=== PATIENT | female | born 1970 | race Caucasian/White ===

== ENCOUNTER → 2017-01-02 | Outpatient (CLI) | payer OTHER ==
[~2017-01-02] MED LIST: ADVIN10050 INH; ALBUAER19 INH; AMPH10TA2 PO; CLR10 PO; EPIPEN0.3 M1 IM; EPP3 IM; HALO0.5T9 PO; KETO10TA IM; LEVO200T32 PO; PROM25TA IM; SUMA6KIT; TOPI100T34 PO; TOPI50TA16 PO; ZNTT/150 PO
[2017-01-02 13:36] LABS: BASO % 0.4 %; BASO ABS # 0.04 K/uL (0-0.2); COMPLETE YES; EOS % 1.1 %; HEMATOCRIT 43.9 % (37-47); IG% 0.3 %; LYMPH % 22.7 %; LYMPH ABS # 2.11 K/uL (1.2-3.4); MEAN CELL VOLUME 88.5 fL (80-100); MEAN CORPUSCULAR HEMOGLOBIN 29.6 pg (25-34); MEAN CORPUSCULAR HGB CONC 33.5 g/dl (32-36); MEAN PLATELET VOLUME 9.8 fL (7.4-10.4); MONO % 10.2 %; NEUT % 65.3 %; PLATELET COUNT 319 K/uL (130-400); RED BLOOD COUNT 4.96 M/uL (4.2-5.4); WHITE BLOOD COUNT 9.28 K/uL (4.8-10.8)
[2017-01-02 14:12] LABS: ALT/SGPT 26 U/L (12-78); AST/SGOT 16 U/L (15-37); BLOOD UREA NITROGEN 12 mg/dl (7-18); BUN/CREATININE RATIO 16.3 (10-20); CALCIUM 8.8 mg/dl (8.5-10.1); CARBON DIOXIDE 25 mmol/L (21-32); CHLORIDE 105 mmol/L (98-107); CREATININE 0.72 mg/dl (0.60-1.20); GLUCOSE 88 mg/dl (70-99); POTASSIUM 4.1 mmol/L (3.5-5.1); SODIUM 140 mmol/L (136-145)
[2017-01-02 14:20] LABS: ALB/GLOB RATIO 1.2 (0.9-2); ALKALINE PHOSPHATASE 83 U/L (45-117); FERRITIN 178.1 ng/ml (8.0-388.0); RHEUMATOID FACTOR < 10.0 U/mL (0-15); THYROID STIMULATING HORMONE < 0.005 uIu/ml (0.300-4.500)
== END | disposition home or self-care (01) ==
LOC: C.LABBC 10:37
DX: R53.83 Other fatigue (principal); M19.90 Unspecified osteoarthritis, unspecified site; E61.1 Iron deficiency

== ENCOUNTER → 2017-03-30 | Outpatient (CLI) | payer OTHER ==
[~2017-03-30] MED LIST changes: -ADVIN10050 INH; -TOPI100T34 PO; -TOPI50TA16 PO
== END | disposition home or self-care (01) ==
LOC: C.LABBC 13:33
DX: E55.9 Vitamin D deficiency, unspecified (principal); E61.1 Iron deficiency

== ENCOUNTER → 2018-03-03 | Outpatient (CLI) | payer OTHER ==
[~2018-03-03] MED LIST changes: +HYDR200T5 PO; +RANI150T85 PO; -ZNTT/150 PO
[2018-03-03 13:12] LABS: BASO % 0.7 %; BASO ABS # 0.04 K/uL (0-0.2); EOS % 2.3 %; EOS ABS # 0.13 K/uL (0-0.5); HEMATOCRIT 47.9 % (37-47); HEMOGLOBIN 16.1 g/dL (12.0-16.0); IG# 0.01 K/uL (0.00-0.02); LYMPH % 37.9 %; LYMPH ABS # 2.12 K/uL (1.2-3.4); MEAN CELL VOLUME 89.9 fL (80-100); MEAN CORPUSCULAR HEMOGLOBIN 30.2 pg (25-34); MEAN CORPUSCULAR HGB CONC 33.6 g/dl (32-36); MEAN PLATELET VOLUME 9.7 fL (7.4-10.4); MONO % 12.5 %; NEUT % 46.4 %; NEUT ABS # 2.59 K/uL (1.4-6.5); PLATELET COUNT 283 K/uL (130-400); WHITE BLOOD COUNT 5.59 K/uL (4.8-10.8)
[2018-03-03 15:24] LABS: ALT/SGPT 34 U/L (12-78); AST/SGOT 28 U/L (15-37); BLOOD UREA NITROGEN 10 mg/dl (7-18); CALCIUM 9.3 mg/dl (8.5-10.1); CARBON DIOXIDE 24 mmol/L (21-32); CREATININE 0.69 mg/dl (0.60-1.20); GLUCOSE 104 mg/dl (70-99); POTASSIUM 3.7 mmol/L (3.5-5.1); SODIUM 139 mmol/L (136-145)
[2018-03-03 15:41] LABS: CHOLESTEROL 159 mg/dl (0-200); LDL CHOLESTEROL CALCULATED 73 mg/dl; TRANSFERRIN 270 mg/dl (200-360)
== END | disposition home or self-care (01) ==
LOC: C.LABBC 10:17
DX: E61.1 Iron deficiency (principal); M19.90 Unspecified osteoarthritis, unspecified site; E03.9 Hypothyroidism, unspecified; E78.5 Hyperlipidemia, unspecified

== ENCOUNTER → 2018-03-10 | Outpatient (CLI) | payer OTHER ==
[2018-03-10 16:51] LABS: BASO % 1.4 %; BASO ABS # 0.09 K/uL (0-0.2); EOS % 3.3 %; EOS ABS # 0.22 K/uL (0-0.5); HEMOGLOBIN 15.7 g/dL (12.0-16.0); IG# 0.01 K/uL (0.00-0.02); LYMPH % 37.8 %; LYMPH ABS # 2.52 K/uL (1.2-3.4); MEAN CORPUSCULAR HEMOGLOBIN 30.4 pg (25-34); MEAN CORPUSCULAR HGB CONC 34.1 g/dl (32-36); MEAN PLATELET VOLUME 9.8 fL (7.4-10.4); MONO % 8.9 %; MONO ABS # 0.59 K/uL (0.11-0.59); NEUT % 48.4 %; NEUT ABS # 3.23 K/uL (1.4-6.5); PLATELET COUNT 304 K/uL (130-400); RED CELL DISTRIBUTION WIDTH CV 12.8 % (11.5-14.5); WHITE BLOOD COUNT 6.66 K/uL (4.8-10.8)
[2018-03-10 17:01] LABS: BLOOD UREA NITROGEN 8 mg/dl (7-18); CALCIUM 9.2 mg/dl (8.5-10.1); CARBON DIOXIDE 27 mmol/L (21-32); CREATININE 0.72 mg/dl (0.60-1.20); GLUCOSE 109 mg/dl (70-99); POTASSIUM 3.9 mmol/L (3.5-5.1); SODIUM 138 mmol/L (136-145)
[2018-03-12 14:26] LABS: ANA SCREEN TC 249X NEGATIVE (NEGATIVE)
== END | disposition home or self-care (01) ==
LOC: C.LABBC 15:24
DX: M19.90 Unspecified osteoarthritis, unspecified site (principal)

== ENCOUNTER 2025-07-07 12:28 | Inpatient (IN) ==
[2025-07-07 14:10] LABS: Hematocrit (blood only) 45.2 % (37.0-47.0); Hemoglobin 14.3 g/dl (12.0-16.0); Immature Granulocytes # (auto) 0.06 K/uL (0.01-0.20); Immature Granulocytes % (auto) 0.5 %; Mean Corpuscular Hemoglobin 28.5 pg (25.0-34.0); Mean Corpuscular Volume 90.0 fL (80.0-100.0); Platelet Count 333 K/uL (130-400); RDW Standard Deviation 44.5 fL (36.4-46.3); Red Blood Count 5.02 M/uL (4.20-5.40); White Blood Count 12.72 K/ul (4.8-10.8)
[2025-07-07 14:28] LABS: Alanine Aminotransferase 22.0 U/L (7-52); Albumin Globulin Ratio 1.1 (0.9-2); Alkaline Phosphatase 136.0 U/L (34-104); Anion Gap 10.0 (3-11); Bilirubin,Total 0.6 mg/dl (0.2-1.0); Blood Urea Nitrogen 16.0 mg/dl (6-23); Calcium 9.9 mg/dl (8.6-10.3); Carbon Dioxide 28.0 mmol/L (21-32); Chloride 102.0 mmol/L (98-107); Creatinine Clr Calc Pharmacy 148.6 ml/min; Globulin 3.7 gm/dl (2.5-4.0); Glucose 94.0 mg/dl (70-99(Fasting)); Potassium 4.1 mmol/L (3.5-5.1); Sodium 140.0 mmol/L (136-145); Total Protein 7.6 gm/dl (6.0-8.3)
--- NOTE | 2025-07-07 16:06 | XRay Report ---
XR hip RT 2V w pelvis CLINICAL HISTORY: Fall. Right hip pain. COMPARISON: Pelvis and right hip radiographs March 06, 2025. MRI of the right hip June 02, 2025. FINDINGS: Sacroiliac joints and symphysis pubis are intact. There are no pelvic or left hip fracture s. There is no proximal right femoral fracture. Severe axial joint space narrowing of the right hip i s noted with associated osteophytosis. A lucency within the superior lateral right acetabulum is new since radiographs of March 06, 2025. IMPRESSION: 1. Lucency within the superolateral right acetabulum which is new since radiographs of March 06, 2025 . This could be degenerative and related to an osteophyte however an acute nondisplaced fracture ken ot be excluded. No proximal right femoral fracture. 2. Severe right hip osteoarthritis. ACT 112: Negative or not required by law. Electronically signed by: Tommy Cancino M.D. 07/07/2025 4:05 PM
--- NOTE | 2025-07-07 16:29 | Emergency Department Note ---
Impression & Plan Cellulitis of left leg, Hip osteoarthritis, Ambulatory dysfunction, Accident due to mechanical fall without injury ED Provider Note NAME: MARSHAL CORDERO AGE: 55 SEX: F : 1970 ARRIVES VIA: Ambulance INFORMANT: Patient, EMS, family ED PROVIDER(S): Bc Matos DO CHIEF COMPLAINT: ambulatory dysfunction HPI: This is a 55-year-old female with the PMHx of RA, GISELA, obesity, asthma, migraines, HTN and osteoarthritis presenting to [facility] for further evaluation of right hip pain. Patient is accompanied by EMS and family who provide additional history. EMS was called today for ambulatory dysfunction after falls and worsening hip pain. Patient remained hemodynamically stable for EMS. Family and the patient provide further history. She has been dealing with worsening right hip pain. She has known osteoarthritis. She states that she follows with orthopedic surgery and is supposed to have a hip replacement but this is not scheduled yet. Patient states that she fell due to pain and ambulatory dysfunction. She notes weakness in her lower extremities. Patient states that this was a low risk mechanical fall. She states she landed on her butt. Patient denies striking her head or loss of consciousness. She denies any prodromal symptoms and states this was purely mechanical. Patient reports ongoing hip pain and now swelling in her lower extremities. She does report redness and warmth to the left lower extremity. She states that she normally has some swelling but this is relatively atypical for her. They deny fever or chills. No cough or congestion. Denies chest pain or palpitations. No shortness of breath. They deny abdominal pain, nausea and vomiting. No urinary complaints. No recent changes in bowel movements. Patient denies recent changes in medications or OTC supplements. Patient offers no other complaints, today. ADDITIONAL HISTORY OBTAINED: Per HPI Chronic Medical/Social Conditions Affecting Care: Per HPI PAST MEDICAL HISTORY: See Below PAST SURGICAL HISTORY: See Below FAMILY HISTORY: See Below SOCIAL HISTORY: See Below HOME MEDICATIONS: See Below ALLERGIES: See Below VITALS: See Below PHYSICAL EXAMINATION: GENERAL: Sitting up in bed, alert, well appearing, well nourished, no distress, non-toxic, obese EYE EXAM: normal conjunctiva. PERRL and EOM's grossly intact. OROPHARYNX: no exudate, no erythema, lips, buccal mucosa, and tongue normal and mucous membranes are moist NECK: supple, no nuchal rigidity, no adenopathy, non-tender LUNGS: Clear to auscultation. Normal chest wall mechanics HEART: no murmurs, regular rate, regular rhythm ABDOMEN: abdomen soft, non-tender, no masses, no rebound or guarding. BACK: Back is symmetrical on inspection and there is no deformity, no midline tenderness, no CVA tenderness. SKIN: no rashes and no bruising UPPER EXTREMITIES: upper extremities are grossly normal. LOWER EXTREMITIES: there is edema present in the bilateral lower extremities. Tenderness over the right hip. Neurovascularly intact lower extremities. Please note erythema and warmth of the left lower extremity. Range of motion of the lower extremities is poor secondary to pain and weakness. Strength is 4 out of 5 globally. NEURO EXAM: Normal sensorium, GCS 15, normal speech, no gross weakness of arms, no gross weakness of legs. MEDICAL DECISION MAKING: Differential diagnoses includes but not limited to pelvic fracture, hip fracture, hip osteoarthritis, septic arthritis, necrotizing fasciitis, cellulitis, ambulatory dysfunction, lower extremity weakness, mechanical falls In summary, this is a 55 year old female who presented with hip pain after fall. Differential as above. Nursing notes and pertinent past medical records reviewed. Vital signs reviewed and the patient is afebrile and HDS. History and presentation revealed patient has had ongoing issues with right hip pain with diagnosis of likely rheumatoid arthritis as well as osteoarthritis. Patient recently had a hip MRI which I have reviewed. This shows significant osteoarthritis of the right hip and acetabulum. Patient does have edema here as well as a small joint effusion. Given her pain she has now had lower extremity weakness and ambulatory dysfunction. The patient does not have findings of acute spinal cord compression. Do feel this is more likely related to her osteoarthritis and pain leading to weakness and a fall at home today. Physical examination revealed extremities are neurovascularly intact but findings of the left lower extremity are consistent with cellulitis. As a result of my initial evaluation, the patient symptoms are likely related to severe hip osteoarthritis leading to a fall today. I see no significant evidence of traumatic injuries. The extremity on the left does appear to be cellulitic. There are no findings to suggest systemic infection and feel this is more likely related to a simple soft tissue infection. Doubt necrotizing fasciitis. Patient does have normal range of motion that is only slightly limited. No severe pain. Doubt septic arthritis. Plan for inflammatory markers, basic labs and plain films. Patient will be given IV fentanyl for pain control. Diagnostics interpreted by me include EKG and cardiac monitoring as listed below: -Cardiac Monitoring: An order was placed for continuous cardiac monitoring. The monitor shows a rate of 70-90s with regular rhythm. -ECG: EKG independently interpreted by me reveals normal sinus rhythm at a ventricular rate of [address] segment changes to suggest STEMI. There is poor R wave progression leading to machine calling possible anterior infarct. Patient has no symptoms of angina at this time Patient completed laboratory studies and imaging. Results independently interpreted by me are minimal leukocytosis. There are elevation of CRP and ESR. Procalcitonin is normal. No significant kidney dysfunction or electrolyte derangements. Plain films of the pelvis and right hip independently interpreted by me reveal likely osteophyte instead of acetabular fracture. This does appear to be present on prior MRI as reviewed by me. I did discuss with orthopedic surgery and we agreed that we could obtain CT imaging to ensure there is no acetabular involvement. Briefly, this was not found on CT scan as independently interpreted by me. Do feel patient will benefit from admission given significant ambulatory dysfunction complicated by left lower extremity cellulitis. The patient was managed with IV Fentanyl for pain control. IV Cefazolin provided for cellulitis coverage. The patient verbalized understanding of the treatment plan and they are comfortable with discharge home. Ultimately, the decision was made to admit the patient for left lower extremity cellulitis now with extremity weakness and ambulatory dysfunction leading to a mechanical fall as well as severe right hip osteoarthritis. I discussed the case with the hospitalist service via telephone/TigerText and they are agreeable to admit the patient to their services. Based on the above, including the patient's age, coexisting illnesses, labs, imaging, and exam findings the decision to treat as an inpatient. I discussed the patient with the hospitalist team who recommended admission to their services. They received the medications, treatments, interventions indicated above and their condition remained stable. I discussed my findings with the patient and their family and they understand and agree with the treatment plan. All patient / family questions were answered to their satisfaction. Consults/Care Managements Discussions: Per [facility] ER treatment provided: See above Procedures:none Critical Care: None The chart was completed utilizing [employer] voice recognition software. Grammatical errors, random word insertions, pronoun errors, and incomplete sentences are an occasional consequence of this system due to software limitations, ambient noise, and hardware issues. Any formal questions or concerns about the content, text, or information contained within the body of this dictation should be directly addressed to the physician for clarification. Past Med/Surg History Problem List (Updated 07/09/25 @ 10:30 by Bc Matos DO) Accident due to mechanical fall without injury (Acute) Ambulatory dysfunction (Acute) Hip osteoarthritis (Acute) Cellulitis of left leg (Acute) Osteoarthritis of right hip Cellulitis Atypical ductal hyperplasia of left breast Rheumatoid arthritis Inflammatory arthritis Migraine with aura Hypertension Obesity due to excess calories Vitamin D deficiency B12 deficiency Chronic idiopathic urticaria Attention deficit disorder Myalgia Arthralgia Hypothyroidism GISELA (obstructive sleep apnea) Chronic migraine Chronic cough Allergic rhinitis Hypersomnia Asthma Pulmonary nodule Medical History Migraines Surgical History History of appendectomy Family History Mother Multiple sclerosis Father Bladder cancer Muscle wasting and atrophy, not elsewhere classified, back, lumbosacral Brother Hypertension Denies family history of Ovarian cancer Prostate cancer Diabetes Myocardial infarction Breast cancer Colorectal cancer Social History Smoking Status: Never smoker Second Hand Exposure: No; Hx Alcohol Use: No Hx Substance Use: No Preferred Language: Namibian Communication Ability: Effective Visual Impairment: Limited Hearing Ability: Normal Cable Installer Repairer Required: No Beliefs That Will Affect Care: None marital status: Single Current Living Situation: Parent current occupational status: employed current occupation: self employed How many Children do You have: 0 Other Information That Helps Us Care for You: No Feels Safe at Home: Yes Safety Concerns: Feels Safe At This Time Childhood Exposure to Second-Hand Smoke: No Diet: regular Diet Comment: cannot have corn caffeine: Yes during the past year weight has: increased > 10 lbs Dental Care, Regularly: Yes Physical Activity Frequency: Does not Exercise Seatbelt Use: always Sunscreen Use: Yes Assistive Devices: Glasses and Other Assistive Devices Comment: rolator Allergies Allergies Allergy/AdvReac Type Severity Reaction Status Date / Time corn Allergy Severe ANAPHYLAXIS Unverified 07/07/25 23:43 -- all corn related products adhesive tape Allergy Mild Itching Verified 07/07/25 23:43 isopropyl alcohol Allergy Mild "alcohol Verified 07/07/25 23:43 prep pads" -- Itching grass pollen Allergy Unknown seasonal Verified 07/07/25 23:44 allergies house dust mite Allergy Unknown seasonal Verified 07/07/25 23:45 allergies Iodinated Contrast Media Allergy Unknown Hives Verified 07/07/25 23:43 pollen extracts Allergy Unknown seasonal Verified 07/07/25 23:44 allergies Sulfa (Sulfonamide AdvReac Intermediate Hives, Verified 07/07/25 23:41 Antibiotics) Joint Pain Home Meds Home Medications Medication Instructions Recorded Confirmed levocetirizine 5 mg tablet (Xyzal) 5 mg PO DAILY PRN allergies 08/04/23 07/07/25 prednisone 10 mg tablet 5 mg .Route .COMPLEX 06/27/25 07/07/25 celecoxib 200 mg capsule 200 mg PO BID 07/07/25 07/07/25 cyanocobalamin (vitamin B-12) 0 mcg IM MONTHLY 07/07/25 07/07/25 1,000 mcg/mL injection solution ergocalciferol (vitamin D2) 1,250 50,000 unit PO .3X WK 07/07/25 07/07/25 mcg (50,000 unit) capsule (Vitamin D2) gabapentin 300 mg capsule 300 mg PO TID 07/07/25 07/07/25 levothyroxine 25 mcg capsule 25 mcg PO UD 07/07/25 07/07/25 prednisone 5 mg tablet 0 mg PO DAILY 07/07/25 07/07/25 rizatriptan 10 mg tablet 0 mg PO UD PRN Headache 07/07/25 07/07/25 tirzepatide (weight loss) 10 0 mg subcut Q7D 07/07/25 07/07/25 mg/0.5 mL subcutaneous solution Previous Rx's Medication Instructions Recorded Auto Titrating CPAP #1 ea 07/10/21 CPAP Supplies #1 ea 07/10/21 azelastine 137 mcg (0.1 %) nasal 2 spray intranasal BID PRN allergy 09/03/22 spray symptoms #30 mL acetaminophen 500 mg capsule 500 mg PO Q4H PRN fever #1 cap 09/11/22 diphenhydramine HCl 25 mg capsule 25 mg PO Q6H PRN allergy symptoms 09/11/22 (Allergy (diphenhydramine)) #1 cap digital therapeutic,CHARLIE device #1 ea 10/15/23 magnesium glycinate 400 mg (4 x 100 mg magnesium) PO 10/15/23 DAILY #30 caps riboflavin (vitamin B2) 400 mg 400 mg PO DAILY #30 tabs 10/15/23 tablet CPAP Supplies #1 ea 11/23/23 insulin syringe-needle U-100 1 mL #100 ea 05/04/24 27 gauge x 1/2" (BD Insulin Syringe) albuterol sulfate 2.5 mg/0.5 mL 2.5 mg (0.5 mL) inhalation Q4H PRN 10/21/24 solution for nebulization shortness of breath or wheezing #30 ea Breo Ellipta 100 mcg-25 mcg/dose 1 inh inhalation DAILY #3 Inhalers 01/16/25 powder for inhalation (fluticasone furoate-vilanterol) albuterol sulfate 90 mcg/actuation 2 inh inhalation QID PRN shortness 01/16/25 breath activated powder inhaler of breath or wheezing #3 ea (ProAir RespiClick) epinephrine 0.3 mg/0.3 mL 0.3 mg (0.3 mL) IM Q10M PRN 03/08/25 injection, auto-injector (EpiPen) anaphylaxis #2 ea Orencia ClickJect 125 mg/mL 125 mg subcut Q7D #4 mL 03/09/25 subcutaneous auto-injector (abatacept) omalizumab 300 mg/2 mL 300 mg (2 mL) subcut .COMPLEX #4 mL 03/14/25 subcutaneous syringe rimegepant 75 mg disintegrating 75 mg PO DAILY PRN migraine 03/27/25 tablet (Nurtec ODT) headache 90 days #27 tabs fremanezumab-vfrm 225 mg/1.5 mL 225 mg (1.5 mL) subcut ONCE 30 03/30/25 subcutaneous auto-injector (Ajovy) days #45 mL duloxetine 60 mg capsule,delayed 120 mg (2 x 60 mg) PO DAILY 90 05/11/25 release (Cymbalta) days #180 caps losartan 25 mg tablet 25 mg PO BID 90 days #180 tabs 05/11/25 3mL Syringe 1.5in 25g needle #10 ea 06/02/25 dextroamphetamine-amphetamine 15 15 mg PO TID PRN add #60 tabs 06/26/25 mg tablet suzetrigine 50 mg tablet (Journavx) 50 mg PO BID #61 tabs 06/26/25 tramadol 5 mg/mL oral solution 100 mg (20 mL) PO TID PRN pain 06/26/25 #473 mL Results & Data (ED) Vital Signs Vital Signs - 24 hr 07/07/25 12:39 07/07/25 12:40 07/07/25 12:51 Temperature 37.5 C Temperature Source Oral Pulse Rate 91 H 94 H Pulse Rate [Apical] Pulse Rate from SpO2 Sensor 89 Pulse Rhythm [Apical] Pulse Strength [Apical] Respiratory Rate 25 H 15 Respiratory Effort / Characteristics Non-Labored Spontaneous Respiratory Depth Normal Respiratory Pattern Regular Blood Pressure 134/77 134/77 Blood Pressure [Left Arm] Blood Pressure Mean 116 96 Blood Pressure Mean [Left Arm] Blood Pressure Position Lying Blood Pressure Position [Left Arm] Pulse Oximetry 94 92 Oxygen Delivery Method Room Air Sepsis Recent Fever Within 48 Hours No Sepsis New/Unexplained Change in Mental Status N/A Sepsis Action Taken by Nursing No Action Required 07/07/25 13:06 07/07/25 13:24 07/07/25 13:36 Temperature Temperature Source Pulse Rate 94 H 90 87 Pulse Rate [Apical] Pulse Rate from SpO2 Sensor 81 Pulse Rhythm [Apical] Pulse Strength [Apical] Respiratory Rate 24 24 Respiratory Effort / Characteristics Respiratory Depth Respiratory Pattern Blood Pressure Blood Pressure [Left Arm] Blood Pressure Mean Blood Pressure Mean [Left Arm] Blood Pressure Position Blood Pressure Position [Left Arm] Pulse Oximetry 96 Oxygen Delivery Method Sepsis Recent Fever Within 48 Hours Sepsis New/Unexplained Change in Mental Status Sepsis Action Taken by Nursing 07/07/25 13:41 07/07/25 14:00 07/07/25 14:00 Temperature Temperature Source Pulse Rate 79 Pulse Rate [Apical] Pulse Rate from SpO2 Sensor 78 Pulse Rhythm [Apical] Pulse Strength [Apical] Respiratory Rate 20 Respiratory Effort / Characteristics Respiratory Depth Respiratory Pattern Blood Pressure 181/103 H 172/97 H Blood Pressure [Left Arm] Blood Pressure Mean 125 126 Blood Pressure Mean [Left Arm] Blood Pressure Position Blood Pressure Position [Left Arm] Pulse Oximetry 95 Oxygen Delivery Method Sepsis Recent Fever Within 48 Hours Sepsis New/Unexplained Change in Mental Status Sepsis Action Taken by Nursing 07/07/25 14:24 07/07/25 14:30 07/07/25 14:33 Temperature Temperature Source Pulse Rate 87 87 Pulse Rate [Apical] Pulse Rate from SpO2 Sensor 84 88 Pulse Rhythm [Apical] Pulse Strength [Apical] Respiratory Rate 22 19 Respiratory Effort / Characteristics Respiratory Depth Respiratory Pattern Blood Pressure 176/102 H Blood Pressure [Left Arm] Blood Pressure Mean 118 Blood Pressure Mean [Left Arm] Blood Pressure Position Blood Pressure Position [Left Arm] Pulse Oximetry 95 96 Oxygen Delivery Method Sepsis Recent Fever Within 48 Hours Sepsis New/Unexplained Change in Mental Status Sepsis Action Taken by Nursing 07/07/25 17:03 Temperature Temperature Source Pulse Rate Pulse Rate [Apical] 99 H Pulse Rate from SpO2 Sensor Pulse Rhythm [Apical] Regular Pulse Strength [Apical] Normal Respiratory Rate 28 H Respiratory Effort / Characteristics Non-Labored Spontaneous Respiratory Depth Normal Respiratory Pattern Regular Blood Pressure Blood Pressure [Left Arm] 136/76 Blood Pressure Mean Blood Pressure Mean [Left Arm] 96 Blood Pressure Position Blood Pressure Position [Left Arm] Lying Pulse Oximetry 93 Oxygen Delivery Method Room Air Sepsis Recent Fever Within 48 Hours Sepsis New/Unexplained Change in Mental Status Sepsis Action Taken by Nursing Laboratory Data 07/08/25 07:19 07/08/25 07:19 Lab Results 07/07/25 Range/Units 12:47 WBC 12.72 H (4.8-10.8) K/ul RBC 5.02 (4.20-5.40) M/uL Hgb 14.3 (12.0-16.0) g/dl Hct 45.2 (37.0-47.0) % MCV 90.0 (80.0-100.0) fL MCH 28.5 (25.0-34.0) pg MCHC 31.6 L (32.0-36.0) g/dL RDW Std Deviation 44.5 (36.4-46.3) fL RDW Coeff of [place] 13.7 (11.5-14.5) % Plt Count 333 (130-400) K/uL MPV 9.8 (9.4-12.4) fL Immature Gran % (Auto) 0.5 % Neut % (Auto) 79.1 % Lymph % (Auto) 12.2 % [place] % (Auto) 6.6 % Eos % (Auto) 1.0 % Baso % (Auto) 0.6 % Neut # (Auto) 10.06 H (1.40-6.50) K/uL Lymph # (Auto) 1.55 (1.20-3.40) K/uL [place] # (Auto) 0.84 H (0.11-0.59) K/uL Eos # (Auto) 0.13 (0.00-0.50) K/uL Baso # (Auto) 0.08 (0.00-0.20) K/uL Immature Gran # (Auto) 0.06 (0.01-0.20) K/uL ESR 73 H (0-30) mm/hr Sodium 140 (136-145) mmol/L Potassium 4.1 (3.5-5.1) mmol/L Chloride 102 (98-107) mmol/L Carbon Dioxide 28 (21-32) mmol/L Anion Gap 10 (3-11) BUN 16 (6-23) mg/dl Creatinine 0.65 (0.6-1.2) mg/dl Est Cr Clr Drug Dosing 148.6 ml/min eGFR 102.63 BUN/Creatinine Ratio 24.6 H (10-20) Glucose 94 (70-99(Fasting)) mg/dl Calcium 9.9 (8.6-10.3) mg/dl Total Bilirubin 0.6 (0.2-1.0) mg/dl AST 24 (13-39) U/L ALT 22 (7-52) U/L Alkaline Phosphatase 136 H (34-104) U/L C-Reactive Protein 7.97 H (0-0.5) mg/dl B-Natriuretic Peptide 21 (0-100) pg/ml Total Protein 7.6 (6.0-8.3) gm/dl Albumin 3.9 (3.4-5.0) gm/dl Globulin 3.7 (2.5-4.0) gm/dl Albumin/Globulin Ratio 1.1 (0.9-2) Procalcitonin 0.05 (0-0.5) ng/ml Administered Medications Celecoxib (Celebrex 200 Mg Cap) 200 mg PO BID SOL Stop: 08/06/25 22:16 Last Admin: 07/09/25 08:07 Dose: 200 mg Documented By: Admin: 07/08/25 19:48 Dose: 200 mg Documented By: Admin: 07/08/25 09:29 Dose: 200 mg Documented By: Admin: 07/08/25 01:18 Dose: 200 mg Documented By: ROSS Duloxetine HCl (Duloxetine Hcl 60 Mg Cap) 120 mg PO DAILY SOL Stop: 08/07/25 08:59 Last Admin: 07/09/25 08:07 Dose: 120 mg Documented By: Admin: 07/08/25 09:28 Dose: 120 mg Documented By: ARTUR Fluticasone/Vilanterol (Fluticasone/Vilanterol 100/25mcg 14 Puffs/Inhaler) 1 puffs INH DAILY SOL Stop: 08/07/25 08:59 Last Admin: 07/09/25 08:08 Dose: 1 puffs Documented By: Admin: 07/08/25 09:28 Dose: 1 puffs Documented By: ARTUR Gabapentin (Gabapentin 300 Mg Cap) 300 mg PO TID SOL Stop: 08/06/25 22:16 Last Admin: 07/09/25 08:07 Dose: 300 mg Documented By: Admin: 07/08/25 19:48 Dose: 300 mg Documented By: Admin: 07/08/25 13:26 Dose: 300 mg Documented By: Admin: 07/08/25 09:28 Dose: 300 mg Documented By: Admin: 07/08/25 01:17 Dose: 300 mg Documented By: ROSS Heparin Sodium (Porcine) (Heparin Sod 5,000 Unit/0.5 Ml Vial) 5,000 units SQ Q12 SOL Stop: 08/06/25 22:16 Last Admin: 07/09/25 08:07 Dose: 5,000 units Documented By: Admin: 07/08/25 19:49 Dose: 5,000 units Documented By: Admin: 07/08/25 09:29 Dose: 5,000 units Documented By: Admin: 07/08/25 00:20 Dose: 5,000 units Documented By: MARY ELLEN Cefazolin Sodium (Ancef 2000mg) 2,000 mg in 15 mls @ 2.5 mls/min IV Q8H SOL Stop: 07/15/25 00:00 Last Admin: 07/09/25 08:07 Dose: 2.5 mls/min Documented By: Admin: 07/08/25 19:49 Dose: 2.5 mls/min Documented By: Admin: 07/08/25 16:44 Dose: 2.5 mls/min Documented By: Admin: 07/08/25 09:28 Dose: 2.5 mls/min Documented By: Admin: 07/08/25 00:28 Dose: 2.5 mls/min Documented By: MARY ELLEN Losartan Potassium (Losartan Potassium 25 Mg Tab) 25 mg PO BID [facility] Stop: 08/06/25 22:16 Last Admin: 07/09/25 08:07 Dose: 25 mg Documented By: Admin: 07/08/25 19:48 Dose: 25 mg Documented By: Admin: 07/08/25 11:42 Dose: 25 mg Documented By: Admin: 07/08/25 01:18 Dose: 25 mg Documented By: ROSS Miscellaneous (Levothyroxine (Compounded Formulation): Order Awaiting Action) 1 each N/A QS [facility] Stop: 08/07/25 07:59 Last Admin: 07/09/25 07:11 Dose: Not Given Documented By: Admin: 07/08/25 22:18 Dose: Not Given Documented By: Admin: 07/08/25 15:21 Dose: Not Given Documented By: Admin: 07/08/25 07:56 Dose: Not Given Documented By: ARTUR Morphine Sulfate (Morphine Sulfate 2 Mg/Ml Carp) 2 mg IV Q4H PRN PRN Reason: Moderate Pain (Scale 4, 5, 6) Stop: 07/21/25 18:25 Last Admin: 07/09/25 04:05 Dose: 2 mg Documented By: Admin: 07/08/25 22:20 Dose: 2 mg Documented By: Admin: 07/08/25 17:56 Dose: 2 mg Documented By: Admin: 07/08/25 09:28 Dose: 2 mg Documented By: Admin: 07/08/25 00:44 Dose: 2 mg Documented By: MARY ELLEN Admin: 07/07/25 20:46 Dose: 2 mg Documented By: DONNA Morphine Sulfate (Morphine Sulfate 4 Mg/Ml 1 Ml Carp\\Vial) 4 mg IV Q6H PRN PRN Reason: Severe Pain (Scale 7, 8, 9,10) Stop: 07/21/25 18:25 Last Admin: 07/08/25 13:26 Dose: 4 mg Documented By: ARTUR Journavyx: Non- Formulary Patient's Own Med 1 each PO Q12H PRN PRN Reason: Moderate-Severe Pain Stop: 08/07/25 18:44 Last Admin: 07/09/25 08:18 Dose: 1 ea Documented By: ARTUR Patient's Own Med: (Acetaminophen 500mg) 1 each PO Q4H PRN PRN Reason: Mild Pain/Fever Stop: 08/07/25 19:29 Last Admin: 07/09/25 07:55 Dose: 1 ea Documented By: ARTUR Patient's Own Med: Prednisolone 2.5mg Capsules 2 each PO DAILY SOL Stop: 08/08/25 08:59 Last Admin: 07/09/25 08:07 Dose: 2 each Documented By: ARTUR Discontinued Medications Fentanyl Citrate (Fentanyl Citrate Pf 100 Mcg/2 Ml Vial) 50 mcg IV NOW ONE Stop: 07/07/25 14:55 Last Admin: 07/07/25 15:01 Dose: 50 mcg Documented By: JAY Cefazolin Sodium (Ancef 2000mg) 2,000 mg in 15 mls @ 3.75 mls/min IV NOW STA Stop: 07/07/25 15:37 Last Admin: 07/07/25 15:55 Dose: 3.75 mls/min Documented By: JAY Miscellaneous (Tramadol 5 Mg/Ml Soln: Order Awaiting Action) 1 each N/A QS SOL Stop: 08/07/25 07:59 Last Admin: 07/08/25 15:21 Dose: Not Given Documented By: Admin: 07/08/25 07:56 Dose: Not Given Documented By: ARTUR Prednisone (Prednisone 5 Mg Tab) 5 mg PO DAILY SOL Stop: 08/07/25 08:59 Last Admin: 07/08/25 09:36 Dose: Not Given Documented By: ARTUR Imaging Data Radiologist's Impression: Hip/Pelvis X-Ray 07/07/25 14:54 XR hip RT 2V w pelvis CLINICAL HISTORY: Fall. Right hip pain. COMPARISON: Pelvis and right hip radiographs March 06, 2025. MRI of the right hip June 02, 2025. FINDINGS: Sacroiliac joints and symphysis pubis are intact. There are no pelvic or left hip fractures. There is no proximal right femoral fracture. Severe axial joint space narrowing of the right hip is noted with associated osteophytosis. A lucency within the superior lateral right acetabulum is new since radiographs of March 06, 2025. IMPRESSION: 1. Lucency within the superolateral right acetabulum which is new since radiographs of March 06, 2025. This could be degenerative and related to an osteophyte however an acute nondisplaced fracture cannot be excluded. No proximal right femoral fracture. 2. Severe right hip osteoarthritis. ACT 112: Negative or not required by law. Electronically signed by: Tommy Cancino M.D. 07/07/2025 4:[address] 07/07/25 16:25 Clinical history: Possible fracture Technique: Axial computed tomography images were obtained of the pelvis without intravenous contrast Findings: No definite fracture is identified. There is a small well corticated bone fragment lateral to the superior right acetabulum that may represent a osteophyte or chronic heterotopic ossification. There is a small sclerotic focus in the superior right acetabulum, likely a benign bone island. There is severe right hip osteoarthritis and there is moderate severity left hip osteoarthritis. The sacroiliac joints appear unremarkable. There is no sign of osteomyelitis. There is scoliosis and degenerative disc disease of the visualized lumbar spine. The visualized musculature appears unremarkable. No soft tissue mass or fluid collection is seen The iliac arteries are of normal caliber. No adenopathy is noted. The appendix appears to have been removed. There is mild sigmoid diverticulosis without evidence of diverticulitis. There is constipation. No free intraperitoneal fluid or air is seen. No definite pathology of the urinary bladder is noted Impression: 1. No definite acute fracture 2. Right worse than left hip osteoarthritis Electronically signed by Steve Painter 07-07-2025 5:12 PM Discharge Plan Visit Data Chief Complaint: Leg Weakness, Bilateral ED Provider: Bc Matos Discharge Problem: Cellulitis of left leg, Hip osteoarthritis, Ambulatory dysfunction, Accident due to mechanical fall without injury Patient Disposition: Admitted As Inpatient Condition: Fair Discharge Instructions Interventions: ED Discharge Assessment Last Done: 07/07/25 22:17
--- NOTE | 2025-07-07 17:13 | CT Scan Report ---
Clinical history: Possible fracture Technique: Axial computed tomography images were obtained of the pelvis without intravenous contrast Findings: No definite fracture is identified. There is a small well corticated bone fragment lateral to the superior right acetabulum that may represent a osteophyte or chronic heterotopic ossification. There is a small sclerotic focus in the superior right acetabulum, likely a benign bone island. There is severe right hip osteoarthritis and there is moderate severity left hip osteoarthritis. The sacroiliac joints appear unremarkable. There is no sign of osteomyelitis. There is scoliosis and degenerative disc disease of the visualized lumbar spine. The visualized musculature appears unremarkable. No soft tissue mass or fluid collection is seen The iliac arteries are of normal caliber. No adenopathy is noted. The appendix appears to have been removed. There is mild sigmoid diverticulosis without evidence of diverticulitis. There is constipation. No free intraperitoneal fluid or air is seen. No definite pathology of the urinary bladder is noted Impression: 1. No definite acute fracture 2. Right worse than left hip osteoarthritis Electronically signed by Steve Painter 07-07-2025 5:12 PM
--- NOTE | 2025-07-07 18:47 | Hospitalist Progress Note ---
Date of Service July 07, 2025 Assessment & Plan (1) Cellulitis: Plan #b/l LE cellulitis - admit to [facility] - increased WBC, elevated inflammatory markers - cefazolin IV - mild b/l edema, r/o DVT #Right hip pain - severe OA - reviewed pelvis CT and hip XR - pt has ortho appointment on 07/21, but pt has been having significant ambulatory decline and severe pain - will request ortho eval inpatient (pt would really like to have ortho evaluation as pt is becoming non ambulatory) - PT / OT eval - pain control with IV morphine (pt will bring in tylenol and tramadol from home- severe corn allergy) - cont gabapentin #Asthma - cont breo, prn albuterol - chronic prednisone, cont #Hypothyroidism - cont levothyroxine #HTN - cont losartan #Allergies - pt has severe allergy to corn, which pt reports can be in medications - pharmacist made aware #DVT ppx: hep subq Subjective 55 yo F with PMHx of asthma, corn allergy, obesity, severe osteoarthritis presents with worsening ambulatory dysfunction, multiple falls, and lower extremity redness. Pt states that she has been progressively worsening in her ambulatory status due to severe osteoarthritis. She used to walk with cane, but now is using a rollator. She has a follow up with Dr. Carmen on 07/21 but she is concerned about ongoing worsening of her legs. In the ED, she was found to have LE cellulitis, elevated WBC. Hospitalist consulted for admission. Review of Systems Review of Systems: Comprehensive ROS completed and is otherwise negative. Physical Exam Physical Exam: Gen: no acute distress, lying in bed comfortable HEENT: NC/AT, MMM Lungs: nonlabored breathing, CTAB CVS: s1s2nl, RRR Abd: nl bowel sounds, soft, NT / ND : no [place] Ext: erythema b/l Neuro: AAOx3 Psych: calm cooperative Results & Data Results & Data Vital Signs (Past 12 Hours) Vital Signs Temp Pulse Pulse Resp BP BP Pulse Ox 07/07/25 17:47 93 H 07/07/25 17:03 99 H 28 H 136/76 93 07/07/25 14:33 87 19 96 07/07/25 14:30 176/102 H 07/07/25 14:24 87 22 95 07/07/25 14:00 79 20 95 07/07/25 14:00 172/97 H 07/07/25 13:41 181/103 H 07/07/25 13:36 87 24 07/07/25 13:24 90 24 96 07/07/25 13:06 94 H 07/07/25 12:51 94 H 15 92 07/07/25 12:40 37.5 C 91 H 25 H 134/77 94 07/07/25 12:39 134/77 O2 Del Method 07/07/25 17:47 07/07/25 17:03 Room Air 07/07/25 14:33 07/07/25 14:30 07/07/25 14:24 07/07/25 14:00 07/07/25 14:00 07/07/25 13:41 07/07/25 13:36 07/07/25 13:24 07/07/25 13:06 07/07/25 12:51 07/07/25 12:40 Room Air 07/07/25 12:39 PG Care Time/CCT Total # of Minutes Spent Total Time Spent with Patient: Total time spent is greater than 50% in coordination of care (as documented) at patient's floor/unit and/or counseling patient: Coding Level of Care Code 58431 SUB INP/OBS CARE 3/50MIN Diagnoses Cellulitis L03.90
[2025-07-07] MEDS: MoRPHine SULFATE 2 MG/ML CARP IV PRN (20:46)
[2025-07-07] MEDS ORDERED: diphenhydrAMINE Capsule 25 MG CAP PO PRN (22:17)
--- NOTE | 2025-07-07 22:35 | Ultrasound Report ---
Exam(s): US VENOUS BILATERAL LOWER EXTREMITIES EXAM: US Duplex Bilateral Lower Extremities Veins CLINICAL HISTORY: Reason for exam: edema, r/o dvt. TECHNIQUE: Real-time duplex ultrasound scan of the bilateral lower extremity veins integrating B-mode two-dimensional vascular structure, Doppler spectral analysis, color flow Doppler imaging and compression. COMPARISON: No relevant prior studies available. FINDINGS: Right deep veins: Unremarkable. No DVT in the right common femoral, femoral, proximal deep femoral or popliteal veins. The veins demonstrate normal color flow, are normally compressible, with normal phasic flow and/or augmentation response. Right superficial veins: Unremarkable. No thrombus in the visualized right great saphenous vein. Left deep veins: Unremarkable. No DVT in the left common femoral, femoral, proximal deep femoral or popliteal veins. The veins demonstrate normal color flow, are normally compressible, with normal phasic flow and/or augmentation response. Left superficial veins: Unremarkable. No thrombus in the visualized left great saphenous vein. Soft tissues: No acute findings. No popliteal cyst. IMPRESSION: No evidence of DVT in the lower extremities. Electronically signed by: Van Rios MD 07/07/25 22:34 PM
[2025-07-07] MEDS ORDERED: EPINEPHrine INJ 1 MG/ML AMP IM PRN (23:40)
[2025-07-08] MEDS: HEPARIN SOD 5,000 UNIT/0.5 ML VIAL SQ SCH (00:20)
[2025-07-08] MEDS: GABAPENTIN 300 MG CAP PO SCH (01:17)
[2025-07-08] MEDS: CeleBREX 200 MG CAP PO SCH (01:18)
[2025-07-08] MEDS: LOSARTAN POTASSIUM 25 MG TAB PO SCH (01:18)
--- NOTE | 2025-07-08 06:02 | Electrocardiogram Report ---
Test Reason : Blood Pressure : */* mmHG Vent. Rate : 93 BPM Atrial Rate : 93 BPM P-R Int : 178 ms QRS Dur : 86 ms QT Int : 362 ms P-R-T Axes : -18 -11 -13 degrees QTcB Int : 450 ms Normal sinus rhythm Possible Anterior infarct Inferior infarct Abnormal ECG When compared with ECG of 14-May-2011 16:28, Premature atrial complexes are no longer Present Possible Anterior infarct is now Present Inferior infarct is now Present Confirmed by Barak Boyce ([id number]) on 07/08/2025 6:02:47 AM Referred By: REFERRED SELF Confirmed By: Barak Boyce
[2025-07-08 07:35] LABS: Hematocrit (blood only) 39.2 % (37.0-47.0); Hemoglobin 12.5 g/dl (12.0-16.0); Mean Corpuscular Hemoglobin 28.7 pg (25.0-34.0); Mean Corpuscular Volume 89.9 fL (80.0-100.0); Platelet Count 305 K/uL (130-400); RDW Standard Deviation 45.6 fL (36.4-46.3); Red Blood Count 4.36 M/uL (4.20-5.40); White Blood Count 8.51 K/ul (4.8-10.8)
[2025-07-08 08:03] LABS: Anion Gap 7.0 (3-11); Blood Urea Nitrogen 12.0 mg/dl (6-23); Calcium 9.0 mg/dl (8.6-10.3); Carbon Dioxide 28.0 mmol/L (21-32); Chloride 105.0 mmol/L (98-107); Creatinine Clr Calc Pharmacy 167.6 ml/min; Glucose 104.0 mg/dl (70-99(Fasting)); Magnesium 2.0 mg/dl (1.7-2.4); Potassium 3.7 mmol/L (3.5-5.1); Sodium 140.0 mmol/L (136-145)
--- NOTE | 2025-07-08 08:07 | Orthopedic Consultation ---
Date of Consultation July 08, 2025 Assessment & Plan (1) Osteoarthritis of right hip: (2) Rheumatoid arthritis: (3) Cellulitis: (4) Hypertension: (5) Obesity due to excess calories: (6) Myalgia: (7) GISELA (obstructive sleep apnea): (8) Allergic rhinitis: (9) Asthma: (10) Pulmonary nodule: Plan This is a 55-year-old female who appears older than stated age who presents for evaluation of her right hip. The patient has been dealing with ongoing right hip pain for the past 6 or so months and recently has gotten worse. This has taken place over the course of the last few weeks. Evaluation this morning, my primary working diagnosis is a exacerbation of her chronic underlying right hip osteoarthritis and rheumatoid arthritis. I did explain to the patient that the other consideration would be for septic hip given her elevated inflammatory markers upon presentation. Considering on physical exam today, micromotion of the hip did not cause her significant pain and logroll and heel strike did not cause her significant pain in the hip and she was able to flex and extend her knee thereby moving her hip, my suspicion of septic arthritis of the right hip is quite low.Additionally, the patient's lower extremity cellulitis may have caused her elevated inflammatory markers and the patient lives with baseline elevated inflammatory markers due to her rheumatoid arthritis. With regard to the patient's right hip osteoarthritis. She does have an appointment scheduled with Dr. Carmen. The patient notes today that her goal from admission was to have a total hip replacement done while she is in the hospital. I explained to her that that is not appropriate as patients require medical optimization prior to surgical management. Additionally, I did explain to the patient that her severe obesity puts her at a very high risk of perioperative complications and at this point, I am not certain that she is actually indicated for a total hip replacement. I would leave this up to her operative surgeon, however. I would recommend the patient work aggressively with physical therapy and Occupational Therapy in order to help her become more mobile. No acute orthopedic surgical intervention planned at this time. We will continue to monitor the patient's clinical course. History of Present Illness Reason for Consultation: right hip pain Attending Physician: Halley Shukla MD History of Present Illness 55 yo F with PMHx of asthma, morbid obesity, osteoarthritis presents with wo rsening ambulatory dysfunction, multiple falls, and lower extremity redness. Pt states that she has been progressively worsening in her ambulatory status due to her hip osteoarthritis. She notes that the pain has been present for a few months but has been worsening over the last couple of weeks.She used to walk with cane, but now is using a rollator at home. She has an appointment with Dr. Carmen on 07/21 but she is concerned about ongoing worsening of her legs. She is essentially been admitted for ambulatory dysfunction secondary to her right hip. In the emergency department she was found to have lower extremity cellulitis and elevated inflammatory markers. She was started on cefazolin. Allergies Allergy/AdvReac Type Severity Reaction Status Date / Time corn Allergy Severe ANAPHYLAXIS Unverified 07/07/25 23:43 -- all corn related products adhesive tape Allergy Mild Itching Verified 07/07/25 23:43 isopropyl alcohol Allergy Mild "alcohol Verified 07/07/25 23:43 prep pads" -- Itching grass pollen Allergy Unknown seasonal Verified 07/07/25 23:44 allergies house dust mite Allergy Unknown seasonal Verified 07/07/25 23:45 allergies Iodinated Contrast Media Allergy Unknown Hives Verified 07/07/25 23:43 pollen extracts Allergy Unknown seasonal Verified 07/07/25 23:44 allergies Sulfa (Sulfonamide AdvReac Intermediate Hives, Verified 07/07/25 23:41 Antibiotics) Joint Pain Home Medications Medication Instructions Recorded Confirmed Type Auto Titrating CPAP #1 ea 07/10/21 06/27/25 Rx CPAP Supplies #1 ea 07/10/21 06/27/25 Rx azelastine 137 mcg (0.1 %) nasal 2 spray intranasal BID PRN allergy 09/03/22 07/07/25 Rx spray symptoms #30 mL acetaminophen 500 mg capsule 500 mg PO Q4H PRN fever #1 cap 09/11/22 07/07/25 Rx diphenhydramine HCl 25 mg capsule 25 mg PO Q6H PRN allergy symptoms 09/11/22 07/07/25 Rx (Allergy (diphenhydramine)) #1 cap levocetirizine 5 mg tablet (Xyzal) 5 mg PO DAILY PRN allergies 08/04/23 07/07/25 History digital therapeutic,CHARLIE device #1 ea 10/15/23 06/27/25 Rx magnesium glycinate 400 mg (4 x 100 mg magnesium) PO 10/15/23 07/07/25 Rx DAILY #30 caps riboflavin (vitamin B2) 400 mg 400 mg PO DAILY #30 tabs 10/15/23 07/07/25 Rx tablet CPAP Supplies #1 ea 11/23/23 06/27/25 Rx insulin syringe-needle U-100 1 mL #100 ea 05/04/24 06/27/25 Rx 27 gauge x 1/2" (BD Insulin Syringe) albuterol sulfate 2.5 mg/0.5 mL 2.5 mg (0.5 mL) inhalation Q4H PRN 10/21/24 07/07/25 Rx solution for nebulization shortness of breath or wheezing #30 ea Breo Ellipta 100 mcg-25 mcg/dose 1 inh inhalation DAILY #3 Inhalers 01/16/25 07/07/25 Rx powder for inhalation (fluticasone furoate-vilanterol) albuterol sulfate 90 mcg/actuation 2 inh inhalation QID PRN shortness 01/16/25 07/07/25 Rx breath activated powder inhaler of breath or wheezing #3 ea (ProAir RespiClick) epinephrine 0.3 mg/0.3 mL 0.3 mg (0.3 mL) IM Q10M PRN 03/08/25 07/07/25 Rx injection, auto-injector (EpiPen) anaphylaxis #2 ea Orencia ClickJect 125 mg/mL 125 mg subcut Q7D #4 mL 03/09/25 07/07/25 Rx subcutaneous auto-injector (abatacept) omalizumab 300 mg/2 mL 300 mg (2 mL) subcut .COMPLEX #4 mL 03/14/25 07/07/25 Rx subcutaneous syringe rimegepant 75 mg disintegrating 75 mg PO DAILY PRN migraine 03/27/25 07/07/25 Rx tablet (Nurtec ODT) headache 90 days #27 tabs fremanezumab-vfrm 225 mg/1.5 mL 225 mg (1.5 mL) subcut ONCE 30 03/30/25 07/07/25 Rx subcutaneous auto-injector (Ajovy) days #45 mL duloxetine 60 mg capsule,delayed 120 mg (2 x 60 mg) PO DAILY 90 05/11/25 07/07/25 Rx release (Cymbalta) days #180 caps losartan 25 mg tablet 25 mg PO BID 90 days #180 tabs 05/11/25 07/07/25 Rx 3mL Syringe 1.5in 25g needle #10 ea 06/02/25 06/27/25 Rx dextroamphetamine-amphetamine 15 15 mg PO TID PRN add #60 tabs 06/26/25 07/07/25 Rx mg tablet suzetrigine 50 mg tablet (Journavx) 50 mg PO BID #61 tabs 06/26/25 07/07/25 Rx tramadol 5 mg/mL oral solution 100 mg (20 mL) PO TID PRN pain 06/26/25 07/07/25 Rx #473 mL prednisone 10 mg tablet 5 mg .Route .COMPLEX 06/27/25 07/07/25 History celecoxib 200 mg capsule 200 mg PO BID 07/07/25 07/07/25 History cyanocobalamin (vitamin B-12) 0 mcg IM MONTHLY 07/07/25 07/07/25 History 1,000 mcg/mL injection solution ergocalciferol (vitamin D2) 1,250 50,000 unit PO .3X WK 07/07/25 07/07/25 History mcg (50,000 unit) capsule (Vitamin D2) gabapentin 300 mg capsule 300 mg PO TID 07/07/25 07/07/25 History levothyroxine 25 mcg capsule 25 mcg PO UD 07/07/25 07/07/25 History prednisone 5 mg tablet 0 mg PO DAILY 07/07/25 07/07/25 History rizatriptan 10 mg tablet 0 mg PO UD PRN Headache 07/07/25 07/07/25 History tirzepatide (weight loss) 10 0 mg subcut Q7D 07/07/25 07/07/25 History mg/0.5 mL subcutaneous solution Patient History Medical History Migraines Surgical History History of appendectomy Family History Mother Multiple sclerosis Father Bladder cancer Muscle wasting and atrophy, not elsewhere classified, back, lumbosacral Brother Hypertension Denies family history of Ovarian cancer Prostate cancer Diabetes Myocardial infarction Breast cancer Colorectal cancer Social History Smoking Status: Never smoker Second Hand Exposure: No; Hx Alcohol Use: No Hx Substance Use: No Preferred Language: Mexican Communication Ability: Effective Visual Impairment: Limited Hearing Ability: Normal Resident Service Coordinator Required: No Beliefs That Will Affect Care: None marital status: Single Current Living Situation: Parent current occupational status: employed current occupation: self employed How many Children do You have: 0 Other Information That Helps Us Care for You: No Feels Safe at Home: Yes Safety Concerns: Feels Safe At This Time Childhood Exposure to Second-Hand Smoke: No Diet: regular Diet Comment: cannot have corn caffeine: Yes during the past year weight has: increased > 10 lbs Dental Care, Regularly: Yes Physical Activity Frequency: Does not Exercise Seatbelt Use: always Sunscreen Use: Yes Assistive Devices: Glasses and Other Assistive Devices Comment: rolator Review of Systems Review of Systems: All systems reviewed & are unremarkable except as noted in HPI & below Physical Exam Physical Exam: On physical examination the patient's right lower extremity, she has no pain with heel strike or logroll in the hip. She does have a mild cellulitis noted of her right foot and ankle. When asked to bend her knee, the patient does not have any pain in her hips. She does have pain with hyper hip flexion. She has intact sensation throughout the lower extremity. Results & Data Vital Signs (Past 12 Hours) Vital Signs Temp Pulse Pulse Pulse Resp BP BP 07/08/25 07:22 36.6 C 66 20 120/73 07/08/25 03:24 86 15 07/08/25 01:06 36.9 C 87 20 113/73 07/07/25 21:46 75 07/07/25 21:37 77 27 H 150/84 H 07/07/25 20:35 91 H 22 125/73 Pulse Ox O2 Del Method FiO2 07/08/25 07:22 94 BiPAP 07/08/25 03:24 92 21 07/08/25 01:06 90 Room Air 07/07/25 21:46 07/07/25 21:37 93 Room Air 07/07/25 20:35 92 Laboratory Results Upon presentation, the patient was noted to have an elevated white blood cell count of greater than 12. Her CRP was elevated as well at greater than 7 mg/dL. Diagnostic Findings X-rays of the right hip and CT scan of the pelvis were personally interpreted and reviewed. These demonstrate no acute osseous abnormalities. The patient has severe osteoarthritic change in the right hip with joint space narrowing, so-called sclerosis and cyst, osteophytes. The patient may have a fractured osteophyte superolaterally. (2) Rheumatoid arthritis Rheumatoid arthritis location: unspecified site Rheumatoid factor presence: without rheumatoid factor Qualified Code(s): M06.00 - Rheumatoid arthritis without rheumatoid factor, unspecified site
[2025-07-08] MEDS: FLUTICASONE/VILANTEROL 100/25MCG 14 PUFFS/INHALER INH SCH (09:28)
[2025-07-08] MEDS: MoRPHine SULFATE 4 MG/ML 1 ML CARP\\VIAL IV PRN (13:26)
--- NOTE | 2025-07-08 19:08 | Hospitalist Progress Note ---
Date of Service July 08, 2025 Assessment & Plan (1) Cellulitis: Plan #b/l LE cellulitis - significantly improved - admit to [facility] - increased WBC, elevated inflammatory markers - cont cefazolin IV - mild b/l edema, b/l LE duplex neg #Right hip pain - severe OA - reviewed pelvis CT and hip XR - pt has ortho appointment on 07/21, but pt has been having significant ambulatory decline and severe pain - ortho recs appreciated - PT / OT eval - pain control with IV morphine (pt will bring in tylenol and tramadol from home- severe corn allergy) - cont gabapentin #Asthma - cont breo, prn albuterol - chronic prednisone, cont #Hypothyroidism - cont levothyroxine #HTN - cont losartan #RA - cont home meds #Allergies - pt has severe allergy to corn, which pt reports can be in medications - pharmacist made aware #DVT ppx: hep subq #Dispo- pending PT / OT eval Admission and Anticipated Discharge Date Admission Date: July 07, 2025 Subjective No acute events overnight Currently no new symptoms Review of Systems Review of Systems: Comprehensive ROS completed and is otherwise negative. Physical Exam Physical Exam: Gen: no acute distress, lying in bed comfortable HEENT: NC/AT, MMM Lungs: nonlabored breathing, CTAB CVS: s1s2nl, RRR Abd: nl bowel sounds, soft, NT / ND : no [place] Ext: erythema b/l Neuro: AAOx3 Psych: calm cooperative Results & Data Results & Data Vital Signs (Past 12 Hours) Vital Signs Temp Pulse Resp BP Pulse Ox O2 Del Method 07/08/25 15:39 36.6 C 85 16 111/73 95 Room Air 07/08/25 07:22 36.6 C 66 20 120/73 94 BiPAP PG Care Time/CCT Total # of Minutes Spent Total Time Spent with Patient: Total time spent is greater than 50% in coordination of care (as documented) at patient's floor/unit and/or counseling patient: Coding Level of Care Code 83028 SUB INP/OBS CARE 2/35MIN Diagnoses Cellulitis L03.90
[2025-07-09] MEDS: ACETAMINOPHEN 500 MG PO PRN (07:55)
[2025-07-09] MEDS: PREDNISOLONE PO SCH (08:07)
[2025-07-09] MEDS: [UNRECOGNIZED DRUG - OTHER] PO PRN (08:18)
--- NOTE | 2025-07-09 08:34 | Orthopedic Progress Note ---
Date of Service July 09, 2025 Assessment & Plan (1) Osteoarthritis of right hip: (2) Rheumatoid arthritis: (3) Cellulitis: (4) Hypertension: (5) Obesity due to excess calories: (6) Myalgia: (7) GISELA (obstructive sleep apnea): (8) Allergic rhinitis: (9) Asthma: (10) Pulmonary nodule: Plan This is a 55-year-old female who appears older than stated age who presents for evaluation of her right hip. The patient has been dealing with ongoing right hip pain for the past 6 or so months and recently has gotten worse. This has taken place over the course of the last few weeks. Evaluation this morning, my primary working diagnosis is a exacerbation of her chronic underlying right hip osteoarthritis and rheumatoid arthritis. I did explain to the patient that the other consideration would be for septic hip given her elevated inflammatory markers upon presentation. Considering on physical exam today, micromotion of the hip did not cause her significant pain and logroll and heel strike did not cause her significant pain in the hip and she was able to flex and extend her knee thereby moving her hip, my suspicion of septic arthritis of the right hip is quite low.Additionally, the patient's lower extremity cellulitis may have caused her elevated inflammatory markers and the patient lives with baseline elevated inflammatory markers due to her rheumatoid arthritis. Additionally, the patient has been afebrile and her pulse and respirations have been under control, so I believe the chances of a septic hip are quite low at this time. With regard to the patient's right hip osteoarthritis, I would recommend the patient work aggressively with physical therapy and Occupational Therapy in order to help her become more mobile. No acute orthopedic surgical intervention planned at this time. Admission and Anticipated Discharge Date Admission Date: July 07, 2025 Subjective No acute events overnight Currently no new symptoms Did not work with physical therapy yesterday. Review of Systems Review of Systems: Negative most otherwise stated in HPI Physical Exam Physical Exam: On physical examination the patient's right lower extremity, she has no pain with heel strike or logroll in the hip. She does have a mild cellulitis noted of her right foot and ankle. When asked to bend her knee, the patient does not have any pain in her hips. She does have pain with hyper hip flexion. She has intact sensation throughout the lower extremity. Results & Data Vital Signs (Past 12 Hours) Vital Signs Temp Pulse Pulse Pulse Resp BP Pulse Ox 08/31/25 08:07 36.7 C 72 18 143/84 H 95 07/09/25 02:09 68 14 90 07/08/25 22:17 36.7 C 66 20 118/76 90 07/08/25 21:00 66 11 L 91 O2 Del Method FiO2 07/09/25 08:07 Room Air 07/09/25 02:09 21 07/08/25 22:17 Room Air 07/08/25 21:00 21 (2) Rheumatoid arthritis Rheumatoid arthritis location: unspecified site Rheumatoid factor presence: without rheumatoid factor Qualified Code(s): M06.00 - Rheumatoid arthritis without rheumatoid factor, unspecified site
[2025-07-09] MEDS: ALBUTEROL 0.083% NEBU SOLN 3 ML VIAL INH PRN (12:57)
--- NOTE | 2025-07-09 16:06 | XRay Report ---
EXAM: 2 views of the left calcaneus EXAM REASON: Pain COMPARISON: No prior examinations available for comparison. TECHNIQUE: AP and lateral views of the left calcaneus were obtained FINDINGS: There is no evidence of acute fracture or dislocation. No unusual soft tissue calcifications are identified and no radiopaque foreign bodies are seen. There is a moderate-sized plantar calcaneal spur. IMPRESSION: 1. Moderate sized plantar calcaneal spur otherwise unremarkable exam. Electronically signed by Sami Velazquez 07-09-2025 4:05 PM
--- NOTE | 2025-07-09 16:07 | XRay Report ---
EXAM: 2 views of the right calcaneus EXAM REASON: Pain COMPARISON: No prior examinations available for comparison. TECHNIQUE: AP and lateral views of the calcaneus were obtained FINDINGS: There is no evidence of acute fracture or dislocation. No unusual soft tissue calcifications are identifiedand no radiopaque foreign bodies are seen. There is a moderate-sized plantar calcaneal spur. IMPRESSION: 1. Moderate sized plantar calcaneal spur otherwise unremarkable calcaneus. Electronically signed by Sami Velazquez 07-09-2025 4:06 PM
[2025-07-09] MEDS: TRAMADOL PO PRN (17:51)
--- NOTE | 2025-07-09 18:38 | Hospitalist Progress Note ---
Date of Service July 09, 2025 Assessment & Plan (1) Cellulitis: Plan #b/l LE cellulitis - resolved - admit to [facility] - increased WBC, elevated inflammatory markers - cont cefazolin IV - mild b/l edema, b/l LE duplex neg #Right hip pain - severe OA - reviewed pelvis CT and hip XR - pt has ortho appointment on 07/21, but pt has been having significant ambulatory decline and severe pain - ortho recs appreciated - PT / OT recs rehab - pain control with IV morphine (pt will bring in tylenol and tramadol from home- severe corn allergy) - cont gabapentin #LLE weakness - check EMG #b/l heel pain - b/l calcaneal xray shows moderate size spurs - likely cause of pain #Asthma - cont breo, prn albuterol - chronic prednisone, cont #Hypothyroidism - cont levothyroxine #HTN - cont losartan #RA - cont home meds #Allergies - pt has severe allergy to corn, which pt reports can be in medications - pharmacist made aware #DVT ppx: hep subq #Dispo- PT / OT recs rehab, CM consulted Admission and Anticipated Discharge Date Admission Date: July 07, 2025 Subjective No acute events overnight Worked with PT / OT. noted increased weakness of the left lower extremity C/o b/l heel pain Review of Systems Review of Systems: Comprehensive ROS completed and is otherwise negative. Physical Exam Physical Exam: Gen: no acute distress, lying in bed comfortable HEENT: NC/AT, MMM Lungs: nonlabored breathing, CTAB CVS: s1s2nl, RRR Abd: nl bowel sounds, soft, NT / ND : no [place] Ext: b/l LE erythema resolved, b/l heel TTP w/ left heel with hard blister Neuro: AAOx3 Psych: calm cooperative Results & Data Results & Data Vital Signs (Past 12 Hours) Vital Signs Temp Pulse Resp BP Pulse Ox O2 Del Method 07/09/25 14:45 36.7 C 78 20 147/94 H 97 Room Air 07/09/25 12:57 70 16 93 Room Air 07/09/25 08:07 36.7 C 72 18 143/84 H 95 Room Air PG Care Time/CCT Total # of Minutes Spent Total Time Spent with Patient: Total time spent is greater than 50% in coordination of care (as documented) at patient's floor/unit and/or counseling patient: Coding Level of Care Code 72414 SUB INP/OBS CARE MIN Diagnoses Cellulitis L03.90
--- NOTE | 2025-07-10 17:11 | Hospitalist Progress Note ---
Date of Service July 10, 2025 Assessment & Plan (1) Cellulitis: Plan #b/l LE cellulitis - resolved - admit to [facility] - increased WBC, elevated inflammatory markers - cont cefazolin IV for a total of 5 day course (07/13/25) - mild b/l edema, b/l LE duplex neg #Right hip pain - severe OA - reviewed pelvis CT and hip XR - pt has ortho appointment on 07/21, but pt has been having significant ambulatory decline and severe pain - ortho recs appreciated - PT / OT recs rehab - pain control with IV morphine (pt will bring in tylenol and tramadol from home- severe corn allergy) - cont gabapentin #LLE weakness - check EMG #b/l heel pain - b/l calcaneal xray shows moderate size spurs - likely cause of pain #Asthma - cont breo, prn albuterol - chronic prednisone, cont #Hypothyroidism - cont levothyroxine #HTN - cont losartan #RA - cont home meds (infection resolved) #Allergies - pt has severe allergy to corn, which pt reports can be in medications - pharmacist made aware #DVT ppx: hep subq #Dispo- PT / OT recs rehab, CM consulted Admission and Anticipated Discharge Date Admission Date: July 07, 2025 Subjective No acute events overnight Currently no new complaints Review of Systems Review of Systems: Comprehensive ROS completed and is otherwise negative. Physical Exam Physical Exam: Gen: no acute distress, lying in bed comfortable HEENT: NC/AT, MMM Lungs: nonlabored breathing, CTAB CVS: s1s2nl, RRR Abd: nl bowel sounds, soft, NT / ND : no [place] Ext: b/l LE erythema resolved, b/l heel TTP w/ left heel with hard blister Neuro: AAOx3 Psych: calm cooperative Results & Data Results & Data Vital Signs (Past 12 Hours) Vital Signs Temp Pulse Pulse Resp BP Pulse Ox O2 Del Method 07/10/25 15:25 36.7 C 67 16 127/84 93 Room Air 07/10/25 08:30 Room Air 07/10/25 08:00 36.5 C 65 16 122/73 94 Room Air PG Care Time/CCT Total # of Minutes Spent Total Time Spent with Patient: Total time spent is greater than 50% in coordination of care (as documented) at patient's floor/unit and/or counseling patient: Coding Level of Care Code 41546 SUB INP/OBS CARE MIN Diagnoses Cellulitis L03.90
[2025-07-10] MEDS: ORENCIA 125 MG/ML SC SCH (17:56)
--- NOTE | 2025-07-11 07:14 | Hospitalist Progress Note ---
Date of Service July 11, 2025 Assessment & Plan Admission and Anticipated Discharge Date Admission Date: July 07, 2025 Results & Data Results & Data Vital Signs (Past 12 Hours) Vital Signs Temp Pulse Pulse Resp BP Pulse Ox O2 Del Method 07/11/25 07:09 36.3 C L 61 16 128/79 97 Room Air 07/11/25 02:46 70 23 96 07/10/25 23:38 36.6 C 68 18 121/66 94 BiPAP 07/10/25 23:15 68 20 94 07/10/25 20:56 68 122/78 07/10/25 20:45 Room Air, CPAP PG Care Time/CCT Total # of Minutes Spent Total Time Spent with Patient: Total time spent is greater than 50% in coordination of care (as documented) at patient's floor/unit and/or counseling patient: Coding
[2025-07-11 07:21] LABS: Hematocrit (blood only) 42.1 % (37.0-47.0); Hemoglobin 13.3 g/dl (12.0-16.0); Immature Granulocytes # (auto) 0.03 K/uL (0.01-0.20); Immature Granulocytes % (auto) 0.4 %; Mean Corpuscular Hemoglobin 28.6 pg (25.0-34.0); Mean Corpuscular Volume 90.5 fL (80.0-100.0); Platelet Count 317 K/uL (130-400); RDW Standard Deviation 46.5 fL (36.4-46.3); Red Blood Count 4.65 M/uL (4.20-5.40); White Blood Count 8.38 K/ul (4.8-10.8)
[2025-07-11 07:35] LABS: Anion Gap 6.0 (3-11); Blood Urea Nitrogen 10.0 mg/dl (6-23); Calcium 9.3 mg/dl (8.6-10.3); Carbon Dioxide 29.0 mmol/L (21-32); Chloride 103.0 mmol/L (98-107); Creatinine Clr Calc Pharmacy 154.0 ml/min; Glucose 101.0 mg/dl (70-99(Fasting)); Magnesium 2.0 mg/dl (1.7-2.4); Potassium 3.7 mmol/L (3.5-5.1); Sodium 138.0 mmol/L (136-145)
[2025-07-11] MEDS: [UNRECOGNIZED DRUG - REMARK] SC SCH (15:12)
--- NOTE | 2025-07-11 17:04 | Hospitalist Progress Note ---
Date of Service July 11, 2025 Assessment & Plan (1) Cellulitis: Plan #b/l LE cellulitis - resolved - increased WBC, elevated inflammatory markers - cont cefazolin IV for a total of 5 day course (07/13/25) - mild b/l edema, b/l LE duplex neg #Right hip pain - severe OA - reviewed pelvis CT and hip XR - pt has ortho appointment on 07/21, but pt has been having significant ambulatory decline and severe pain - ortho recs appreciated - PT / OT recs rehab - pain control with IV morphine (pt will bring in tylenol and tramadol from home- severe corn allergy) - cont gabapentin #LLE weakness - check EMG #b/l heel pain - b/l calcaneal xray shows moderate size spurs - likely cause of pain #Asthma - cont breo, prn albuterol - chronic prednisone, cont #Hypothyroidism - cont levothyroxine #HTN - cont losartan #RA - cont home meds (infection resolved) #Obesity - ok to continue home Tirazepetide #Allergies - pt has severe allergy to corn, which pt reports can be in medications - pharmacist made aware #DVT ppx: hep subq #Dispo- PT / OT recs rehab, CM on board Admission and Anticipated Discharge Date Admission Date: July 07, 2025 Subjective No acute events overnight Currently no new complaints Review of Systems Review of Systems: Comprehensive ROS completed and is otherwise negative. Physical Exam Physical Exam: Gen: no acute distress, lying in bed comfortable HEENT: NC/AT, MMM Lungs: nonlabored breathing, CTAB CVS: s1s2nl, RRR Abd: nl bowel sounds, soft, NT / ND : no [place] Ext: b/l LE erythema resolved, b/l heel TTP w/ left heel with hard blister Neuro: AAOx3 Psych: calm cooperative Results & Data Results & Data Vital Signs (Past 12 Hours) Vital Signs Temp Pulse Resp BP Pulse Ox O2 Del Method 07/11/25 15:01 36.7 C 72 17 138/76 94 Room Air 07/11/25 07:09 36.3 C L 61 16 128/79 97 Room Air PG Care Time/CCT Total # of Minutes Spent Total Time Spent with Patient: Total time spent is greater than 50% in coordination of care (as documented) at patient's floor/unit and/or counseling patient: Coding Level of Care Code 97753 SUB INP/OBS CARE MIN Diagnoses Cellulitis L03.90
--- NOTE | 2025-07-12 17:30 | Hospitalist Progress Note ---
Date of Service July 12, 2025 Assessment & Plan (1) Cellulitis: Plan #b/l LE cellulitis - resolved - increased WBC, elevated inflammatory markers - cont cefazolin IV for a total of 5 day course (07/13/25) - mild b/l edema, b/l LE duplex neg #Right hip pain - severe OA - reviewed pelvis CT and hip XR - pt has ortho appointment on 07/21, but pt has been having significant ambulatory decline and severe pain - ortho recs appreciated - PT / OT recs rehab - pain control with IV morphine (pt will bring in tylenol and tramadol from home- severe corn allergy) - cont gabapentin #LLE weakness - check EMG #b/l heel pain - b/l calcaneal xray shows moderate size spurs - likely cause of pain #Asthma - cont breo, prn albuterol - chronic prednisone, cont #Hypothyroidism - cont levothyroxine #HTN - cont losartan #RA - cont home meds (infection resolved) #Obesity - ok to continue home Tirazepetide #Allergies - pt has severe allergy to corn, which pt reports can be in medications - pharmacist made aware #DVT ppx: hep subq #Dispo- PT / OT recs rehab, CM on board 07/12: completed [id number], denied acute rehab due to no medical need. [facility] level care Admission and Anticipated Discharge Date Admission Date: July 07, 2025 Subjective No acute events overnight Currently no new complaints Review of Systems Review of Systems: Comprehensive ROS completed and is otherwise negative. Physical Exam Physical Exam: Gen: no acute distress, lying in bed comfortable HEENT: NC/AT, MMM Lungs: nonlabored breathing, CTAB CVS: s1s2nl, RRR Abd: nl bowel sounds, soft, NT / ND : no [place] Ext: b/l LE erythema resolved, b/l heel TTP w/ left heel with hard blister Neuro: AAOx3 Psych: calm cooperative Results & Data Results & Data Vital Signs (Past 12 Hours) Vital Signs Temp Pulse Pulse Resp BP Pulse Ox O2 Del Method 07/12/25 14:44 36.5 C 72 18 155/91 H 94 Room Air 07/12/25 11:37 36.8 C 66 18 167/79 H 96 Room Air 07/12/25 09:41 Room Air 07/12/25 07:18 36.4 C L 75 18 142/82 H 94 Room Air PG Care Time/CCT Total # of Minutes Spent Total Time Spent with Patient: Total time spent is greater than 50% in coordination of care (as documented) at patient's floor/unit and/or counseling patient: Coding Level of Care Code 20616 SUB INP/OBS CARE 2/35MIN Diagnoses Cellulitis L03.90
--- NOTE | 2025-07-13 11:39 | Hospitalist Progress Note ---
Date of Service July 13, 2025 Assessment & Plan (1) Cellulitis: Plan #b/l LE cellulitis - resolved - increased WBC, elevated inflammatory markers - cont cefazolin IV for a total of 5 day course (07/13/25) - mild b/l edema, b/l LE duplex neg , edema has resolved #Right hip pain - severe OA - reviewed pelvis CT and hip XR - pt has ortho appointment on 07/21, but pt has been having significant ambulatory decline and severe pain - ortho recs appreciated - PT / OT recs rehab - pain control with IV morphine (pt will bring in tylenol and tramadol from home- severe corn allergy) - cont gabapentin #LLE weakness - unfortunately, EMG cannot be done while inpatient. pt is aware, will follow up as outpatient #b/l heel pain - b/l calcaneal xray shows moderate size spurs - likely cause of pain #Asthma - cont breo, prn albuterol - chronic prednisone, cont #Hypothyroidism - cont levothyroxine #HTN - cont losartan #RA - cont home meds (infection resolved) #Obesity - ok to continue home Tirazepetide #Allergies - pt has severe allergy to corn, which pt reports can be in medications - pharmacist made aware #DVT ppx: hep subq #Dispo- PT / OT recs rehab, CM on board, pt is medically ready for discharge 07/12: completed [id number], denied acute rehab due to no medical need. recs SNF level care Admission and Anticipated Discharge Date Admission Date: July 07, 2025 Subjective No acute events overnight Currently no new complaints Review of Systems Review of Systems: Comprehensive ROS completed and is otherwise negative. Physical Exam Physical Exam: Gen: no acute distress, lying in bed comfortable HEENT: NC/AT, MMM Lungs: nonlabored breathing, CTAB CVS: s1s2nl, RRR Abd: nl bowel sounds, soft, NT / ND : no [place] Ext: b/l LE erythema resolved, b/l heel TTP w/ left heel with hard blister Neuro: AAOx3 Psych: calm cooperative Results & Data Results & Data Vital Signs (Past 12 Hours) Vital Signs Temp Pulse Pulse Resp BP Pulse Ox O2 Del Method 07/13/25 07:30 Room Air 07/13/25 07:16 36.8 C 68 18 139/84 93 Room Air 07/13/25 03:05 82 13 94 07/12/25 23:39 36.6 C 72 16 143/86 H 90 BiPAP FiO2 07/13/25 07:30 07/13/25 07:16 07/13/25 03:05 21 07/12/25 23:39 PG Care Time/CCT Total # of Minutes Spent Total Time Spent with Patient: Total time spent is greater than 50% in coordination of care (as documented) at patient's floor/unit and/or counseling patient: Coding Level of Care Code 90087 SUB INP/OBS CARE 2/35MIN Diagnoses Cellulitis L03.90
--- NOTE | 2025-07-14 13:24 | Hospitalist Progress Note ---
Date of Service July 14, 2025 Assessment & Plan (1) Cellulitis: Plan This is a 55 year old female with past medical history of obesity, severe OA, corn allergy, asthma who presented to the ED on 07/07/2025 for worsening ambulatory dysfunction, multiple falls, & lower extremity redness. #b/l LE cellulitis - resolved s/p 5 day course of Cefazolin, ended on 07/13. b/l LE duplex negative for DVT. #Right hip pain severe OA Imaging negative for fractures Ortho consulted --> recommend PT/OT work to become more mobile PT / OT recs rehab pain control with IV morphine (pt will bring in tylenol and tramadol from home- severe corn allergy) cont gabapentin #LLE weakness unfortunately, EMG cannot be done while inpatient. pt is aware, will follow up as outpatient #b/l heel pain b/l calcaneal xray shows moderate size spurs - likely cause of pain #Asthma cont breo, prn albuterol chronic prednisone, cont #Hypothyroidism- cont levothyroxine #HTN- cont losartan #RA- cont home meds (infection resolved) #Obesity- ok to continue home Tirazepetide #Allergies pt has severe allergy to corn, which pt reports can be in medications pharmacist made aware DVT ppx: hep subq #Dispo- PT / OT recs rehab, CM on board, pt is medically ready for discharge 07/12: completed [id number], denied acute rehab due to no medical need. recs SNF level care Discussed w/ CM 07/14 - still awaiting placement secondary to insurance issues. Admission and Anticipated Discharge Date Admission Date: July 07, 2025 Supervising Physician Co-Signing Physician Notes The patient was not seen by me. The chart was reviewed. Case discussed with RICCO Whitehead. Agree with assessment and plan Inocente Centeno was seen and examined this morning. She reports she is feeling okay today. Denies any acute complaints. Waiting placement. Physical Exam Constitutional: WD/WN, vitals as above Eyes: PERRL, conjunctivae normal, anicteric sclerae Respiratory: normal respiratory effort Skin: no rashes, warm and dry Neurologic: PERRL, EOMI, accommodation nl, no face palsy, no dysarthria Psychiatric: A+Ox3, euthymic affect Results & Data Results & Data Vital Signs (Past 12 Hours) Vital Signs Temp Pulse Pulse Pulse Resp BP BP 07/14/25 11:49 37.0 C 62 16 126/76 07/14/25 07:23 36.8 C 87 16 130/73 07/14/25 07:05 36.8 C 73 18 142/77 H 07/14/25 03:43 75 12 Pulse Ox O2 Del Method FiO2 07/14/25 11:49 96 Room Air 07/14/25 07:23 93 Room Air 07/14/25 07:05 94 Room Air 07/14/25 03:43 94 21 PG Care Time/CCT Total # of Minutes Spent Total Time Spent with Patient: Total time spent is greater than 50% in coordination of care (as documented) at patient's floor/unit and/or counseling patient: Coding Level of Care Code 26687 SUB INP/OBS CARE 2/35MIN Diagnoses Cellulitis L03.90
[2025-07-15] MEDS ORDERED: RIMEGEPANT SULFATE 75 MG OD TAB PO PRN (03:33)
[2025-07-15] MEDS: LEVOTHYROXINE SODIUM 25 MCG PO SCH (06:09)
--- NOTE | 2025-07-15 15:46 | Hospitalist Progress Note ---
Date of Service July 15, 2025 Assessment & Plan (1) Cellulitis: Plan This is a 55 year old female with past medical history of obesity, severe OA, corn allergy, asthma who presented to the ED on 07/07/2025 for worsening ambulatory dysfunction, multiple falls, & lower extremity redness. #b/l LE cellulitis - resolved s/p 5 day course of Cefazolin, ended on 07/13. b/l LE duplex negative for DVT. deposition, placement to STR. dc barrier, needing insurance authorization #Right hip pain severe OA Imaging negative for fracture Ortho consulted --> recommend PT/OT work to become more mobile PT / OT recs rehab pain control with IV morphine (pt will bring in tylenol and tramadol from home- severe corn allergy) cont gabapentin #LLE weakness unfortunately, EMG cannot be done while inpatient. f/u outpatient #b/l heel pain b/l calcaneal xray shows moderate size spurs - likely cause of pain #Asthma cont breo, prn albuterol chronic prednisone, cont stable migraine headache- has Ajovy #Hypothyroidism- cont levothyroxine #HTN- cont losartan #RA- cont home meds (infection resolved) #Obesity- ok to continue home Tirazepetide #Allergies pt has severe allergy to corn, which pt reports can be in medications pharmacist made aware DVT ppx: hep subq #Dispo- PT / OT recs rehab, CM on board, pt is medically ready for discharge 07/12: completed [id number], denied acute rehab due to no medical need. recs SNF level care Discussed w/ CM 07/14 - still awaiting placement secondary to insurance issues. Admission and Anticipated Discharge Date Admission Date: July 07, 2025 Inocente Centeno was seen and examined this morning. She reports she is feeling okay today. no worsening right hip pain her cellulitis is improving awaiting placement to [facility] she's requesting [facility] Physical Exam Physical Exam: VITALS: Reviewed. WEIGHT/BMI reviewed. GEN: Healthy appearing, well-developed, NAD. -Head: NC/AT; -MSK: right hip painful to abduction and external rotation NECK: Supple, with no masses. CV: RRR, no m/r/g. LUNGS: CTAB, no w/r/c. ABD: Soft, NT/ND, NBS, no masses or organomegaly. SKIN: trace lymphadema, no skin rash appreciated EXT: No clubbing, cyanosis, or edema. NEURO: AAox3 Results & Data Results & Data Vital Signs (Past 12 Hours) Vital Signs Temp Pulse Resp BP BP Pulse Ox O2 Del Method 07/15/25 14:57 36.9 C 70 16 144/84 H 92 Room Air 07/15/25 07:23 36.5 C 64 16 134/79 93 Room Air Medications Administered Current Inpatient Medications Albuterol (Albuterol 0.083% Nebu Soln 3 Ml Vial) 2.5 mg INH Q4H PRN; Protocol PRN Reason: shortness of breath or wheezing Stop: 08/06/25 22:16 Last Admin: 07/09/25 12:57 Dose: 2.5 mg Celecoxib (Celebrex 200 Mg Cap) 200 mg PO BID [facility] Stop: 08/06/25 22:16 Last Admin: 07/15/25 08:28 Dose: 200 mg Diphenhydramine HCl (Diphenhydramine Capsule 25 Mg Cap) 25 mg PO Q6H PRN PRN Reason: allergy symptoms Stop: 08/06/25 22:16 Duloxetine HCl (Duloxetine Hcl 60 Mg Cap) 120 mg PO DAILY SOL Stop: 08/07/25 08:59 Last Admin: 07/15/25 08:28 Dose: 120 mg Epinephrine HCl (Epinephrine Inj 1 Mg/Ml Amp) 0.3 mg IM Q10M PRN PRN Reason: anaphylaxis Stop: 08/06/25 23:39 Fluticasone/Vilanterol (Fluticasone/Vilanterol 100/25mcg 14 Puffs/Inhaler) 1 puffs INH DAILY SOL Stop: 08/07/25 08:59 Last Admin: 07/15/25 08:27 Dose: 1 puffs Gabapentin (Gabapentin 300 Mg Cap) 300 mg PO TID SOL Stop: 08/06/25 22:16 Last Admin: 07/15/25 13:38 Dose: 300 mg Heparin Sodium (Porcine) (Heparin Sod 5,000 Unit/0.5 Ml Vial) 5,000 units SQ Q12 SOL Stop: 08/06/25 22:16 Last Admin: 07/15/25 08:36 Dose: 5,000 units Levothyroxine Sodium (Levothyroxine Sodium 25 Mcg Capsule, Compounded) 25 mcg PO DAILY [facility] Stop: 08/14/25 06:29 Last Admin: 07/15/25 06:09 Dose: 25 mcg Losartan Potassium (Losartan Potassium 25 Mg Tab) 25 mg PO BID [facility] Stop: 08/06/25 22:16 Last Admin: 07/15/25 08:28 Dose: 25 mg Morphine Sulfate (Morphine Sulfate 2 Mg/Ml Carp) 2 mg IV Q4H PRN PRN Reason: Moderate Pain (Scale 4, 5, 6) Stop: 07/21/25 18:25 Last Admin: 07/09/25 13:34 Dose: 2 mg Morphine Sulfate (Morphine Sulfate 4 Mg/Ml 1 Ml Carp\Vial) 4 mg IV Q6H PRN PRN Reason: Severe Pain (Scale 7, 8, 9,10) Stop: 07/21/25 18:25 Last Admin: 07/08/25 13:26 Dose: 4 mg Journavyx: Non- Formulary Patient's Own Med 1 each PO Q12H PRN PRN Reason: Moderate-Severe Pain Stop: 08/07/25 18:44 Last Admin: 07/15/25 08:31 Dose: 1 ea Patient's Own Med: (Acetaminophen 500mg) 1 each PO Q4H PRN PRN Reason: Mild Pain/Fever Stop: 08/07/25 19:29 Last Admin: 07/15/25 12:07 Dose: 1 ea Patient's Own Med: Prednisolone 2.5mg Capsules 2 each PO DAILY [facility] Stop: 08/08/25 08:59 Last Admin: 07/15/25 08:29 Dose: 2 each Patient's Own Med: Tramadol 5mg/Ml Oral Solution 20 each PO TID PRN PRN Reason: Moderate-Severe Pain Stop: 08/07/25 20:59 Last Admin: 07/15/25 12:14 Dose: 20 ml Orencia 125 Mg/Ml Non-Formulary Patient's Own Med 1 each SC Mo@0900 [facility] Stop: 08/09/25 15:59 Last Admin: 07/10/25 17:56 Dose: 1 units PG Care Time/CCT Total # of Minutes Spent Total Time Spent with Patient: Total time spent is greater than 50% in coordination of care (as documented) at patient's floor/unit and/or counseling patient: Coding Level of Care Code 45415 SUB INP/OBS CARE 1/25MIN Diagnoses Cellulitis L03.90 Time Spent (min) 25
[2025-07-15] MEDS: FREMANEZUMAB SQ ONE (15:47)
--- NOTE | 2025-07-16 14:17 | Hospitalist Progress Note ---
Date of Service July 16, 2025 Assessment & Plan (1) Cellulitis: Plan This is a 55 year old female with past medical history of obesity, severe OA, corn allergy, asthma who presented to the ED on 07/07/2025 for worsening ambulatory dysfunction, multiple falls, & lower extremity redness. #b/l LE cellulitis - resolved s/p 5 day course of Cefazolin, ended on 07/13. b/l LE duplex negative for DVT. deposition, placement to STR. dc barrier, needing insurance authorization #Right hip pain severe OA Imaging negative for fracture Ortho consulted --> recommend PT/OT work to become more mobile PT / OT recs rehab pain control with IV morphine (pt will bring in tylenol and tramadol from home- severe corn allergy) cont gabapentin #LLE weakness unfortunately, EMG cannot be done while inpatient. f/u outpatient #b/l heel pain b/l calcaneal xray shows moderate size spurs - likely cause of pain #Asthma cont breo, prn albuterol chronic prednisone, cont stable migraine headache- has Ajovy #Hypothyroidism- cont levothyroxine #HTN- cont losartan #RA- cont home meds (infection resolved) #Obesity- ok to continue home Tirazepetide #Allergies pt has severe allergy to corn, which pt reports can be in medications pharmacist made aware DVT ppx: hep subq #Dispo- PT / OT recs rehab, CM on board, pt is medically ready for discharge 07/12: completed [id number], denied acute rehab due to no medical need. recs SNF level care Discussed w/ CM 07/14 - still awaiting placement secondary to insurance issues. Admission and Anticipated Discharge Date Admission Date: July 07, 2025 Subjective await insurance approval to [place] right hip pain well controlled cellulitis resolved she was able to injected herself with Ajovy yesterday migraine stable Physical Exam Physical Exam: VITALS: Reviewed. WEIGHT/BMI reviewed. GEN: Healthy appearing, well-developed, NAD. -Head: NC/AT; -Mouth and throat: MMM. Normal gums, muc ga, palate,. Good dentition. NECK: Supple, with no masses. CV: RRR, no m/r/g. LUNGS: CTAB, no w/r/c. ABD: Soft, NT/ND, NBS, no masses or organomegaly. : N/A SKIN: no skin lesion in the lower extremity MSK: right hip limited ROM; normal sensation to soft touch EXT: No clubbing, cyanosis, or edema. NEURO AAOx3 Results & Data Results & Data Vital Signs (Past 12 Hours) Vital Signs Temp Pulse Pulse Resp BP Pulse Ox O2 Del Method 07/16/25 07:18 36.5 C 63 18 132/84 95 Room Air 07/16/25 02:48 72 15 91 FiO2 07/16/25 07:18 07/16/25 02:48 21 Medications Administered Current Inpatient Medications Albuterol (Albuterol 0.083% Nebu Soln 3 Ml Vial) 2.5 mg INH Q4H PRN; Protocol PRN Reason: shortness of breath or wheezing Stop: 08/06/25 22:16 Last Admin: 07/09/25 12:57 Dose: 2.5 mg Celecoxib (Celebrex 200 Mg Cap) 200 mg PO BID SOL Stop: 08/06/25 22:16 Last Admin: 07/16/25 08:59 Dose: 200 mg Diphenhydramine HCl (Diphenhydramine Capsule 25 Mg Cap) 25 mg PO Q6H PRN PRN Reason: allergy symptoms Stop: 08/06/25 22:16 Duloxetine HCl (Duloxetine Hcl 60 Mg Cap) 120 mg PO DAILY SOL Stop: 08/07/25 08:59 Last Admin: 07/16/25 08:59 Dose: 120 mg Epinephrine HCl (Epinephrine Inj 1 Mg/Ml Amp) 0.3 mg IM Q10M PRN PRN Reason: anaphylaxis Stop: 08/06/25 23:39 Fluticasone/Vilanterol (Fluticasone/Vilanterol 100/25mcg 14 Puffs/Inhaler) 1 puffs INH DAILY SOL Stop: 08/07/25 08:59 Last Admin: 07/16/25 08:59 Dose: 1 puffs Gabapentin (Gabapentin 300 Mg Cap) 300 mg PO TID SOL Stop: 08/06/25 22:16 Last Admin: 07/16/25 08:59 Dose: 300 mg Heparin Sodium (Porcine) (Heparin Sod 5,000 Unit/0.5 Ml Vial) 5,000 units SQ Q12 SOL Stop: 08/06/25 22:16 Last Admin: 07/16/25 08:57 Dose: 5,000 units Levothyroxine Sodium (Levothyroxine Sodium 25 Mcg Capsule, Compounded) 25 mcg PO DAILYBB [facility] Stop: 08/14/25 06:29 Last Admin: 07/16/25 06:00 Dose: 25 mcg Losartan Potassium (Losartan Potassium 25 Mg Tab) 25 mg PO BID [facility] Stop: 08/06/25 22:16 Last Admin: 07/16/25 08:59 Dose: 25 mg Morphine Sulfate (Morphine Sulfate 2 Mg/Ml Carp) 2 mg IV Q4H PRN PRN Reason: Moderate Pain (Scale 4, 5, 6) Stop: 07/21/25 18:25 Last Admin: 07/09/25 13:34 Dose: 2 mg Morphine Sulfate (Morphine Sulfate 4 Mg/Ml 1 Ml Carp\Vial) 4 mg IV Q6H PRN PRN Reason: Severe Pain (Scale 7, 8, 9,10) Stop: 07/21/25 18:25 Last Admin: 07/08/25 13:26 Dose: 4 mg Journavyx: Non- Formulary Patient's Own Med 1 each PO Q12H PRN PRN Reason: Moderate-Severe Pain Stop: 08/07/25 18:44 Last Admin: 07/16/25 09:05 Dose: 1 ea Patient's Own Med: (Acetaminophen 500mg) 1 each PO Q4H PRN PRN Reason: Mild Pain/Fever Stop: 08/07/25 19:29 Last Admin: 07/15/25 20:36 Dose: 1 ea Patient's Own Med: Prednisolone 2.5mg Capsules 2 each PO DAILY [facility] Stop: 08/08/25 08:59 Last Admin: 07/16/25 09:00 Dose: 2 each Patient's Own Med: Tramadol 5mg/Ml Oral Solution 20 each PO TID PRN PRN Reason: Moderate-Severe Pain Stop: 08/07/25 20:59 Last Admin: 07/16/25 06:00 Dose: 20 ml Orencia 125 Mg/Ml Non-Formulary Patient's Own Med 1 each SC Mo@0900 [facility] Stop: 08/09/25 15:59 Last Admin: 07/10/25 17:56 Dose: 1 units PG Care Time/CCT Total # of Minutes Spent Total Time Spent with Patient: Total time spent is greater than 50% in coordination of care (as documented) at patient's floor/unit and/or counseling patient: Coding Level of Care Code 41803 SUB INP/OBS CARE 12/03MIN Diagnoses Cellulitis L03.90 Time Spent (min) 25
[2025-07-17 07:33] VITALS: PULSE 62; RESP 18; TEMP 98.2; O2SAT 93
[2025-07-17] MEDS: CYANOCOBALAMIN 1000 MCG/ML VIAL IM SCH (09:54)
--- NOTE | 2025-07-17 14:25 | Discharge Summary ---
Discharge Summary Date of Service July 17, 2025 Principal Dx & Hospital Course #1 = Principal Diagnosis (1) Ambulatory dysfunction: (2) Hip osteoarthritis: (3) Cellulitis: (4) Rheumatoid arthritis: (5) Migraine with aura: (6) Chronic idiopathic urticaria: (7) Pulmonary nodule: Plan Taryn Clay is a 55 yo male obesity, severe OA, asthma, shes presented to our hospital with RIght hip pain, b/l cellulitis, she's completed 5 days of cefazolin, ended up on 07/13/2025 she' was pain control with iV morphine. she has severe CORN allergy for her hip osteoarthritis; she was seen by Dr. Walton and noted patient has appointment with Dr. Carmen. she will need an EMG outpatient. she's supposed to has total hip replacement done inpatient. orthopedic also noted that her BMI put her at risk for surgical complicated. she's received her monthly shot for migraine while in the hospital. Notes For Next Care Provider f/u with orthopedic monitor for lower extremity for cellulitis PRN diuretics for lymphedema Discharge Exam VITALS: Reviewed. WEIGHT/BMI reviewed. GEN: Healthy appearing, well-developed, NAD. PSYCH: Good Judgment. AOx3. HEENT -Head: NC/AT; NECK: Supple, with no masses. CV: RRR, no m/r/g. LUNGS: CTAB, no w/r/c. ABD: Soft, NT/ND, NBS, no masses or organomegaly. MSK: right hip has limited ROM; normal sensation to soft touch. non-tender to palpitation EXT: No clubbing, cyanosis, or edema. NEURO: AAOx3 Discharge Plan Discharge Items Patient Disposition: Transfer [facility] Fac Reason For Visit: LEG WEAKNESS Discharge Diagnosis: b/l cellulitis severe right hip osteoarthritis Condition on Discharge: Fair Activity: Per Instructions section Non-emergency contact: Primary Care Provider Call non-emergency contact if: your symptoms worsen, your pain is worsening and your wound has increased redness Follow-up/Referrals: Sharif Olivarez DO [Primary Care Provider] - Diet: Low Sodium (2gm) Addtl Attending Provider Instructions: you will f/u with orthopedic, rheumatology you will return to hospital if you noticed worsening erythema, fever Pending Studies at Discharge: No Studies:: surveillance imaging for pulmonary nodule Stand-Alone Forms: My [facility] Skilled Items Patient informed of condition?: Yes DNR: No Discharge Level of Care: Skilled Communicable Disease: No Discharge Prognosis: Stable Lines: None Urinary Catheter: No Medications and DC Order Prescriptions: Continued (DME) Auto Titrating CPAP Misc See Rx Instructions .MEDSUPPLY Qty: 1 0RF Rx Instructions: Auto PAP with 6-20cm H20. Lifetime usage. G47.33 (DME) CPAP Supplies Misc See Rx Instructions .MEDSUPPLY Qty: 1 0RF Rx Instructions: CPAP supplies. G47.33 acetaminophen 500 mg capsule 500 mg PO Q4H PRN (Reason: fever) Qty: 1 0RF Patient Comments: 07/07- otc unable to verify diphenhydramine HCl [Allergy (diphenhydramine)] 25 mg capsule 25 mg PO Q6H PRN (Reason: allergy symptoms) Qty: 1 0RF Patient Comments: 07/07- otc unable to verify (DME) insulin syringe-needle U-100 [BD Insulin Syringe] 1 mL 27 gauge x 1/2" syringe See Rx Instructions .Route Qty: 100 0RF Rx Instructions: As directed weekly for methotrexate albuterol sulfate 2.5 mg/0.5 mL solution for nebulization 2.5 mg inhalation Q4H PRN (Reason: shortness of breath or wheezing) Qty: 30 0RF Orencia ClickJect 125 mg/mL auto-injector 125 mg subcut Q7D Qty: 4 5RF Nurtec ODT 75 mg tablet,disintegrating 75 mg PO DAILY PRN (Reason: migraine headache) 90 Days Qty: 27 3RF Ajovy Autoinjector 225 mg/1.5 mL auto-injector 225 mg subcut ONCE 30 Days Qty: 45 3RF Rx Instructions: Please inject once every 30 days duloxetine [Cymbalta] 60 mg capsule,delayed release(DR/EC) 120 mg PO DAILY 90 Days Qty: 180 3RF losartan 25 mg tablet 25 mg PO BID 90 Days Qty: 180 3RF (DME) 3mL Syringe 1.5in 25g needle See Rx Instructions .Route .MEDSUPPLY Qty: 10 1RF Rx Instructions: For use with Ketorolac injection as prescribed dextroamphetamine-amphetamine 15 mg tablet 15 mg PO TID PRN (Reason: add) Qty: 60 0RF Rx Instructions: Take 1 tablets TID PRN for ADD symptoms max 3 tablets daily Journavx 50 mg tablet 50 mg PO BID Qty: 61 0RF Rx Instructions: Take 2 tablets on day 1 on empty stomach. After 12 hours start 50mg every 12 hours. tramadol 5 mg/mL solution 100 mg PO TID PRN (Reason: pain) Qty: 473 0RF (DME) CPAP Supplies Misc See Rx Instructions .MEDSUPPLY Qty: 1 0RF Rx Instructions: Refitting of the mask. G47.33 magnesium glycinate 100 mg magnesium capsule 400 mg PO DAILY Qty: 30 0RF Patient Comments: 07/07- otc unable to verify riboflavin (vitamin B2) 400 mg tablet 400 mg PO DAILY Qty: 30 0RF Patient Comments: 07/07- otc unable to verify (DME) digital therapeutic,CHARLIE device Misc See Rx Instructions miscellaneous .MEDSUPPLY Qty: 1 0RF Rx Instructions: As directed fluticasone furoate-vilanterol [Breo Ellipta] 100-25 mcg/dose blister with device 1 inh inhalation DAILY Qty: 3 4RF Rx Instructions: Breo brand only per insurance ProAir RespiClick 90 mcg/actuation aerosol powdr breath activated 2 inh inhalation QID PRN (Reason: shortness of breath or wheezing) Qty: 3 3RF azelastine 137 mcg (0.1 %) aerosol,spray 2 spray intranasal BID PRN (Reason: allergy symptoms) Qty: 30 2RF Patient Comments: 07/07- otc/no fill history unable to verify Rx Instructions: administer into each nostril levocetirizine [Xyzal] 5 mg tablet 5 mg PO DAILY PRN (Reason: allergies) Patient Comments: 07/07- otc unable to verify prednisone 10 mg tablet 5 mg .ROUTE .COMPLEX Rx Instructions: 5 mg; epinephrine [EpiPen] 0.3 mg/0.3 mL auto-injector 0.3 mg IM Q10M PRN (Reason: anaphylaxis) Qty: 2 3RF omalizumab 300 mg/2 mL syringe 300 mg subcut .COMPLEX Qty: 4 11RF Rx Instructions: INJECT 300 mg subcutaneously EVERY 2 WEEKS APPROVED ZORA 03/14/25 - 03/14/26 Ref # [id number] celecoxib 200 mg capsule 200 mg PO BID Rx Instructions: TAKE 1 CAPSULE BY MOUTH TWICE A DAY rizatriptan 10 mg tablet 0 mg PO UD PRN (Reason: Headache) Patient Comments: 07/07- no fill history unable to verify Rx Instructions: take 1 tab at onset of headache; if no relief may repeat 1 tab after at least 2 hrs; max = 3 tabs/24 hr PO prednisone 5 mg tablet 0 mg PO DAILY Patient Comments: filled 04/14/25 60 day supply cyanocobalamin (vitamin B-12) 1,000 mcg/mL solution 0 mcg IM MONTHLY Patient Comments: Last filled 03/20 56 day supply Rx Instructions: INJECT 1000MCG INTRAMUSCULARLY MONTHLY gabapentin 300 mg capsule 300 mg PO TID Rx Instructions: TAKE 1 CAPSULE BY MOUTH THREE TIMES A DAY ergocalciferol (vitamin D2) [Vitamin D2] 1,250 mcg (50,000 unit) capsule 50,000 unit PO .3X WK Rx Instructions: TAKE 1 CAPSULE BY MOUTH 3 TIMES WEEKLY levothyroxine 25 mcg capsule 25 mcg PO UD Rx Instructions: Patient takes 25 mcg capsule daily. Compounding pharmacy for corn free formulation. tirzepatide (weight loss) 10 mg/0.5 mL solution 0 mg subcut Q7D Patient Comments: 07/07- no fill history unable to verify Rx Instructions: [phone] [email or web address] Discharge Orders: Discharge Order (Routine); Ordered 07/17/25 Ordered By: Alondra Lazaro/Tia Patient Handouts: Osteoarthritis: Common Sites, Cellulitis Dc Admission Data Admit Date/Time: 07/07/25 19:45 Attending Provider: Alondra Michaels Admit Provider: Royce Norwood Primary Care Provider: Sharif Olivarez Other Providers: Carlin Walton; Halley Shukla; [facility]; [facility] [place] [facility]; [facility]; [facility]; [facility]; [facility] Other Interventions: Discharge Summary Assessment (RN) Last Done: 07/17/25 13:49 Hospital Stay Data Consultations 07/07/25 17:27 ED Decision to Admit Stat 07/07/25 19:22 Consult Orthopedic Surgery Stat Diagnostic Imagining Performed 07/07/25 16:25 CT pelvis wo con Stat 07/07/25 19:22 US leg [US venous doppler LE BI] Stat Pending Results Patient Have Any Pending Studies at Discharge: No Discharge Instructions Given to Patient (Per Discharging Provider) you will f/u with orthopedic, rheumatology you will return to hospital if you noticed worsening erythema, fever Total Time Total Time Spent Total Time Spent (In Minutes): 25 minutes Coding Level of Care Code 60952 IN/OBS DISCH 30 MIN/LESS Diagnoses Ambulatory dysfunction R26.2 Hip osteoarthritis M16.9 Cellulitis L03.90 Rheumatoid arthritis with negative rheumatoid factor, involving unspecified site M06.00 Rheumatoid arthritis location: unspecified site Rheumatoid factor presence: without rheumatoid factor Migraine with aura G43.109 Chronic idiopathic urticaria L50.1 Pulmonary nodule R91.1 Time Spent (min) 25
[2025-07-17 14:58] VITALS: BP 117/75
== END 2025-07-17 15:00 | DRG 603 ==
LOC: SUATTDRO → ED 12:28 → EDINP 12:28 → SUATTDRO 19:45 → OBSVTOIN 19:58 → 3N 22:17

== ENCOUNTER 2025-08-14 16:35 | Inpatient (IN) ==
[2025-08-14] MEDS ORDERED: methylPREDNISolone 10 mg/mL (For Ped Dose < 7mg) IV STA (16:56)
[2025-08-14 17:31] LABS: Hematocrit (blood only) 44.6 % (37.0-47.0); Hemoglobin 14.9 g/dl (12.0-16.0); Immature Granulocytes # (auto) 0.04 K/uL (0.01-0.20); Immature Granulocytes % (auto) 0.4 %; Mean Corpuscular Hemoglobin 29.8 pg (25.0-34.0); Mean Corpuscular Volume 89.2 fL (80.0-100.0); Platelet Count 372 K/uL (130-400); RDW Standard Deviation 48.8 fL (36.4-46.3); Red Blood Count 5.00 M/uL (4.20-5.40); White Blood Count 11.23 K/ul (4.8-10.8)
[2025-08-14 17:57] LABS: Alanine Aminotransferase 28.0 U/L (7-52); Albumin Globulin Ratio 1.1 (0.9-2); Albumin Level 4.0 gm/dl (3.4-5.0); Alkaline Phosphatase 138.0 U/L (34-104); Anion Gap 9.0 (3-11); Bilirubin,Total 0.5 mg/dl (0.2-1.0); Blood Urea Nitrogen 19.0 mg/dl (6-23); Calcium 10.0 mg/dl (8.6-10.3); Carbon Dioxide 28.0 mmol/L (21-32); Chloride 103.0 mmol/L (98-107); Creatinine Clr Calc Pharmacy 150.4 ml/min; Globulin 3.8 gm/dl (2.5-4.0); Glucose 87.0 mg/dl (70-99(Fasting)); Magnesium 2.1 mg/dl (1.7-2.4); Potassium 4.0 mmol/L (3.5-5.1); Sodium 140.0 mmol/L (136-145); Total Protein 7.8 gm/dl (6.0-8.3)
[2025-08-14 18:21] LABS: INR 1.0 (0.9-1.1); Partial Thromboplastin Time 27 Seconds (21-31); Prothrombin Time 11.0 Seconds (9.0-12.0)
[2025-08-14] MEDS: diphenhydrAMINE 50 MG/ML VIAL IV STA (18:23)
[2025-08-14] MEDS: OPTIRAY 320 125ml IV ONE (18:35)
--- NOTE | 2025-08-14 19:04 | CT Scan Report ---
Technique: Axial computed tomography images were obtained of the brain from the vertex to the skull base without intravenous contrast. Findings: There is no sign of intracranial hemorrhage. There is normal reece-white matter differentiation with no sign of acute or old infarction. No midline shift or other form of herniation is identified. There is no hydrocephalus. No obvious mass lesion is seen on this noncontrast examination. The visualized portions of the orbits and paranasal sinuses appear unremarkable. The mastoid air cells appear clear Impression: Unremarkable noncontrast CT of the brain Electronically signed by Steve Painter 08-14-2025 7:03 PM
--- NOTE | 2025-08-14 19:06 | CT Scan Report ---
Technique: Axial computed tomography images were obtained of the brain after the administration of intravenous contrast according to the CT angiogram protocol Findings: No definite stenosis or aneurysm is seen of the anterior, middle, or posterior cerebral artery circulations. The visualized vertebral arteries and the basilar artery appear unremarkable Impression: No definite stenosis or aneurysm of the intracranial arteries Electronically signed by Steve Painter 08-14-2025 7:05 PM
--- NOTE | 2025-08-14 19:07 | CT Scan Report ---
CT angiogram of the neck Provided History: Trauma Comparison: None Technique: NECK CTA: During rapid bolus intravenous injection of nonionic contrast material, axial images were obtained using thin collimation multidetector helical technique from the base of the neck through the base of the skull. This CT angiogram data was reconstructed at thin intervals with mild overlap. 3D reconstructions were obtained. The axial source images, multiplanar reformations, 3D reconstructions in both maximum intensity projection display and volume rendered models were reviewed. Dose reduction techniques were achieved by using automatic exposure control and/or adjustment of mA and/or kV according to patient size and/or use of iterative reconstruction technique. Findings: Neck CTA demonstrates no stenosis of the major cervical arteries. Tortuosity of the internal carotid arteries. Portions of the calvo of the ICA have an irregular, beaded appearance. The origins of the great vessels from the aortic arch are patent. The normal distal right internal carotid artery measures 5 mm. The normal distal left internal carotid artery measures 5 mm. No mass is noted within the visualized portions of the cervical soft tissues or lung apices. Impression: Neck CTA demonstrates no stenosis of the major cervical arteries. Tortuous bilateral ICA, with portions having an irregular beaded appearance of the wall, possibly related to connective tissue disease such as fibromuscular dysplasia. Electronically signed by Terrance Mendez 08-14-2025 7:07 PM
[2025-08-14 19:45] LABS: Appearance Urine Clear (Clear); Glucose Urine UA Negative (Negative)
--- NOTE | 2025-08-14 20:59 | History & Physical Report ---
Date of Service August 14, 2025 Assessment & Plan (1) Left arm weakness: (2) Ambulatory dysfunction: (3) Rheumatoid arthritis: (4) Hip osteoarthritis: Plan Patient is a 55-year-old female with past medical history of obesity, RA, corn allergy, asthma, hypertension, chronic left lower extremity weakness who presented via EMS due to left upper extremity weakness that has progressed over the past week. Head CT and CTAs negative for acute changes and patient is being admitted for stroke workup and possible placement. #left-sided weaknessnew onset left UE weakness with chronic left LE weakness. Head CT and head CTA negative for acute changes. Neck CTA showed bilateral ICA beading concerning for connective tissue disease. Patient has previously had elevated ESR and CRP over the past few years. Concern for infectious versus inflammatory origin with possible vasculitis Will give stress dose of IV Solu-Medrol 125 mg IV on admission followed by 40 mg IV daily Neurology consulted Sed rate and CRP ordered Fall precautions Stroke without TNK order setbrain MRI ordered, echocardiogram with bubble study ordered, neurochecks every 4 hours, lipid panel and A1c PT/OT consulted LLE weakness being evaluated with BL EMG on 08/23 in outpatient setting #rheumatoid arthritisfollows with rheumatology, Dr. Garcia. On prednisone 5 mg daily at home, stress dosing as above #right hip osteoarthritisfollows with orthopedics Dr. Carmen and is to have total hip replacement done if BMI can improved under 50 Has made patient wheelchair-bound at baseline - continue home Journvx #OSACPAP at bedtime #HTNcontinue losartan #Hypothyroidismcontinue levothyroxine #Mental healthcontinue duloxetine #Severe corn allergypatient brought home medications without corn VTE ppx: SCDs, low risk Dispo: med/tele Admission and Anticipated Discharge Date Admission Date: 08/14/25 History of Present Illness Chief Complaint: weakness Primary Care Provider: Sharif Olivarez DO Patient is a 55-year-old female with past medical history of obesity, RA, corn allergy, asthma, hypertension, chronic left lower extremity weakness who presented via EMS due to left upper extremity weakness that has progressed over the past week. Head CT and CTAs negative for acute changes and patient is being admitted for stroke workup and possible placement. Patient seen at bedside. She was admitted from 07/07 to 07/17 for lower extremity cellulitis and right hip pain that required placement to staff at [facility] for rehab. Patient has also developed progressive left leg weakness over the past few years resulting in her being now wheelchair-bound over the past month and using a lift chair at home. She has home health PT and OT twice a week. She does not yet follow with neurology however does have an EMG set up for 08/23 for both right and left lower extremities to further work this up. Over the past week patient noticed with her physical therapist that she had progressive left upper extremity weakness. She denies any other strokelike symptoms as in dizziness, lightheadedness, blurred vision, facial droop, slurred speech, difficulty finding words, sensory deficits. She denies any personal or first-degree relative family history of CVAs. Her mother is diagnosed with MS. Patient had difficulty getting into her lift chair and was concerned about safety at home with this weakness. She is due for her evening medications, will order however patient brought many of her own home medications due to her severe corn allergy. She does take prednisone 5 mg daily for rheumatoid arthritis which she has been taking off and on for 1-1/2 years at different doses. She denies nicotine or alcohol use. She wishes to be full code however would not want long-term ventilatory support. Discussed need for brain MRI for stroke workup, she has had several MRIs of her head before and tolerated this without difficulty. Allergies Allergy/AdvReac Type Severity Reaction Status Date / Time corn Allergy Severe ANAPHYLAXIS Unverified 07/07/25 23:43 -- all corn related products grass pollen Allergy Unknown seasonal Verified 07/07/25 23:44 allergies house dust mite Allergy Unknown seasonal Verified 07/07/25 23:45 allergies Iodinated Contrast Media Allergy Unknown Hives Verified 07/07/25 23:43 pollen extracts Allergy Unknown seasonal Verified 07/07/25 23:44 allergies Sulfa (Sulfonamide AdvReac Intermediate Hives, Verified 07/07/25 23:41 Antibiotics) Joint Pain Home Medications Medication Instructions Recorded Confirmed Type Auto Titrating CPAP #1 ea 07/10/21 08/14/25 Rx CPAP Supplies #1 ea 07/10/21 08/14/25 Rx acetaminophen 500 mg capsule 500 mg PO Q4H PRN fever #1 cap 09/11/22 08/14/25 Rx diphenhydramine HCl 25 mg capsule 25 mg PO Q6H PRN allergy symptoms 09/11/22 08/14/25 Rx (Allergy (diphenhydramine)) #1 cap levocetirizine 5 mg tablet (Xyzal) 5 mg PO DAILY PRN allergies 08/04/23 08/14/25 History digital therapeutic,CHARLIE device #1 ea 10/15/23 08/08/25 Rx magnesium glycinate 400 mg (4 x 100 mg magnesium) PO 10/15/23 08/14/25 Rx DAILY #30 caps CPAP Supplies #1 ea 11/23/23 08/08/25 Rx insulin syringe-needle U-100 1 mL #100 ea 05/04/24 08/08/25 Rx 27 gauge x 1/2" (BD Insulin Syringe) albuterol sulfate 2.5 mg/0.5 mL 2.5 mg (0.5 mL) inhalation Q4H PRN 10/21/24 08/14/25 Rx solution for nebulization shortness of breath or wheezing #30 ea Breo Ellipta 100 mcg-25 mcg/dose 1 inh inhalation DAILY #3 Inhalers 01/16/25 08/14/25 Rx powder for inhalation (fluticasone furoate-vilanterol) albuterol sulfate 90 mcg/actuation 2 inh inhalation QID PRN shortness 01/16/25 08/14/25 Rx breath activated powder inhaler of breath or wheezing #3 ea (ProAir RespiClick) epinephrine 0.3 mg/0.3 mL 0.3 mg (0.3 mL) IM Q10M PRN 03/08/25 08/14/25 Rx injection, auto-injector (EpiPen) anaphylaxis #2 ea omalizumab 300 mg/2 mL 300 mg (2 mL) subcut .COMPLEX #4 mL 03/14/25 08/14/25 Rx subcutaneous syringe rimegepant 75 mg disintegrating 75 mg PO DAILY PRN migraine 03/27/25 08/14/25 Rx tablet (Nurtec ODT) headache 90 days #27 tabs fremanezumab-vfrm 225 mg/1.5 mL 225 mg (1.5 mL) subcut ONCE 30 03/30/25 08/14/25 Rx subcutaneous auto-injector (Ajovy) days #45 mL losartan 25 mg tablet 25 mg PO BID 90 days #180 tabs 05/11/25 08/14/25 Rx 3mL Syringe 1.5in 25g needle #10 ea 06/02/25 08/14/25 Rx celecoxib 200 mg capsule 200 mg PO BID 07/07/25 08/14/25 History cyanocobalamin (vitamin B-12) 0 mcg IM MONTHLY 07/07/25 08/14/25 History 1,000 mcg/mL injection solution ergocalciferol (vitamin D2) 1,250 50,000 unit PO .3X WK 07/07/25 08/14/25 History mcg (50,000 unit) capsule (Vitamin D2) gabapentin 300 mg capsule 300 mg PO TID 07/07/25 08/14/25 History levothyroxine 25 mcg capsule 25 mcg PO UD 07/07/25 08/14/25 History rizatriptan 10 mg tablet 0 mg PO UD PRN Headache 07/07/25 08/14/25 History tirzepatide (weight loss) 10 10 mg subcut Q7D 07/07/25 08/14/25 History mg/0.5 mL subcutaneous solution tramadol 5 mg/mL oral solution 100 mg (20 mL) PO TID PRN pain 07/20/25 08/14/25 Rx #473 mL Orencia ClickJect 125 mg/mL 125 mg subcut Q7D #4 mL 07/25/25 08/14/25 Rx subcutaneous auto-injector (abatacept) Manual Wheelchair #1 ea 08/08/25 08/08/25 Rx RSVPreF3 antigen-AS01E 120 mcg IM ONCE #1 ea 08/08/25 08/14/25 Rx adjuvant(PF) 120 mcg/0.5 mL IM suspension, kit Wheelchair (Manual) (Manual #1 ea 08/08/25 08/08/25 Rx Wheelchair) prednisone 10 mg tablet 5 mg PO DAILY PRN as directed 08/08/25 08/14/25 History azelastine 137 mcg (0.1 %) nasal 2 spray intranasal BID PRN allergy 08/11/25 08/14/25 Rx spray symptoms #30 mL dextroamphetamine-amphetamine 15 15 mg PO TID PRN add #60 tabs 08/11/25 08/14/25 Rx mg tablet duloxetine 60 mg capsule,delayed 120 mg PO DAILY 08/14/25 08/14/25 History release riboflavin (vitamin B2) 400 mg 400 mg PO QAM 08/14/25 08/14/25 History tablet suzetrigine 50 mg tablet (Journavx) 50 mg PO BID 08/14/25 08/14/25 History Past Med/Surg History Problem List (Updated 08/15/25 @ 17:01 by Blue Khan MD) Left leg weakness Fibromuscular dysplasia of both carotid arteries Physical deconditioning (Acute) Morbid obesity with BMI of 60.0-69.9, adult (Acute) Weakness of left side of body (Acute) Left arm weakness Ambulatory dysfunction (Acute) Hip osteoarthritis (Acute) Osteoarthritis of right hip Atypical ductal hyperplasia of left breast Rheumatoid arthritis Inflammatory arthritis Migraine with aura Vitamin D deficiency B12 deficiency Chronic idiopathic urticaria Attention deficit disorder Arthralgia Hypothyroidism Chronic migraine Chronic cough Hypersomnia Medical History Accident due to mechanical fall without injury Cellulitis of left leg Cellulitis Obesity due to excess calories Myalgia Hypertension GISELA (obstructive sleep apnea) Allergic rhinitis Asthma Pulmonary nodule Migraines Surgical History History of appendectomy Family History Mother Multiple sclerosis Father Bladder cancer Muscle wasting and atrophy, not elsewhere classified, back, lumbosacral Brother Hypertension Denies family history of Ovarian cancer Prostate cancer Diabetes Myocardial infarction Breast cancer Colorectal cancer Social History Smoking Status: Never smoker Second Hand Exposure: No; Hx Alcohol Use: No Hx Substance Use: No Preferred Language: Estonian Communication Ability: Effective Visual Impairment: Limited Hearing Ability: Normal Content Specialist Required: No Beliefs That Will Affect Care: None marital status: Single Current Living Situation: Parent current occupational status: employed current occupation: self employed How many Children do You have: 0 Feels Safe at Home: Yes Childhood Exposure to Second-Hand Smoke: No Diet: regular Diet Comment: cannot have corn caffeine: Yes during the past year weight has: increased > 10 lbs Dental Care, Regularly: Yes Physical Activity Frequency: Does not Exercise Seatbelt Use: always Sunscreen Use: Yes Assistive Devices: Bedside Commode, Cane, Walker, Wheelchair and Other Review of Systems Review of Systems: see HPI Physical Exam Physical Exam: The patient is awake, alert and oriented 3, normocephalic and atraumatic, in no acute distress. Non-toxic appearing. HEENT- EOMI, mucous membranes moist. Hearing grossly intact. Heart-normal S1 and S2. No murmurs, rubs or gallops. Lungs-clear bilaterally, no respiratory distress, no accessory muscle use. Abdomen-normal bowel sounds and soft. No ascites noted. Non-tender. Extremities- no clubbing, cyanosis. +1 pitting edema to BL LE. Psychiatric-normal affect. Musculoskeletal: 4/5 strength LUE, 5/5 RUE 3/5 strength LLE, 5/5 RLE Results & Data Results & Data Vital Signs (Past 12 Hours) Vital Signs Temp Pulse Resp BP BP Pulse Ox O2 Del Method 08/14/25 20:48 86 08/14/25 20:30 30 H Room Air 08/14/25 20:12 86 17 92 Room Air 08/14/25 20:00 158/100 H 08/14/25 19:30 99 H 24 156/104 H 92 Room Air 08/14/25 19:21 91 H 22 98 08/14/25 19:17 156/98 H 08/14/25 19:16 156/98 H 08/14/25 19:12 88 24 96 Room Air 08/14/25 16:42 94 Room Air 08/14/25 16:25 36.9 C 97 H 16 177/105 H 94 Room Air Laboratory Results reviewed CBC, CMP, PT/INR, troponin, UA, magnesium Ordered CRP and sed rate Diagnostic Findings reviewed head CT, head CTA, neck CTA Medications Administered EDSolu-Medrol 60 Mg IV, Benadryl 25 mg IV [id number] mg IV Solu-Medrol ECG Additional Comments: sinus rhythm with occasional PVC Rate 76 QTc 416 Code Status & VTE Plan Code Status full code VTE Prophylaxis Plan VTE Prophylaxis will be ordered: Yes Supervising Physician Co-Signing Physician Notes Attending addendum: I have physically seen this patient, have supervised the NIR's activities, and agree with the H&P unless as otherwise noted. Assessment and Plan: The patient is a 55-year-old female with past medical history including obesity, rheumatoid arthritis, coronary allergy, asthma, hypertension, and chronic left lower extremity weakness. She presented to the emergency department via EMS due to new left upper extremity weakness that has progressed over the past week. CT scan of head and CTA head were negative for acute changes. CTA neck showed beading bilaterally of the internal carotid arteries concerning for connective tissue disease. [facility] and treatment. New left upper extremity weakness/chronic left lower extremity weakness CT scan head and CTA head negative. CTA neck showed bilateral internal carotid artery beading concerning for connective tissue disease Patient with chronically elevated ESR and CRP for the past few years Differential including but not limited to vasculitis, infection, other inflammatory process. Solu-Medrol 95 mg IV now, then 40 mg IV daily Order sed rate and CRP Patient may need lumbar puncture, will get opinion from neurology Fall precautions Stroke thrombolytic order set Order MRI brain without contrast Consult neurology Consult PT/OT Patient has a bilateral lower extremity EMG scheduled on 08/23 in the outpatient setting Rheumatoid arthritis- Following with rheumatology Dr. Garcia Her usual dosing of present 5 mg daily will be held while on Solu-Medrol GISELA- Continue CPAP at bedtime Hypertension- Continue losartan Hypothyroidism- Continue levothyroxine Mental health Continue duloxetine Remaining orders and notations as noted PG Care Time/CCT Total # of Minutes Spent Total Time Spent with Patient: Total time spent is greater than 50% in coordination of care (as documented) at patient's floor/unit and/or counseling patient: Coding Level of Care Code 44214 INT INP/OBS CARE 3/75MIN Diagnoses Left arm weakness R29.898 Ambulatory dysfunction R26.2 Rheumatoid arthritis with negative rheumatoid factor, involving unspecified site M06.00 Rheumatoid arthritis location: unspecified site Rheumatoid factor presence: without rheumatoid factor Hip osteoarthritis M16.9 (3) Rheumatoid arthritis Rheumatoid arthritis location: unspecified site Rheumatoid factor presence: without rheumatoid factor Qualified Code(s): M06.00 - Rheumatoid arthritis without rheumatoid factor, unspecified site
[2025-08-14] MEDS: METHYLPREDNISOLONE IV ONE (21:32)
[2025-08-14] MEDS ORDERED: AZELASTINE HCL 0.1% NASAL 200 SPRAYS/27,400 MCG BTL PRN (23:04)
[2025-08-14] MEDS ORDERED: DOCUSATE SODIUM 100 MG CAP PO PRN (23:04)
[2025-08-14] MEDS ORDERED: PHARMACIST DISCHARGE MED REC CONSULT PRN (23:04)
[2025-08-14] MEDS ORDERED: ACETAMINOPHEN 325 MG TAB PO PRN (23:04)
[2025-08-14] MEDS ORDERED: MELATONIN 3 MG TAB PO PRN (23:04)
[2025-08-14] MEDS ORDERED: ONDANSETRON INJ 2 MG/ML 2 ML VIAL IV PRN (23:04)
[2025-08-14] MEDS ORDERED: ALBUTEROL 0.5% NEB SOLN 2.5 MG/0.5 ML VIAL INH PRN (23:04)
[2025-08-14] MEDS ORDERED: POLYETHYLENE (MIRALAX) 17 GM PACK PO PRN (23:04)
--- NOTE | 2025-08-14 23:06 | Magnetic Resonance Report ---
Exam(s): MRI HEAD Without Contrast EXAM: MR Head Without Intravenous Contrast CLINICAL HISTORY: Reason for exam: LUE weakness, stroke workup. TECHNIQUE: Magnetic resonance images of the head/brain without intravenous contrast in multiple planes. COMPARISON: None FINDINGS: Brain: No hemorrhage. No restricted diffusion to suggest acute infarct. Ventricles: Unremarkable. No ventriculomegaly. Bones/joints: Unremarkable. No acute fracture. Sinuses: Unremarkable as visualized. No acute sinusitis. Mastoid air cells: Unremarkable as visualized. No mastoid effusion. Orbits: Unremarkable as visualized. Other vasculature: Mild chronic small-vessel ischemic disease. IMPRESSION: No acute findings in the head/brain. Electronically signed by: Radha Brooks M.D. 08/14/25 23:05 PM
[2025-08-14] MEDS ORDERED: ALBUTEROL HFA 8 GM INHALER INH PRN (23:17)
--- NOTE | 2025-08-15 00:47 | Emergency Department Note ---
Impression & Plan Weakness of left side of body, Morbid obesity with BMI of 60.0-69.9, adult, Physical deconditioning ED Provider Note CHIEF COMPLAINT: Left-sided weakness, unable to transfer. HISTORY OF PRESENT ILLNESS: This 55-year-old female with past medical history of morbid obesity, chronic urticaria, ADD, osteoarthritis of the right hip, rheumatoid arthritis states she has had increasing weakness of the left upper and lower extremity over the last week. She was having difficulty transferring from her chair to her wheelchair. She states she is in a wheelchair because of the hip pain. She has been referred to a second orthopedist recently. She also mentions that she was at [facility] for 9 days last month. She states it was for physical rehabilitation. She was at her outpatient PT appointment today and they sent her into the emergency department because they did not feel that she could care for herself at home. REVIEW OF SYSTEMS: A review of systems was performed with positives and pertinent negatives listed in the history of present illness. 10 systems were reviewed and are otherwise negative. ALLERGIES: see below MEDICATIONS: see below PMH: see below SOCIAL HISTORY: see below DDx: Stroke, infectious etiology, deconditioning, atypical migraine headache, metabolic derangement among others. PHYSICAL EXAM: Vital signs reviewed. General: Generally well-appearing 55-year-old female, obese. No distress. HEENT: No scleral icterus, PERRLA, neck supple. Atraumatic. Cardiovascular: Regular rate and rhythm, no extra sounds. Pulmonary: Clear to auscultation bilaterally, normal work of breathing. Abdomen: Soft, body habitus limits exam. Nontender, nondistended, positive bowel sounds. Musculoskeletal: Atraumatic, no peripheral edema. 2/5 strength of the left lower extremity, 3/5 strength of the right lower extremity. Range of motion is limited by body habitus. Neurologic: Patient awake alert and oriented x 3, speech is clear. Minimal decreased strength appreciable to the left greater than right side. No facial droop appreciated. Cranial nerves II through XII are grossly intact. Speech is clear. Skin: Warm, dry, no rash EMERGENCY DEPARTMENT COURSE/MDM: Patient was evaluated and appeared to be in no significant distress. IV access was obtained and laboratory work was drawn. Patient was placed on the environmental monitoring technician and noted to be in a normal sinus rhythm. Physical examination is fairly reassuring. Given patient's complaints of progressive left-sided weakness, CT of the head and neck with angiograms was performed. These studies are as below but negative for large vessel occlusion or signs of acute CVA. Laboratory work is reassuring. Case was discussed with the hospitalist service as the patient did not feel that she could go home and care for herself. She will need further evaluation of her left upper and lower extremity weakness. MONITORING: An order for cardiac monitoring was placed and the patient is noted to be in a sinus rhythm at 93 bpm. RADIOLOGY: CTA of the head: Unremarkable noncontrast CT of the brain this patient was evaluated and appeared to be in no significant distress. CTA of the head: No definite stenosis or aneurysm of the intracranial arteries CTA neck Impression: Neck CTA demonstrates no stenosis of the major cervical arteries. EKG: My interpretation reveals a sinus rhythm with occasional premature ventricular complexes at 76 bpm. Possible LVH. QTc of 416. DISPOSITION: Admission Past Med/Surg History Problem List (Updated 08/15/25 @ 00:55 by Estephanie Diego MD) Physical deconditioning (Acute) Morbid obesity with BMI of 60.0-69.9, adult (Acute) Weakness of left side of body (Acute) Left arm weakness Ambulatory dysfunction (Acute) Hip osteoarthritis (Acute) Osteoarthritis of right hip Atypical ductal hyperplasia of left breast Rheumatoid arthritis Inflammatory arthritis Migraine with aura Vitamin D deficiency B12 deficiency Chronic idiopathic urticaria Attention deficit disorder Arthralgia Hypothyroidism Chronic migraine Chronic cough Hypersomnia Medical History Accident due to mechanical fall without injury Cellulitis of left leg Cellulitis Obesity due to excess calories Myalgia Hypertension GISELA (obstructive sleep apnea) Allergic rhinitis Asthma Pulmonary nodule Migraines Surgical History History of appendectomy Family History Mother Multiple sclerosis Father Bladder cancer Muscle wasting and atrophy, not elsewhere classified, back, lumbosacral Brother Hypertension Denies family history of Ovarian cancer Prostate cancer Diabetes Myocardial infarction Breast cancer Colorectal cancer Social History Smoking Status: Never smoker Second Hand Exposure: No; Hx Alcohol Use: No Hx Substance Use: No Preferred Language: Tanzanian Communication Ability: Effective Visual Impairment: Limited Hearing Ability: Normal Sports Recruiter Required: No Beliefs That Will Affect Care: None marital status: Single Current Living Situation: Parent current occupational status: employed current occupation: self employed How many Children do You have: 0 Feels Safe at Home: Yes Childhood Exposure to Second-Hand Smoke: No Diet: regular Diet Comment: cannot have corn caffeine: Yes during the past year weight has: increased > 10 lbs Dental Care, Regularly: Yes Physical Activity Frequency: Does not Exercise Seatbelt Use: always Sunscreen Use: Yes Assistive Devices: CPAP, Glasses and Wheelchair Allergies Allergies Allergy/AdvReac Type Severity Reaction Status Date / Time corn Allergy Severe ANAPHYLAXIS Unverified 07/07/25 23:43 -- all corn related products grass pollen Allergy Unknown seasonal Verified 07/07/25 23:44 allergies house dust mite Allergy Unknown seasonal Verified 07/07/25 23:45 allergies Iodinated Contrast Media Allergy Unknown Hives Verified 07/07/25 23:43 pollen extracts Allergy Unknown seasonal Verified 07/07/25 23:44 allergies Sulfa (Sulfonamide AdvReac Intermediate Hives, Verified 07/07/25 23:41 Antibiotics) Joint Pain Home Meds Home Medications Medication Instructions Recorded Confirmed levocetirizine 5 mg tablet (Xyzal) 5 mg PO DAILY PRN allergies 08/04/23 08/14/25 celecoxib 200 mg capsule 200 mg PO BID 07/07/25 08/14/25 cyanocobalamin (vitamin B-12) 0 mcg IM MONTHLY 07/07/25 08/14/25 1,000 mcg/mL injection solution ergocalciferol (vitamin D2) 1,250 50,000 unit PO .3X WK 07/07/25 08/14/25 mcg (50,000 unit) capsule (Vitamin D2) gabapentin 300 mg capsule 300 mg PO TID 07/07/25 08/14/25 levothyroxine 25 mcg capsule 25 mcg PO UD 07/07/25 08/14/25 rizatriptan 10 mg tablet 0 mg PO UD PRN Headache 07/07/25 08/14/25 tirzepatide (weight loss) 10 10 mg subcut Q7D 07/07/25 08/14/25 mg/0.5 mL subcutaneous solution prednisone 10 mg tablet 5 mg PO DAILY PRN as directed 08/08/25 08/14/25 duloxetine 60 mg capsule,delayed 120 mg PO DAILY 08/14/25 08/14/25 release riboflavin (vitamin B2) 400 mg 400 mg PO QAM 08/14/25 08/14/25 tablet suzetrigine 50 mg tablet (Journavx) 50 mg PO BID 08/14/25 08/14/25 Previous Rx's Medication Instructions Recorded Auto Titrating CPAP #1 ea 07/10/21 CPAP Supplies #1 ea 07/10/21 acetaminophen 500 mg capsule 500 mg PO Q4H PRN fever #1 cap 09/11/22 diphenhydramine HCl 25 mg capsule 25 mg PO Q6H PRN allergy symptoms 09/11/22 (Allergy (diphenhydramine)) #1 cap digital therapeutic,CHARLIE device #1 ea 10/15/23 magnesium glycinate 400 mg (4 x 100 mg magnesium) PO 10/15/23 DAILY #30 caps CPAP Supplies #1 ea 11/23/23 insulin syringe-needle U-100 1 mL #100 ea 05/04/24 27 gauge x 1/2" (BD Insulin Syringe) albuterol sulfate 2.5 mg/0.5 mL 2.5 mg (0.5 mL) inhalation Q4H PRN 10/21/24 solution for nebulization shortness of breath or wheezing #30 ea Breo Ellipta 100 mcg-25 mcg/dose 1 inh inhalation DAILY #3 Inhalers 01/16/25 powder for inhalation (fluticasone furoate-vilanterol) albuterol sulfate 90 mcg/actuation 2 inh inhalation QID PRN shortness 01/16/25 breath activated powder inhaler of breath or wheezing #3 ea (ProAir RespiClick) epinephrine 0.3 mg/0.3 mL 0.3 mg (0.3 mL) IM Q10M PRN 03/08/25 injection, auto-injector (EpiPen) anaphylaxis #2 ea omalizumab 300 mg/2 mL 300 mg (2 mL) subcut .COMPLEX #4 mL 03/14/25 subcutaneous syringe rimegepant 75 mg disintegrating 75 mg PO DAILY PRN migraine 03/27/25 tablet (Nurtec ODT) headache 90 days #27 tabs fremanezumab-vfrm 225 mg/1.5 mL 225 mg (1.5 mL) subcut ONCE 30 03/30/25 subcutaneous auto-injector (Ajovy) days #45 mL losartan 25 mg tablet 25 mg PO BID 90 days #180 tabs 05/11/25 3mL Syringe 1.5in 25g needle #10 ea 06/02/25 tramadol 5 mg/mL oral solution 100 mg (20 mL) PO TID PRN pain 07/20/25 #473 mL Orencia ClickJect 125 mg/mL 125 mg subcut Q7D #4 mL 07/25/25 subcutaneous auto-injector (abatacept) Manual Wheelchair #1 ea 08/08/25 RSVPreF3 antigen-AS01E 120 mcg IM ONCE #1 ea 08/08/25 adjuvant(PF) 120 mcg/0.5 mL IM suspension, kit Wheelchair (Manual) (Manual #1 ea 08/08/25 Wheelchair) azelastine 137 mcg (0.1 %) nasal 2 spray intranasal BID PRN allergy 08/11/25 spray symptoms #30 mL dextroamphetamine-amphetamine 15 15 mg PO TID PRN add #60 tabs 08/11/25 mg tablet Results & Data (ED) Vital Signs Vital Signs - 24 hr 08/14/25 16:25 08/14/25 16:42 08/14/25 19:12 Temperature 36.9 C Temperature Source Oral Pulse Rate 97 H 88 Pulse Rate from SpO2 Sensor 85 Respiratory Rate 16 24 Blood Pressure 177/105 H Blood Pressure [Left Arm] Blood Pressure Mean 129 Blood Pressure Mean [Left Arm] Pulse Oximetry 94 94 96 Oxygen Delivery Method Room Air Room Air Room Air Sepsis Recent Fever Within 48 Hours No Sepsis New/Unexplained Change in Mental Status N/A Sepsis Action Taken by Nursing No Action Required 08/14/25 19:16 08/14/25 19:17 08/14/25 19:21 Temperature Temperature Source Pulse Rate 91 H Pulse Rate from SpO2 Sensor 90 Respiratory Rate 22 Blood Pressure 156/98 H Blood Pressure [Left Arm] 156/98 H Blood Pressure Mean 111 Blood Pressure Mean [Left Arm] 117 Pulse Oximetry 98 Oxygen Delivery Method Sepsis Recent Fever Within 48 Hours Sepsis New/Unexplained Change in Mental Status Sepsis Action Taken by Nursing 08/14/25 19:30 08/14/25 20:00 08/14/25 20:12 Temperature Temperature Source Pulse Rate 99 H 86 Pulse Rate from SpO2 Sensor 85 84 Respiratory Rate 24 17 Blood Pressure 156/104 H 158/100 H Blood Pressure [Left Arm] Blood Pressure Mean 121 123 Blood Pressure Mean [Left Arm] Pulse Oximetry 92 92 Oxygen Delivery Method Room Air Room Air Sepsis Recent Fever Within 48 Hours Sepsis New/Unexplained Change in Mental Status Sepsis Action Taken by Nursing 08/14/25 20:30 08/14/25 20:42 08/14/25 20:48 Temperature Temperature Source Pulse Rate 85 86 Pulse Rate from SpO2 Sensor 88 96 H Respiratory Rate 30 H 17 Blood Pressure Blood Pressure [Left Arm] Blood Pressure Mean Blood Pressure Mean [Left Arm] Pulse Oximetry 94 Oxygen Delivery Method Room Air Sepsis Recent Fever Within 48 Hours Sepsis New/Unexplained Change in Mental Status Sepsis Action Taken by Nursing 08/14/25 20:51 08/14/25 21:00 08/14/25 21:12 Temperature Temperature Source Pulse Rate 95 H 93 H Pulse Rate from SpO2 Sensor 91 H 85 Respiratory Rate 23 25 H Blood Pressure 174/94 H Blood Pressure [Left Arm] Blood Pressure Mean 103 Blood Pressure Mean [Left Arm] Pulse Oximetry 94 91 Oxygen Delivery Method Sepsis Recent Fever Within 48 Hours Sepsis New/Unexplained Change in Mental Status Sepsis Action Taken by Nursing 08/14/25 21:15 Temperature Temperature Source Pulse Rate 88 Pulse Rate from SpO2 Sensor 90 Respiratory Rate 24 Blood Pressure Blood Pressure [Left Arm] Blood Pressure Mean Blood Pressure Mean [Left Arm] Pulse Oximetry 92 Oxygen Delivery Method Sepsis Recent Fever Within 48 Hours Sepsis New/Unexplained Change in Mental Status Sepsis Action Taken by [facility] Medications Current Medication List: was personally reviewed by me Laboratory Data Attestation: I reviewed the patient's lab results. 08/14/25 17:14 08/14/25 17:14 Lab Results 08/14/25 08/14/25 Range/Units 17:14 19:30 WBC 11.23 H (4.8-10.8) K/ul RBC 5.00 (4.20-5.40) M/uL Hgb 14.9 (12.0-16.0) g/dl Hct 44.6 (37.0-47.0) % MCV 89.2 (80.0-100.0) fL MCH 29.8 (25.0-34.0) pg MCHC 33.4 (32.0-36.0) g/dL RDW Std Deviation 48.8 H (36.4-46.3) fL RDW Coeff of [place] 15.0 H (11.5-14.5) % Plt Count 372 (130-400) K/uL MPV 9.8 (9.4-12.4) fL Immature Gran % (Auto) 0.4 % Neut % (Auto) 62.8 % Lymph % (Auto) 25.1 % Fountain % (Auto) 9.3 % Eos % (Auto) 1.4 % Baso % (Auto) 1.0 % Neut # (Auto) 7.06 H (1.40-6.50) K/uL Lymph # (Auto) 2.82 (1.20-3.40) K/uL Fountain # (Auto) 1.04 H (0.11-0.59) K/uL Eos # (Auto) 0.16 (0.00-0.50) K/uL Baso # (Auto) 0.11 (0.00-0.20) K/uL Immature Gran # (Auto) 0.04 (0.01-0.20) K/uL ESR 65 H (0-30) mm/hr PT 11.0 (9.0-12.0) Seconds INR 1.0 (0.9-1.1) APTT 27 (21-31) Seconds PTT Ratio 1.0 Sodium 140 (136-145) mmol/L Potassium 4.0 (3.5-5.1) mmol/L Chloride 103 (98-107) mmol/L Carbon Dioxide 28 (21-32) mmol/L Anion Gap 9 (3-11) BUN 19 (6-23) mg/dl Creatinine 0.62 (0.6-1.2) mg/dl Est Cr Clr Drug Dosing 150.4 ml/min eGFR 103.80 BUN/Creatinine Ratio 30.6 H (10-20) Glucose 87 (70-99(Fasting)) mg/dl Calcium 10.0 (8.6-10.3) mg/dl Magnesium 2.1 (1.7-2.4) mg/dl Total Bilirubin 0.5 (0.2-1.0) mg/dl AST 25 (13-39) U/L ALT 28 (7-52) U/L Alkaline Phosphatase 138 H (34-104) U/L Troponin I High Sens 6.3 (0-14) pg/ml C-Reactive Protein 4.37 H (0-0.5) mg/dl Total Protein 7.8 (6.0-8.3) gm/dl Albumin 4.0 (3.4-5.0) gm/dl Globulin 3.8 (2.5-4.0) gm/dl Albumin/Globulin Ratio 1.1 (0.9-2) Urine Color Yellow Urine Appearance Clear (Clear) Urine pH 5.5 (4.5-7.5) Ur Specific Melvin 1.027 (1.000-1.030) Urine Protein Negative (Negative) Urine Glucose (UA) Negative (Negative) Urine Ketones Negative (Negative) Urine Blood Negative (Negative) Urine Nitrite Negative (Negative) Urine Bilirubin Negative (Negative) Urine Urobilinogen Negative (Negative) Ur Leukocyte Esterase Negative (Negative) Urine Comment Administered Medications Discontinued Medications Diphenhydramine HCl (Diphenhydramine 50 Mg/Ml Vial) 25 mg IV NOW STA Stop: 08/14/25 16:57 Last Admin: 08/14/25 18:23 Dose: 25 mg Documented By: VIRIDIANA Methylprednisolone 65 mg/ (Syringe) 1.04 mls @ 1.5 mls/min IV NOW ONE Stop: 08/14/25 21:13 Last Admin: 08/14/25 21:32 Dose: 1.5 mls/min Documented By: ANAND Ioversol (Optiray 320 125ml) 115 ml IV ONCE ONE Stop: 08/14/25 18:35 Last Admin: 08/14/25 18:35 Dose: 115 ml Documented By: BAILEY Methylprednisolone (Methylprednisolone 125 Mg/2 Ml Vial) 60 mg IV NOW STA Stop: 08/14/25 18:21 Last Admin: 08/14/25 18:23 Dose: 60 mg Documented By: VIRIDIANA Imaging Data Radiologist's Impression: Head CT 08/14/25 16:56 Technique: Axial computed tomography images were obtained of the brain from the vertex to the skull base without intravenous contrast. Findings: There is no sign of intracranial hemorrhage. There is normal reece-white matter differentiation with no sign of acute or old infarction. No midline shift or other form of herniation is identified. There is no hydrocephalus. No obvious mass lesion is seen on this noncontrast examination. The visualized portions of the orbits and paranasal sinuses appear unremarkable. The mastoid air cells appear clear Impression: Unremarkable noncontrast CT of the brain Electronically signed by Steve Painter 08-14-2025 7:03 PM Head CTA 08/14/25 16:56 Technique: Axial computed tomography images were obtained of the brain after the administration of intravenous contrast according to the CT angiogram protocol Findings: No definite stenosis or aneurysm is seen of the anterior, middle, or posterior cerebral artery circulations. The visualized vertebral arteries and the basilar artery appear unremarkable Impression: No definite stenosis or aneurysm of the intracranial arteries Electronically signed by Steve Painter 08-14-2025 7:05 PM Neck CTA 08/14/25 16:56 CT angiogram of the neck Provided History: Trauma Comparison: None Technique: NECK CTA: During rapid bolus intravenous injection of nonionic contrast material, axial images were obtained using thin collimation multidetector helical technique from the base of the neck through the base of the skull. This CT angiogram data was reconstructed at thin intervals with mild overlap. 3D reconstructions were obtained. The axial source images, multiplanar reformations, 3D reconstructions in both maximum intensity projection display and volume rendered models were reviewed. Dose reduction techniques were achieved by using automatic exposure control and/or adjustment of mA and/or kV according to patient size and/or use of iterative reconstruction technique. Findings: Neck CTA demonstrates no stenosis of the major cervical arteries. Tortuosity of the internal carotid arteries. Portions of the calvo of the ICA have an irregular, beaded appearance. The origins of the great vessels from the aortic arch are patent. The normal distal right internal carotid artery measures 5 mm. The normal distal left internal carotid artery measures 5 mm. No mass is noted within the visualized portions of the cervical soft tissues or lung apices. Impression: Neck CTA demonstrates no stenosis of the major cervical arteries. Tortuous bilateral ICA, with portions having an irregular beaded appearance of the wall, possibly related to connective tissue disease such as fibromuscular dysplasia. Electronically signed by Terrance Mendez 08-14-2025 7:07 PM Brain MRI 08/14/25 21:12 Exam(s): MRI HEAD Without Contrast EXAM: MR Head Without Intravenous Contrast CLINICAL HISTORY: Reason for exam: LUE weakness, stroke workup. TECHNIQUE: Magnetic resonance images of the head/brain without intravenous contrast in multiple planes. COMPARISON: None FINDINGS: Brain: No hemorrhage. No restricted diffusion to suggest acute infarct. Ventricles: Unremarkable. No ventriculomegaly. Bones/joints: Unremarkable. No acute fracture. Sinuses: Unremarkable as visualized. No acute sinusitis. Mastoid air cells: Unremarkable as visualized. No mastoid effusion. Orbits: Unremarkable as visualized. Other vasculature: Mild chronic small-vessel ischemic disease. IMPRESSION: No acute findings in the head/brain. Electronically signed by: Radha Brooks M.D. 08/14/25 23:05 PM Discharge Plan Visit Data Chief Complaint: Weakness Stated Complaint: L ARM AND LEG WEAKNESS ED Provider: Estephanie Diego Discharge Problem: Weakness of left side of body, Morbid obesity with BMI of 60.0-69.9, adult, Physical deconditioning Patient Disposition: Admitted As Inpatient Condition: Fair Discharge Instructions Interventions: ED Discharge Assessment Last Done: 08/14/25 22:14
[2025-08-15] MEDS: LOSARTAN POTASSIUM 25 MG TAB PO SCH (01:00)
[2025-08-15] MEDS: SUZETRIGINE 50 MG PO SCH (01:01)
[2025-08-15] MEDS: CeleBREX 200 MG CAP PO SCH (01:01)
[2025-08-15] MEDS: TRAMADOL PO PRN (02:14)
--- NOTE | 2025-08-15 03:02 | Ultrasound Report ---
EXAM: US venous doppler LE LT CLINICAL HISTORY: LE edema TECHNIQUE: Ultrasound examination of the left lower extremity veins was performed in real time and with duplex imaging. One or more of the following were performed: spectral analysis, resistive index, waveform analysis, and pulsed Doppler. COMPARISON: 07/07/2025 FINDINGS: The exam is limited by increased body habitus. Normal phasic, non-pulsatile, and spontaneous flow is noted in the left common femoral, superficial femoral, popliteal, posterior tibial, anterior tibial, and peroneal veins. The visualized veins of the left lower extremity demonstrate normal compressibility. No sonographic evidence of acute deep vein thrombosis (DVT) is detected in the visualized veins of the lower extremity. Compression and Augmentation: All evaluated veins compress fully with applied transducer pressure. Augmentation of venous flow is noted with distal compression. Additional Findings: No evidence of intraluminal thrombus. IMPRESSION: No sonographic evidence of acute DVT detected at the time of examination. No interval changes. Disclaimer: DVT could be missed early in the disease when clot burden is minimal. For patients with moderate and high pretest probability of DVT and negative ultrasound, the [employer] clinical guidelines recommend testing with a D-dimer assay or repeat ultrasound in 5-7 days. If symptoms worsen, the Society of Radiologists in Ultrasound recommends repeating ultrasound even earlier. Electronically signed by Emmanuel Sutherland 08-15-2025 03:02 AM
[2025-08-15] MEDS: LEVOTHYROXINE SODIUM 25 MCG PO SCH (05:38)
[2025-08-15 07:08] LABS: Hematocrit (blood only) 42.4 % (37.0-47.0); Hemoglobin 14.2 g/dl (12.0-16.0); Immature Granulocytes # (auto) 0.04 K/uL (0.01-0.20); Immature Granulocytes % (auto) 0.5 %; Mean Corpuscular Hemoglobin 29.3 pg (25.0-34.0); Mean Corpuscular Volume 87.4 fL (80.0-100.0); Platelet Count 365 K/uL (130-400); RDW Standard Deviation 47.8 fL (36.4-46.3); Red Blood Count 4.85 M/uL (4.20-5.40); White Blood Count 8.83 K/ul (4.8-10.8)
[2025-08-15 07:33] LABS: Alanine Aminotransferase 22.0 U/L (7-52); Albumin Globulin Ratio 1.3 (0.9-2); Albumin Level 3.8 gm/dl (3.4-5.0); Alkaline Phosphatase 122.0 U/L (34-104); Anion Gap 9.0 (3-11); Bilirubin,Total 0.4 mg/dl (0.2-1.0); Blood Urea Nitrogen 14.0 mg/dl (6-23); Calcium 9.5 mg/dl (8.6-10.3); Carbon Dioxide 25.0 mmol/L (21-32); Chloride 105.0 mmol/L (98-107); Cholesterol 162.0 mg/dl (0-200); Creatinine Clr Calc Pharmacy 191.9 ml/min; Globulin 3.0 gm/dl (2.5-4.0); Glucose 149.0 mg/dl (70-99(Fasting)); HDL Cholesterol 63.0 mg/dl; Magnesium 2.1 mg/dl (1.7-2.4); Potassium 4.1 mmol/L (3.5-5.1); Sodium 139.0 mmol/L (136-145); Total Protein 6.8 gm/dl (6.0-8.3); Triglycerides 63.0 mg/dl (0-150)
[2025-08-15] MEDS: ACETAMINOPHEN 500 MG PO PRN (07:36)
[2025-08-15 08:44] LABS: Hemoglobin A1C 5.9 % (4.5-5.6)
[2025-08-15] MEDS ORDERED: TRAMADOL PO PRN (09:00)
[2025-08-15] MEDS: GABAPENTIN 300 MG CAP PO SCH (09:10)
--- NOTE | 2025-08-15 09:18 | XCELERA ---
[id number]
--- NOTE | 2025-08-15 09:54 | Electrocardiogram Report ---
Test Reason : Blood Pressure : */* mmHG Vent. Rate : 76 BPM Atrial Rate : 76 BPM P-R Int : 160 ms QRS Dur : 92 ms QT Int : 370 ms P-R-T Axes : 27 -19 39 degrees QTcB Int : 416 ms Sinus rhythm with occasional Premature ventricular complexes Minimal voltage criteria for LVH, may be normal variant ( R in aVL ) Anterolateral infarct (cited on or before 07-Jul-2025) Abnormal ECG When compared with ECG of 07-Jul-2025 12:39, Premature ventricular complexes are now Present Nonspecific T wave abnormality, improved in Inferior leads Confirmed by Oscar Walton ([id number]) on 08/15/2025 9:54:29 AM Referred By: Confirmed By: Oscar Walton
[2025-08-15] MEDS: FLUTICASONE/VILANTEROL 100/25MCG 14 PUFFS/INHALER INH SCH (10:36)
--- NOTE | 2025-08-15 12:25 | Hospitalist Progress Note ---
Date of Service August 15, 2025 Assessment & Plan (1) Left arm weakness: (2) Ambulatory dysfunction: (3) Rheumatoid arthritis: (4) Hip osteoarthritis: Plan Patient is a 55-year-old female with PMH of obesity, RA, corn allergy, asthma, hypertension, severe hip arthritis chronic left lower extremity weakness who presented via EMS due to left upper extremity weakness that has progressed over the past week. Head CT and CTAs negative for acute changes and patient is being admitted for stroke workup and possible placement. she was having left side weakness. plan for MRI brain #left-sided weaknessnew onset left UE weakness with chronic left LE weakness. Head CT and head CTA negative for acute changes. Neck CTA showed bilateral ICA beading concerning for connective tissue disease. Patient has previously had elevated ESR and CRP over the past few years. Concern for infectious versus inflammatory origin with possible vasculitis Will give stress dose of IV Solu-Medrol 125 mg IV on admission followed by 40 mg IV daily Neurology consulted Sed rate and CRP ordered Fall precautions Stroke without TNK order setbrain MRI ordered, echocardiogram with bubble study ordered, neurochecks every 4 hours, lipid panel and A1c PT/OT consulted LLE weakness being evaluated with BL EMG on 08/23 in outpatient setting left leg cellulitis begin IV antibiotics today deposition-she is requesting for [facility] #rheumatoid arthritisfollows with rheumatology, Dr. Garcia. On prednisone 5 mg daily at home, stress dosing as above #right hip osteoarthritisfollows with orthopedics Dr. Carmen and is to have total hip replacement done if BMI can improved under 50 Has made patient wheelchair-bound at baseline - continue home Journvx #OSACPAP at bedtime #HTNcontinue losartan #Hypothyroidismcontinue levothyroxine #Mental healthcontinue duloxetine #Severe corn allergypatient brought home medications without corn VTE ppx: SCDs, low risk Dispo: med/tele Admission and Anticipated Discharge Date Admission Date: August 14, 2025 Subjective she continue to has intractable RIGHT hip pain from severe osteoarthritis in addition, she is not having left leg cellulitis needing IV antibiotics she is unable to bear weight on her LEFT hip she is requesting placement to encompass she's stated she's was at [facility] and only received one hour of PT per day Physical Exam Physical Exam: VITALS: Reviewed. WEIGHT/BMI reviewed. GEN: Healthy appearing, well-developed, NAD. -Head: NC/AT; -Eyes: PERRL, EOMI. No discharge or redn ess; NECK: Supple, with no masses. CV: RRR, no m/r/g. LUNGS: CTAB, no w/r/c. ABD: Soft, NT/ND, NBS, no masses or organomegaly. : N/A SKIN: + for left leg erythema EXT: No clubbing, cyanosis, or edema. NEURO: AAOx3 Results & Data Results & Data Vital Signs (Past 12 Hours) Vital Signs Temp Pulse Pulse Resp BP Pulse Ox O2 Del Method 08/15/25 10:42 36.6 C 85 20 117/76 90 Room Air 08/15/25 09:50 Room Air 08/15/25 07:47 91 H 08/15/25 07:15 36.8 C 89 16 141/75 H 92 Room Air 08/15/25 03:02 87 20 90 08/15/25 02:43 36.4 C L 16 142/83 H 91 Room Air FiO2 08/15/25 10:42 08/15/25 09:50 08/15/25 07:47 08/15/25 07:15 08/15/25 03:02 21 08/15/25 02:43 Laboratory Results Laboratory Results - last 72 hr 08/14/25 08/14/25 08/15/25 17:14 19:30 05:59 WBC 11.23 H 8.83 RBC 5.00 4.85 Hgb 14.9 14.2 Hct 44.6 42.4 MCV 89.2 87.4 MCH 29.8 29.3 MCHC 33.4 33.5 RDW Std Deviation 48.8 H 47.8 H RDW Coeff of [place] 15.0 H 14.8 H Plt Count 372 365 MPV 9.8 10.3 Immature Gran % (Auto) 0.4 0.5 Neut % (Auto) 62.8 82.9 Lymph % (Auto) 25.[address] % (Auto) 9.3 1.2 Eos % (Auto) 1.4 0.0 Baso % (Auto) 1.0 0.2 Neut # (Auto) 7.06 H 7.32 H Lymph # (Auto) 2.[address] # (Auto) 1.04 H 0.11 Eos # (Auto) 0.16 0.00 Baso # (Auto) 0.11 0.02 Immature Gran # (Auto) 0.04 0.04 ESR 65 H PT 11.0 INR 1.0 APTT 27 PTT Ratio 1.0 Sodium 140 139 Potassium 4.0 4.1 Chloride 103 105 Carbon Dioxide 28 25 Anion Gap 9 9 BUN 19 14 Creatinine 0.62 0.48 L Est Cr Clr Drug Dosing 150.4 191.9 eGFR 103.80 110.41 BUN/Creatinine Ratio 30.6 H 29.2 H Glucose 87 149 H Estimat Average Glucose 123 Hemoglobin A1c 5.9 H Calcium 10.0 9.5 Magnesium 2.1 2.1 Total Bilirubin 0.5 0.4 AST 25 19 ALT 28 22 Alkaline Phosphatase 138 H 122 H Troponin I High Sens 6.3 C-Reactive Protein 4.37 H Total Protein 7.8 6.8 Albumin 4.0 3.8 Globulin 3.8 3.0 Albumin/Globulin Ratio 1.1 1.3 Triglycerides 63 Cholesterol 162 LDL Cholesterol, Calc 86 VLDL Cholesterol, Calc 13 HDL Cholesterol 63 Cholesterol/HDL Ratio 2.6 Urine Color Yellow Urine Appearance Clear Urine pH 5.5 Ur Specific [place] 1.027 Urine Protein Negative Urine Glucose (UA) Negative Urine Ketones Negative Urine Blood Negative Urine Nitrite Negative Urine Bilirubin Negative Urine Urobilinogen Negative Ur Leukocyte Esterase Negative Urine Comment Diagnostic Findings Head CT 08/14/25 16:56 Technique: Axial computed tomography images were obtained of the brain from the vertex to the skull base without intravenous contrast. Findings: There is no sign of intracranial hemorrhage. There is normal reece-white matter differentiation with no sign of acute or old infarction. No midline shift or other form of herniation is identified. There is no hydrocephalus. No obvious mass lesion is seen on this noncontrast examination. The visualized portions of the orbits and paranasal sinuses appear unremarkable. The mastoid air cells appear clear Impression: Unremarkable noncontrast CT of the brain Electronically signed by Steve Painter 08-14-2025 7:03 PM Head CTA 08/14/25 16:56 Technique: Axial computed tomography images were obtained of the brain after the administration of intravenous contrast according to the CT angiogram protocol Findings: No definite stenosis or aneurysm is seen of the anterior, middle, or posterior cerebral artery circulations. The visualized vertebral arteries and the basilar artery appear unremarkable Impression: No definite stenosis or aneurysm of the intracranial arteries Electronically signed by Steve Painter 08-14-2025 7:05 PM Neck CTA 08/14/25 16:56 CT angiogram of the neck Provided History: Trauma Comparison: None Technique: NECK CTA: During rapid bolus intravenous injection of nonionic contrast material, axial images were obtained using thin collimation multidetector helical technique from the base of the neck through the base of the skull. This CT angiogram data was reconstructed at thin intervals with mild overlap. 3D reconstructions were obtained. The axial source images, multiplanar reformations, 3D reconstructions in both maximum intensity projection display and volume rendered models were reviewed. Dose reduction techniques were achieved by using automatic exposure control and/or adjustment of mA and/or kV according to patient size and/or use of iterative reconstruction technique. Findings: Neck CTA demonstrates no stenosis of the major cervical arteries. Tortuosity of the internal carotid arteries. Portions of the calvo of the ICA have an irregular, beaded appearance. The origins of the great vessels from the aortic arch are patent. The normal distal right internal carotid artery measures 5 mm. The normal distal left internal carotid artery measures 5 mm. No mass is noted within the visualized portions of the cervical soft tissues or lung apices. Impression: Neck CTA demonstrates no stenosis of the major cervical arteries. Tortuous bilateral ICA, with portions having an irregular beaded appearance of the wall, possibly related to connective tissue disease such as fibromuscular dysplasia. Electronically signed by Terrance Mendez 08-14-2025 7:07 PM Brain MRI 08/14/25 21:12 Exam(s): MRI HEAD Without Contrast EXAM: MR Head Without Intravenous Contrast CLINICAL HISTORY: Reason for exam: LUE weakness, stroke workup. TECHNIQUE: Magnetic resonance images of the head/brain without intravenous contrast in multiple planes. COMPARISON: None FINDINGS: Brain: No hemorrhage. No restricted diffusion to suggest acute infarct. Ventricles: Unremarkable. No ventriculomegaly. Bones/joints: Unremarkable. No acute fracture. Sinuses: Unremarkable as visualized. No acute sinusitis. Mastoid air cells: Unremarkable as visualized. No mastoid effusion. Orbits: Unremarkable as visualized. Other vasculature: Mild chronic small-vessel ischemic disease. IMPRESSION: No acute findings in the head/brain. Electronically signed by: Radha Brooks M.D. 08/14/25 23:05 PM Venous Doppler Study 10/07/25 00:00 EXAM: US venous doppler LE LT CLINICAL HISTORY: LE edema TECHNIQUE: Ultrasound examination of the left lower extremity veins was performed in real time and with duplex imaging. One or more of the following were performed: spectral analysis, resistive index, waveform analysis, and pulsed Doppler. COMPARISON: 07/07/2025 FINDINGS: The exam is limited by increased body habitus. Normal phasic, non-pulsatile, and spontaneous flow is noted in the left common femoral, superficial femoral, popliteal, posterior tibial, anterior tibial, and peroneal veins. The visualized veins of the left lower extremity demonstrate normal compressibility. No sonographic evidence of acute deep vein thrombosis (DVT) is detected in the visualized veins of the lower extremity. Compression and Augmentation: All evaluated veins compress fully with applied transducer pressure. Augmentation of venous flow is noted with distal compression. Additional Findings: No evidence of intraluminal thrombus. IMPRESSION: No sonographic evidence of acute DVT detected at the time of examination. No interval changes. Disclaimer: DVT could be missed early in the disease when clot burden is minimal. For patients with moderate and high pretest probability of DVT and negative ultrasound, the [employer] clinical guidelines recommend testing with a D-dimer assay or repeat ultrasound in 5-7 days. If symptoms worsen, the Society of Radiologists in Ultrasound recommends repeating ultrasound even earlier. Electronically signed by Emmanuel Sutherland 08-15-2025 03:02 AM PG Care Time/CCT Total # of Minutes Spent Total Time Spent with Patient: Total time spent is greater than 50% in coordination of care (as documented) at patient's floor/unit and/or counseling patient: Coding Level of Care Code 99373 SUB INP/OBS CARE 1/25MIN Diagnoses Left arm weakness R29.898 Ambulatory dysfunction R26.2 Rheumatoid arthritis with negative rheumatoid factor, involving unspecified site M06.00 Rheumatoid arthritis location: unspecified site Rheumatoid factor presence: without rheumatoid factor Hip osteoarthritis M16.9 Time Spent (min) 25 (3) Rheumatoid arthritis Rheumatoid arthritis location: unspecified site Rheumatoid factor presence: without rheumatoid factor Qualified Code(s): M06.00 - Rheumatoid arthritis without rheumatoid factor, unspecified site
[2025-08-15] MEDS: PNEUMOCOCCAL VACCINE (PCV20) 20-VAL CONJ-DIP CRM/PF 0.5 ML SYR IM ONE (15:55)
--- NOTE | 2025-08-15 17:13 | Neurology Consultation ---
Date of Consultation August 15, 2025 Assessment & Plan (1) Fibromuscular dysplasia of both carotid arteries: (2) Left arm weakness: (3) Left leg weakness: (4) Rheumatoid arthritis: Plan 55-year-old female with subacute, persistent, progressive, weakness of the left leg beginning a few weeks ago, followed by the left arm. No associated facial droop, dysarthria, or significant headache. She does have fibromuscular dysplasia of both internal carotid arteries. I do not think this finding is clinically significant. Her brain MRI is negative for acute stroke or other acute process. No findings that would explain her symptoms. She has a chronically elevated ESR and CRP in the context of rheumatoid arthritis. I doubt she has EMS EDUCATOR vasculitis. She has chronic severe osteoarthritis of the right hip, but has moderately severe arthritis of the left hip as well as identi fied on a previous pelvis CT. She follows with orthopedics. Her examination does not seem consistent with stroke. There are some inconsistencies in her examination, apart from lack of a facial droop, including lack of upper motor neuron findings, no Babinski response, no fix with arm roll, downward drift of the left upper extremity rather than a pronator drift. Her examination findings could be peripheral, musculoskeletal, or possibly functional. Myositis or myopathy seem unlikely given that her weakness only affects the left leg and arm. I would recommend an MRI of the cervical and lumbar spine. Consultations with PT/OT. She does have an EMG of the lower limbs scheduled in our office for August 23, 2025. A left upper extremity EMG should also be obtained. Given that she does have fibromuscular dysplasia of both internal carotid arteries, I would recommend starting aspirin 81 mg/day. Again, there is no evidence of acute or subacute stroke on her MRI and the finding of FMD is of unlikely clinical significance in the context of her current presentation. Could consider obtaining a renal artery ultrasound as well to assess for FMD elsewhere. If the above spinal MRIs are negative for significant or explanatory pathology, and if her weakness progresses or does not improve, could consider obtaining a repeat brain MRI with and without contrast. Please call with any questions. History of Present Illness Reason for Consultation: Left-sided weakness, vasculitis? Requesting Physician: Enedina Attending Physician: Alondra Michaels, DO History of Present Illness The patient is a 55-year-old female with a history of fairly recent diagnosis of rheumatoid arthritis, severe osteoarthritis of the right hip, follows with orthopedics, planning on EMG in our office in a few weeks. She presented to the emergency department overnight for further assessment of persistent progressive left-sided weakness, beginning with the left lower extremity several weeks ago, over the past week, she developed left upper extremity weakness. She denies any associated numbness, no associated facial droop or change in speech. She follows with [facility], Dr. Garcia, for her rheumatoid arthritis. She is prescribed prednisone, and was most recently started on Orencia. Her history is also notable for obstructive sleep apnea, morbid obesity, and migraine. I note she has a chronically elevated sedimentation rate. A CTA of the head and neck indicated probable fibromuscular dysplasia involving the internal carotid arteries, no hemodynamically significant stenosis, dissection, or aneurysm. A brain MRI is negative for acute process. I independently reviewed these images and agree. A transthoracic echocardiogram was limited, although no significant change compared with the previous study done in November 2022, normal ejection fraction, no regional wall motion abnormalities. An electrocardiogram revealed a sinus rhythm with occasional PVCs. Recent ESR 65, although chronically elevated, recent LDL 96. She denies significant headache recently, no myalgia. She is currently receiving antibiotics for possible left leg cellulitis. Allergies Allergy/AdvReac Type Severity Reaction Status Date / Time corn Allergy Severe ANAPHYLAXIS Unverified 07/07/25 23:43 -- all corn related products grass pollen Allergy Unknown seasonal Verified 07/07/25 23:44 allergies house dust mite Allergy Unknown seasonal Verified 07/07/25 23:45 allergies Iodinated Contrast Media Allergy Unknown Hives Verified 07/07/25 23:43 pollen extracts Allergy Unknown seasonal Verified 07/07/25 23:44 allergies Sulfa (Sulfonamide AdvReac Intermediate Hives, Verified 07/07/25 23:41 Antibiotics) Joint Pain Home Medications Medication Instructions Recorded Confirmed Type Auto Titrating CPAP #1 ea 07/10/21 08/14/25 Rx CPAP Supplies #1 ea 07/10/21 08/14/25 Rx acetaminophen 500 mg capsule 500 mg PO Q4H PRN fever #1 cap 09/11/22 08/14/25 Rx diphenhydramine HCl 25 mg capsule 25 mg PO Q6H PRN allergy symptoms 09/11/22 08/14/25 Rx (Allergy (diphenhydramine)) #1 cap levocetirizine 5 mg tablet (Xyzal) 5 mg PO DAILY PRN allergies 08/04/23 08/14/25 History digital therapeutic,CHARLIE device #1 ea 10/15/23 08/08/25 Rx magnesium glycinate 400 mg (4 x 100 mg magnesium) PO 10/15/23 08/14/25 Rx DAILY #30 caps CPAP Supplies #1 ea 11/23/23 08/08/25 Rx insulin syringe-needle U-100 1 mL #100 ea 05/04/24 08/08/25 Rx 27 gauge x 1/2" (BD Insulin Syringe) albuterol sulfate 2.5 mg/0.5 mL 2.5 mg (0.5 mL) inhalation Q4H PRN 10/21/24 08/14/25 Rx solution for nebulization shortness of breath or wheezing #30 ea Breo Ellipta 100 mcg-25 mcg/dose 1 inh inhalation DAILY #3 Inhalers 01/16/25 08/14/25 Rx powder for inhalation (fluticasone furoate-vilanterol) albuterol sulfate 90 mcg/actuation 2 inh inhalation QID PRN shortness 01/16/25 08/14/25 Rx breath activated powder inhaler of breath or wheezing #3 ea (ProAir RespiClick) epinephrine 0.3 mg/0.3 mL 0.3 mg (0.3 mL) IM Q10M PRN 03/08/25 08/14/25 Rx injection, auto-injector (EpiPen) anaphylaxis #2 ea omalizumab 300 mg/2 mL 300 mg (2 mL) subcut .COMPLEX #4 mL 03/14/25 08/14/25 Rx subcutaneous syringe rimegepant 75 mg disintegrating 75 mg PO DAILY PRN migraine 03/27/25 08/14/25 Rx tablet (Nurtec ODT) headache 90 days #27 tabs fremanezumab-vfrm 225 mg/1.5 mL 225 mg (1.5 mL) subcut ONCE 30 03/30/25 08/14/25 Rx subcutaneous auto-injector (Ajovy) days #45 mL losartan 25 mg tablet 25 mg PO BID 90 days #180 tabs 05/11/25 08/14/25 Rx 3mL Syringe 1.5in 25g needle #10 ea 06/02/25 08/14/25 Rx celecoxib 200 mg capsule 200 mg PO BID 07/07/25 08/14/25 History cyanocobalamin (vitamin B-12) 0 mcg IM MONTHLY 07/07/25 08/14/25 History 1,000 mcg/mL injection solution ergocalciferol (vitamin D2) 1,250 50,000 unit PO .3X WK 07/07/25 08/14/25 History mcg (50,000 unit) capsule (Vitamin D2) gabapentin 300 mg capsule 300 mg PO TID 07/07/25 08/14/25 History levothyroxine 25 mcg capsule 25 mcg PO UD 07/07/25 08/14/25 History rizatriptan 10 mg tablet 0 mg PO UD PRN Headache 07/07/25 08/14/25 History tirzepatide (weight loss) 10 10 mg subcut Q7D 07/07/25 08/14/25 History mg/0.5 mL subcutaneous solution tramadol 5 mg/mL oral solution 100 mg (20 mL) PO TID PRN pain 07/20/25 08/14/25 Rx #473 mL Orencia ClickJect 125 mg/mL 125 mg subcut Q7D #4 mL 07/25/25 08/14/25 Rx subcutaneous auto-injector (abatacept) Manual Wheelchair #1 ea 08/08/25 08/08/25 Rx RSVPreF3 antigen-AS01E 120 mcg IM ONCE #1 ea 08/08/25 08/14/25 Rx adjuvant(PF) 120 mcg/0.5 mL IM suspension, kit Wheelchair (Manual) (Manual #1 ea 08/08/25 08/08/25 Rx Wheelchair) prednisone 10 mg tablet 5 mg PO DAILY PRN as directed 08/08/25 08/14/25 History azelastine 137 mcg (0.1 %) nasal 2 spray intranasal BID PRN allergy 08/11/25 08/14/25 Rx spray symptoms #30 mL dextroamphetamine-amphetamine 15 15 mg PO TID PRN add #60 tabs 08/11/25 08/14/25 Rx mg tablet duloxetine 60 mg capsule,delayed 120 mg PO DAILY 08/14/25 08/14/25 History release riboflavin (vitamin B2) 400 mg 400 mg PO QAM 08/14/25 08/14/25 History tablet suzetrigine 50 mg tablet (Journavx) 50 mg PO BID 08/14/25 08/14/25 History Patient History Medical History Accident due to mechanical fall without injury Cellulitis of left leg Cellulitis Obesity due to excess calories Myalgia Hypertension GISELA (obstructive sleep apnea) Allergic rhinitis Asthma Pulmonary nodule Migraines Surgical History History of appendectomy Family History Mother Multiple sclerosis Father Bladder cancer Muscle wasting and atrophy, not elsewhere classified, back, lumbosacral Brother Hypertension Denies family history of Ovarian cancer Prostate cancer Diabetes Myocardial infarction Breast cancer Colorectal cancer Social History Smoking Status: Never smoker Second Hand Exposure: No; Hx Alcohol Use: No Hx Substance Use: No Preferred Language: Yi Communication Ability: Effective Visual Impairment: Limited Hearing Ability: Normal Respiratory Care Faculty Required: No Beliefs That Will Affect Care: None marital status: Single Current Living Situation: Parent current occupational status: employed current occupation: self employed How many Children do You have: 0 Feels Safe at Home: Yes Childhood Exposure to Second-Hand Smoke: No Diet: regular Diet Comment: cannot have corn caffeine: Yes during the past year weight has: increased > 10 lbs Dental Care, Regularly: Yes Physical Activity Frequency: Does not Exercise Seatbelt Use: always Sunscreen Use: Yes Assistive Devices: Bedside Commode, Cane, Walker, Wheelchair and Other Review of Systems Constitutional: no fever and no chills Eyes: no blind spots and no diplopia Ear, Nose, Mouth, Throat: no hearing loss Respiratory: no dyspnea Cardiovascular: no palpitations Gastrointestinal: no nausea and no vomiting Genitourinary: no dysuria Musculoskeletal: + neck pain, + joint pain and + stiffnes s; no myalgia Integumentary: as per Subjective / HPI and + rash Neurologic: as per Subjective / HPI Psychiatric: no depression and no anxiety Hematologic / Lymphatic: no easy bleeding and no easy bruising Exam (Neuro) Constitutional: well developed and well nourished; no acute distress Eyes: normal visual mcghee by confrontation, PERRL and EOM intact bilaterally; no nystagmus Neurologic: Oriented to:: Person, Place and Time Memory: Short Term Intact and Remote Intact Attention: Span Intact and Concentration Intact Speech Fluency: negative Dysarthria or Dysfluency Speech Aphasia: negative Aphasia Fund of Knowledge: Current Events, Past History and Vocabulary Cranial Nerves: Normal II, III, IV, , V, VII, VIII, IX, X, XI and XII Motor Strength: negative Normal Lower Extremities or Normal Upper Extremities Motor Tone: Normal Lower Extremities and Normal Upper Extremities Muscle Bulk/Involuntary Movements: No Involuntary Movements; negative Muscle Atrophy Sensation: Light Touch Intact, Pain/Temperature Intact and Proprioception Intact Coordination: negative Dysdiadochokinesia, Finger-Nose Abnormal or Heel-Benoit Abnormal Deep Tendon Reflexes: Rt Triceps: 1+, Lt Triceps: 1+, Rt Biceps: 1+, Lt Biceps: 1+, Rt Brachioradialis: 1+, Lt Brachioradialis: 1+, Rt Patellar: 1+, Lt Patellar: 1+, Rt Ankle: 0 and Lt Ankle: 0 Special Tests: negative Babinski Present Details: There is no facial droop. No cranial neuropathy. There is slightly reduced facility for fine finger movements of the left hand. There is a downward left upper extremity drift, no pronator drift, no fix with arm roll. There are no definitive upper motor neuron findings on examination, there is no Babinski. Results & Data Vital Signs (Past 12 Hours) Vital Signs Temp Pulse Pulse Resp BP Pulse Ox O2 Del Method 08/15/25 15:57 36.9 C 89 18 187/98 H 91 Room Air 08/15/25 15:03 87 08/15/25 10:42 36.6 C 85 20 117/76 90 Room Air 08/15/25 09:50 Room Air 08/15/25 07:47 91 H 08/15/25 07:15 36.8 C 89 16 141/75 H 92 Room Air Laboratory Results WBC 8.83, hemoglobin 14.2, platelet count 365, ESR 65, sodium 139, potassium 4.1, creatinine 0.48, glucose 149, hemoglobin A1c 5.9, calcium 9.5, magnesium 2.1, CRP 4.37, triglycerides 63, cholesterol 162, LDL 86, HDL 63, vitamin B12 greater than 1500 Coding Level of Care Code 43830 INT INP/OBS CARE 375MIN Diagnoses Fibromuscular dysplasia of both carotid arteries I77.3 Left arm weakness R29.898 Left leg weakness R29.898 Rheumatoid arthritis with negative rheumatoid factor, involving unspecified site M06.00 Rheumatoid arthritis location: unspecified site Rheumatoid factor presence: without rheumatoid factor Time Spent (min) 75 Comment Total time includes patient contact, chart review, counseling, note preparation (4) Rheumatoid arthritis Rheumatoid arthritis location: unspecified site Rheumatoid factor presence: without rheumatoid factor Qualified Code(s): M06.00 - Rheumatoid arthritis without rheumatoid factor, unspecified site
[2025-08-16 08:24] LABS: Hematocrit (blood only) 42.2 % (37.0-47.0); Hemoglobin 13.7 g/dl (12.0-16.0); Mean Corpuscular Hemoglobin 28.5 pg (25.0-34.0); Mean Corpuscular Volume 87.9 fL (80.0-100.0); Platelet Count 370 K/uL (130-400); RDW Standard Deviation 49.3 fL (36.4-46.3); Red Blood Count 4.80 M/uL (4.20-5.40); White Blood Count 13.24 K/ul (4.8-10.8)
[2025-08-16 08:49] LABS: Anion Gap 10.0 (3-11); Blood Urea Nitrogen 20.0 mg/dl (6-23); Calcium 9.6 mg/dl (8.6-10.3); Carbon Dioxide 25.0 mmol/L (21-32); Chloride 102.0 mmol/L (98-107); Creatinine Clr Calc Pharmacy 136.7 ml/min; Glucose 93.0 mg/dl (70-99(Fasting)); Potassium 3.5 mmol/L (3.5-5.1); Sodium 137.0 mmol/L (136-145)
[2025-08-16] MEDS: ENOXAPARIN INJ 40 MG/0.4 ML SYR SQ SCH (09:40)
--- NOTE | 2025-08-16 11:58 | Hospitalist Progress Note ---
Date of Service August 16, 2025 Assessment & Plan (1) Left arm weakness: (2) Ambulatory dysfunction: (3) Rheumatoid arthritis: (4) Hip osteoarthritis: Plan Patient is a 55-year-old female with past medical history of obesity, RA, corn allergy, asthma, hypertension, chronic left lower extremity weakness who presented via EMS due to left upper extremity weakness that has progressed over the past week. Head CT and CTAs negative for acute changes and patient is being admitted for stroke workup and possible placement. overall plan today her left side weakness required ongoing inpatient evaluation MRI L spine and C spine, duplex ultrasound neurology recommended starting aspirin 81mg for her fibromuscular dysplasia f/u o renal duplex Ultrasound she may required MRI brain w/wo contrast #left-sided weaknessnew onset left UE weakness with chronic left LE weakness. Head CT and head CTA negative for acute changes. Neck CTA showed bilateral ICA beading concerning for connective tissue disease. Patient has previously had elevated ESR and CRP over the past few years. Concern for infectious versus inflammatory origin with possible vasculitis Will give stress dose of IV Solu-Medrol 125 mg IV on admission followed by 40 mg IV daily Neurology Dr. Khan recommended MRI C spine and L spine. may required repeat MRI brain w/wo contrast Sed rate and CRP ordered Stroke without TNK order setbrain MRI ordered, echocardiogram with bubble study ordered, neurochecks every 4 hours, lipid panel and A1c PT/OT consulted LLE weakness being evaluated with BL EMG on 08/23 in outpatient setting fibromuscular dysplasia of internal carotid artery aspirin 81mg daily f/u on duplex ultrasound of renal artery #rheumatoid arthritisfollows with rheumatology, Dr. Garcia. On prednisone 5 mg daily at home, stress dosing as above #right hip osteoarthritisfollows with orthopedics Dr. Carmen and is to have total hip replacement done if BMI can improved under 50 Has made patient wheelchair-bound at baseline - continue home Journvx #OSACPAP at bedtime #HTNcontinue losartan #Hypothyroidismcontinue levothyroxine #Mental healthcontinue duloxetine #Severe corn allergypatient brought home medications without corn VTE ppx: SCDs, low risk Dispo: med/tele Admission and Anticipated Discharge Date Admission Date: August 14, 2025 Subjective she's working with PT she's requesting [facility] Iv cefazolin for LEFT leg cellulitis seen by neurology yesterday; recommended MRI C and L spine and renal artery duplex to r/o fibromuscular dysplasia neuro recommended starting aspirin 81mg daily Physical Exam Physical Exam: VITALS: Reviewed. WEIGHT/BMI reviewed. GEN: Healthy appearing, well-developed, NAD. PSYCH: Good Judgment. AOx3. Normal memory, mood, and affect. HEENT -Head: NC/AT; NECK: Supple, with no masses. CV: RRR, no m/r/g. LUNGS: CTAB, no w/r/c. ABD: Soft, NT/ND, NBS, no masses or organomegaly. : N/A SKIN: left leeg cellulitis MSK: No deformities, Normal gait. NEURO: AAOx3 Results & Data Results & Data Vital Signs (Past 12 Hours) Vital Signs Temp Pulse Resp BP Pulse Ox O2 Del Method 08/16/25 10:44 36.8 C 76 16 138/85 93 Room Air 08/16/25 07:30 36.8 C 77 16 144/85 H 94 Room Air 08/16/25 03:24 36.7 C 74 18 153/86 H 93 Room Air 08/16/25 00:06 36.6 C 76 20 172/81 H 92 Room Air, CPAP Laboratory Results Laboratory Results - last 72 hr 08/14/25 08/14/25 08/15/25 17:14 19:30 05:59 WBC 11.23 H 8.83 RBC 5.00 4.85 Hgb 14.9 14.2 Hct 44.6 42.4 MCV 89.2 87.4 MCH 29.8 29.3 MCHC 33.4 33.5 RDW Std Deviation 48.8 H 47.8 H RDW Coeff of [place] 15.0 H 14.8 H Plt Count 372 365 MPV 9.8 10.3 Immature Gran % (Auto) 0.4 0.5 Neut % (Auto) 62.8 82.9 Lymph % (Auto) 25.1 15.2 [place] % (Auto) 9.3 1.2 Eos % (Auto) 1.4 0.0 Baso % (Auto) 1.0 0.2 Neut # (Auto) 7.06 H 7.32 H Lymph # (Auto) 2.82 1.34 [place] # (Auto) 1.04 H 0.11 Eos # (Auto) 0.16 0.00 Baso # (Auto) 0.11 0.02 Immature Gran # (Auto) 0.04 0.04 ESR 65 H PT 11.0 INR 1.0 APTT 27 PTT Ratio 1.0 Sodium 140 139 Potassium 4.0 4.1 Chloride 103 105 Carbon Dioxide 28 25 Anion Gap 9 9 BUN 19 14 Creatinine 0.62 0.48 L Est Cr Clr Drug Dosing 150.4 191.9 eGFR 103.80 110.41 BUN/Creatinine Ratio 30.6 H 29.2 H Glucose 87 149 H Estimat Average Glucose 123 Hemoglobin A1c 5.9 H Calcium 10.0 9.5 Magnesium 2.1 2.1 Total Bilirubin 0.5 0.4 AST 25 19 ALT 28 22 Alkaline Phosphatase 138 H 122 H Troponin I High Sens 6.3 C-Reactive Protein 4.37 H Total Protein 7.8 6.8 Albumin 4.0 3.8 Globulin 3.8 3.0 Albumin/Globulin Ratio 1.1 1.3 Triglycerides 63 Cholesterol 162 LDL Cholesterol, Calc 86 VLDL Cholesterol, Calc 13 HDL Cholesterol 63 Cholesterol/HDL Ratio 2.6 Urine Color Yellow Urine Appearance Clear Urine pH 5.5 Ur Specific [place] 1.027 Urine Protein Negative Urine Glucose (UA) Negative Urine Ketones Negative Urine Blood Negative Urine Nitrite Negative Urine Bilirubin Negative Urine Urobilinogen Negative Ur Leukocyte Esterase Negative Urine Comment 08/16/25 07:20 WBC 13.24 H RBC 4.80 Hgb 13.7 Hct 42.2 MCV 87.9 MCH 28.5 MCHC 32.5 RDW Std Deviation 49.3 H RDW Coeff of [place] 15.3 H Plt Count 370 MPV 9.8 Immature Gran % (Auto) Neut % (Auto) Lymph % (Auto) [place] % (Auto) Eos % (Auto) Baso % (Auto) Neut # (Auto) Lymph # (Auto) [place] # (Auto) Eos # (Auto) Baso # (Auto) Immature Gran # (Auto) ESR PT INR APTT PTT Ratio Sodium 137 Potassium 3.5 Chloride 102 Carbon Dioxide 25 Anion Gap 10 BUN 20 Creatinine 0.68 Est Cr Clr Drug Dosing 136.7 eGFR 101.52 BUN/Creatinine Ratio 29.4 H Glucose 93 Estimat Average Glucose Hemoglobin A1c Calcium 9.6 Magnesium Total Bilirubin AST ALT Alkaline Phosphatase Troponin I High Sens C-Reactive Protein Total Protein Albumin Globulin Albumin/Globulin Ratio Triglycerides Cholesterol LDL Cholesterol, Calc VLDL Cholesterol, Calc HDL Cholesterol Cholesterol/HDL Ratio Urine Color Urine Appearance Urine pH Ur Specific [place] Urine Protein Urine Glucose (UA) Urine Ketones Urine Blood Urine Nitrite Urine Bilirubin Urine Urobilinogen Ur Leukocyte Esterase Urine Comment PG Care Time/CCT Total # of Minutes Spent Total Time Spent with Patient: Total time spent is greater than 50% in coordination of care (as documented) at patient's floor/unit and/or counseling patient: Coding Level of Care Code 37971 SUB INP/OBS CARE 12/03MIN Diagnoses Left arm weakness R29.898 Ambulatory dysfunction R26.2 Rheumatoid arthritis with negative rheumatoid factor, involving unspecified site M06.00 Rheumatoid arthritis location: unspecified site Rheumatoid factor presence: without rheumatoid factor Hip osteoarthritis M16.9 Time Spent (min) 25 (3) Rheumatoid arthritis Rheumatoid arthritis location: unspecified site Rheumatoid factor presence: without rheumatoid factor Qualified Code(s): M06.00 - Rheumatoid arthritis without rheumatoid factor, unspecified site
[2025-08-16] MEDS: LORazepam Inj 1 MG in SYRINGE 0.5 ML IV STA (13:14)
[2025-08-16] MEDS: LORAZEPAM IV PRN (13:16)
--- NOTE | 2025-08-16 15:53 | Magnetic Resonance Report ---
MR cervical spine wo con HISTORY: 55 years-old Female left leg weakness, r/o cervical spine stenosis chronic neck pain with w eakness COMPARISON: CT neck 08/14/2025 TECHNIQUE: Multiplanar multisequence MRI of the cervical spine was obtained without IV contrast. FINDINGS: Motion degraded exam. Straightening of the normal cervical lordosis. Normal signal within the cervica l and imaged upper thoracic spinal cord. No acute fracture, subluxation, or endplate erosion. There i s moderate to extensive marrow edema involving the left facets at C3-C4 which is likely degenerative. Mild multilevel intervertebral disc space narrowing, uncovertebral hypertrophy with tiny annular dis c bulging and moderate to severe facet arthrosis. C2-C3: No central canal or foraminal narrowing. C3-C4: Uncovertebral hypertrophy with tiny posterior annular disc bulge and severe facet arthrosis. M arrow and soft tissue edema involves the left facet with small left facet effusion. The central canal and right neural foramen are patent. Moderate left neural foraminal narrowing. C4-C5: Uncovertebral hypertrophy with tiny posterior annular disc bulge. Moderate to severe facet art hrosis. Patent central canal. Mild left with mild to moderate right neural foraminal narrowing. C5-C6: 2 mm anterolisthesis appears degenerative secondary to the severe facet arthrosis at this leve l. Uncovertebral hypertrophy with tiny posterior annular disc bulge. Patent central canal. Mild bilat eral neural foraminal narrowing. C6-C7: Uncovertebral hypertrophy with small posterior annular disc bulge and moderate facet arthrosis . Central canal is patent. [id number] bilateral neural foraminal narrowing. C7-T1: 3 mm anterolisthesis secondary to severe facet arthrosis at this level. 3 mm anterolisthesis w ith small posterior annular disc bulge/disc uncovering. Central canal and neural foramen are patent. IMPRESSION: 1. Motion degraded exam limits evaluation of the neural foramen. 2. No high-grade central canal or neural foraminal stenosis identified. 3. Severe left-sided facet arthrosis at C3-C4 with associated joint effusion, and degenerative relate d marrow and adjacent soft tissue edema. 4. Normal signal within the cervical spinal cord. ACT 112: Negative or not required by law. The above report was generated using voice recognition software. It may contain grammatical, syntax o r spelling errors. Electronically signed by: Vazquez Mendez M.D. 08/16/2025 3:51 PM
--- NOTE | 2025-08-16 16:00 | Magnetic Resonance Report ---
MR lumbar spine wo con CLINICAL HISTORY: 55 years-old Female with leg weakness, r/o lumbar spine stenosis. Chronic low back pain COMPARISON: None. TECHNIQUE: Multiplanar, multi sequence MRI of the lumbar spine was performed without intravenous cont rast. FINDINGS: Motion degraded exam. The vertebral body heights are normal. There is no T1 fracture line or marrow replacement process. Mild marrow edema at L3-L4, likely on a degenerative basis. The conus terminates at L1-L2. The visualized spinal cord and cauda equina are normal. There is no paraspinal edema, ma ss, or prevertebral fluid collection. The intra-abdominal structures are grossly unremarkable. Moder ate multilevel facet arthrosis with mild spondylitic spurring. Epidural lipomatosis is most pronounce d posteriorly. T12-L1: No central canal or neural foraminal stenosis. L1-L2: No central canal or neural foraminal stenosis. L2-L3: Tiny posterior annular disc bulge with ligamentum flavum thickening and moderate facet arthro sis. Minimal left neural foraminal narrowing. Mild central canal stenosis, AP dimension of the thecal sac measuring 9 mm. The right neural foramen is patent. L3-L4: Mild intervertebral disc space narrowing with spondylitic spurring and posterior annular disc bulge. Ligamentum flavum thickening with moderate facet arthrosis and moderate facet effusions. Ther e is a central disc extrusion measuring 11 x 4 mm on image 18 series 6 with 10 mm of caudal extension . Mild to moderate central canal stenosis with AP dimension of the thecal sac measuring 8 mm. Moderat e narrowing of the lateral recesses. Moderate to severe right with mild to moderate left neural jaycee inal narrowing. L4-L5: Mild intervertebral disc space narrowing with spondylitic spurring and tiny circumferential a nnular disc bulge. Ligamentum flavum thickening with moderate to severe facet arthrosis. Central pooja l and neural foramen are patent. L5-S1: Mild intervertebral disc space narrowing with tiny posterior annular disc bulge. Moderate fac et arthrosis. Central canal and right neural foramen are patent. Minimal left foraminal stenosis. IMPRESSION: 1. Central disc extrusion at L3-L4 contributes to cause [id number] central canal stenosis, mode rate to severe right with mild to moderate left neural foraminal narrowing. 2. Multilevel degenerative changes as above without acute fracture. ACT 112: Negative or not required by law. The above report was generated using voice recognition software. It may contain grammatical, syntax o r spelling errors. Electronically signed by: Vazquez Mendez M.D. 08/16/2025 3:58 PM
--- NOTE | 2025-08-16 18:25 | Neurology Progress Note ---
Date of Service August 16, 2025 Assessment & Plan (1) Left leg weakness: (2) Left arm weakness: (3) Rheumatoid arthritis: Plan 55-year-old female with subacute persistent progressive weakness, beginning with the left leg several weeks ago, she does have a moderate left foot drop as well as some proximal weakness for the left lower limb. She later developed some mild weakness for the left upper extremity, seems a bit more proximal and is associated with some left shoulder pain. She does not have any sensory loss, no upper motor neuron findings on examination and has had a normal brain MRI. She was diagnosed with rheumatoid arthritis about 1.5 years ago and is currently on a low-dose of prednisone and a biologic, follows with [facility] rheumatology. Although she does have a lumbar disc herniation resulting in bilateral neuroforaminal narrowing, I am uncertain if this finding would adequately explain her left lower extremity weakness pattern. She does have severe left-sided facet arthrosis at C3-4 and her proximal left upper extremity weakness seems to be pain related, this finding could be significant, although shoulder pathology may not be completely excluded. Apart from the above mentioned spinal pathology that could be contributing to her left-sided weakness, given her history of rheumatoid arthritis, persistent progressive left lower extremity weakness with foot drop, associated proximal weakness, and later development of left upper extremity weakness, I would consider an autoimmune neuropathy, possibly multifocal motor neuropathy. I will order a sensorimotor neuropathy antibody panel. Results may take about 10 days. (Order placed.) Depending on results, could consider treatment with IVIG, this treatment can be arranged as an outpatient along with EMG/nerve conduction studies. I do not think her examination findings are consistent with stroke, she had a negative brain MRI already, I do not think a repeat brain MRI is absolutely necessary at this time. Admission and Anticipated Discharge Date Admission Date: August 14, 2025 Subjective Follow-up, weakness of the left leg and arm The patient does not report any significant change in her left leg and arm weakness since I last saw her yesterday. She denies any numbness, no facial droop, no difficulty swallowing, no change in vision, no significant headache. She did complete the requested MRI of the cervical and lumbar spine, I independently reviewed these images. Cervical spine MRI revealed left sided facet arthrosis at C3-4 with an associated joint effusion. No significant central canal or neuroforaminal narrowing. Spinal cord signal normal. Lumbar spine MRI revealed a central disc extrusion at L3-4 causing mild to moderate central canal stenosis and moderate to severe rightward neuroforaminal narrowing, mild to moderate leftward neuroforaminal narrowing. Results & Data Vital Signs (Past 12 Hours) Vital Signs Temp Pulse Pulse Resp BP Pulse Ox O2 Del Method 08/16/25 16:00 81 08/16/25 15:54 36.9 C 79 16 147/85 H 91 Room Air 08/16/25 10:44 36.8 C 76 16 138/85 93 Room Air 08/16/25 07:30 36.8 C 77 16 144/85 H 94 Room Air Exam (Neuro) Neurologic: Oriented to:: Person, Place and Time Memory: Short Term Intact and Remote Intact Attention: Span Intact and Concentration Intact Speech Fluency: negative Dysarthria or Dysfluency Speech Aphasia: negative Aphasia Fund of Knowledge: Current Events, Past History and Vocabulary Cranial Nerves: Normal II, III, IV, , V, VII, VIII, IX, X, XI and XII Motor Strength: negative Normal Lower Extremities or Normal Upper Extremities Special Tests: negative Babinski Present Details: She does have mild left upper extremity weakness, downward left upper extremity drift, no fix with arm roll, normal facility of fine finger movements, normal strength for the biceps and triceps muscles. She does have some left shoulder pain with movement. This patient's left lower extremity weakness seems worse, 3-4/5, difficulty raising the left leg out of the bed, she has a moderate left foot drop, sensation for the limbs is preserved. There is no Babinski response with plantar stimulation of either foot. Coding Level of Care Code 09231 SUB INP/OBS CARE 3/50MIN Diagnoses Left leg weakness R29.898 Left arm weakness R29.898 Rheumatoid arthritis with negative rheumatoid factor, involving unspecified site M06.00 Rheumatoid arthritis location: unspecified site Rheumatoid factor presence: without rheumatoid factor Time Spent (min) 50 Comment Total time includes patient contact, chart review, counseling, note preparation (3) Rheumatoid arthritis Rheumatoid arthritis location: unspecified site Rheumatoid factor presence: without rheumatoid factor Qualified Code(s): M06.00 - Rheumatoid arthritis without rheumatoid factor, unspecified site
[2025-08-17] MEDS: diphenhydrAMINE 50 MG/ML VIAL IV ONE (06:27)
[2025-08-17] MEDS ORDERED: diphenhydrAMINE Capsule 25 MG CAP PO ONE (06:34)
[2025-08-17] MEDS: FAMOTIDINE 20MG IV PUSH 20 MG/5 ML SYR IV ONE (06:39)
[2025-08-17 07:19] LABS: Hematocrit (blood only) 42.2 % (37.0-47.0); Hemoglobin 14.2 g/dl (12.0-16.0); Mean Corpuscular Hemoglobin 29.6 pg (25.0-34.0); Mean Corpuscular Volume 87.9 fL (80.0-100.0); Platelet Count 369 K/uL (130-400); RDW Standard Deviation 46.9 fL (36.4-46.3); Red Blood Count 4.80 M/uL (4.20-5.40); White Blood Count 11.84 K/ul (4.8-10.8)
[2025-08-17] MEDS: OPTIRAY 320 125ml IV ONE (07:37)
[2025-08-17 07:38] LABS: Anion Gap 9.0 (3-11); Blood Urea Nitrogen 19.0 mg/dl (6-23); Calcium 9.7 mg/dl (8.6-10.3); Carbon Dioxide 26.0 mmol/L (21-32); Chloride 103.0 mmol/L (98-107); Creatinine Clr Calc Pharmacy 216.2 ml/min; Glucose 113.0 mg/dl (70-99(Fasting)); Potassium 4.0 mmol/L (3.5-5.1); Sodium 138.0 mmol/L (136-145)
--- NOTE | 2025-08-17 08:54 | CT Scan Report ---
EXAM: CT angio abdomen wo/w con CLINICAL HISTORY: r/o fibromuscular dysplasia, renal artery. TECHNIQUE: CTA of the abdomen and pelvis was performed with IV contrast. Coronal and sagittal reconstructive images were also obtained. One of these 3D techniques was utilized: Maximum Intensity Pixel (MIP), 3D reconstructed images, volume rendered images, or surface shaded rendering. Axial non-contrast sections of the abdomen and pelvis were also obtained. One of the following dose reduction techniques was utilized for this exam: automated exposure control, adjustment of the mA and/or kV according to patient size, and use of iterative reconstruction. COMPARISON: None. FINDINGS: Aorta: The abdominal aorta is normal in caliber. There is no evidence of aneurysm, dissection, or significant atherosclerotic changes. The aortic bifurcation is unremarkable. Renal Arteries: The renal arteries are normal in size and opacification. The upper polar branch of both kidneys arises just after the origin of both renal arteries. There is no evidence of stenosis or occlusion. There is symmetric perfusion of both kidneys. Mesenteric Arteries: The superior mesenteric artery (SMA) and inferior mesenteric artery (SAÚL) are normal in caliber and opacification. There is no evidence of stenosis or occlusion. Celiac Artery: The celiac artery is normal in caliber and opacification. There is no evidence of stenosis or occlusion. Iliac Arteries: The common, internal, and external iliac arteries are normal in caliber and opacification. There is no evidence of stenosis, aneurysm, or occlusion. Venous Structures: The inferior vena cava (IVC) and major venous structures are normal in caliber and opacification. There is no evidence of thrombus or obstruction. Liver: The liver is normal in size and morphology. There is homogeneous enhancement post-contrast. There are no focal hepatic lesions. Gallbladder and Biliary System: There is a normal appearance of the gallbladder and biliary ducts. There are no stones or dilatation. Pancreas: Fatty atrophy is seen. The pancreas is normal in size and contour. There is homogeneous enhancement post-contrast. There are no masses or cystic lesions. Spleen: The spleen is normal in size and appearance. There is homogeneous enhancement post-contrast. Adrenal Glands: The adrenal glands are normal in size and morphology bilaterally. There are no adrenal masses. Kidneys and Ureters: The kidneys are normal in size, shape, and position on both sides. There is homogeneous enhancement post-contrast. There are no renal stones, masses, or hydronephrosis. The ureters are unremarkable. Bladder: The bladder is normal in size and wall thickness. There are no intraluminal masses. There is normal enhancement post-contrast. Uterus and pelvic structures: There are unremarkable CT features. Bowel: There is a short segment of luminal narrowing of the sigmoid colon with no lesions seen, likely spastic. There is a normal appearance of the visualized bowel loops. There is no evidence of obstruction, wall thickening, or abnormal dilatation. Lymph Nodes: There are no pathologically enlarged lymph nodes in the abdomen or pelvis. Peritoneum: There is no free fluid or free air in the abdomen. Bones: Lumbar spondylosis is seen. There are no lytic or sclerotic lesions. There is normal alignment and bone density. Soft Tissues: There is a normal appearance of the visualized soft tissues. An elevated right diaphragmatic copula is seen. The left lower lobe of the lung shows consolidation. IMPRESSION: 1. There is no evidence of renal artery stenosis. 2. Normal CT angiography of the abdomen and pelvis. 3. There is no evidence of significant vascular abnormalities. 4. An elevated right diaphragmatic copula is seen with the left lower lobe of the lung showing consolidation/collapse. Clinical correlation and dedicated assessment are advised. Electronically signed by Emmanuel Sutherland 08-17-2025 08:53 AM
--- NOTE | 2025-08-17 11:36 | Hospitalist Progress Note ---
Date of Service August 17, 2025 Assessment & Plan (1) Left arm weakness: (2) Ambulatory dysfunction: (3) Rheumatoid arthritis: (4) Hip osteoarthritis: Plan Patient is a 55-year-old female with past medical history of end stage right hip osteoarthritis ,obesity, RA, corn allergy, asthma, hypertension, chronic left lower extremity weakness who presented via EMS due to left upper extremity weakness that has progressed over the past week. Head CT and CTAs negative for acute changes and patient is being admitted for stroke workup. her brain MRI and MRI C and L spine are both negative. seen by neurology; Dr. Khan, has concerned about autoimmune neuropathy and multifocal neuropathy; antibody panel ordered. in addition, plan for outpatient EMG and nerve studies. in addition, neuro requesting starting aspirin 81mg daily given her hx of fibromucular dysplasia of internal carotid artery. her insurance denied placement to [facility] (acute rehab) overall plan today she will need close f/u with neuro to review the autoimmune antibody she was started on aspirin 81mg daily, however, given concern for corn allergy she will have her father bring in aspirin 81mg from home she need ongoing IV cefazolin today for her leg cellulitis and then when she is placed to [facility], she will need another 7-9 days of keflex we discussed that her leg celllulitis is likely a recurrent issues. she will need leg elevation, PRN low dose lasis to addressing leg edema #left-sided weaknessnew onset left UE weakness with chronic left LE weakness. Head CT and head CTA negative for acute changes. Neck CTA showed bilateral ICA beading concerning for connective tissue disease. Patient has previously had elevated ESR and CRP over the past few years. Concern for infectious versus inflammatory origin with possible vasculitis Will give stress dose of IV Solu-Medrol 125 mg IV on admission followed by 40 mg IV daily MRI C and L spine completed. her symptoms is not suggestive of spinal stenosis Dr. 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 f/u with neurology outpatient they andrew perform EMG and and will Dr. Khan will eval for IVIG Neurology Dr. Khan recommended MRI C spine and L spine. LLE weaknesss eing evaluated with [facility] EMG on 08/23 in outpatient setting fibromuscular dysplasia of internal carotid artery aspirin 81mg daily CTA abdomen negative for fibromuscular dysplasia of renal artery she s/p prednisone premedicaton for her contrast allergy #rheumatoid arthritisfollows with rheumatology, Dr. Garcia. On prednisone 5 mg daily at home, stress dosing as above #right hip osteoarthritisfollows with orthopedics Dr. Carmen and is to have total hip replacement done if BMI can improved under 50 Has made patient wheelchair-bound at baseline - continue home Journvx #OSACPAP at bedtime #HTNcontinue losartan #Hypothyroidismcontinue levothyroxine #Mental healthcontinue duloxetine #Severe corn allergypatient brought home medications without corn VTE ppx: SCDs, low risk Dispo: med/tele Admission and Anticipated Discharge Date Admission Date: August 14, 2025 Subjective neurology does not suspect her weakness is related to C spine or L spine stenosis she s/p CTA abdomen and negative for fibromuscular dysplasia of renal artery her left leg cellulitis is improving on IV cefazolin. she was recommended aspirin 81mg, however, patient has ongoing concern about corn allergy and will bring aspirin [address] Khan consultation note was reviewed; they are concerned about autoimmune neuropathy and possible multifocal neuropathy plan for neuropathy antibody panel and and may need IVIG in addition, also plan for EMG and nerve conduction studies her insurance declined placement to acute rehab Review of Systems Review of Systems: Constitutional: No Weight Change, No Fever, No Chills, No Night Sweats, Cardiovascular: No Chest Pain, No SOB, No PND, No Dyspnea on Exertion, No Or thopnea Respiratory: No Cough, No Sputum, No Wheezing, No Smoke Exposure, No Dyspnea Genitourinary: no dysuria Musculoskeletal: + for right hip osteoarthritis; + for left leg weakness Skin: + for recurrent leg cellulitis Neuro: + for weakness. Heme/Lymph: No Bruising, No Bleeding, No Transfusions History, No Lymphadenopathy Physical Exam Physical Exam: VITALS: Reviewed. WEIGHT/BMI reviewed. GEN: Healthy appearing, well-developed, NAD. HEENT -Head: NC/AT; CV: RRR, no m/r/g. LUNGS: CTAB, no w/r/c. ABD: Soft, NT/ND, NBS, no masses or organomegaly. : N/A SKIN: + for left leg cellulitis. no crepitus appreciated EXT: No clubbing, cyanosis, or edema. right hip painful to palpation NEURO: AAOx3 Results & Data Results & Data Vital Signs (Past 12 Hours) Vital Signs Temp Pulse Pulse Resp BP Pulse Ox O2 Del Method 10/09/25 07:52 36.5 C 72 18 142/82 H 93 Room Air 08/17/25 05:33 77 08/17/25 04:12 36.7 C 68 18 131/84 94 Room Air Laboratory Results Laboratory Results - last 72 hr 08/14/25 08/14/25 08/15/25 17:14 19:30 05:59 WBC 11.23 H 8.83 RBC 5.00 4.85 Hgb 14.9 14.2 Hct 44.6 42.4 MCV 89.2 87.4 MCH 29.8 29.3 MCHC 33.4 33.5 RDW Std Deviation 48.8 H 47.8 H RDW Coeff of [place] 15.0 H 14.8 H Plt Count 372 365 MPV 9.8 10.3 Immature Gran % (Auto) 0.4 0.5 Neut % (Auto) 62.8 82.9 Lymph % (Auto) 25.1 15.2 Green % (Auto) 9.3 1.2 Eos % (Auto) 1.4 0.0 Baso % (Auto) 1.0 0.2 Neut # (Auto) 7.06 H 7.32 H Lymph # (Auto) 2.82 1.34 Green # (Auto) 1.04 H 0.11 Eos # (Auto) 0.16 0.00 Baso # (Auto) 0.11 0.02 Immature Gran # (Auto) 0.04 0.04 ESR 65 H PT 11.0 INR 1.0 APTT 27 PTT Ratio 1.0 Sodium 140 139 Potassium 4.0 4.1 Chloride 103 105 Carbon Dioxide 28 25 Anion Gap 9 9 BUN 19 14 Creatinine 0.62 0.48 L Est Cr Clr Drug Dosing 150.4 191.9 eGFR 103.80 110.41 BUN/Creatinine Ratio 30.6 H 29.2 H Glucose 87 149 H Estimat Average Glucose 123 Hemoglobin A1c 5.9 H Calcium 10.0 9.5 Magnesium 2.1 2.1 Total Bilirubin 0.5 0.4 AST 25 19 ALT 28 22 Alkaline Phosphatase 138 H 122 H Troponin I High Sens 6.3 C-Reactive Protein 4.37 H Total Protein 7.8 6.8 Albumin 4.0 3.8 Globulin 3.8 3.0 Albumin/Globulin Ratio 1.1 1.3 Triglycerides 63 Cholesterol 162 LDL Cholesterol, Calc 86 VLDL Cholesterol, Calc 13 HDL Cholesterol 63 Cholesterol/HDL Ratio 2.6 Urine Color Yellow Urine Appearance Clear Urine pH 5.5 Ur Specific [place] 1.027 Urine Protein Negative Urine Glucose (UA) Negative Urine Ketones Negative Urine Blood Negative Urine Nitrite Negative Urine Bilirubin Negative Urine Urobilinogen Negative Ur Leukocyte Esterase Negative Urine Comment 08/16/25 08/17/25 07:20 06:44 WBC 13.24 H 11.84 H RBC 4.80 4.80 Hgb 13.7 14.2 Hct 42.2 42.2 MCV 87.9 87.9 MCH 28.5 29.6 MCHC 32.5 33.6 RDW Std Deviation 49.3 H 46.9 H RDW Coeff of [place] 15.3 H 14.6 H Plt Count 370 369 MPV 9.8 9.8 Immature Gran % (Auto) Neut % (Auto) Lymph % (Auto) Green % (Auto) Eos % (Auto) Baso % (Auto) Neut # (Auto) Lymph # (Auto) Green # (Auto) Eos # (Auto) Baso # (Auto) Immature Gran # (Auto) ESR PT INR APTT PTT Ratio Sodium 137 138 Potassium 3.5 4.0 Chloride 102 103 Carbon Dioxide 25 26 Anion Gap 10 9 BUN 20 19 Creatinine 0.68 0.43 L Est Cr Clr Drug Dosing 136.7 216.2 eGFR 101.52 113.37 BUN/Creatinine Ratio 29.4 H 44.2 H Glucose 93 113 H Estimat Average Glucose Hemoglobin A1c Calcium 9.6 9.7 Magnesium Total Bilirubin AST ALT Alkaline Phosphatase Troponin I High Sens C-Reactive Protein Total Protein Albumin Globulin Albumin/Globulin Ratio Triglycerides Cholesterol LDL Cholesterol, Calc VLDL Cholesterol, Calc HDL Cholesterol Cholesterol/HDL Ratio Urine Color Urine Appearance Urine pH Ur Specific [place] Urine Protein Urine Glucose (UA) Urine Ketones Urine Blood Urine Nitrite Urine Bilirubin Urine Urobilinogen Ur Leukocyte Esterase Urine Comment PG Care Time/CCT Total # of Minutes Spent Total Time Spent with Patient: Total time spent is greater than 50% in coordination of care (as documented) at patient's floor/unit and/or counseling patient: Coding Level of Care Code 17854 SUB INP/OBS CARE 12/03MIN Diagnoses Left arm weakness R29.898 Ambulatory dysfunction R26.2 Rheumatoid arthritis with negative rheumatoid factor, involving unspecified site M06.00 Rheumatoid arthritis location: unspecified site Rheumatoid factor presence: without rheumatoid factor Hip osteoarthritis M16.9 Time Spent (min) 25 (3) Rheumatoid arthritis Rheumatoid arthritis location: unspecified site Rheumatoid factor presence: without rheumatoid factor Qualified Code(s): M06.00 - Rheumatoid arthritis without rheumatoid factor, unspecified site
[2025-08-17] MEDS: ASPIRIN 81 MG ECTAB PO SCH (16:47)
[2025-08-17] MEDS: XOLAIR SQ SCH (18:20)
[2025-08-18 07:07] LABS: Hematocrit (blood only) 42.5 % (37.0-47.0); Hemoglobin 13.8 g/dl (12.0-16.0); Mean Corpuscular Hemoglobin 29.1 pg (25.0-34.0); Mean Corpuscular Volume 89.5 fL (80.0-100.0); Platelet Count 358 K/uL (130-400); RDW Standard Deviation 50.8 fL (36.4-46.3); Red Blood Count 4.75 M/uL (4.20-5.40); White Blood Count 13.72 K/ul (4.8-10.8)
[2025-08-18 07:31] LABS: Anion Gap 7.0 (3-11); Blood Urea Nitrogen 21.0 mg/dl (6-23); Calcium 9.5 mg/dl (8.6-10.3); Carbon Dioxide 28.0 mmol/L (21-32); Chloride 104.0 mmol/L (98-107); Creatinine Clr Calc Pharmacy 175.4 ml/min; Glucose 86.0 mg/dl (70-99(Fasting)); Potassium 3.5 mmol/L (3.5-5.1); Sodium 139.0 mmol/L (136-145)
[2025-08-18] MEDS: FUROSEMIDE INJ 20 MG/2 ML VIAL IV ONE (12:54)
--- NOTE | 2025-08-18 15:47 | Hospitalist Progress Note ---
Date of Service August 18, 2025 Assessment & Plan (1) Left arm weakness: (2) Ambulatory dysfunction: (3) Rheumatoid arthritis: (4) Hip osteoarthritis: Plan Patient is a 55-year-old female with past medical history of end stage right hip osteoarthritis ,obesity, RA, corn allergy, asthma, hypertension, chronic left lower extremity weakness who presented via EMS due to left upper extremity weakness that has progressed over the past week. Head CT and CTAs negative for acute changes and patient is being admitted for stroke workup. her brain MRI and MRI C and L spine are both negative. seen by neurology; Dr. Khan, has concerned about autoimmune neuropathy and multifocal neuropathy; antibody panel ordered. in addition, plan for outpatient EMG and nerve studies. in addition, neuro requesting starting aspirin 81mg daily given her hx of fibromucular dysplasia of internal carotid artery. her insurance denied placement to [facility] (acute rehab) overall plan today neuro requested for appeal to ensure for placement to [facility] c/w cefazolin for her lefg cellulitis shes' has concern about oral medication containing corn, given her hx of reaction she may need oral lasix/bumex, but patient requested that special regime be send to local pharmacy so they can compound trial of low dose IV lasix today #left-sided weaknessnew onset left UE weakness with chronic left LE weakness. Head CT and head CTA negative Neck CTA showed bilateral ICA beading concerning for connective tissue disease. neurology requested placement to [facility], strong suspicion for autoimmune neuropathy f/u with neuro (Dr. Khan) for EMG and evaluatio for IVIG Concern for infectious versus inflammatory origin with possible vasculitis Will give stress dose of IV Solu-Medrol 125 mg IV on admission followed by 40 mg IV daily MRI C and L spine completed. her symptoms is not suggestive of spinal stenosis LLE weaknesss eing evaluated with [facility] on 08/23 in outpatient setting fibromuscular dysplasia of internal carotid artery aspirin 81mg daily CTA abdomen negative for fibromuscular dysplasia of renal artery she s/p prednisone premedicaton for her contrast allergy recurrent left leg cellulitis, cefazolin IV lymphedema, started low dose lasix 20mg IV today discussed about intermittent lasix oral, patient has concerned about lasix containing corn if we start lasix, the local pharmacy can compound the med to eliminate corn #rheumatoid arthritisfollows with rheumatology, Dr. Garcia. On prednisone 5 mg daily at home, stress dosing as above #right hip osteoarthritisfollows with orthopedics Dr. Carmen and is to have total hip replacement done if BMI can improved under 50 Has made patient wheelchair-bound at baseline - continue home Journvx #OSACPAP at bedtime #HTNcontinue losartan #Hypothyroidismcontinue levothyroxine #Mental healthcontinue duloxetine #Severe corn allergypatient brought home medications without corn VTE ppx: SCDs, low risk Dispo: med/tele Admission and Anticipated Discharge Date Admission Date: August 14, 2025 Subjective neuro recommended placement to [facility] and case management is applying for appeal she's has ongoing cellulitis and required IV cefazolin lymphedema, starting low dose IV lasix she has concern about taking oral lasix, bumex or torsemide given her significant corn allergy she's has contact at the pharmacy to specialized process the medicine eliminate the corn syrup she's declined aspirin 81mg yesterday given concern with corn allergy (hx of anaphylaxis) her auto-antoantibody required 10-14 days to reeturn she's has right hip pain and end stage osteoarthritis she's following with orthopedic outpatient Physical Exam Physical Exam: VITALS: Reviewed. WEIGHT/BMI reviewed. GEN: Healthy appearing, well-developed, NAD. PSYCH: Good Judgment. AOx3. Normal memory, mood, and affect. HEENT -Head: NC/AT; NECK: Supple, with no masses. CV: RRR, no m/r/g. LUNGS: CTAB, no w/r/c. ABD: Soft, NT/ND, NBS, no masses or organomegaly. MSK: right hip painful to passive ROM; painful to abduction EXT: left leg cellulitis improving; no crepitus noted; erythema improving NEURO: Ambulating with no limitations. Normal muscle strength and tone. No focal deficits. Results & Data Results & Data Vital Signs (Past 12 Hours) Vital Signs Temp Pulse Pulse Resp BP BP Pulse Ox 08/18/25 11:16 36.9 C 75 18 154/92 H 93 08/18/25 08:02 36.8 C 69 18 155/83 H 95 08/18/25 07:26 08/18/25 07:23 78 08/18/25 04:57 36.8 C 72 18 140/83 95 O2 Del Method 08/18/25 11:16 Room Air 08/18/25 08:02 Room Air 08/18/25 07:26 Room Air 08/18/25 07:23 08/18/25 04:57 Room Air Laboratory Results Laboratory Results - last 72 hr 08/16/25 08/17/25 08/18/25 07:20 06:44 06:31 WBC 13.24 H 11.84 H 13.72 H RBC 4.80 4.80 4.75 Hgb 13.7 14.2 13.8 Hct 42.2 42.2 42.5 MCV 87.9 87.9 89.5 MCH 28.5 29.6 29.1 MCHC 32.5 33.6 32.5 RDW Std Deviation 49.3 H 46.9 H 50.8 H RDW Coeff of [place] 15.3 H 14.6 H 15.4 H Plt Count 370 369 358 MPV 9.8 9.8 9.7 Sodium 137 138 139 Potassium 3.5 4.0 3.5 Chloride 102 103 104 Carbon Dioxide 25 26 28 Anion Gap 10 9 7 BUN 20 19 21 Creatinine 0.68 0.43 L 0.53 L Est Cr Clr Drug Dosing 136.7 216.2 175.4 eGFR 101.52 113.37 107.80 BUN/Creatinine Ratio 29.4 H 44.2 H 39.6 H Glucose 93 113 H 86 Calcium 9.6 9.7 9.5 PG Care Time/CCT Total # of Minutes Spent Total Time Spent with Patient: Total time spent is greater than 50% in coordination of care (as documented) at patient's floor/unit and/or counseling patient: Coding Level of Care Code 64675 SUB INP/OBS CARE 12/03MIN Diagnoses Left arm weakness R29.898 Ambulatory dysfunction R26.2 Rheumatoid arthritis with negative rheumatoid factor, involving unspecified site M06.00 Rheumatoid arthritis location: unspecified site Rheumatoid factor presence: without rheumatoid factor Hip osteoarthritis M16.9 Time Spent (min) 25 (3) Rheumatoid arthritis Rheumatoid arthritis location: unspecified site Rheumatoid factor presence: without rheumatoid factor Qualified Code(s): M06.00 - Rheumatoid arthritis without rheumatoid factor, unspecified site
[2025-08-19 05:59] LABS: Hematocrit (blood only) 43.5 % (37.0-47.0); Hemoglobin 13.9 g/dl (12.0-16.0); Mean Corpuscular Hemoglobin 28.4 pg (25.0-34.0); Mean Corpuscular Volume 89.0 fL (80.0-100.0); Platelet Count 355 K/uL (130-400); RDW Standard Deviation 50.8 fL (36.4-46.3); Red Blood Count 4.89 M/uL (4.20-5.40); White Blood Count 13.24 K/ul (4.8-10.8)
[2025-08-19 06:26] LABS: Alanine Aminotransferase 43 U/L (7-52); Albumin Globulin Ratio 1.3 (0.9-2); Albumin Level 3.8 gm/dl (3.4-5.0); Alkaline Phosphatase 137 U/L (34-104); Anion Gap 5 (3-11); Bilirubin,Total 0.5 mg/dl (0.2-1.0); Blood Urea Nitrogen 17 mg/dl (6-23); Calcium 9.3 mg/dl (8.6-10.3); Carbon Dioxide 31 mmol/L (21-32); Chloride 102 mmol/L (98-107); Creatinine Clr Calc Pharmacy 154.4 ml/min; Globulin 3.0 gm/dl (2.5-4.0); Glucose 84 mg/dl (70-99(Fasting)); Sodium 138 mmol/L (136-145); Total Protein 6.8 gm/dl (6.0-8.3)
[2025-08-19 07:21] LABS: Potassium 3.5 mmol/L (3.5-5.1)
--- NOTE | 2025-08-19 19:22 | Hospitalist Progress Note ---
Date of Service August 19, 2025 Assessment & Plan (1) Left arm weakness: (2) Ambulatory dysfunction: (3) Rheumatoid arthritis: (4) Hip osteoarthritis: Plan Patient is a 55-year-old female with past medical history of end stage right hip osteoarthritis ,obesity, RA, corn allergy, asthma, hypertension, chronic left lower extremity weakness who presented via EMS due to left upper extremity weakness that has progressed over the past week. Head CT and CTAs negative for acute changes and patient is being admitted for stroke workup. her brain MRI and MRI C and L spine are both negative. seen by neurology; Dr. Khan, has concerned about autoimmune neuropathy and multifocal neuropathy; antibody panel ordered. in addition, plan for outpatient EMG and nerve studies. in addition, neuro requesting starting aspirin 81mg daily given her hx of fibromucular dysplasia of internal carotid artery. her insurance denied placement to [facility] (acute rehab) overall plan today neuro requested for appeal to ensure for placement to [facility] c/w cefazolin for her lefg cellulitis shes' has concern about oral medication containing corn, given her hx of reaction she may need oral lasix/bumex, but patient requested that special regime be send to local pharmacy so they can compound trial of low dose IV lasix with significant improvement in edema #left-sided weaknessnew onset left UE weakness with chronic left LE weakness. Head CT and head CTA negative Neck CTA showed bilateral ICA beading concerning for connective tissue disease. neurology requested placement to [facility], strong suspicion for autoimmune neuropathy f/u with neuro (Dr. Khan) for EMG and evaluatio for IVIG Concern for infectious versus inflammatory origin with possible vasculitis Will give stress dose of IV Solu-Medrol 125 mg IV on admission followed by 40 mg IV daily MRI C and L spine completed. her symptoms is not suggestive of spinal stenosis LLE weaknesss eing evaluated with [facility] on 08/23 in outpatient setting fibromuscular dysplasia of internal carotid artery aspirin 81mg daily CTA abdomen negative for fibromuscular dysplasia of renal artery she s/p prednisone premedicaton for her contrast allergy recurrent left leg cellulitis, cefazolin IV lymphedema, started low dose lasix 20mg IV today discussed about intermittent lasix oral, patient has concerned about lasix con taining corn if we start lasix, the local pharmacy can compound the med to eliminate corn #rheumatoid arthritisfollows with rheumatology, Dr. Garcia. On prednisone 5 mg daily at home, stress dosing as above #right hip osteoarthritisfollows with orthopedics Dr. Carmen and is to have total hip replacement done if BMI can improved under 50 Has made patient wheelchair-bound at baseline - continue home Journvx #OSACPAP at bedtime #HTNcontinue losartan #Hypothyroidismcontinue levothyroxine #Mental healthcontinue duloxetine #Severe corn allergypatient brought home medications without corn VTE ppx: SCDs, low risk Dispo: med/tele Admission and Anticipated Discharge Date Admission Date: August 14, 2025 Subjective No acute events overnight Currently no new complaints Requesting ID eval given significant travel history and possible occult infection Review of Systems Review of Systems: Comprehensive ROS completed and is otherwise negative. Physical Exam Physical Exam: Gen: no acute distress, lying in bed comfortable HEENT: NC/AT, MMM Lungs: nonlabored breathing, CTAB CVS: s1s2nl, RRR Abd: nl bowel sounds, soft, NT / ND : no [place] Ext: no edema, palpable pedal pulses b/l Neuro: AAOx3 Psych: calm, cooperative Results & Data Results & Data Vital Signs (Past 12 Hours) Vital Signs Temp Pulse Pulse Resp BP Pulse Ox O2 Del Method 08/19/25 15:44 36.4 C L 73 18 147/81 H 91 Room Air 08/19/25 13:12 79 08/19/25 13:03 36.5 C 72 18 159/79 H 91 Room Air 08/19/25 08:39 36.8 C 75 19 160/91 H 95 Room Air PG Care Time/CCT Total # of Minutes Spent Total Time Spent with Patient: Total time spent is greater than 50% in coordination of care (as documented) at patient's floor/unit and/or counseling patient: Coding Level of Care Code 76013 SUB INP/OBS CARE 3/50MIN Diagnoses Left arm weakness R29.898 Ambulatory dysfunction R26.2 Rheumatoid arthritis with negative rheumatoid factor, involving unspecified site M06.00 Rheumatoid arthritis location: unspecified site Rheumatoid factor presence: without rheumatoid factor Hip osteoarthritis M16.9 (3) Rheumatoid arthritis Rheumatoid arthritis location: unspecified site Rheumatoid factor presence: without rheumatoid factor Qualified Code(s): M06.00 - Rheumatoid arthritis without rheumatoid factor, unspecified site
[2025-08-20 07:54] LABS: Hematocrit (blood only) 43.9 % (37.0-47.0); Hemoglobin 13.8 g/dl (12.0-16.0); Mean Corpuscular Hemoglobin 28.4 pg (25.0-34.0); Mean Corpuscular Volume 90.3 fL (80.0-100.0); Platelet Count 323 K/uL (130-400); RDW Standard Deviation 51.4 fL (36.4-46.3); Red Blood Count 4.86 M/uL (4.20-5.40); White Blood Count 16.75 K/ul (4.8-10.8)
[2025-08-20 08:17] LABS: Alanine Aminotransferase 33.0 U/L (7-52); Albumin Globulin Ratio 1.3 (0.9-2); Albumin Level 3.8 gm/dl (3.4-5.0); Alkaline Phosphatase 187.0 U/L (34-104); Anion Gap 9.0 (3-11); Bilirubin,Total 0.5 mg/dl (0.2-1.0); Blood Urea Nitrogen 20.0 mg/dl (6-23); Calcium 9.4 mg/dl (8.6-10.3); Carbon Dioxide 28.0 mmol/L (21-32); Chloride 103.0 mmol/L (98-107); Creatinine Clr Calc Pharmacy 185.2 ml/min; Globulin 2.9 gm/dl (2.5-4.0); Glucose 89.0 mg/dl (70-99(Fasting)); Potassium 3.8 mmol/L (3.5-5.1); Sodium 140.0 mmol/L (136-145); Total Protein 6.7 gm/dl (6.0-8.3)
--- NOTE | 2025-08-20 09:37 | Hospitalist Progress Note ---
Date of Service August 20, 2025 Assessment & Plan (1) Left arm weakness: (2) Ambulatory dysfunction: (3) Rheumatoid arthritis: (4) Hip osteoarthritis: Plan Patient is a 55-year-old female with past medical history of end stage right hip osteoarthritis ,obesity, RA, corn allergy, asthma, hypertension, chronic left lower extremity weakness, migraine who presented via EMS due to left upper extremity weakness that has progressed over the past week. Head CT and CTAs negative for acute changes and patient is being admitted for stroke workup. her brain MRI and MRI C and L spine are both negative. seen by neurology; Dr. Khan, has concerned about autoimmune neuropathy and multifocal neuropathy; antibody panel ordered. in addition, plan for outpatient EMG and nerve studies. in addition, neuro requesting starting aspirin 81mg daily given her hx of fibromuscular dysplasia of internal carotid artery. her insurance denied placement to [facility] (acute re[facility]) #left-sided weaknessnew onset left UE weakness with chronic left LE weakness. Head CT and head CTA negative Neck CTA showed bilateral ICA beading concerning for connective tissue disease. - neurology requested placement to [facility], - strong suspicion for autoimmune neuropathy - f/u with neuro (Dr. Khan) for EMG and evaluation for IVIG - Concern for infectious versus inflammatory origin with possible vasculitis - Will give stress dose of IV Solu-Medrol 125 mg IV on admission followed by 40 mg IV daily - MRI C and L spine completed. her symptoms is not suggestive of spinal stenosis - LLE weakness being evaluated with [facility] on 08/23 in outpatient setting - pt also would like to r/o infectious etiology given her extensive travel history and per request ID evaluation requested fibromuscular dysplasia of internal carotid artery aspirin 81mg daily CTA abdomen negative for fibromuscular dysplasia of renal artery she s/p prednisone premedication for her contrast allergy #Recurrent left leg cellulitis - resolved - currently on Cefazolin, completed 5 day course on 08/19/25 #lymphedema, - s/p IV Lasix 20mg x1 with improvement in her edema - discussed about intermittent lasix oral, patient has concerned about lasix containing corn - the local pharmacy can compound the med to eliminate corn #rheumatoid arthritisfollows with rheumatology, Dr. Garcia. - On prednisone 5 mg daily at home, stress dosing as above #right hip osteoarthritisfollows with orthopedics Dr. Carmen and is to have total hip replacement done if BMI can improved under 50 - Has made patient wheelchair-bound at baseline - continue home Journvx #OSACPAP at bedtime #HTNcontinue losartan #Hypothyroidismcontinue levothyroxine #Migraine / Pain management continue duloxetine #Severe corn allergypatient brought home medications without corn #DVT ppx: Lovenox #Dispo: pending ID eval, pt will need to go to acute rehab Admission and Anticipated Discharge Date Admission Date: August 14, 2025 Physical Exam Physical Exam: Gen: no acute distress, lying in bed comfortable HEENT: NC/AT, MMM Lungs: nonlabored breathing, CTAB CVS: s1s2nl, RRR Abd: nl bowel sounds, soft, NT / ND : no [place] Ext: no edema, palpable pedal pulses b/l Neuro: AAOx3 Psych: calm, cooperative Results & Data Results & Data Vital Signs (Past 12 Hours) Vital Signs Temp Pulse Pulse Resp BP Pulse Ox O2 Del Method 08/20/25 08:17 36.4 C 75 18 141/84 H 95 Room Air 08/20/25 07:27 73 08/20/25 03:36 36.4 C L 78 16 159/83 H 95 Room Air 08/19/25 23:19 36.5 C 69 18 169/92 H 95 Room Air, CPAP 08/19/25 22:56 64 21 92 08/19/25 21:45 68 PG Care Time/CCT Total # of Minutes Spent Total Time Spent with Patient: Total time spent is greater than 50% in coordination of care (as documented) at patient's floor/unit and/or counseling patient: Coding Level of Care Code 44728 SUB INP/OBS CARE 2/35MIN Diagnoses Left arm weakness R29.898 Ambulatory dysfunction R26.2 Rheumatoid arthritis with negative rheumatoid factor, involving unspecified site M06.00 Rheumatoid arthritis location: unspecified site Rheumatoid factor presence: without rheumatoid factor Hip osteoarthritis M16.9 (3) Rheumatoid arthritis Rheumatoid arthritis location: unspecified site Rheumatoid factor presence: without rheumatoid factor Qualified Code(s): M06.00 - Rheumatoid arthritis without rheumatoid factor, unspecified site
[2025-08-20] MEDS: ZEPBOUND SQ SCH (22:04)
[2025-08-21 06:52] LABS: Hematocrit (blood only) 44.7 % (37.0-47.0); Hemoglobin 13.9 g/dl (12.0-16.0); Mean Corpuscular Hemoglobin 28.3 pg (25.0-34.0); Mean Corpuscular Volume 90.9 fL (80.0-100.0); Platelet Count 325 K/uL (130-400); RDW Standard Deviation 51.2 fL (36.4-46.3); Red Blood Count 4.92 M/uL (4.20-5.40); White Blood Count 12.50 K/ul (4.8-10.8)
[2025-08-21 07:12] LABS: Alanine Aminotransferase 48.0 U/L (7-52); Albumin Globulin Ratio 1.4 (0.9-2); Albumin Level 3.8 gm/dl (3.4-5.0); Alkaline Phosphatase 277.0 U/L (34-104); Anion Gap 8.0 (3-11); Bilirubin,Total 0.6 mg/dl (0.2-1.0); Blood Urea Nitrogen 17.0 mg/dl (6-23); Calcium 9.3 mg/dl (8.6-10.3); Carbon Dioxide 28.0 mmol/L (21-32); Chloride 102.0 mmol/L (98-107); Creatinine Clr Calc Pharmacy 189.3 ml/min; Globulin 2.8 gm/dl (2.5-4.0); Glucose 83.0 mg/dl (70-99(Fasting)); Potassium 4.0 mmol/L (3.5-5.1); Sodium 138.0 mmol/L (136-145); Total Protein 6.6 gm/dl (6.0-8.3)
[2025-08-21] MEDS: ORENCIA SQ SCH (09:26)
--- NOTE | 2025-08-21 10:51 | Infectious Disease Consult ---
Date of Consultation August 21, 2025 Assessment & Plan (1) Left leg weakness: (2) Fibromuscular dysplasia of both carotid arteries: (3) Morbid obesity with BMI of 60.0-69.9, adult: (4) Weakness of left side of body: (5) Left arm weakness: Plan This is a 55-year-old female with a past medical history of severe right hip osteoarthritis, rheumatoid arthritis on Orencia and prednisone, subacute, progressive left lower extremity weakness with ambulatory dysfunction (wheelchair-bound), status post multiple falls, morbid obesity, obstructive sleep apnea who presents with new onset left upper extremity weakness on 08/14. She was admitted 07/07 - 07/17 for left lower extremity cellulitis and right hip pain. She works from home. She has a dog that is healthy. She has a history of extensive travel [place] in the late and early ([facility], [facility], [facility], [facility]) when she was a college student. 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 She subsequently traveled to [place] and [facility] in the late and early . During her travels she lived in rural and urban areas. Between 2003 and 2011, she traveled to [facility], [place], [place] and [facility]. She has been diagnosed with Dengue fever twice. She had an exposure to a colleague with active tuberculosis, in the late . She never developed tuberculosis. She was treated for latent Tuberculosis. She has not traveled outside of the [place] since 2011. She is not sexually active. She denies any sick contacts. During her travels greater than 10 years ago she has gone scuba diving in fresh water. She was diagnosed with Lyme disease approximately 6 years ago. Currently she denies any fever, chills, nausea, vomiting, headache, vision changes. She endorses chronic right hip pain from severe osteoarthritis for which she follows with orthopedics and is under evaluation for hip replacement in the future. She complains of progressive left lower extremity weakness, recent cellulitis, left upper extremity weakness and neuropathy for which she is on gabapentin. In the ED she was afebrile and hemodynamically stable. Labs: WBC 11.23, ESR 65 BUN 19, creatinine 0.62, CRP 4.37. Head CT with no acute pathology. Head CTA with no definitive stenosis or aneurysm of the intracranial arteries. Neck CTA with no stenosis of the major cervical arteries. There is a torturous bilateral ICA with portions having an irregular beaded appearance of the wall, possibly related to connective tissue disease such as fibromuscular dysplasia. Brain MRI with no acute findings of the head. Left lower extremity Dopplers with no DVT cervical spine MRI with no high-grade central canal or neural foraminal stenosis. There is severe left-sided facet are arthrosis of C3-C4 with associated joint effusion and degenerative related marrow and adjacent soft tissue edema. Normal signal within the cervical spinal cord. Lumbar spine MRI shows central disc extrusion at L3-L4 which causes mild to moderate central canal stenosis, moderate to severe right and moderate left neural foraminal narrowing. Multi level degenerative changes. Abdomen CTA shows no evidence of renal arteries stenosis. Normal CT angiography of the abdomen pelvis. She has been evaluated by neurology who recommended that she complete scheduled EMG of the left lower limbs as scheduled outpatient. 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 She was treated LLE cellulitis with Cefazolin during this admission infectious disease consulted for possible infectious cause for presentation, given patient's extensive travel history in the past # Extensive travel history in the late 1980searly 1999'. # Left upper extremity weakness # Progressive left lower extremity weakness # Rheumatoid arthritis on prednisone and Orencia # C3-C4 associated joint effusion with severe arthrosis # LLE cellulitis , resolved # Leukocytosis # fibromuscular dysplasia of internal carotid artery Discussion: Patient has an extensive history of travel to [place] as a student in the late 80s and 90s she has also subsequently traveled to [place] and the [place]. During her travels she devloped dengue fever twice. She was exposed to a colleague with active TB but never developed tuberculosis. She has been treated for latent TB. Patient has not traveled outside of the [place] for greater than 10 years. She last traveled to [place] in 2011. She has a history of Lyme disease. I do not think that her current symptoms are secondary to an infectious process but would rule out any tickborne illness given she lives in an endemic area and complains of progressive joint pain with ?neuropathies Recommendations: Continue to monitor off of antibiotics Ordered Anaplasma/Babesia smear Ordered Lyme screen Ordered last, early Beatriz and Babesia PCR Ordered rickettsial panel Thank you for this consult. Belen Bolivar MD, MPH Infectious Disease [facility] Call [phone] with questions Consultation Information Consultation was provided via telemedicine using two-way real-time interactive telecommunication between the patient and the telemedicine provider. For the duration of the visit, the provider was performing the assessment from a different facility than the patient. This includesuse of bluetooth stethoscope forauscultationperformed by the telepresenter that the telemedicine provider can hear if described in the physical exam. Process Developer contact information: Please call [facility] Center [phone]. (Phone Number For Physician Use Only) After establishing a telemedicine visit, patient was: Patient was verified with two unique identifiers and Gave permission to continue telehealth session Time Spent with Patient: Initial => 75 min History of Present Illness Reason for Consultation: Possible infection Requesting Physician: Halley Shukla MD Attending Physician: Halley Shukla MD History of Present Illness This is a 55-year-old female with a past medical history of severe right hip osteoarthritis, rheumatoid arthritis on Orencia and prednisone, subacute, progressive left lower extremity weakness with ambulatory dysfunction (wheelchair-bound), status post multiple falls, morbid obesity, obstructive sleep apnea who presents with new onset left upper extremity weakness on 08/14. She was admitted 07/07 - 07/17 for left lower extremity cellulitis and right hip pain. She works from home. She has a dog that is healthy. She has a history of extensive travel [place] in the late and early s ([place], [place], [facility] [place], [facility]) when she was a college student. 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 She subsequently traveled to [place] and [place] in the late and early s. During her travels she lived in rural and urban areas. Between 2003 and 2011, she traveled to [place], [place], [place] and [facility]. She has been diagnosed with Dengue fever twice. She had an exposure to a colleague with active tuberculosis, in the late . She never developed tuberculosis. She was treated for latent Tuberculosis. She has not traveled outside of the [place] since 2011. She is not sexually active. She denies any sick contacts. During her travels g re[place] than 10 years ago she has gone scuba diving [place]. She was diagnosed with Lyme disease approximately 6 years ago. Currently she denies any fever, chills, nausea, vomiting, headache, vision changes. She endorses chronic right hip pain from severe osteoarthritis for which she follows with orthopedics and is under evaluation for hip replacement in the future. She complains of pro gressive left lower extremity weakness, recent cellulitis, left upper extremity weakness and neuropathy for which she is on gabapentin. In the ED she was afebrile and hemodynamically stable. Labs: WBC 11.23, ESR 65 BUN 19, creatinine 0.62, CRP 4.37. Head CT with no acute pathology. Head CTA with no definitive stenosis or aneurysm of the intracranial arteries. Neck CTA with no stenosis of the major cervical arteries. There is a torturous bilateral ICA with portions having an irregular beaded appearance of the wall, possibly related to connective tissue disease such as fibromuscular dysplasia. Brain MRI with no acute findings of the head. Left lower extremity Dopplers with no DVT cervical spine MRI with no high-grade central canal or neural foraminal stenosis. There is severe left-sided facet are arthrosis of C3-C4 with associated joint effusion and degenerative related marrow and adjacent soft tissue edema. Normal signal within the cervical spinal cord. Lumbar spine MRI shows central disc extrusion at L3-L4 which causes mild to moderate central canal stenosis, moderate to severe right and moderate left neural foraminal narrowing. Multi level degenerative changes. Abdomen CTA shows no evidence of renal arteries stenosis. Normal CT angiography of the abdomen pelvis. She has been evaluated by neurology who recommended that she complete scheduled EMG of the left lower limbs as scheduled outpatient. 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 She was treated LLE cellulitis with Cefazolin during this admission infectious disease consulted for possible infectious cause for presentation, given patient's extensive travel history in the past Allergies Allergy/AdvReac Type Severity Reaction Status Date / Time corn Allergy Severe ANAPHYLAXIS Unverified 07/07/25 23:43 -- all corn related products grass pollen Allergy Unknown seasonal Verified 07/07/25 23:44 allergies house dust mite Allergy Unknown seasonal Verified 07/07/25 23:45 allergies Iodinated Contrast Media Allergy Unknown Hives Verified 07/07/25 23:43 pollen extracts Allergy Unknown seasonal Verified 07/07/25 23:44 allergies Sulfa (Sulfonamide AdvReac Intermediate Hives, Verified 07/07/25 23:41 Antibiotics) Joint Pain Home Medications Medication Instructions Recorded Confirmed Type Auto Titrating CPAP #1 ea 07/10/21 08/14/25 Rx CPAP Supplies #1 ea 07/10/21 08/14/25 Rx acetaminophen 500 mg capsule 500 mg PO Q4H PRN fever #1 cap 09/11/22 08/14/25 Rx diphenhydramine HCl 25 mg capsule 25 mg PO Q6H PRN allergy symptoms 09/11/22 08/14/25 Rx (Allergy (diphenhydramine)) #1 cap levocetirizine 5 mg tablet (Xyzal) 5 mg PO DAILY PRN allergies 08/04/23 08/14/25 History digital therapeutic,CHARLIE device #1 ea 10/15/23 08/08/25 Rx magnesium glycinate 400 mg (4 x 100 mg magnesium) PO 10/15/23 08/14/25 Rx DAILY #30 caps CPAP Supplies #1 ea 11/23/23 08/08/25 Rx insulin syringe-needle U-100 1 mL #100 ea 05/04/24 08/08/25 Rx 27 gauge x 1/2" (BD Insulin Syringe) albuterol sulfate 2.5 mg/0.5 mL 2.5 mg (0.5 mL) inhalation Q4H PRN 10/21/24 08/14/25 Rx solution for nebulization shortness of breath or wheezing #30 ea Breo Ellipta 100 mcg-25 mcg/dose 1 inh inhalation DAILY #3 Inhalers 01/16/25 08/14/25 Rx powder for inhalation (fluticasone furoate-vilanterol) albuterol sulfate 90 mcg/actuation 2 inh inhalation QID PRN shortness 01/16/25 08/14/25 Rx breath activated powder inhaler of breath or wheezing #3 ea (ProAir RespiClick) epinephrine 0.3 mg/0.3 mL 0.3 mg (0.3 mL) IM Q10M PRN 03/08/25 08/14/25 Rx injection, auto-injector (EpiPen) anaphylaxis #2 ea omalizumab 300 mg/2 mL 300 mg (2 mL) subcut .COMPLEX #4 mL 03/14/25 08/14/25 Rx subcutaneous syringe rimegepant 75 mg disintegrating 75 mg PO DAILY PRN migraine 03/27/25 08/14/25 Rx tablet (Nurtec ODT) headache 90 days #27 tabs fremanezumab-vfrm 225 mg/1.5 mL 225 mg (1.5 mL) subcut ONCE 30 03/30/25 08/14/25 Rx subcutaneous auto-injector (Ajovy) days #45 mL losartan 25 mg tablet 25 mg PO BID 90 days #180 tabs 05/11/25 08/14/25 Rx 3mL Syringe 1.5in 25g needle #10 ea 06/02/25 08/14/25 Rx celecoxib 200 mg capsule 200 mg PO BID 07/07/25 08/14/25 History cyanocobalamin (vitamin B-12) 0 mcg IM MONTHLY 07/07/25 08/14/25 History 1,000 mcg/mL injection solution ergocalciferol (vitamin D2) 1,250 50,000 unit PO .3X WK 07/07/25 08/14/25 History mcg (50,000 unit) capsule (Vitamin D2) gabapentin 300 mg capsule 300 mg PO TID 07/07/25 08/14/25 History levothyroxine 25 mcg capsule 25 mcg PO UD 07/07/25 08/14/25 History rizatriptan 10 mg tablet 0 mg PO UD PRN Headache 07/07/25 08/14/25 History tirzepatide (weight loss) 10 10 mg subcut Q7D 07/07/25 08/14/25 History mg/0.5 mL subcutaneous solution tramadol 5 mg/mL oral solution 100 mg (20 mL) PO TID PRN pain 07/20/25 08/14/25 Rx #473 mL Orencia ClickJect 125 mg/mL 125 mg subcut Q7D #4 mL 07/25/25 08/14/25 Rx subcutaneous auto-injector (abatacept) Manual Wheelchair #1 ea 08/08/25 08/08/25 Rx RSVPreF3 antigen-AS01E 120 mcg IM ONCE #1 ea 08/08/25 08/14/25 Rx adjuvant(PF) 120 mcg/0.5 mL IM suspension, kit Wheelchair (Manual) (Manual #1 ea 08/08/25 08/08/25 Rx Wheelchair) prednisone 10 mg tablet 5 mg PO DAILY PRN as directed 08/08/25 08/14/25 History azelastine 137 mcg (0.1 %) nasal 2 spray intranasal BID PRN allergy 08/11/25 08/14/25 Rx spray symptoms #30 mL dextroamphetamine-amphetamine 15 15 mg PO TID PRN add #60 tabs 08/11/25 08/14/25 Rx mg tablet duloxetine 60 mg capsule,delayed 120 mg PO DAILY 08/14/25 08/14/25 History release riboflavin (vitamin B2) 400 mg 400 mg PO QAM 08/14/25 08/14/25 History tablet suzetrigine 50 mg tablet (Journavx) 50 mg PO BID 08/14/25 08/14/25 History Patient History Medical History Accident due to mechanical fall without injury Cellulitis of left leg Cellulitis Obesity due to excess calories Myalgia Hypertension GISELA (obstructive sleep apnea) Allergic rhinitis Asthma Pulmonary nodule Migraines Surgical History History of appendectomy Family History Mother Multiple sclerosis Father Bladder cancer Muscle wasting and atrophy, not elsewhere classified, back, lumbosacral Brother Hypertension Denies family history of Ovarian cancer Prostate cancer Diabetes Myocardial infarction Breast cancer Colorectal cancer Social History Smoking Status: Never smoker Second Hand Exposure: No; Hx Alcohol Use: No Hx Substance Use: No Preferred Language: Kinyarwanda Communication Ability: Effective Visual Impairment: Limited Hearing Ability: Normal Plater Hot Dip Required: No Beliefs That Will Affect Care: None marital status: Single Current Living Situation: Parent current occupational status: employed current occupation: self employed How many Children do You have: 0 Feels Safe at Home: Yes Childhood Exposure to Second-Hand Smoke: No Diet: regular Diet Comment: cannot have corn caffeine: Yes during the past year weight has: increased > 10 lbs Dental Care, Regularly: Yes Physical Activity Frequency: Does not Exercise Seatbelt Use: always Sunscreen Use: Yes Assistive Devices: Bedside Commode, Cane, Walker, Wheelchair and Other Review of System A 10 point ROS obtained. Pertinent positives as per HPI Physical Exam Physical Exam: Pleasant, NAD Supple neck AT/Nc, Anicteric sclera, EOMi, No oral lesions Non labored breathing, on RA Soft abdomen, NT BL LE edema, LLE cellulitis resolved AAO times 3 Normal mood Results & Data Vital Signs (Past 12 Hours) Vital Signs Temp Pulse Pulse Resp BP Pulse Ox O2 Del Method 08/21/25 07:46 36.7 C 78 157/92 H 94 Room Air 08/21/25 03:12 36.6 C 68 18 154/94 H 95 Room Air 08/20/25 23:45 70 20 93 08/20/25 23:01 36.5 C 66 18 157/83 H 94 Room Air Laboratory Results Laboratory Results - last 48 hr 08/20/25 08/21/25 07:20 05:27 WBC 16.75 H 12.50 H RBC 4.86 4.92 Hgb 13.8 13.9 Hct 43.9 44.7 MCV 90.3 90.9 MCH 28.4 28.3 MCHC 31.4 L 31.1 L RDW Std Deviation 51.4 H 51.2 H RDW Coeff of [place] 15.6 H 15.8 H Plt Count 323 325 MPV 9.8 10.0 Sodium 140 138 Potassium 3.8 4.0 Chloride 103 102 Carbon Dioxide 28 28 Anion Gap 9 8 BUN 20 17 Creatinine 0.50 L 0.49 L Est Cr Clr Drug Dosing 185.2 189.3 eGFR 109.33 109.86 BUN/Creatinine Ratio 40.0 H 34.7 H Glucose 89 83 Calcium 9.4 9.3 Total Bilirubin 0.5 0.6 AST 51 H 90 H ALT 33 48 Alkaline Phosphatase 187 H 277 H Total Protein 6.7 6.6 Albumin 3.8 3.8 Globulin 2.9 2.8 Albumin/Globulin Ratio 1.3 1.4 Medications Administered Home Medications Medication Instructions Recorded Confirmed Last Taken Auto Titrating CPAP #1 ea 07/10/21 08/14/25 Unknown CPAP Supplies #1 ea 07/10/21 08/14/25 Unknown acetaminophen 500 mg capsule 500 mg PO Q4H PRN fever #1 cap 09/11/22 08/14/25 Unknown diphenhydramine HCl 25 mg capsule 25 mg PO Q6H PRN allergy symptoms 09/11/22 08/14/25 Unknown (Allergy (diphenhydramine)) #1 cap levocetirizine 5 mg tablet (Xyzal) 5 mg PO DAILY PRN allergies 08/04/23 08/14/25 Unknown digital therapeutic,CHARLIE device #1 ea 10/15/23 08/08/25 Unknown magnesium glycinate 400 mg (4 x 100 mg magnesium) PO 10/15/23 08/14/25 08/14/25 DAILY #30 caps CPAP Supplies #1 ea 11/23/23 08/08/25 Unknown insulin syringe-needle U-100 1 mL #100 ea 05/04/24 08/08/25 Unknown 27 gauge x 1/2" (BD Insulin Syringe) albuterol sulfate 2.5 mg/0.5 mL 2.5 mg (0.5 mL) inhalation Q4H PRN 10/21/24 08/14/25 Unknown solution for nebulization shortness of breath or wheezing #30 ea Breo Ellipta 100 mcg-25 mcg/dose 1 inh inhalation DAILY #3 Inhalers 01/16/25 08/14/25 08/14/25 powder for inhalation (fluticasone furoate-vilanterol) albuterol sulfate 90 mcg/actuation 2 inh inhalation QID PRN shortness 01/16/25 08/14/25 Unknown breath activated powder inhaler of breath or wheezing #3 ea (ProAir RespiClick) epinephrine 0.3 mg/0.3 mL 0.3 mg (0.3 mL) IM Q10M PRN 03/08/25 08/14/25 Unknown injection, auto-injector (EpiPen) anaphylaxis #2 ea omalizumab 300 mg/2 mL 300 mg (2 mL) subcut .COMPLEX #4 mL 03/14/25 08/14/25 08/02/25 subcutaneous syringe dose due 08/16/25 wed rimegepant 75 mg disintegrating 75 mg PO DAILY PRN migraine 03/27/25 08/14/25 Unknown tablet (Nurtec ODT) headache 90 days #27 tabs fremanezumab-vfrm 225 mg/1.5 mL 225 mg (1.5 mL) subcut ONCE 30 03/30/25 08/14/25 Unknown subcutaneous auto-injector (Ajovy) days #45 mL losartan 25 mg tablet 25 mg PO BID 90 days #180 tabs 05/11/25 08/14/25 08/14/25 am dose 3mL Syringe 1.5in 25g needle #10 ea 06/02/25 08/14/25 Unknown celecoxib 200 mg capsule 200 mg PO BID 07/07/25 08/14/25 08/14/25 am dose cyanocobalamin (vitamin B-12) 0 mcg IM MONTHLY 07/07/25 08/14/25 Unknown 1,000 mcg/mL injection solution ergocalciferol (vitamin D2) 1,250 50,000 unit PO .3X WK 07/07/25 08/14/25 1 mcg (50,000 unit) capsule (Vitamin D2) gabapentin 300 mg capsule 300 mg PO TID 07/07/25 08/14/25 08/14/25 1 dose levothyroxine 25 mcg capsule 25 mcg PO UD 07/07/25 08/14/25 08/14/25 am dose rizatriptan 10 mg tablet 0 mg PO UD PRN Headache 07/07/25 08/14/25 Unknown tirzepatide (weight loss) 10 10 mg subcut Q7D 07/07/25 08/14/25 08/13/25 mg/0.5 mL subcutaneous solution tramadol 5 mg/mL oral solution 100 mg (20 mL) PO TID PRN pain 07/20/25 08/14/25 Unknown #473 mL Orencia ClickJect 125 mg/mL 125 mg subcut Q7D #4 mL 07/25/25 08/14/25 08/14/25 subcutaneous auto-injector (abatacept) Manual Wheelchair #1 ea 08/08/25 08/08/25 Unknown RSVPreF3 antigen-AS01E 120 mcg IM ONCE #1 ea 08/08/25 08/14/25 Unknown adjuvant(PF) 120 mcg/0.5 mL IM suspension, kit Wheelchair (Manual) (Manual #1 ea 08/08/25 08/08/25 Unknown Wheelchair) prednisone 10 mg tablet 5 mg PO DAILY PRN as directed 08/08/25 08/14/25 Unknown azelastine 137 mcg (0.1 %) nasal 2 spray intranasal BID PRN allergy 08/11/25 08/14/25 Unknown spray symptoms #30 mL dextroamphetamine-amphetamine 15 15 mg PO TID PRN add #60 tabs 08/11/25 08/14/25 Unknown mg tablet duloxetine 60 mg capsule,delayed 120 mg PO DAILY 08/14/25 08/14/25 Unknown release riboflavin (vitamin B2) 400 mg 400 mg PO QAM 08/14/25 08/14/25 08/14/25 tablet suzetrigine 50 mg tablet (Journavx) 50 mg PO BID 08/14/25 08/14/25 08/14/25 am dose Active Medications Generic Name Dose Route Start Last Admin Trade Name Freq PRN Reason Stop Dose Admin Acetaminophen 500 mg 08/15/25 05:57 08/21/25 09:31 Pom - Acetaminophen 500 Mg Tab PO 09/14/25 05:56 500 mg Q4H PRN Administration Pain or Fever Aspirin 81 mg 08/17/25 10:15 08/21/25 09:30 Aspirin 81 Mg Ectab PO 09/16/25 10:14 Not Given QAM SOL Celecoxib 200 mg 08/14/25 23:04 08/21/25 09:21 Celebrex 200 Mg Cap PO 09/13/25 23:03 200 mg BID SOL Administration Duloxetine HCl 120 mg 08/15/25 09:00 08/21/25 09:21 Duloxetine Hcl 60 Mg Cap PO 09/14/25 08:59 120 mg DAILY SOL Administration Enoxaparin Sodium 40 mg 08/16/25 09:00 08/21/25 09:21 Enoxaparin Inj 40 Mg/0.4 Ml Syr SQ 09/15/25 08:59 40 mg QAM SOL Administration Fluticasone/Vilanterol 1 puffs 08/15/25 09:00 08/21/25 09:21 Fluticasone/Vilanterol 100/25mcg 14 Puffs/Inhaler INH 09/14/25 08:59 1 puffs DAILY SOL Administration Gabapentin 300 mg 08/15/25 09:00 08/21/25 13:40 Gabapentin 300 Mg Cap PO 09/14/25 08:59 300 mg TID SOL Administration Methylprednisolone 40 mg/ 0.64 mls @ 1.5 mls/min 08/15/25 09:00 08/21/25 09:28 Syringe IV 09/14/25 08:59 1.5 mls/min Q24H SOL Administration Lorazepam 0.5 mg/ Syringe 0.25 mls @ 2 mls/min 08/16/25 12:16 08/16/25 13:16 IV 09/15/25 12:15 2 mls/min ONCE PRN Administration Anxiety Levothyroxine Sodium 25 mcg 08/15/25 06:30 08/21/25 05:00 Pom - Levothyroxine Sodium 25 Mcg Tablet PO 09/14/25 06:29 25 mcg DAILYBB SOL Administration Losartan Potassium 25 mg 08/14/25 23:04 08/21/25 09:21 Losartan Potassium 25 Mg Tab PO 09/13/25 23:03 25 mg BID SOL Administration Suzetrigine [ 1 each 08/14/25 23:04 08/21/25 09:22 Journavx] 50 Mg - PO 09/13/25 23:03 1 tab Patient's Own Med BID SOL Administration Tramadol 5 Mg/Ml 20 each 08/15/25 02:08 08/21/25 03:18 Solution - Patient's PO 09/14/25 02:07 20 ml Own Med TID PRN Administration Pain Zepbound - Patient's 1 each 08/20/25 22:00 08/20/25 22:04 Own Med SQ 09/19/25 21:59 1 each Vuong@0900 SOL Administration Protocol Orencia - Patient's 1 each 08/21/25 09:00 08/21/25 09:26 Own Med SQ 09/20/25 08:59 1 each Mo@0900 SOL Administration Protocol
--- NOTE | 2025-08-21 18:43 | Hospitalist Progress Note ---
Date of Service August 21, 2025 Assessment & Plan (1) Left arm weakness: (2) Ambulatory dysfunction: (3) Rheumatoid arthritis: (4) Hip osteoarthritis: Plan Patient is a 55-year-old female with past medical history of end stage right hip osteoarthritis ,obesity, RA, corn allergy, asthma, hypertension, chronic left lower extremity weakness, migraine who presented via EMS due to left upper extremity weakness that has progressed over the past week. Head CT and CTAs negative for acute changes and patient is being admitted for stroke workup. her brain MRI and MRI C and L spine are both negative. seen by neurology; Dr. Khan, has concerned about autoimmune neuropathy and multifocal neuropathy; antibody panel ordered. in addition, plan for outpatient EMG and nerve studies. in addition, neuro requesting starting aspirin 81mg daily given her hx of fibromuscular dysplasia of internal carotid artery. her insurance denied placement to [facility] (acute rehab) #left-sided weaknessnew onset left UE weakness with chronic left LE weakness. Head CT and head CTA negative Neck CTA showed bilateral ICA beading concerning for connective tissue disease. - neurology requested placement to [facility], - strong suspicion for autoimmune neuropathy - f/u with neuro (Dr. Khan) for EMG and evaluation for IVIG - Concern for infectious versus inflammatory origin with possible vasculitis - Will give stress dose of IV Solu-Medrol 125 mg IV on admission followed by 40 mg IV daily - MRI C and L spine completed. her symptoms is not suggestive of spinal stenosis - LLE weakness being evaluated with BL EMG on 08/23 in outpatient setting - ID recs appreciated, tick panel ordered fibromuscular dysplasia of internal carotid artery aspirin 81mg daily CTA abdomen negative for fibromuscular dysplasia of renal artery she s/p prednisone premedication for her contrast allergy #Recurrent left leg cellulitis - resolved - currently on Cefazolin, completed 5 day course on 08/19/25 #lymphedema, - s/p IV Lasix 20mg x1 with improvement in her edema - discussed about intermittent lasix oral, patient has concerned about lasix containing corn - the local pharmacy can compound the med to eliminate corn #rheumatoid arthritisfollows with rheumatology, Dr. Garcia. - On prednisone 5 mg daily at home, stress dosing as above #right hip osteoarthritisfollows with orthopedics Dr. Carmen and is to have total hip replacement done if BMI can improved under 50 - Has made patient wheelchair-bound at baseline - continue home Journvx #OSACPAP at bedtime #HTNcontinue losartan #Hypothyroidismcontinue levothyroxine #Migraine / Pain management continue duloxetine #Severe corn allergypatient brought home medications without corn #DVT ppx: Lovenox #Dispo: pending ID sonam, pt will need to go to acute rehab Admission and Anticipated Discharge Date Admission Date: August 14, 2025 Subjective States looking forward to getting out of the hospital She wants to focus on getting stronger Review of Systems Review of Systems: Comprehensive ROS completed and is otherwise negative. Physical Exam Physical Exam: Gen: no acute distress, lying in bed comfortable HEENT: NC/AT, MMM Lungs: nonlabored breathing, CTAB CVS: s1s2nl, RRR Abd: nl bowel sounds, soft, NT / ND : no [place] Ext: no edema, palpable pedal pulses b/l Neuro: AAOx3 Psych: calm, cooperative Results & Data Results & Data Vital Signs (Past 12 Hours) Vital Signs Temp Pulse Pulse BP Pulse Ox O2 Del Method 08/21/25 15:25 36.8 C 80 155/93 H 92 Room Air 08/21/25 13:01 73 08/21/25 11:28 36.9 C 73 144/85 H 95 Room Air 08/21/25 07:46 36.7 C 78 157/92 H 94 Room Air 08/21/25 07:45 Room Air PG Care Time/CCT Total # of Minutes Spent Total Time Spent with Patient: Total time spent is greater than 50% in coordination of care (as documented) at patient's floor/unit and/or counseling patient: Coding Level of Care Code 70036 SUB INP/OBS CARE 2/35MIN Diagnoses Left arm weakness R29.898 Ambulatory dysfunction R26.2 Rheumatoid arthritis with negative rheumatoid factor, involving unspecified site M06.00 Rheumatoid arthritis location: unspecified site Rheumatoid factor presence: without rheumatoid factor Hip osteoarthritis M16.9 (3) Rheumatoid arthritis Rheumatoid arthritis location: unspecified site Rheumatoid factor presence: without rheumatoid factor Qualified Code(s): M06.00 - Rheumatoid arthritis without rheumatoid factor, unspecified site
[2025-08-22 06:05] LABS: Hematocrit (blood only) 44.5 % (37.0-47.0); Hemoglobin 14.8 g/dl (12.0-16.0); Mean Corpuscular Hemoglobin 29.4 pg (25.0-34.0); Mean Corpuscular Volume 88.5 fL (80.0-100.0); Platelet Count 343 K/uL (130-400); RDW Standard Deviation 50.7 fL (36.4-46.3); Red Blood Count 5.03 M/uL (4.20-5.40); White Blood Count 15.51 K/ul (4.8-10.8)
[2025-08-22] MEDS: TRAMADOL PO PRN (06:05)
[2025-08-22] MEDS ORDERED: predniSONE 20 MG TAB PO SCH (09:00)
--- NOTE | 2025-08-22 09:51 | Neurology Progress Note ---
Date of Service August 22, 2025 Assessment & Plan (1) Left leg weakness: (2) Left arm weakness: (3) Rheumatoid arthritis: Plan Patient has a 5 to 6-month history of progressive weakness of the left lower extremity without pain or numbness. This gotten much worse over the last several weeks. The left upper extremity developed weakness over the last 2 weeks. The etiology of this is not certain but is likely peripheral in origin. There is no evidence of upper motor neuron dysfunction or stroke. MRI of the brain was unremarkable/normal. MRI of the cervical and lumbar spine showed degenerative changes with some spinal stenosis at L3-4 from disc and bone. Radiculopathy may explain these symptoms. The patient has no symptoms in the right arm or leg. Patient has a history of rheumatoid arthritis on steroids. 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 Patient's weakness is only mildly improved with steroids over the last week. The patient has lost 22 pounds in the last 3 months on Zepbound (maximum weight 365 pounds) Recommendations: 1. Patient is being discharged to rehabilitation [facility] for strengthening and ambulation trainingcontinue physical and Occupational Therapy 2. EMG and nerve conduction study of the left arm and both legs scheduled for August 23 at 4 PM at neurology outpatient 3. Awaiting laboratory studies including tickborne diseases and a sensorimotor neuropathy antibody panel 4. Consider tapering steroids over the next 12 days (40 mg a day for 3 days, 30 mg a day for 3 days, 20 mg a day for 3 days, 10 mg a day for 3 days, then back to her original 5 mg daily dose) 5. Follow-up with Dr. Khan as an outpatient Overall, I spent a total of 60 minutes with this case including review of records, review of MRI films, direct evaluation of the patient, report generation, and discussing the case with the patient and RN at bedside, and Dr. Shukla including differential diagnosis and treatment options. Admission and Anticipated Discharge Date Admission Date: August 14, 2025 Subjective Patient continues to have weakness in her left leg greater than left arm. The steroids have helped her swelling some and helped the strength a little bit in the arm but not so much in the leg. Perhaps is a little more movement in the left leg. She denies pain or numbness in the right side is without symptoms. She does have chronic low back and cervical spine pain. MRI of the brain was largely unremarkable MRI of the cervical spine showed degenerative changes but no significant stenosis or cord impingement MRI of the lumbar spine showed a central disc at L3-4 with mild to moderate spinal stenosis. There were other degenerative changes. I reviewed the films of all 3 of these MRI studies. Patient had infectious disease consult yesterday. Lyme antibody screen was negative. Other tickborne disease titers are pending. A repeat sed rate and CRP are pending from this morning. Results & Data Vital Signs (Past 12 Hours) Vital Signs Temp Pulse Pulse Resp BP Pulse Ox O2 Del Method 08/22/25 07:45 36.7 C 83 16 147/90 H 96 Room Air 08/22/25 07:23 77 08/22/25 03:45 36.7 C 75 20 165/85 H 95 Room Air, CPAP 08/22/25 00:16 Room Air, CPAP 08/22/25 00:16 61 08/21/25 23:41 36.5 C 76 20 141/82 H 92 Room Air, CPAP 08/21/25 22:00 75 17 95 Exam (Neuro) Physical Exam: The patient is awake, alert, and attentive, with normal speech and communication. Mood is normal and affect is appropriate. The patient is fully oriented and has intact long and short term memory. Extraocular eye muscles are intact without nystagmus. Facial strength and symmetry is normal bilaterally. Facial sensation is normal bilaterally in all 3 divisions of the fifth cranial nerve. Tongue is midline with normal strength bilaterally. Strength is 5/5 in the neck in all directions. Gait is not testable with stance sitting up in bed is quite normal. Motor strength is 5/5 diffusely in all major muscle groups of the right arm and right leg well proximally and distally Motor strength is 4/5 in the left deltoid, biceps, triceps and closer to 4+/5 in the intrinsic hand muscles and manager. Wrist flexors and extensors are 4/5. Motor strength is 3/5 in the hip flexor and quadriceps on the left. Strength is 4/5 in the tibialis anterior and gastrocnemius muscles bilaterally. Toe extensor and flexors are 4/5 Reflexes are 2/4 in the biceps, triceps, and brachioradialis tendons bilaterally. The right quadricep is 1/4 and the right Achilles is 2/4. The left quadriceps and Achilles tendon reflexes are 0/ Toes are downgoing with plantar stimulation bilaterally. There is no clonus. PG Care Time/CCT Total # of Minutes Spent Total Time Spent with Patient: Total time spent is greater than 50% in coordination of care (as documented) at patient's floor/unit and/or counseling patient: Coding Level of Care Code 37593 SUB INP/OBS CARE 3/50MIN Diagnoses Left leg weakness R29.898 Left arm weakness R29.898 Rheumatoid arthritis with negative rheumatoid factor, involving unspecified site M06.00 Rheumatoid arthritis location: unspecified site Rheumatoid factor presence: without rheumatoid factor Time Spent (min) 60 (3) Rheumatoid arthritis Rheumatoid arthritis location: unspecified site Rheumatoid factor presence: without rheumatoid factor Qualified Code(s): M06.00 - Rheumatoid arthritis without rheumatoid factor, unspecified site
--- NOTE | 2025-08-22 18:39 | Hospitalist Progress Note ---
Date of Service August 22, 2025 Assessment & Plan (1) Left arm weakness: (2) Ambulatory dysfunction: (3) Rheumatoid arthritis: (4) Hip osteoarthritis: Plan Patient is a 55-year-old female with past medical history of end stage right hip osteoarthritis ,obesity, RA, corn allergy, asthma, hypertension, chronic left lower extremity weakness, migraine who presented via EMS due to left upper extremity weakness that has progressed over the past week. Head CT and CTAs negative for acute changes and patient is being admitted for stroke workup. her brain MRI and MRI C and L spine are both negative. seen by neurology; Dr. Khan, has concerned about autoimmune neuropathy and multifocal neuropathy; antibody panel ordered. in addition, plan for outpatient EMG and nerve studies. in addition, neuro requesting starting aspirin 81mg daily given her hx of fibromuscular dysplasia of internal carotid artery. her insurance denied placement to [facility] (acute rehab) #left-sided weaknessnew onset left UE weakness with chronic left LE weakness. Head CT and head CTA negative Neck CTA showed bilateral ICA beading concerning for connective tissue disease. - neurology requested placement to [facility], - strong suspicion for autoimmune neuropathy - f/u with neuro (Dr. Khan) for EMG and evaluation for IVIG - Concern for infectious versus inflammatory origin with possible vasculitis - Will give stress dose of IV Solu-Medrol 125 mg IV on admission followed by 40 mg IV daily, pt transitioned to prednisone taper starting today- 40 mg a day for 3 days, 30 mg a day for 3 days, 20 mg a day for 3 days, 10 mg a day for 3 days, then back to her original 5 mg daily dose (neuro guidance appreciated) - MRI C and L spine completed. her symptoms is not suggestive of spinal stenosis - LLE weakness being evaluated with BL EMG on 08/23 in outpatient setting but this has to be rescheduled as pt will not be discharged in time - ID recs appreciated, tick panel ordered fibromuscular dysplasia of internal carotid artery aspirin 81mg daily CTA abdomen negative for fibromuscular dysplasia of renal artery she s/p prednisone premedication for her contrast allergy #Recurrent left leg cellulitis - resolved - currently on Cefazolin, completed 5 day course on 08/19/25 #lymphedema, - s/p IV Lasix 20mg x1 with improvement in her edema - discussed about intermittent lasix oral, patient has concerned about lasix containing corn (prn liquid lasix Rx sent to pharmacy) - the local pharmacy can compound the med to eliminate corn #rheumatoid arthritisfollows with rheumatology, Dr. Garcia. - On prednisone 5 mg daily at home, stress dosing as above #right hip osteoarthritisfollows with orthopedics Dr. Carmen and is to have total hip replacement done if BMI can improved under 50 - Has made patient wheelchair-bound at baseline - continue home Journvx #OSACPAP at bedtime #HTNcontinue losartan #Hypothyroidismcontinue levothyroxine #Migraine / Pain management continue duloxetine #Severe corn allergypatient brought home medications without corn #DVT ppx: Lovenox #Dispo: pending placement Admission and Anticipated Discharge Date Admission Date: August 14, 2025 Subjective no acute events overnight currently no new complaints Review of Systems Review of Systems: Comprehensive ROS completed and is otherwise negative. Physical Exam Physical Exam: Gen: no acute distress, lying in bed comfortable HEENT: NC/AT, MMM Lungs: nonlabored breathing, CTAB CVS: s1s2nl, RRR Abd: nl bowel sounds, soft, NT / ND : no [place] Ext: no edema, palpable pedal pulses b/l Neuro: AAOx3 Psych: calm, cooperative Results & Data Results & Data Vital Signs (Past 12 Hours) Vital Signs Temp Pulse Pulse Resp BP BP Pulse Ox 08/22/25 16:00 36.8 C 88 16 119/79 93 08/22/25 14:11 84 08/22/25 11:35 37.1 C 86 16 91 08/22/25 11:34 163/90 H 08/22/25 10:06 08/22/25 07:45 36.7 C 83 16 147/90 H 96 08/22/25 07:23 77 O2 Del Method 08/22/25 16:00 Room Air 08/22/25 14:11 08/22/25 11:35 Room Air 08/22/25 11:34 08/22/25 10:06 Room Air 08/22/25 07:45 Room Air 08/22/25 07:23 PG Care Time/CCT Total # of Minutes Spent Total Time Spent with Patient: Total time spent is greater than 50% in coordination of care (as documented) at patient's floor/unit and/or counseling patient: Coding Level of Care Code 79655 SUB INP/OBS CARE 2/35MIN Diagnoses Left arm weakness R29.898 Ambulatory dysfunction R26.2 Rheumatoid arthritis with negative rheumatoid factor, involving unspecified site M06.00 Rheumatoid arthritis location: unspecified site Rheumatoid factor presence: without rheumatoid factor Hip osteoarthritis M16.9 (3) Rheumatoid arthritis Rheumatoid arthritis location: unspecified site Rheumatoid factor presence: without rheumatoid factor Qualified Code(s): M06.00 - Rheumatoid arthritis without rheumatoid factor, unspecified site
--- NOTE | 2025-08-23 08:54 | Neurology Progress Note ---
Date of Service August 23, 2025 Assessment & Plan (1) Left leg weakness: (2) Left arm weakness: (3) Rheumatoid arthritis: Plan Patient has a 5 to 6-month history of progressive weakness of the left lower extremity without pain or numbness. This gotten much worse over the last several weeks. The left upper extremity developed weakness over the last 2 weeks. The patient has no symptoms or deficits in the right arm or leg. The etiology of this is not certain but is peripheral in origin. There is no evidence of upper motor neuron dysfunction or stroke. MRI of the brain was unremarkable/normal. I strongly suspect a cervical motor radiculopathy at C5 (or C6) as well as a lumbosacral motor radiculopathy at L4 (or L5). MRI of the cervical showed degenerative changes including facet arthrosis and foraminal stenoses. There was no significant cord impingement or canal stenosis. MRI of the lumbar spine showed diffuse degenerative changes with some spinal stenosis at L3-4 from disc and bone. In addition, there is neuroforaminal stenosis. I again reviewed these MRI films from the cervical spine Patient has a history of rheumatoid arthritis (followed by Dr. Ilya Garcia) on steroids. An autoimmune neuropathy (multifocal motor neuropathy) is possible, but less likely. Patient's weakness is only mildly improved with steroids over the last week. The patient has lost 22 pounds in the last 3 months on Zepbound (maximum weight 365 pounds) Apparently despite being an excellent [facility] candidate her insurance has denied this. She is waiting placement for nursing homes with physical therapy Recommendations: 1. EMG and nerve conduction study of the left arm and both legs is scheduled for today, August 23 at 4 PM at neurology outpatient. I will not be able to do this study since she is in the hospital. We will reschedule this study to include EMG and nerve conduct studies of the left arm and left leg (there is no indication to do the right side) 2. Awaiting laboratory studies including tickborne diseases and a sensorimotor neuropathy antibody panel 3. Continue steroid to over the next 12 days (40 mg a day for 3 days, 30 mg a day for 3 days, 20 mg a day for 3 days, 10 mg a day for 3 days, then back to her original 5 mg daily dose) 4. Follow-up with Drs. Khan and Jose as an outpatient 5. Consider orthopedic spine consultation regarding cervical and lumbar spine at her request. Overall, I spent a total of 50 minutes with this case including review of records, review of MRI films, direct evaluation of the patient, report generation, and discussion of the case with the patient and RN at bedside, case management, and Dr. Rothman including differential diagnosis and treatment options. Admission and Anticipated Discharge Date Admission Date: August 14, 2025 Subjective Patient is about the same as yesterday with no significant pain or headache. She has weakness in the left leg as before. The left arm is weak but may be getting better over the course of the last few days on the steroids. Blood pressure is 158/98 and she is afebrile. The rest of her tickborne disease testing is pending however Lyme antibodies were negative as were the anaplasmosis and babesiosis tests. Apparently the patient was approved by [facility] but her insurance company would not pay for this transfer. She is now pending admission to Results & Data Vital Signs (Past 12 Hours) Vital Signs Temp Pulse Pulse Resp BP Pulse Ox O2 Del Method 08/23/25 07:48 36.6 C 77 16 158/98 H 96 Room Air 08/22/25 23:53 Room Air 08/22/25 23:48 36.2 C L 70 20 141/83 H 93 Room Air 08/22/25 22:20 71 16 93 FiO2 08/23/25 07:48 08/22/25 23:53 08/22/25 23:48 08/22/25 22:20 21 Exam (Neuro) Physical Exam: She is awake and alert. Speech is without aphasia or dysarthria. Mood and affect are normal and appropriate. Thought processes are intact with good long and short-term memory to conversation. Extraocular muscles are intact without nystagmus. There is no facial droop. Tongue is midline. With outstretched arms there is no drift but there is weakness at the left shoulder (arm drop). Coordination is normal with no obvious tremor or ataxia. Motor strength is 4/5 in the deltoid, biceps, and triceps on the left. Wrist flexor and extensors were 4+/5 as were intrinsic hand muscles and agriculture internship on the left. The right upper extremity had 5/5 strength diffusely in all these toes both proximally and distally. Motor strength is 3/5 in the hip flexors. The quadriceps is 4 -/5. Hamstring muscles as well as gastrocnemius is closer to 5/5 and the tibialis anterior is 4/5. Toe extensors are 4/5 Reflexes are 2/4 in the biceps, triceps, and brachial radialis tendons bilaterally. The right quadriceps and Achilles tendons are 2/4. The left quadriceps and Achilles tendons are absent (0/4). Toes are downgoing to plantar stimulation bilaterally. There are no sensory deficits to pin and touch in the arms or legs bilaterally or the face bilaterally. PG Care Time/CCT Total # of Minutes Spent Total Time Spent with Patient: Total time spent is greater than 50% in coordination of care (as documented) at patient's floor/unit and/or counseling patient: Coding Level of Care Code 40310 SUB INP/OBS CARE 3/50MIN Diagnoses Left leg weakness R29.898 Left arm weakness R29.898 Rheumatoid arthritis with negative rheumatoid factor, involving unspecified site M06.00 Rheumatoid arthritis location: unspecified site Rheumatoid factor presence: without rheumatoid factor Time Spent (min) 50 (3) Rheumatoid arthritis Rheumatoid arthritis location: unspecified site Rheumatoid factor presence: without rheumatoid factor Qualified Code(s): M06.00 - Rheumatoid arthritis without rheumatoid factor, unspecified site
[2025-08-23 09:00] LABS: Cdiff Toxin B Gene (2yr or >) Negative Cdiff Gene (Neg)
[2025-08-23] MEDS ORDERED: LOPERAMIDE HCL 2 MG CAP PO PRN (09:16)
--- NOTE | 2025-08-23 12:43 | Orthopedic Consultation ---
Date of Service August 23, 2025 Assessment & Plan (1) Left leg weakness: * Case/imaging reviewed and discussed with Dr Philippe * Lumbar MRI without stenosis to explain generalized weakness of the left leg. No imaging findings to justify surgical intervention * Recommend continued work-up, EMG when able * Weight bearing status: WBAT * Daily treatment: Physical Therapy/ Occupational Therapy per protocol * Pain control * Disposition: TBD * Patient seen and examined, no significant findings in cervical or lumbar spine to explain left-sided weakness. Recommended continued neurologic workup. (2) Left arm weakness: * Case/imaging reviewed and discussed with Dr Philippe * Exam significant for shoulder flexion and abduction weakness which could be seen with RTC tear * Will order MRI left shoulder to eval * Otherwise MRI without stenosis to explain weakness of the left arm. No imaging findings to justify surgical intervention * Recommend continued work-up, EMG * Weight bearing status: As tolerated * Will follow MRI results, will discuss outpatient referral to sports medicine team for RTC repair if indicated History of Present Illness Reason for Consultation: Left arm and leg weakness Requesting Physician: . Attending Physician: Jourdan Rothman MD .Patient is a 55 y/o female with left arm and left leg weakness. PMH including obesity, RA, corn allergy, asthma, hypertension, chronic left lower extremity weakness. Presents to hospital with progressive left arm and leg weakness. Leg weakness ongoing for approximately 6 months, left arm pain approximately 2 weeks. Denies specific trauma or injury to either area. States that weakness of the left leg has progressed to the point of needing cane --> walker --> and now wheelchair. Has been following with Neurology and trying to get EMG, was scheduled for today 08/23 unfortunately and will need to be rescheduled, concerned about autoimmune neuropathy and multifocal neuropathy; antibody panel ordered. Current workup including: * Cervical spine MRI: 1. Motion degraded exam limits evaluation of the neural foramen, 2. No high-grade central canal or neural foraminal stenosis identified, 3. Severe left-sided facet arthrosis at C3-C4 with associated joint effusion, and degenerative related marrow and adjacent soft tissue edema, 4. Normal signal within the cervical spinal cord. * Lumbar spine MRI: 1. Central disc extrusion at L3-L4 contributes to cause aqgq-[id number] central canal stenosis, moderate to severe right with mild to moderate left neural foraminal narrowing, 2. Multilevel degenerative changes as above without acute fracture. * Brain MRI: No acute findings in the head/brain. Ortho-spine consulted for review of imaging and management recommendations. At time of exam patient sitting comfortably in bed, no acute distress. Denies pain of the low back or neck, or either LUE or LLE. Denies tingling or numbness of left arm or leg. Allergies Allergy/AdvReac Type Severity Reaction Status Date / Time corn Allergy Severe ANAPHYLAXIS Unverified 07/07/25 23:43 -- all corn related products grass pollen Allergy Unknown seasonal Verified 07/07/25 23:44 allergies house dust mite Allergy Unknown seasonal Verified 07/07/25 23:45 allergies Iodinated Contrast Media Allergy Unknown Hives Verified 07/07/25 23:43 pollen extracts Allergy Unknown seasonal Verified 07/07/25 23:44 allergies Sulfa (Sulfonamide AdvReac Intermediate Hives, Verified 07/07/25 23:41 Antibiotics) Joint Pain Home Medications Medication Instructions Recorded Confirmed Type Auto Titrating CPAP #1 ea 07/10/21 08/14/25 Rx CPAP Supplies #1 ea 07/10/21 08/14/25 Rx acetaminophen 500 mg capsule 500 mg PO Q4H PRN fever #1 cap 09/11/22 08/14/25 Rx diphenhydramine HCl 25 mg capsule 25 mg PO Q6H PRN allergy symptoms 09/11/22 08/14/25 Rx (Allergy (diphenhydramine)) #1 cap levocetirizine 5 mg tablet (Xyzal) 5 mg PO DAILY PRN allergies 08/04/23 08/14/25 History digital therapeutic,CHARLIE device #1 ea 10/15/23 08/08/25 Rx magnesium glycinate 400 mg (4 x 100 mg magnesium) PO 10/15/23 08/14/25 Rx DAILY #30 caps CPAP Supplies #1 ea 11/23/23 08/08/25 Rx insulin syringe-needle U-100 1 mL #100 ea 05/04/24 08/08/25 Rx 27 gauge x 1/2" (BD Insulin Syringe) albuterol sulfate 2.5 mg/0.5 mL 2.5 mg (0.5 mL) inhalation Q4H PRN 10/21/24 08/14/25 Rx solution for nebulization shortness of breath or wheezing #30 ea Breo Ellipta 100 mcg-25 mcg/dose 1 inh inhalation DAILY #3 Inhalers 01/16/25 08/14/25 Rx powder for inhalation (fluticasone furoate-vilanterol) albuterol sulfate 90 mcg/actuation 2 inh inhalation QID PRN shortness 01/16/25 08/14/25 Rx breath activated powder inhaler of breath or wheezing #3 ea (ProAir RespiClick) epinephrine 0.3 mg/0.3 mL 0.3 mg (0.3 mL) IM Q10M PRN 03/08/25 08/14/25 Rx injection, auto-injector (EpiPen) anaphylaxis #2 ea omalizumab 300 mg/2 mL 300 mg (2 mL) subcut .COMPLEX #4 mL 03/14/25 08/14/25 Rx subcutaneous syringe rimegepant 75 mg disintegrating 75 mg PO DAILY PRN migraine 03/27/25 08/14/25 Rx tablet (Nurtec ODT) headache 90 days #27 tabs fremanezumab-vfrm 225 mg/1.5 mL 225 mg (1.5 mL) subcut ONCE 30 03/30/25 08/14/25 Rx subcutaneous auto-injector (Ajovy) days #45 mL losartan 25 mg tablet 25 mg PO BID 90 days #180 tabs 05/11/25 08/14/25 Rx 3mL Syringe 1.5in 25g needle #10 ea 06/02/25 08/14/25 Rx celecoxib 200 mg capsule 200 mg PO BID 07/07/25 08/14/25 History cyanocobalamin (vitamin B-12) 0 mcg IM MONTHLY 07/07/25 08/14/25 History 1,000 mcg/mL injection solution ergocalciferol (vitamin D2) 1,250 50,000 unit PO .3X WK 07/07/25 08/14/25 History mcg (50,000 unit) capsule (Vitamin D2) gabapentin 300 mg capsule 300 mg PO TID 07/07/25 08/14/25 History levothyroxine 25 mcg capsule 25 mcg PO UD 07/07/25 08/14/25 History rizatriptan 10 mg tablet 0 mg PO UD PRN Headache 07/07/25 08/14/25 History tirzepatide (weight loss) 10 10 mg subcut Q7D 07/07/25 08/14/25 History mg/0.5 mL subcutaneous solution tramadol 5 mg/mL oral solution 100 mg (20 mL) PO TID PRN pain 07/20/25 08/14/25 Rx #473 mL Orencia ClickJect 125 mg/mL 125 mg subcut Q7D #4 mL 07/25/25 08/14/25 Rx subcutaneous auto-injector (abatacept) Manual Wheelchair #1 ea 08/08/25 08/08/25 Rx RSVPreF3 antigen-AS01E 120 mcg IM ONCE #1 ea 08/08/25 08/14/25 Rx adjuvant(PF) 120 mcg/0.5 mL IM suspension, kit Wheelchair (Manual) (Manual #1 ea 08/08/25 08/08/25 Rx Wheelchair) prednisone 10 mg tablet 5 mg PO DAILY PRN as directed 08/08/25 08/14/25 History azelastine 137 mcg (0.1 %) nasal 2 spray intranasal BID PRN allergy 08/11/25 08/14/25 Rx spray symptoms #30 mL dextroamphetamine-amphetamine 15 15 mg PO TID PRN add #60 tabs 08/11/25 08/14/25 Rx mg tablet duloxetine 60 mg capsule,delayed 120 mg PO DAILY 08/14/25 08/14/25 History release riboflavin (vitamin B2) 400 mg 400 mg PO QAM 08/14/25 08/14/25 History tablet suzetrigine 50 mg tablet (Journavx) 50 mg PO BID 08/14/25 08/14/25 History furosemide 40 mg/4 mL oral solution 20 mg (2 mL) PO QAM PRN edema #120 08/22/25 Rx mL Past Med/Surg History Problem List (Updated 08/15/25 @ 17:01 by Blue Khan MD) Left leg weakness Fibromuscular dysplasia of both carotid arteries Physical deconditioning (Acute) Morbid obesity with BMI of 60.0-69.9, adult (Acute) Weakness of left side of body (Acute) Left arm weakness Ambulatory dysfunction (Acute) Hip osteoarthritis (Acute) Osteoarthritis of right hip Atypical ductal hyperplasia of left breast Rheumatoid arthritis Inflammatory arthritis Migraine with aura Vitamin D deficiency B12 deficiency Chronic idiopathic urticaria Attention deficit disorder Arthralgia Hypothyroidism Chronic migraine Chronic cough Hypersomnia Medical History Accident due to mechanical fall without injury Cellulitis of left leg Cellulitis Obesity due to excess calories Myalgia Hypertension GISELA (obstructive sleep apnea) Allergic rhinitis Asthma Pulmonary nodule Migraines Surgical History History of appendectomy Family History Mother Multiple sclerosis Father Bladder cancer Muscle wasting and atrophy, not elsewhere classified, back, lumbosacral Brother Hypertension Denies family history of Ovarian cancer Prostate cancer Diabetes Myocardial infarction Breast cancer Colorectal cancer Social History Smoking Status: Never smoker Second Hand Exposure: No; Hx Alcohol Use: No Hx Substance Use: No Preferred Language: Kazakh Communication Ability: Effective Visual Impairment: Limited Hearing Ability: Normal Bridge Contractor Required: No Beliefs That Will Affect Care: None marital status: Single Current Living Situation: Parent current occupational status: employed current occupation: self employed How many Children do You have: 0 Feels Safe at Home: Yes Childhood Exposure to Second-Hand Smoke: No Diet: regular Diet Comment: cannot have corn caffeine: Yes during the past year weight has: increased > 10 lbs Dental Care, Regularly: Yes Physical Activity Frequency: Does not Exercise Seatbelt Use: always Sunscreen Use: Yes Assistive Devices: Bedside Commode, Cane, Walker, Wheelchair and Other Review of Systems All systems reviewed & are unremarkable except as noted in HPI & below. Physical Exam * General: Alert and oriented, no acute distress * Constitutional: well-developed, well-nourished. * Respiratory: Normal respiratory effort, no distress * Gastrointestinal: No tenderness to palpation, no rigidity or guarding. * Skin: No rash or lesion. * Neurologic: Grossly normal * Musculoskeletal: [] Results & Data Results & Data Laboratory Results . Diagnostic Findings MRI lumbar spine: IMPRESSION: 1. Central disc extrusion at L3-L4 contributes to cause hrgp-da-gqlfzxwv central canal stenosis, moderate to severe right with mild to moderate left neural foraminal narrowing. 2. Multilevel degenerative changes as above without acute fracture. MRI cervical spine: IMPRESSION: 1. Motion degraded exam limits evaluation of the neural foramen. 2. No high-grade central canal or neural foraminal stenosis identified. 3. Severe left-sided facet arthrosis at C3-C4 with associated joint effusion, and degenerative related marrow and adjacent soft tissue edema. 4. Normal signal within the cervical spinal cord. MRI brain: IMPRESSION: No acute findings in the head/brain. PG Care Time/CCT Total # of Minutes Spent Total Time Spent with Patient: Total time spent is greater than 50% in coordination of care (as documented) at patient's floor/unit and/or counseling patient: [place] [address] IN/OBS CONSULT LVL 5,80M Patient Type New Medical Decision Making High Complexity Diagnoses Left leg weakness R29.898 Left arm weakness R29.898
--- NOTE | 2025-08-23 15:42 | Magnetic Resonance Report ---
MRI OF THE LEFT SHOULDER CLINICAL HISTORY: Left shoulder pain. Weakness. COMPARISON STUDY: No priors TECHNIQUE: MRI of the left shoulder was performed utilizing various T1 and T2 weighted sequences in t he axial, sagittal, coronal planes. IV contrast was not administered for this examination. The examin ation is compromised by motion artifact. Note that interpretation is suboptimal without plain film co rrelate. FINDINGS: Rotator cuff: There is moderate tendinopathy of the supraspinatus tendon with minimal intrasubstance tearing. There is moderate undersurface tearing seen involving the anterior fibers of the leading edg e, best visualized on sagittal image #25. There is only mild tendinopathy of the infraspinatus and briggs bscapularis tendons. Teres minor is intact. No full-thickness rotator cuff tear is identified and no musculotendinous retraction is seen. There is trace subacromial and subdeltoid bursal fluid. The acro mioclavicular joint is unremarkable. Biceps tendon: The long head of the biceps tendon is normal in signal intensity and located within th e bicipital groove. The anchor is maintained. Labrum: There is a SLAP tear of the labrum. Shoulder joint: There is a small joint effusion. There is idrt-hi-lgpnzfcs chondrosis at the glenohum eral articulation with nearly full-thickness cartilage loss seen along the superior glenoid. Bony ove rgrowth is seen along the inferior aspect of the humeral head. Musculature and soft tissues: There is generalized atrophy of the regional musculature. No intramuscu lar edema is seen. IMPRESSION: 1. Motion degraded examination. 2. Rotator cuff tendinopathy as above with moderate partial thickness undersurface tearing at the ant erior leading edge of supraspinatus. 3. No full-thickness rotator cuff tear or musculotendinous retraction is seen. 4. SLAP tear of the labrum. 5. Diffuse/generalized atrophy of the regional musculature. 6. Mild/moderate chondrosis at the glenohumeral articulation. ACT 112: Negative or not required by law. Electronically signed by: Dominik Louis M.D. 08/23/2025 3:41 PM
[2025-08-23] MEDS ORDERED: LOPERAMIDE PO PRN (16:00)
[2025-08-23] MEDS ORDERED: SIMETHICONE 125 MG PO PRN (16:00)
[2025-08-23] MEDS: LOPERAMIDE PO PRN (16:06)
[2025-08-23] MEDS: SIMETHICONE 125 MG PO PRN (16:06)
--- NOTE | 2025-08-23 18:09 | Hospitalist Progress Note ---
Date of Service August 23, 2025 Assessment & Plan (1) Left arm weakness: (2) Ambulatory dysfunction: (3) Rheumatoid arthritis: (4) Hip osteoarthritis: Plan Patient is a 55-year-old female with past medical history of end stage right hip osteoarthritis ,obesity, RA, corn allergy, asthma, hypertension, chronic left lower extremity weakness, migraine who presented via EMS due to left upper extremity weakness that has progressed over the past week. Head CT and CTAs negative for acute changes and patient is being admitted for stroke workup. her brain MRI and MRI C and L spine are both negative. seen by neurology; Dr. Khan, has concerned about autoimmune neuropathy and multifocal neuropathy; antibody panel ordered. in addition, plan for outpatient EMG and nerve studies. in addition, neuro requesting starting aspirin 81mg daily given her hx of fibromuscular dysplasia of internal carotid artery. her insurance denied placement to [facility] (acute rehab) #left-sided weaknessnew onset left UE weakness with acute on chronic left LE weakness. Head CT and head CTA negative Neck CTA showed bilateral ICA beading concerning for connective tissue disease. - strong suspicion for autoimmune neuropathy - f/u with neuro (Dr. Khan) for EMG and evaluation for IVIG - Concern for infectious versus inflammatory origin with possible vasculitis - Pt transitioned to prednisone taper starting today- 40 mg a day for 3 days, 30 mg a day for 3 days, 20 mg a day for 3 days, 10 mg a day for 3 days, then back to her original 5 mg daily dose (neuro guidance appreciated) - MRI C and L spine completed -appreciate ortho spine evaluation and symptoms not expected to be radiculopathy or spinal stenosis - ID recs appreciated, tick panel ordered fibromuscular dysplasia of internal carotid artery aspirin 81mg daily CTA abdomen negative for fibromuscular dysplasia of renal artery #Recurrent left leg cellulitis - resolved - currently on Cefazolin, completed 5 day course on 08/19/25 #lymphedema, - s/p IV Lasix 20mg x1 with improvement in her edema - discussed about intermittent lasix oral, patient has concerned about lasix containing corn (prn liquid lasix Rx sent to pharmacy) - the local pharmacy can compound the med to eliminate corn #rheumatoid arthritisfollows with rheumatology, Dr. Garcia. - On prednisone 5 mg daily at home, stress dosing as above #right hip osteoarthritisfollows with orthopedics Dr. Carmen and is to have total hip replacement done if BMI can improved under 50 - Has made patient wheelchair-bound at baseline - continue home Journavx #OSACPAP at bedtime #HTNcontinue losartan #Hypothyroidismcontinue levothyroxine #Migraine / Pain management continue duloxetine #Severe corn allergypatient brought home medications without corn VTE Prophylaxis - Lovenox Disposition - medically stable for discharge pending placement Admission and Anticipated Discharge Date Admission Date: August 14, 2025 Subjective Started having diarrhea overnight. C. difficile testing negative. No significant change to her left lower extremity and left upper extremity weakness. Significant foot drop. Discussed care with Dr. Brock and recommended orthopedic spine evaluation which was ordered. Consult seen and shoulder MRI reviewed with the patient. Review of medications reports starting Journavx 3 months ago for pain in her right hip and she has felt significant improvement with this. This medication is not approved for long-term use has been used off label for this purpose. On review of side effects elevated CK is mentioned in addition to peripheral neuropathy. If her EMG and nerve conduction studies do indicate a peripheral neuropathy this could be considered to be discontinued however since her symptoms predate starting this and the unilateral have a hard time believing this medication is to blame. Physical Exam Constitutional: WD/WN, vitals as above Respiratory: normal respiratory effort, lungs clear to auscultation Cardiovascular: RRR, no murmur, no edema Gastrointestinal (Abdomen): normal bowel sounds, soft, nontender, no hepatosplenomegaly Neurologic: Left foot drop with minimal ankle dorsiflexion and 3/5 hip flexion Results & Data Results & Data Vital Signs (Past 12 Hours) Vital Signs Temp Pulse Resp BP Pulse Ox O2 Del Method 08/23/25 15:25 36.6 C 84 16 155/78 H 95 Room Air 08/23/25 10:44 Room Air 08/23/25 07:48 36.6 C 77 16 158/98 H 96 Room Air PG Care Time/CCT Total # of Minutes Spent Total Time Spent with Patient: Total time spent is greater than 50% in coordination of care (as documented) at patient's floor/unit and/or counseling patient: Coding Level of Care Code 83006 SUB INP/OBS CARE 2/35MIN Diagnoses Left arm weakness R29.898 Ambulatory dysfunction R26.2 Rheumatoid arthritis with negative rheumatoid factor, involving unspecified site M06.00 Rheumatoid arthritis location: unspecified site Rheumatoid factor presence: without rheumatoid factor Hip osteoarthritis M16.9 (3) Rheumatoid arthritis Rheumatoid arthritis location: unspecified site Rheumatoid factor presence: without rheumatoid factor Qualified Code(s): M06.00 - Rheumatoid arthritis without rheumatoid factor, unspecified site
[2025-08-23] MEDS: ENOXAPARIN INJ 40 MG/0.4 ML SYR SQ SCH (21:32)
--- NOTE | 2025-08-24 08:44 | Communication Note ---
Date of Service: August 24, 2025 MRI L shoulder reviewed. Partial tear of supraspinatus tendon. Discussed findings with patient this morning. Minimal shoulder pain, just weakness with sh oulder flexion/abduction movements. She is already established with Dr Boykin, recommend routine follow-up with Sports Medicine team.
--- NOTE | 2025-08-24 09:41 | Neurology Progress Note ---
Date of Service August 24, 2025 Assessment & Plan (1) Left leg weakness: (2) Left arm weakness: (3) Rheumatoid arthritis: Plan Patient has a 5 to 6-month history of progressive weakness of the left lower extremity without pain or numbness. This gotten much worse over the last several weeks. The left upper extremity developed weakness over the last 2 weeks. The patient has no symptoms or deficits in the right arm or leg. The etiology of this is not certain but is peripheral in origin. There is no evidence of upper motor neuron dysfunction or stroke. MRI of the brain was unremarkable/normal. I strongly suspect a cervical motor radiculopathy at C5 (or C6) as well as a lumbosacral motor radiculopathy at L4 (or L5). Alternatively, the patient may have a left brachial plexopathy. Left lumbosacral plexopathy cannot be excluded although the CTA of the abdomen and pelvis did not show any obvious masses. MRI of the cervical showed degenerative changes including facet arthrosis and foraminal stenoses. There was no significant cord impingement or canal stenosis . MRI of the lumbar spine showed diffuse degenerative changes with some spinal stenosis at L3-4 from disc and bone. In addition, there is neuroforaminal stenosis. I again reviewed these MRI films from the cervical spine Patient has a history of rheumatoid arthritis (followed by Dr. Ilya Garcia) on steroids. An autoimmune neuropathy (multifocal motor neuropathy) is possible, but less likely. CK is normal. Ganglioside GM1 antibody titer is normal. Patient's weakness is only mildly improved with steroids since admission The patient has lost 22 pounds in the last 3 months on Zepbound (maximum weight 365 pounds) Apparently despite being an excellent [facility] rehabilitation hospital candidate her insurance has denied this. She is waiting placement for nursing homes with physical therapy Recommendations: 1. EMG and nerve conduction study of the left arm and leg as an outpatient. Can I do this study as an inpatient. There is no indication to do the right side 2. Awaiting laboratory studies including tickborne diseases 3. Continue steroid to over the next 12 days (40 mg a day for 3 days, 30 mg a day for 3 days, 20 mg a day for 3 days, 10 mg a day for 3 days, then back to her original 5 mg daily dose) 4. Follow-up with Drs. Khan and Jose as an outpatient 5. Follow-up with orthopedics for her left shoulder issue. Overall, I spent a total of 35 minutes with this case including review of records, direct evaluation of the patient, report generation, and discussion of the case with the patient and RN at bedside, and Dr. Rothman including differential diagnosis and treatment options. Admission and Anticipated Discharge Date Admission Date: August 14, 2025 Subjective Patient has no new complaints and still has weakness in the left leg greater than the left arm. There are no new issues neurologically. Blood pressure is 180/98 and she is afebrile. Total CK is 37 Ganglioside antibody titer is normal. Other titers from tickborne illnesses are pending Patient saw orthopedic spine yesterday who felt there was no surgical intervention warranted for her lumbar spine. An MRI of the left shoulder shows a partial tear and may be contributing to her weakness. Results & Data Vital Signs (Past 12 Hours) Vital Signs Temp Pulse Resp BP Pulse Ox O2 Del Method 08/24/25 08:28 36.4 C L 76 18 180/98 H 96 Room Air 08/24/25 07:34 Room Air 08/24/25 00:10 Room Air 08/23/25 23:30 36.3 C L 80 20 146/83 H 93 Room Air Exam (Neuro) Physical Exam: She is awake and alert. Speech is without aphasia or dysarthria. Mood and affect are normal and appropriate. Thought processes are intact conversation. Extraocular muscles are intact without nystagmus. There is no facial droop. Tongue is midline. There are no abnormal involuntary movements noted. None strength is as per yesterday. PG Care Time/CCT Total # of Minutes Spent Total Time Spent with Patient: Total time spent is greater than 50% in coordination of care (as documented) at patient's floor/unit and/or counseling patient: Coding Level of Care Code 62453 SUB INP/OBS CARE 2/35MIN Diagnoses Left leg weakness R29.898 Left arm weakness R29.898 Rheumatoid arthritis with negative rheumatoid factor, involving unspecified site M06.00 Rheumatoid arthritis location: unspecified site Rheumatoid factor presence: without rheumatoid factor (3) Rheumatoid arthritis Rheumatoid arthritis location: unspecified site Rheumatoid factor presence: without rheumatoid factor Qualified Code(s): M06.00 - Rheumatoid arthritis without rheumatoid factor, unspecified site
[2025-08-24] MEDS ORDERED: KETOROLAC TROMETHAMINE 15 MG/ML VIAL IV PRN (10:33)
[2025-08-24] MEDS ORDERED: PREDNISOLONE PO ONE (11:30)
[2025-08-24] MEDS: SODIUM CHLORIDE 0.9% 1,000 ML IV SCH ×2 (11:53→22:48)
--- NOTE | 2025-08-24 12:02 | Infectious Disease Progress Nt ---
Date of Service August 24, 2025 Assessment & Plan (1) Left leg weakness: (2) Fibromuscular dysplasia of both carotid arteries: (3) Morbid obesity with BMI of 60.0-69.9, adult: (4) Weakness of left side of body: (5) Left arm weakness: Plan This is a 55-year-old female with a past medical history of severe right hip osteoarthritis, rheumatoid arthritis on Orencia and prednisone, subacute, progressive left lower extremity weakness with ambulatory dysfunction (wheelchair-bound), status post multiple falls, morbid obesity, obstructive sleep apnea who presents with new onset left upper extremity weakness on 08/14. She was admitted 07/07 - 07/17 for left lower extremity cellulitis and right hip pain. She works from home. She has a dog that is healthy. She has a history of extensive travel in [place] in the late and early ([facility], [facility], [facility], [facility]) when she was a college student. 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 She subsequently traveled to [place] and [facility] in the late and early . During her travels she lived in rural and urban areas. Between 2003 - 2011, she traveled to [facility], the [place], [place] and [facility]. She has been diagnosed with Dengue fever twice. She had an exposure to a colleague with active tuberculosis, in the late . She never developed tuberculosis. She was treated for possible latent Tuberculosis. She has not traveled outside of the [place] since 2011. She is not sexually active. She denies any sick contacts. During her travels greater than 10 years ago she has gone scuba diving in fresh water. She was diagnosed with Lyme disease approximately 6 years ago and treated. Currently she denies any fever, chills, nausea, vomiting, headache, vision changes. She endorses chronic right hip pain from severe osteoarthritis for which she follows with orthopedics and is under evaluation for hip replacement in the future. She complains of progressive left lower extremity weakness, recent cellulitis, left upper extremity weakness and chronic LE neuropathy for which she is on gabapentin. In the ED she was afebrile and hemodynamically stable. Labs: WBC 11.23, ESR 65, BUN 19, creatinine 0.62, CRP 4.37. Head CT with no acute pathology. Head CTA with no definitive stenosis or aneurysm of the intracranial arteries. Neck CTA with no stenosis of the major cervical arteries. There is a torturous bilateral ICA with portions having an irregular beaded appearance of the wall, possibly related to connective tissue disease such as fibromuscular dysplasia. Brain MRI with no acute findings of the head. Left lower extremity Dopplers with no DVT. Cervical spine MRI with no high-grade central canal or neural foraminal stenosis. There is severe left-sided facet arthrosis of C3-C4 with associated joint effusion and degenerative related marrow and adjacent soft tissue edema. Normal signal within the cervical spinal cord. Lumbar spine MRI shows central disc extrusion at L3-L4 which causes mild to moderate central canal stenosis, moderate to severe right and moderate left neural foraminal narrowing. Multi level degenerative changes. Abdomen CTA shows no evidence of renal arteries stenosis. Normal CT angiography of the abdomen pelvis. She has been evaluated by neurology who recommended that she complete scheduled EMG of the left lower limbs outpatient. Neurology had concerns for autoimmune neuropathy , multifocal neuropathy, cervical motor radiculopathy and lumbosacral motor radiculopathy, or left brachial plexopathy. She was treated LLE cellulitis with Cefazolin during this admission infectious disease consulted for possible infectious cause for presentation, given patient's extensive travel history in the past. # Extensive travel history in the late 1980searly 1999's. - No travel in more that 10 years # Left upper extremity weakness # Progressive left lower extremity weakness # Rheumatoid arthritis on prednisone and Orencia # C3-C4 associated joint effusion with severe arthrosis # LLE cellulitis , resolved # Leukocytosis # fibromuscular dysplasia of internal carotid artery Discussion: Patient has an extensive history of travel to [place] as a student in the late 80s and 90s she has also subsequently traveled to [place] and the [place]. During her travels she devloped dengue fever twice. She was exposed to a colleague with active TB but never developed tuberculosis. She has been treated for latent TB. Patient has not traveled outside of the [place] for greater than 10 years. She last traveled to [place] in 2011. She has a history of Lyme disease. I do not think that her current symptoms are secondary to an infectious process but would rule out any tickborne illness given she lives in an endemic area and complains of progressive joint pain with ?neuropathies. She has a leukocytosis. She is afebrile and HDS. Lyme screen is negative. Anaplasma/Babesia smear negative times 1. Anaplasma, Ehrlichia, Babesia PCR pending. Rickettsial Panel results pending A Left shoulder MRI shows rotator cuff tendinopathy with moderate partial thickness undersurface tearing. SLAP tear of the labrum. Diffuse/generalized atrophy of the regional musculature. Mild/moderate chondrosis at the glenohumeral articulation. Neurology followed up and thinks she ma WBC collected 08/22--> 15.5--no repeat available Recommendations: Continue to monitor off of antibiotics. At this time an infectious etiology seems less likely. Follow up Anaplasma/ehrlichia/ Babesia PCR Follow up rickettsia pcr Monitor WBC ID will sign off. Call if pending studies about positive Belen Bolivar MD, MPH Infectious Disease ID Connect [facility], ID Division Call [phone] with questions Admission and Anticipated Discharge Date Admission Date: August 14, 2025 Subjective This patient recommendation is based on a telemedicine consult request which was completed asynchronously through chart review and information provided by the primary physician. The patient was not seen or examined today. The evaluation is consultative in nature and all patient care and treatment decisions can either be accepted or rejected by the patient's primary hospital-based treating physician using their own independent medical judgment for their patient. Time Spent Reviewing Chart: 11 - 20 minutes Lyme screen negative Anaplasma and babesia smear negative PCRs pending L shoulder MRI shows rotator cuff tendinopathy with moderate partial thickness undersurface tearing. SLAP tear of the labrum. Diffuse/generalized atrophy of the regional musculature. Mild/moderate chondrosis at the glenohumeral articulation. WBC collect 08/22--> 15.5--no repeat available . Results & Data Vital Signs (Past 12 Hours) Vital Signs Temp Pulse Resp BP Pulse Ox O2 Del Method 08/24/25 08:28 36.4 C L 76 18 180/98 H 96 Room Air 08/24/25 07:34 Room Air 08/24/25 00:10 Room Air Laboratory Results Laboratory Results - last 48 hr 08/17/25 08/23/25 08/24/25 06:44 07:25 05:27 Total Creatine Kinase 37 Stl C. diff Tox B Gene Negative Cdiff Gene Stl C. diff [id number] NEGATIVE Miscellaneous Test REPORT Diagnostic Findings Shoulder MRI 08/23/25 13:04 MRI OF THE LEFT SHOULDER CLINICAL HISTORY: Left shoulder pain. Weakness. COMPARISON STUDY: No priors TECHNIQUE: MRI of the left shoulder was performed utilizing various T1 and T2 weighted sequences in the axial, sagittal, coronal planes. IV contrast was not administered for this examination. The examination is compromised by motion artifact. Note that interpretation is suboptimal without plain film correlate. FINDINGS: Rotator cuff: There is moderate tendinopathy of the supraspinatus tendon with minimal intrasubstance tearing. There is moderate undersurface tearing seen involving the anterior fibers of the leading edge, best visualized on sagittal image #25. There is only mild tendinopathy of the infraspinatus and subscapularis tendons. Teres minor is intact. No full-thickness rotator cuff tear is identified and no musculotendinous retraction is seen. There is trace subacromial and subdeltoid bursal fluid. The acromioclavicular joint is unremarkable. Biceps tendon: The long head of the biceps tendon is normal in signal intensity and located within the bicipital groove. The anchor is maintained. Labrum: There is a SLAP tear of the labrum. Shoulder joint: There is a small joint effusion. There is [id number] chondrosis at the glenohumeral articulation with nearly full-thickness cartilage loss seen along the superior glenoid. Bony overgrowth is seen along the inferior aspect of the humeral head. Musculature and soft tissues: There is generalized atrophy of the regional musculature. No intramuscular edema is seen. IMPRESSION: 1. Motion degraded examination. 2. Rotator cuff tendinopathy as above with moderate partial thickness undersurface tearing at the anterior leading edge of supraspinatus. 3. No full-thickness rotator cuff tear or musculotendinous retraction is seen. 4. SLAP tear of the labrum. 5. Diffuse/generalized atrophy of the regional musculature. 6. Mild/moderate chondrosis at the glenohumeral articulation. ACT 112: Negative or not required by law. Electronically signed by: Dominik Louis M.D. 08/23/2025 3:41 PM Medications Administered Home Medications Medication Instructions Recorded Confirmed Last Taken Auto Titrating CPAP #1 ea 07/10/21 08/14/25 Unknown CPAP Supplies #1 ea 07/10/21 08/14/25 Unknown acetaminophen 500 mg capsule 500 mg PO Q4H PRN fever #1 cap 09/11/22 08/14/25 Unknown diphenhydramine HCl 25 mg capsule 25 mg PO Q6H PRN allergy symptoms 09/11/22 08/14/25 Unknown (Allergy (diphenhydramine)) #1 cap levocetirizine 5 mg tablet (Xyzal) 5 mg PO DAILY PRN allergies 08/04/23 08/14/25 Unknown digital therapeutic,CHARLIE device #1 ea 10/15/23 08/08/25 Unknown magnesium glycinate 400 mg (4 x 100 mg magnesium) PO 10/15/23 08/14/25 08/14/25 DAILY #30 caps CPAP Supplies #1 ea 11/23/23 08/08/25 Unknown insulin syringe-needle U-100 1 mL #100 ea 05/04/24 08/08/25 Unknown 27 gauge x 1/2" (BD Insulin Syringe) albuterol sulfate 2.5 mg/0.5 mL 2.5 mg (0.5 mL) inhalation Q4H PRN 10/21/24 08/14/25 Unknown solution for nebulization shortness of breath or wheezing #30 ea Breo Ellipta 100 mcg-25 mcg/dose 1 inh inhalation DAILY #3 Inhalers 01/16/25 08/14/25 08/14/25 powder for inhalation (fluticasone furoate-vilanterol) albuterol sulfate 90 mcg/actuation 2 inh inhalation QID PRN shortness 01/16/25 08/14/25 Unknown breath activated powder inhaler of breath or wheezing #3 ea (ProAir RespiClick) epinephrine 0.3 mg/0.3 mL 0.3 mg (0.3 mL) IM Q10M PRN 03/08/25 08/14/25 Unknown injection, auto-injector (EpiPen) anaphylaxis #2 ea omalizumab 300 mg/2 mL 300 mg (2 mL) subcut .COMPLEX #4 mL 03/14/25 08/14/25 08/02/25 subcutaneous syringe dose due 08/16/25 wed rimegepant 75 mg disintegrating 75 mg PO DAILY PRN migraine 03/27/25 08/14/25 Unknown tablet (Nurtec ODT) headache 90 days #27 tabs fremanezumab-vfrm 225 mg/1.5 mL 225 mg (1.5 mL) subcut ONCE 30 03/30/25 08/14/25 Unknown subcutaneous auto-injector (Ajovy) days #45 mL losartan 25 mg tablet 25 mg PO BID 90 days #180 tabs 05/11/25 08/14/25 08/14/25 am dose 3mL Syringe 1.5in 25g needle #10 ea 06/02/25 08/14/25 Unknown celecoxib 200 mg capsule 200 mg PO BID 07/07/25 08/14/25 08/14/25 am dose cyanocobalamin (vitamin B-12) 0 mcg IM MONTHLY 07/07/25 08/14/25 Unknown 1,000 mcg/mL injection solution ergocalciferol (vitamin D2) 1,250 50,000 unit PO .3X WK 07/07/25 08/14/25 08/14/25 mcg (50,000 unit) capsule (Vitamin D2) gabapentin 300 mg capsule 300 mg PO TID 07/07/25 08/14/25 08/14/25 1 dose levothyroxine 25 mcg capsule 25 mcg PO UD 07/07/25 08/14/25 08/14/25 am dose rizatriptan 10 mg tablet 0 mg PO UD PRN Headache 07/07/25 08/14/25 Unknown tirzepatide (weight loss) 10 10 mg subcut Q7D 07/07/25 08/14/25 08/13/25 mg/0.5 mL subcutaneous solution tramadol 5 mg/mL oral solution 100 mg (20 mL) PO TID PRN pain 07/20/25 08/14/25 Unknown #473 mL Orencia ClickJect 125 mg/mL 125 mg subcut Q7D #4 mL 07/25/25 08/14/25 08/14/25 subcutaneous auto-injector (abatacept) Manual Wheelchair #1 ea 08/08/25 08/08/25 Unknown RSVPreF3 antigen-AS01E 120 mcg IM ONCE #1 ea 08/08/25 08/14/25 Unknown adjuvant(PF) 120 mcg/0.5 mL IM suspension, kit Wheelchair (Manual) (Manual #1 ea 08/08/25 08/08/25 Unknown Wheelchair) prednisone 10 mg tablet 5 mg PO DAILY PRN as directed 08/08/25 08/14/25 Unknown azelastine 137 mcg (0.1 %) nasal 2 spray intranasal BID PRN allergy 08/11/25 08/14/25 Unknown spray symptoms #30 mL dextroamphetamine-amphetamine 15 15 mg PO TID PRN add #60 tabs 08/11/25 08/14/25 Unknown mg tablet duloxetine 60 mg capsule,delayed 120 mg PO DAILY 08/14/25 08/14/25 Unknown release riboflavin (vitamin B2) 400 mg 400 mg PO QAM 08/14/25 08/14/25 08/14/25 tablet suzetrigine 50 mg tablet (Journavx) 50 mg PO BID 08/14/25 08/14/25 08/14/25 am dose furosemide 40 mg/4 mL oral solution 20 mg (2 mL) PO QAM PRN edema #120 08/22/25 Unknown mL Active Medications Generic Name Dose Route Start Last Admin Trade Name Freq PRN Reason Stop Dose Admin Acetaminophen 500 mg 08/15/25 05:57 08/21/25 09:31 Pom - Acetaminophen 500 Mg Tab PO 09/14/25 05:56 500 mg Q4H PRN Administration Pain or Fever Aspirin 81 mg 08/17/25 10:15 08/24/25 10:43 Aspirin 81 Mg Ectab PO 09/16/25 10:14 Not Given QAM SOL Celecoxib 200 mg 08/14/25 23:04 08/24/25 10:42 Celebrex 200 Mg Cap PO 09/13/25 23:03 Not Given BID SOL Duloxetine HCl 120 mg 08/15/25 09:00 08/23/25 09:13 Duloxetine Hcl 60 Mg Cap PO 09/14/25 08:59 120 mg DAILY SOL Administration Enoxaparin Sodium 40 mg 08/23/25 21:00 08/23/25 21:32 Enoxaparin Inj 40 Mg/0.4 Ml Syr SQ 09/22/25 20:59 40 mg BID SOL Administration Fluticasone/Vilanterol 1 puffs 08/15/25 09:00 08/23/25 09:15 Fluticasone/Vilanterol 100/25mcg 14 Puffs/Inhaler INH 09/14/25 08:59 1 puffs DAILY SOL Administration Gabapentin 300 mg 08/15/25 09:00 08/23/25 21:32 Gabapentin 300 Mg Cap PO 09/14/25 08:59 300 mg TID SOL Administration Lorazepam 0.5 mg/ Syringe 0.25 mls @ 2 mls/min 08/16/25 12:16 08/16/25 13:16 IV 09/15/25 12:15 2 mls/min ONCE PRN Administration Anxiety Sodium Chloride 1,000 mls @ 125 mls/hr 08/24/25 10:45 08/24/25 11:53 Nss IV 08/24/25 18:44 125 mls/hr .Q8H SOL Administration Levothyroxine Sodium 25 mcg 08/15/25 06:30 08/24/25 06:17 Pom - Levothyroxine Sodium 25 Mcg Tablet PO 09/14/25 06:29 25 mcg DAILYBB SOL Administration Losartan Potassium 25 mg 08/14/25 23:04 08/23/25 21:32 Losartan Potassium 25 Mg Tab PO 09/13/25 23:03 25 mg BID SOL Administration Miscellaneous 1 each 08/23/25 08:00 08/24/25 11:58 Order Awaiting Action: Prednisolone Capsules N/A 09/22/25 07:59 Not Given DAILY SOL Miscellaneous 1 each 08/23/25 10:00 08/24/25 11:58 *Prednisolone-Pom*Pending Order N/A 09/22/25 09:59 Not Given DAILY@1000 SOL Miscellaneous 1 each 08/23/25 16:00 08/24/25 06:20 Loperamide 2 Mg/Simethicone 125 Mg Caplet: Non-Formulary Medication PO 09/22/25 14:36 1 each Q4H PRN Administration [id number] Suzetrigine [ 1 each 08/14/25 23:04 08/23/25 21:31 Journavx] 50 Mg - PO 09/13/25 23:03 1 tab Patient's Own Med BID SOL Administration Zepbound - Patient's 1 each 08/20/25 22:00 08/20/25 22:04 Own Med SQ 09/19/25 21:59 1 each Vuong@0900 SOL Administration Protocol Orencia - Patient's 1 each 08/21/25 09:00 08/21/25 09:26 Own Med SQ 09/20/25 08:59 1 each Mo@0900 SOL Administration Protocol Tramadol 5 Mg/Ml 1 each 08/22/25 05:40 08/22/25 20:14 Solution - Patient's PO 09/21/25 05:39 1 syr Own Med TID PRN Administration Pain
[2025-08-24 17:49] LABS: Cdiff Toxin B Gene (2yr or >) Negative Cdiff Gene (Neg)
--- NOTE | 2025-08-24 19:50 | Hospitalist Progress Note ---
Date of Service August 24, 2025 Assessment & Plan (1) Left arm weakness: (2) Ambulatory dysfunction: (3) Rheumatoid arthritis: (4) Hip osteoarthritis: Plan Patient is a 55-year-old female with past medical history of end stage right hip osteoarthritis ,obesity, RA, corn allergy, asthma, hypertension, chronic left lower extremity weakness, migraine who presented via EMS due to left upper extremity weakness that has progressed over the past week. Head CT and CTAs negative for acute changes and patient is being admitted for stroke workup. her brain MRI and MRI C and L spine are both negative. seen by neurology; Dr. Khan, has concerned about autoimmune neuropathy and multifocal neuropathy; antibody panel ordered. in addition, plan for outpatient EMG and nerve studies. in addition, neuro requesting starting aspirin 81mg daily given her hx of fibromuscular dysplasia of internal carotid artery. her insurance denied placement to [facility] (acute rehab) #left-sided weaknessnew onset left UE weakness with acute on chronic left LE weakness. Head CT and head CTA negative Neck CTA showed bilateral ICA beading concerning for connective tissue disease. - strong suspicion for autoimmune neuropathy - f/u with neuro (Dr. Khan) for EMG and evaluation for IVIG - Concern for infectious versus inflammatory origin with possible vasculitis - Pt transitioned to prednisone taper (switched back to IV today but plan to continue taper) - 40 mg a day for 3 days, 30 mg a day for 3 days, 20 mg a day for 3 days, 10 mg a day for 3 days, then back to her original 5 mg daily dose (neuro guidance appreciated) - MRI C and L spine completed -appreciate ortho spine evaluation and symptoms not expected to be radiculopathy or spinal stenosis - ID recs appreciated, tick panel ordered #Left shoulder rotator cuff partial tear PT, [facility] fibromuscular dysplasia of internal carotid artery aspirin 81mg daily CTA abdomen negative for fibromuscular dysplasia of renal artery #Recurrent left leg cellulitis - resolved - Cefazolin, completed 5 day course on 08/19/25 #lymphedema, - s/p IV Lasix 20mg x1 with improvement in her edema - discussed about intermittent lasix oral, patient has concerned about lasix containing corn (prn liquid lasix Rx sent to pharmacy) - the local pharmacy can compound the med to eliminate corn #rheumatoid arthritisfollows with rheumatology, Dr. Garcia. - On prednisone 5 mg daily at home, stress dosing as above #right hip osteoarthritisfollows with orthopedics Dr. Carmen and is to have total hip replacement done if BMI can improved under 50 - Has made patient wheelchair-bound at baseline - continue home Journavx #OSACPAP at bedtime #HTNcontinue losartan #Hypothyroidismcontinue levothyroxine #Migraine / Pain management continue duloxetine #Severe corn allergypatient brought home medications without corn VTE Prophylaxis - Lovenox 40mg SQ BID (increased dose due to morbid obesity) Disposition - medically stable for discharge pending placement Admission and Anticipated Discharge Date Admission Date: August 14, 2025 Subjective Ongoing diarrhea which started after switching to PO prednisolone therefore patient asking to switch back to Solu-medrol today which seem reasonable. C. diff testing previously negative although given profuse watery diarrhea after antibiotics I would recommend repeating this although her diarrhea appeared to improve in the afternoon. Cramping abdominal pain (normal recent CT angiogram). Asked for IV fluids and appears to be much improved following this. Physical Exam Respiratory: normal respiratory effort; no respiratory distress Gastrointestinal (Abdomen): normal bowel sounds, soft, nontender, no hepatosplenomegaly Results & Data Results & Data Vital Signs (Past 12 Hours) Vital Signs Temp Pulse Resp BP Pulse Ox O2 Del Method 08/24/25 19:25 Room Air 08/24/25 15:53 36.8 C 60 18 154/84 H 93 Room Air 08/24/25 08:28 36.4 C L 76 18 180/98 H 96 Room Air PG Care Time/CCT Total # of Minutes Spent Total Time Spent with Patient: Total time spent is greater than 50% in coordination of care (as documented) at patient's floor/unit and/or counseling patient: Coding Level of Care Code 89758 SUB INP/OBS CARE 2/35MIN Diagnoses Left arm weakness R29.898 Ambulatory dysfunction R26.2 Rheumatoid arthritis with negative rheumatoid factor, involving unspecified site M06.00 Rheumatoid arthritis location: unspecified site Rheumatoid factor presence: without rheumatoid factor Hip osteoarthritis M16.9 (3) Rheumatoid arthritis Rheumatoid arthritis location: unspecified site Rheumatoid factor presence: without rheumatoid factor Qualified Code(s): M06.00 - Rheumatoid arthritis without rheumatoid factor, unspecified site
[2025-08-25] MEDS: LACTATED RINGER'S 1,000 ML IV SCH (07:10)
[2025-08-25 07:21] VITALS: RESP 18
[2025-08-25 11:32] VITALS: BP 169/88; PULSE 65; TEMP 98.4; O2SAT 96
[2025-08-25] MEDS ORDERED: methylPREDNISolone 10 mg/mL (For Ped Dose < 7mg) IV ONE (11:37)
--- NOTE | 2025-08-25 12:51 | Discharge Summary ---
Discharge Summary Date of Service August 25, 2025 Principal Dx & Hospital Course #1 = Principal Diagnosis (1) Left arm weakness: (2) Ambulatory dysfunction: (3) Rheumatoid arthritis: (4) Hip osteoarthritis: Plan Patient is a 55-year-old female with past medical history of end stage right hip osteoarthritis ,obesity, RA, corn allergy, asthma, hypertension, chronic left lower extremity weakness, migraine who presented via EMS due to left upper extremity weakness that has progressed over the past week. Head CT and CTAs negative for acute changes and patient is being admitted for stroke workup. her brain MRI and MRI C and L spine are both negative. seen by neurology; Dr. Khan, has concerned about autoimmune neuropathy and multifocal neuropathy; antibody panel ordered. in addition, plan for outpatient EMG and nerve studies. in addition, neuro requesting starting aspirin 81mg daily given her hx of fibromuscular dysplasia of internal carotid artery. her insurance denied placement to [facility] (acute rehab) #left-sided weaknessnew onset left UE weakness with acute on chronic left LE weakness. Head CT and head CTA negative Neck CTA showed bilateral ICA beading concerning for connective tissue disease. - strong suspicion for autoimmune neuropathy - f/u with neuro (Dr. Khan) for EMG and evaluation for IVIG - Concern for infectious versus inflammatory origin with possible vasculitis - Pt transitioned to prednisone taper (switched back to IV today but plan to continue taper) - 40 mg a day for 3 days, 30 mg a day for 3 days, 20 mg a day for 3 days, 10 mg a day for 3 days, then back to her original 5 mg daily dose (neuro guidance appreciated) - MRI C and L spine completed -appreciate ortho spine evaluation and symptoms not expected to be radiculopathy or spinal stenosis - ID recs appreciated, tick panel ordered #Left shoulder rotator cuff partial tear PT, [facility] fibromuscular dysplasia of internal carotid artery aspirin 81mg daily CTA abdomen negative for fibromuscular dysplasia of renal artery #Recurrent left leg cellulitis - resolved - Cefazolin, completed 5 day course on 08/19/25 #lymphedema, - s/p IV Lasix 20mg x1 with improvement in her edema - discussed about intermittent lasix oral, patient has concerned about lasix containing corn (prn liquid lasix Rx sent to pharmacy) - the local pharmacy can compound the med to eliminate corn #rheumatoid arthritisfollows with rheumatology, Dr. Garcia. - On prednisone 5 mg daily at home, stress dosing as above #right hip osteoarthritisfollows with orthopedics Dr. Carmen and is to have total hip replacement done if BMI can improved under 50 - Has made patient wheelchair-bound at baseline - continue home Journavx #OSACPAP at bedtime #HTNcontinue losartan #Hypothyroidismcontinue levothyroxine #Migraine / Pain management continue duloxetine #Severe corn allergypatient brought home medications without corn Peer to peer performed today and insurance authorized SNF for rehab. Patient is medically stable for discharge to SNF for rehab. Has had diarrhea x48 hours. No other symptoms, denies vomiting or food intolerance. Mild abd cramping and does have hyperactive BS. No tenderness on examination. Suspect some GE. Stool sent for c diff x2 and was negative. GI biofire has been ordered and is pending, but not likely to change the treatment which would be supportive care. Push fluids and follow BRAT diet. Follow up with neurology as outpatient as scheduled and with house physician at SNF until discharge where she can f/u with her PCP. Notes For Next Care Provider Patient has had diarrhea x48 hours. No other symptoms. Suspect viral GE. No n/v or abd pain. Stool biofire pending. C. diff negative x2. Not likely to change the course of treatment, recommend supportive care with fluids and BRAT diet. Imodium as needed. Admission HPI Per Admitting Provider Patient is a 55-year-old female with past medical history of obesity, RA, corn allergy, asthma, hypertension, chronic left lower extremity weakness who presented via EMS due to left upper extremity weakness that has progressed over the past week. Head CT and CTAs negative for acute changes and patient is being admitted for stroke workup and possible placement. Patient seen at bedside. She was admitted from 07/07 to 07/17 for lower extremity cellulitis and right hip pain that required placement to staff at [facility] for rehab. Patient has also developed progressive left leg weakness over the past few years resulting in her being now wheelchair-bound over the past month and using a lift chair at home. She has home health PT and OT twice a week. She does not yet follow with neurology however does have an EMG set up for 08/23 for both right and left lower extremities to further work this up. Over the past week patient noticed with her physical therapist that she had progressive left upper extremity weakness. She denies any other strokelike symptoms as in dizziness, lightheadedness, blurred vision, facial droop, slurred speech, difficulty finding words, sensory deficits. She denies any personal or first-degree relative family history of CVAs. Her mother is diagnosed with MS. Patient had difficulty getting into her lift chair and was concerned about safety at home with this weakness. She is due for her evening medications, will order however patient brought many of her own home medications due to her severe corn allergy. She does take prednisone 5 mg daily for rheumatoid arthritis which she has been taking off and on for 1-1/2 years at different doses. She denies nicotine or alcohol use. She wishes to be full code however would not want long-term ventilatory support. Discussed need for brain MRI for stroke workup, she has had several MRIs of her head before and tolerated this without difficulty. Discharge Exam GENERAL: 55 yo morbidly obese WF. No distress. LUNGS: Clear to auscultation bilaterally. No accessory muscle use. No W/R/R. CARDIOVASCULAR: Regular rate and rhythm. ABDOMEN: Soft, obese, non-tender and non-distended. BS hyperactive x 4 quad. NEUROLOGIC: A&O x3. No focal neurological deficits. CN II-XII grossly intact. SKIN: Warm, dry, intact. No rashes or lesions. Discharge Plan Discharge Items Patient Disposition: Transfer [facility]way Fac Reason For Visit: L UE WEAKNESS, VASCULITIS Discharge Diagnosis: Left leg weakness, diarrhea Condition on Discharge: Fair Activity: Resume your previous activity Non-emergency contact: Primary Care Provider and Neurologist Call non-emergency contact if: you have any medication questions and your symptoms worsen Follow-up/Referrals: Sharif Olivarez DO [Primary Care Provider] - Diet: Regular and Heart Healthy Addtl Attending Provider Instructions: You were hospitalized due to left leg weakness which significantly impacted your ability to walk/ambulate and transfer. 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 You were treated with IV steroids and have been transitioned to oral prednisone taper which will need to be completed as follows: Prednisone 30mg daily x2 days, 20mg daily x3 days, 10mg daily x3 days then back to 5mg daily. During your stay, you developed diarrhea. There is no distinct cause identified at this time. You stool was negative for c. diff. Another stool sample has been sent to the lab to test for other organisms/disorders that could cause diarrhea (such as norovirus). For now, you are not having other symptomatology that would be suspicious for norovirus (such as nausea, vomiting). At this time, would continue imodium every 6 hours as needed for diarrhea and would also recommend following a BRAT diet (bananas, apples/applesauce, rice, toast, etc). This will help bulk up your stools. You will need to follow up with neurology as an outpatient as scheduled. Follow up with your PCP within 1 week or sooner if needed. You will be transferred to [facility] for long-term rehabilitation. Pending Studies at Discharge: No Stand-Alone Forms: My [facility] Skilled Items Patient informed of condition?: Yes DNR: No Discharge Level of Care: Skilled Communicable Disease: No Discharge Prognosis: Stable Lines: None Urinary Catheter: No Medications and DC Order Prescriptions: New furosemide 40 mg/4 mL solution 20 mg PO QAM PRN (Reason: edema) Qty: 120 0RF Continued (DME) Auto Titrating CPAP Misc See Rx Instructions .MEDSUPPLY Qty: 1 0RF Rx Instructions: Auto PAP with 6-20cm H20. Lifetime usage. G47.33 (DME) CPAP Supplies Misc See Rx Instructions .MEDSUPPLY Qty: 1 0RF Rx Instructions: CPAP supplies. G47.33 acetaminophen 500 mg capsule 500 mg PO Q4H PRN (Reason: fever) Qty: 1 0RF diphenhydramine HCl [Allergy (diphenhydramine)] 25 mg capsule 25 mg PO Q6H PRN (Reason: allergy symptoms) Qty: 1 0RF Patient Comments: 07/07- otc unable to verify (DME) insulin syringe-needle U-100 [BD Insulin Syringe] 1 mL 27 gauge x 1/2" syringe See Rx Instructions .Route Qty: 100 0RF Rx Instructions: As directed weekly for methotrexate albuterol sulfate 2.5 mg/0.5 mL solution for nebulization 2.5 mg inhalation Q4H PRN (Reason: shortness of breath or wheezing) Qty: 30 0RF Nurtec ODT 75 mg tablet,disintegrating 75 mg PO DAILY PRN (Reason: migraine headache) 90 Days Qty: 27 3RF Ajovy Autoinjector 225 mg/1.5 mL auto-injector 225 mg subcut ONCE 30 Days Qty: 45 3RF Rx Instructions: Please inject once every 30 days losartan 25 mg tablet 25 mg PO BID 90 Days Qty: 180 3RF (DME) 3mL Syringe 1.5in 25g needle See Rx Instructions .Route .MEDSUPPLY Qty: 10 1RF Rx Instructions: For use with Ketorolac injection as prescribed tramadol 5 mg/mL solution 100 mg PO TID PRN (Reason: pain) Qty: 473 0RF Orencia ClickJect 125 mg/mL auto-injector 125 mg subcut Q7D Qty: 4 5RF Rx Instructions: mondays azelastine 137 mcg (0.1 %) spray,non-aerosol 2 spray intranasal BID PRN (Reason: allergy symptoms) Qty: 30 2RF Patient Comments: Rx Instructions: administer into each nostril dextroamphetamine-amphetamine 15 mg tablet 15 mg PO TID PRN (Reason: add) Qty: 60 0RF Rx Instructions: Take 1 tablets TID PRN for ADD symptoms max 3 tablets daily (DME) CPAP Supplies Misc See Rx Instructions .MEDSUPPLY Qty: 1 0RF Rx Instructions: Refitting of the mask. G47.33 magnesium glycinate 100 mg magnesium capsule 400 mg PO DAILY Qty: 30 0RF (DME) digital therapeutic,CHARLIE device Misc See Rx Instructions miscellaneous .MEDSUPPLY Qty: 1 0RF Rx Instructions: As directed fluticasone furoate-vilanterol [Breo Ellipta] 100-25 mcg/dose blister with device 1 inh inhalation DAILY Qty: 3 4RF Rx Instructions: Breo brand only per insurance ProAir RespiClick 90 mcg/actuation aerosol powdr breath activated 2 inh inhalation QID PRN (Reason: shortness of breath or wheezing) Qty: 3 3RF levocetirizine [Xyzal] 5 mg tablet 5 mg PO DAILY PRN (Reason: allergies) Patient Comments: 07/07- otc unable to verify RSVPreF3 antigen-AS01E (PF) 120 mcg/0.5 mL suspension for reconstitution 120 mcg IM ONCE Qty: 1 0RF (DME) Manual Wheelchair See Rx Instructions .ROUTE .MEDSUPPLY Qty: 1 0RF Rx Instructions: As directed (DME) Manual Wheelchair Device See Rx Instructions .Route Qty: 1 0RF Rx Instructions: As directed epinephrine [EpiPen] 0.3 mg/0.3 mL auto-injector 0.3 mg IM Q10M PRN (Reason: anaphylaxis) Qty: 2 3RF omalizumab 300 mg/2 mL syringe 300 mg subcut .COMPLEX Qty: 4 11RF Rx Instructions: INJECT 300 mg subcutaneously EVERY 2 WEEKS APPROVED GOOD 03/14/25 - 03/14/26 Ref # [id number] celecoxib 200 mg capsule 200 mg PO BID rizatriptan 10 mg tablet 0 mg PO UD PRN (Reason: Headache) Rx Instructions: take 1 tab at onset of headache; if no relief may repeat 1 tab after at least 2 hrs; max = 3 tabs/24 hr PO cyanocobalamin (vitamin B-12) 1,000 mcg/mL solution 0 mcg IM MONTHLY Rx Instructions: INJECT 1000MCG INTRAMUSCULARLY MONTHLY gabapentin 300 mg capsule 300 mg PO TID Rx Instructions: TAKE 1 CAPSULE BY MOUTH THREE TIMES A DAY ergocalciferol (vitamin D2) [Vitamin D2] 1,250 mcg (50,000 unit) capsule 50,000 unit PO .3X WK Rx Instructions: TAKE 1 CAPSULE BY MOUTH 3 TIMES WEEKLY levothyroxine 25 mcg capsule 25 mcg PO UD Rx Instructions: Patient takes 25 mcg capsule daily. Compounding pharmacy for corn free formulation. tirzepatide (weight loss) 10 mg/0.5 mL solution 10 mg subcut Q7D Patient Comments: 07/07- no fill history unable to verify Rx Instructions: [phone] [email or web address] duloxetine 60 mg capsule,delayed release(DR/EC) 120 mg PO DAILY riboflavin (vitamin B2) 400 mg tablet 400 mg PO QAM Journavx 50 mg tablet 50 mg PO BID Held prednisone 10 mg tablet 5 mg PO DAILY PRN (Reason: as directed) Hold Instructions: Resume on 09/03/25. Discharge Orders: Discharge Order (Routine); Ordered 08/25/25 Ordered By: Bela Lazaro/Other Patient Handouts: Furosemide Oral Tablet Admission Data Admit Date/Time: 08/14/25 21:20 Attending Provider: Jourdan Rothman Admit Provider: Royce Norwood Primary Care Provider: Sharif Olivarez Other Providers: [place]; [facility]; Halle Rodriguez [place]; Royce Norwood; Blue Khan; Jey Mcleod; Chau Philippe; Cait Mendez; Lorna Patterson; Vazquez Mahoney; Dominik Cullen; Terrence Wayne; Vazquez Mendez; [place] Other Interventions: Discharge Summary Assessment (RN) Last Done: 08/25/25 16:25 Hospital Stay Data Consultations 08/14/25 20:34 ED Decision to Admit Stat 08/14/25 23:04 Consult Neurology Routine 08/19/25 19:18 Consult Infectious Diseases Routine 08/23/25 08:53 Consult Orthopedic Spine Surgery Routine Diagnostic Imagining Performed 08/14/25 16:56 CT angio head w con Stat CT angio neck with con Stat CT head/brain wo con Stat 08/14/25 21:12 MRI Brain [MR brain wo con] Stat 08/15/25 US venous doppler LE LT Routine 08/16/25 11:46 MRI Cervical [MR cervical spine wo con] Routine 08/16/25 11:47 MRI Lumbar Spine [MR lumbar spine wo con] Routine 08/17/25 07:33 CTA abdomen wo/w con [CT angio abdomen wo/w con] Routine 08/23/25 13:04 MRI Shoulder [MR shoulder LT wo con] Routine Pending Results Patient Have Any Pending Studies at Discharge: No Discharge Instructions Given to Patient (Per Discharging Provider) You were hospitalized due to left leg weakness which significantly impacted your ability to walk/ambulate and transfer. 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 You were treated with IV steroids and have been transitioned to oral prednisone taper which will need to be completed as follows: Prednisone 30mg daily x2 days, 20mg daily x3 days, 10mg daily x3 days then back to 5mg daily. During your stay, you developed diarrhea. There is no distinct cause identified at this time. You stool was negative for c. diff. Another stool sample has been sent to the lab to test for other organisms/disorders that could cause diarrhea (such as norovirus). For now, you are not having other symptomatology that would be suspicious for norovirus (such as nausea, vomiting). At this time, would continue imodium every 6 hours as needed for diarrhea and would also recommend following a BRAT diet (bananas, apples/applesauce, rice, toast, etc). This will help bulk up your stools. You will need to follow up with neurology as an outpatient as scheduled. Follow up with your PCP within 1 week or sooner if needed. You will be transferred to [facility] for long-term rehabilitation. Supervising Physician Co-Signing Physician Notes I verified all calle points and agree with Bela Roberts PA-C with the following exceptions and/or additions: None Total Time Total Time Spent Total Time Spent (In Minutes): 40 minutes Coding Level of Care Code 30452 INP/OBS DISCH >30 MIN Diagnoses Left arm weakness R29.898 Ambulatory dysfunction R26.2 Rheumatoid arthritis with negative rheumatoid factor, involving unspecified site M06.00 Rheumatoid arthritis location: unspecified site Rheumatoid factor presence: without rheumatoid factor Hip osteoarthritis M16.9
[2025-08-25 14:29] LABS: Adenovirus F 40/41 PCR Not Detected (NotDetected); Campylobacter PCR Not Detected (NotDetected); Enteroaggregative E.coli(EAEC) Not Detected (NotDetected); Shiga-like Toxin E.coli (STEC) Not Detected (NotDetected); Vibrio species PCR Not Detected (NotDetected)
[2025-08-29 23:02] LABS: Q Fever IgG, Phase I NEGATIVE
== END 2025-08-25 16:42 | DRG 57 ==
LOC: SUATTDRO → ED 16:35 → 2N 21:20 → SUATTDRO 21:20 → 2N 22:14

== ENCOUNTER 2025-10-17 04:03 | Inpatient (IN) ==
--- NOTE | 2025-10-17 04:33 | Emergency Department Note ---
Impression & Plan Acute dyspnea, Acute hypoxemic respiratory failure, Elevated troponin Hand off ED Provider Note HPI: History obtained from patient. The patient is a 55-year-old female with history of acute massive pulmonary embolism, currently on Eliquis, history of GISELA, NSTEMI, who presents to the emergency department with a chief complaint of shortness of breath. Patient states that she was just admitted recently to an inpatient rehabilitation facility in [place] and discharged yesterday. Patient states upon returning home she began to have some shortness of breath at around 10 PM that progressively worsened throughout the night. Patient therefore came to the ER to be assessed. On arrival here to the ED the patient is alert, she is saturating well on nasal cannula supplemental oxygen. Patient otherwise appears to be in no acute distress. ROS: - Per HPI Differential Diagnosis: Pulmonary embolism, pleural effusion, acute CHF exacerbation, acute coronary syndrome, pneumonia, pneumothorax, amongst other potential pathologies. *Outpatient medications and allergy history reviewed. PE: General: Alert, morbidly obese, no acute distress HEENT: Normocephalic, trachea midline Eyes: Extraocular eye movement is intact, no scleral erythema Pulmonary: Clear to auscultation bilaterally, no wheezing Cardio: Regular rate and rhythm GI: Abdomen is soft to palpation : No suprapubic tenderness MSK: No evidence of trauma or malformation of the extremities, no edema Skin: No evidence of rash Neuro: Alert, no focal deficits Psychiatric: Cooperative INDEPENDENT INTERPRETATIONS: cafeteria monitor: (As interpreted by myself): - An order was placed for continuous cardiac monitoring - Patient was noted to be in sinus rhythm with a rate of 90 EKG: (As interpreted by myself): Rate: 72 Rhythm: Normal sinus rhythm Intervals: Within normal limits ST changes: No ST elevation Time: 0454 Chest x-ray: (As interpreted by myself): Mild CHF pattern with elevated left hemidiaphragm Interventions provided in ED: - IV Solu-Medrol, IV Benadryl Medical Decision Making: IV was established and lab work obtained, patient was maintained on nasal cannula oxygen with good improvement in her oxygenation, patient was reportedly hypoxic at 88% on room air upon arrival of EMS to her residence. Lab work shows no leukocytosis, hemoglobin is normal, platelet count is normal, venous blood gas shows a normal pH, pCO2 is slightly elevated at 51, CMP does not show any evidence of any critical findings. Initial high-sensitivity troponin is mildly elevated at 28.3 however this is a downtrend from the patient's previous levels. BNP is normal, urinalysis shows potential UTI with 3+ leukocyte esterase, significant pyuria, 3+ bacteria, urine nitrite is negative. CT angiography of the chest was obtained, official interpretation by radiology is pending at the time of signout to my colleague, Dr. Oh, for further care and final disposition. Anticipate admission given the patient's reported hypoxia in the field with now nasal cannula supplementation. * CRITICAL CARE TIME: (35) minutes - Treatment of hypoxia with oxygen of 88% in the field requiring supplemental oxygen for correction, time spent at the bedside, interpretation of diagnostic studies Diagnosis: 1. Acute respiratory failure with hypoxia Disposition: Hand off Devendra Israel DO Emergency Medicine Past Med/Surg History Problem List (Updated 10/17/25 @ 09:50 by Tom Matthews DO) Community acquired pneumonia Left arm weakness Asthma (Chronic) Hypertension (Chronic) Pulmonary nodule (Chronic) GISELA (obstructive sleep apnea) (Chronic) Deep vein thrombosis of left lower extremity (Acute) Lumbosacral radiculopathy (Chronic) Cervical radiculopathy (Chronic) Left leg weakness (Acute) Fibromuscular dysplasia of both carotid arteries (Chronic) Physical deconditioning (Chronic) Morbid obesity with BMI of 60.0-69.9, adult (Acute) Ambulatory dysfunction (Chronic) Osteoarthritis of right hip (Chronic) 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) Rheumatoid arthritis (Chronic) Inflammatory arthritis (Chronic) Vitamin D deficiency (Chronic) B12 deficiency (Chronic) Chronic idiopathic urticaria (Chronic) Attention deficit disorder (Chronic) Hypothyroidism (Chronic) Chronic migraine (Chronic) Chronic cough (Chronic) Medical History Acute massive pulmonary embolism Acute hypoxemic respiratory failure Type 2 myocardial infarction due to heart failure Stress-induced cardiomyopathy Acute cor pulmonale Migraine with aura Accident due to mechanical fall without injury Cellulitis of left leg Cellulitis Allergic rhinitis Surgical History History of appendectomy Family History Mother Multiple sclerosis Father Bladder cancer Muscle wasting and atrophy, not elsewhere classified, back, lumbosacral Brother Hypertension Denies family history of Ovarian cancer Prostate cancer Diabetes Myocardial infarction Breast cancer Colorectal cancer Social History Smoking Status: Never smoker Second Hand Exposure: No; Hx Alcohol Use: No Hx Substance Use: No Preferred Language: Khmer Communication Ability: Effective Visual Impairment: Limited Hearing Ability: Normal Aircraft Engine Specialist Required: No Beliefs That Will Affect Care: None marital status: Single Current Living Situation: Parent current occupational status: employed current occupation: self employed How many Children do You have: 0 Feels Safe at Home: Yes Childhood Exposure to Second-Hand Smoke: No Diet: regular Diet Comment: cannot have corn caffeine: Yes during the past year weight has: increased > 10 lbs Dental Care, Regularly: Yes Physical Activity Frequency: Does not Exercise Seatbelt Use: always Sunscreen Use: Yes Assistive Devices: Bedside Commode, Cane, Walker, Wheelchair and Other Allergies Allergies Allergy/AdvReac Type Severity Reaction Status Date / Time corn Allergy Severe ANAPHYLAXIS Unverified 09/13/25 08:19 -- all corn related products grass pollen Allergy Unknown seasonal Verified 09/13/25 08:19 allergies house dust mite Allergy Unknown seasonal Verified 09/13/25 08:19 allergies Iodinated Contrast Media Allergy Unknown Hives Verified 09/13/25 08:19 pollen extracts Allergy Unknown seasonal Verified 09/13/25 08:19 allergies Sulfa (Sulfonamide AdvReac Intermediate Hives, Verified 09/13/25 08:19 Antibiotics) Joint Pain Home Meds Home Medications Medication Instructions Recorded Confirmed levocetirizine 5 mg tablet (Xyzal) 5 mg PO DAILY PRN allergies 08/04/23 10/17/25 celecoxib 200 mg capsule 200 mg PO BID 07/07/25 10/17/25 cyanocobalamin (vitamin B-12) 1,000 mcg IM MONTHLY 07/07/25 10/17/25 1,000 mcg/mL injection solution ergocalciferol (vitamin D2) 1,250 50,000 unit PO .3X WK 07/07/25 10/17/25 mcg (50,000 unit) capsule (Vitamin D2) rizatriptan 10 mg tablet 10 mg PO UD PRN Headache 07/07/25 10/17/25 duloxetine 60 mg capsule,delayed 120 mg PO DAILY 08/14/25 10/17/25 release suzetrigine 50 mg tablet (Journavx) 50 mg PO BID 08/14/25 10/17/25 aspirin 81 mg tablet 81 mg PO DAILY 09/13/25 10/17/25 prednisone 5 mg tablet 5 mg PO DAILY 09/13/25 10/17/25 acetaminophen 500 mg capsule 1,000 mg PO Q4H PRN fever 10/17/25 10/17/25 apixaban 5 mg tablet (Eliquis) 5 mg PO BID 10/17/25 10/17/25 fremanezumab-vfrm 225 mg/1.5 mL 225 mg subcut MONTHLY 10/17/25 10/17/25 subcutaneous auto-injector (Ajovy) gabapentin 300 mg capsule 300 mg PO TID 10/17/25 10/17/25 levothyroxine 25 mcg capsule 25 mcg PO DAILY 10/17/25 10/17/25 omalizumab 300 mg/2 mL 300 mg subcut .[id number] 10/17/25 10/17/25 subcutaneous syringe Previous Rx's Medication Instructions Recorded Auto Titrating CPAP #1 ea 07/10/21 CPAP Supplies #1 ea 07/10/21 diphenhydramine HCl 25 mg capsule 25 mg PO Q6H PRN allergy symptoms 09/11/22 (Allergy (diphenhydramine)) #1 cap digital therapeutic,CHARLIE device #1 ea 10/15/23 CPAP Supplies #1 ea 11/23/23 insulin syringe-needle U-100 1 mL #100 ea 05/04/24 27 gauge x 1/2" (BD Insulin Syringe) albuterol sulfate 2.5 mg/0.5 mL 2.5 mg (0.5 mL) inhalation Q4H PRN 10/21/24 solution for nebulization shortness of breath or wheezing #30 ea Breo Ellipta 100 mcg-25 mcg/dose 1 inh inhalation DAILY #3 Inhalers 01/16/25 powder for inhalation (fluticasone furoate-vilanterol) albuterol sulfate 90 mcg/actuation 2 inh inhalation QID PRN shortness 01/16/25 breath activated powder inhaler of breath or wheezing #3 ea (ProAir RespiClick) epinephrine 0.3 mg/0.3 mL 0.3 mg (0.3 mL) IM Q10M PRN 03/08/25 injection, auto-injector (EpiPen) anaphylaxis #2 ea rimegepant 75 mg disintegrating 75 mg PO DAILY PRN migraine 03/27/25 tablet (Nurtec ODT) headache 90 days #27 tabs losartan 25 mg tablet 25 mg PO BID 90 days #180 tabs 05/11/25 3mL Syringe 1.5in 25g needle #10 ea 06/02/25 Orencia ClickJect 125 mg/mL 125 mg subcut Q7D #4 mL 07/25/25 subcutaneous auto-injector (abatacept) Wheelchair (Manual) (Manual #1 ea 08/08/25 Wheelchair) furosemide 40 mg/4 mL oral solution 20 mg (2 mL) PO QAM PRN edema #120 08/22/25 mL dextroamphetamine-amphetamine 15 15 mg PO TID PRN add #60 tabs 09/06/25 mg tablet Manual Wheelchair #1 ea 09/07/25 tirzepatide (weight loss) 12.5 12.5 mg (0.5 mL) subcut Q7D #2 mL 09/08/25 mg/0.5 mL subcutaneous solution (Zepbound) tramadol 5 mg/mL oral solution 100 mg (20 mL) PO TID PRN pain 09/27/25 #473 mL azelastine 137 mcg (0.1 %) nasal 2 spray intranasal BID PRN allergy 10/09/25 spray symptoms #30 mL Results & Data (ED) Vital Signs Vital Signs - 24 hr 10/17/25 03:57 10/17/25 04:05 10/17/25 04:09 Temperature 36.6 C Temperature Source Oral Pulse Rate 91 H 95 H Pulse Rate [Apical] Pulse Rhythm [Apical] Respiratory Rate 26 H Respiratory Effort / Characteristics Spontaneous Accessory Muscle Use Spontaneous Accessory Muscle Use Respiratory Depth Deep Deep Respiratory Pattern Tachypnea Tachypnea Blood Pressure 177/119 H Blood Pressure [Right Arm] Blood Pressure Mean 138 Blood Pressure Mean [Right Arm] Pulse Oximetry 100 Oxygen Delivery Method Nasal Cannula Nasal Cannula Oxygen Flow Rate 6 6 Sepsis Recent Fever Within 48 Hours No Sepsis New/Unexplained Change in Mental Status No Sepsis Action Taken by Nursing No Action Required Oxygen Flow Rate - Titration Pulse Oximetry Post Tiitration 10/17/25 04:10 10/17/25 06:00 10/17/25 06:10 Temperature Temperature Source Pulse Rate 91 H Pulse Rate [Apical] 93 H Pulse Rhythm [Apical] Regular Respiratory Rate 26 H 20 Respiratory Effort / Characteristics Non-Labored Spontaneous Respiratory Depth Normal Respiratory Pattern Regular Blood Pressure Blood Pressure [Right Arm] 153/114 H Blood Pressure Mean Blood Pressure Mean [Right Arm] 127 Pulse Oximetry 100 100 100 Oxygen Delivery Method Nasal Cannula Nasal Cannula Nasal Cannula Oxygen Flow Rate 6 2 6 Sepsis Recent Fever Within 48 Hours Sepsis New/Unexplained Change in Mental Status Sepsis Action Taken by Nursing Oxygen Flow Rate - Titration 2 Pulse Oximetry Post Tiitration 100 10/17/25 08:02 10/17/25 08:21 Temperature Temperature Source Pulse Rate 102 H Pulse Rate [Apical] 102 H Pulse Rhythm [Apical] Respiratory Rate 17 Respiratory Effort / Characteristics Respiratory Depth Normal Respiratory Pattern Blood Pressure Blood Pressure [Right Arm] 173/108 H Blood Pressure Mean Blood Pressure Mean [Right Arm] 129 Pulse Oximetry 96 Oxygen Delivery Method Nasal Cannula Oxygen Flow Rate 2 Sepsis Recent Fever Within 48 Hours Sepsis New/Unexplained Change in Mental Status Sepsis Action Taken by Nursing Oxygen Flow Rate - Titration Pulse Oximetry Post Tiitration Laboratory Data 10/17/25 04:35 10/17/25 04:35 Lab Results 10/17/25 10/17/25 10/17/25 Range/Units 04:35 04:45 07:01 WBC 9.95 (4.8-10.8) K/ul RBC 4.76 (4.20-5.40) M/uL Hgb 14.1 (12.0-16.0) g/dL Hct 43.9 (37.0-47.0) % MCV 92.2 (80.0-100.0) fL MCH 29.6 (25.0-34.0) pg MCHC 32.1 (32.0-36.0) g/dL RDW Std Deviation 52.1 H (36.4-46.3) fL RDW Coeff of [place] 15.3 H (11.5-14.5) % Plt Count 344 (130-400) K/uL MPV 9.5 (9.4-12.4) fL Immature Gran % (Auto) 0.4 % Neut % (Auto) 70.8 % Lymph % (Auto) 18.2 % Mineral % (Auto) 7.3 % Eos % (Auto) 2.6 % Baso % (Auto) 0.7 % Neut # (Auto) 7.04 H (1.40-6.50) K/uL Lymph # (Auto) 1.81 (1.20-3.40) K/uL Mineral # (Auto) 0.73 H (0.11-0.59) K/uL Eos # (Auto) 0.26 (0.00-0.50) K/uL Baso # (Auto) 0.07 (0.00-0.20) K/uL Immature Gran # (Auto) 0.04 (0.01-0.20) K/uL PT 11.3 (9.0-12.0) Seconds INR 1.1 (0.9-1.1) VBG pH 7.38 (7.36-7.41) VBG pCO2 51 H (38-50) mmHg VBG pO2 33 mmHg VBG HCO3 30 mmol/L VBG O2 Saturation < 60.0 % VBG Base Excess 3.9 mEq/L Sodium 139 (136-145) mmol/L Potassium 3.5 (3.5-5.1) mmol/L Chloride 103 (98-107) mmol/L Carbon Dioxide 29 (21-32) mmol/L Anion Gap 7 (3-11) BUN 12 (6-23) mg/dl Creatinine 0.38 L (0.6-1.2) mg/dl Est Cr Clr Drug Dosing 238.2 ml/min eGFR 116.80 BUN/Creatinine Ratio 31.6 H (10-20) Glucose 133 H (70-99(Fasting)) mg/dl Calcium 9.5 (8.6-10.3) mg/dl Total Bilirubin 0.6 (0.2-1.0) mg/dl AST 22 (13-39) U/L ALT 14 (7-52) U/L Alkaline Phosphatase 129 H (34-104) U/L Troponin I High Sens 28.3 H 27.9 H (0-14) pg/ml B-Natriuretic Peptide 42 (0-100) pg/ml Total Protein 7.0 (6.0-8.3) gm/dl Albumin 3.6 (3.4-5.0) gm/dl Globulin 3.4 (2.5-4.0) gm/dl Albumin/Globulin Ratio 1.1 (0.9-2) Procalcitonin 0.19 (0-0.5) ng/ml Urine Color Yellow Urine Appearance Clear (Clear) Urine pH 5.5 (4.5-7.5) Ur Specific [place] 1.017 (1.000-1.030) Urine Protein Negative (Negative) Urine Glucose (UA) Negative (Negative) Urine Ketones Negative (Negative) Urine Blood Trace H (Negative) Urine Nitrite Negative (Negative) Urine Bilirubin Negative (Negative) Urine Urobilinogen Negative (Negative) Ur Leukocyte Esterase 3+ H (Negative) Urine WBC (Auto) >50 H (0-5) /hpf Urine RBC (Auto) 3-5 H (0-2) /hpf U Hyaline Cast (Auto) 0-2 (0-2) /lpf U Epithel Cells (Auto) 0-2 (0-2) /hpf Urine Bacteria (Auto) 3+ H (None Seen) Urine Comment Administered Medications Discontinued Medications Apixaban (Apixaban 5 Mg Tablet) 5 mg PO ONE ONE Stop: 10/17/25 09:29 Last Admin: 10/17/25 10:05 Dose: 5 mg Documented By: federico Diphenhydramine HCl (Diphenhydramine 50 Mg/Ml Vial) 25 mg IV NOW STA Stop: 10/17/25 04:30 Last Admin: 10/17/25 05:24 Dose: 25 mg Documented By: BRIDGER Acetaminophen (Ofirmev) 1,000 mg in 100 mls @ 400 mls/hr IV NOW STA Stop: 10/17/25 08:18 Last Admin: 10/17/25 10:07 Dose: Not Given Documented By: federico Ioversol (Optiray 320 125ml) 118 ml IV ONCE ONE Stop: 10/17/25 06:38 Last Admin: 10/17/25 06:37 Dose: 118 ml Documented By: ELTON Ketorolac Tromethamine (Ketorolac Tromethamine 15 Mg/Ml Vial) 10 mg IV NOW ONE Stop: 10/17/25 08:07 Last Admin: 10/17/25 08:21 Dose: 10 mg Documented By: federico Methylprednisolone (Methylprednisolone 125 Mg/2 Ml Vial) 125 mg IV NOW STA Stop: 10/17/25 04:30 Last Admin: 10/17/25 05:24 Dose: 125 mg Documented By: BRIDGER Imaging Data Radiologist's Impression: Chest CTA 10/17/25 04:28 EXAM: CT angio chest PE protocol CLINICAL HISTORY: Dyspnea TECHNIQUE: Contiguous 3.[address] angiographic images of the chest were acquired with the administration of intravenous contrast. Coronal and sagittal reconstructions were obtained. 118 cc Optiray 320IV contrast was administered for post-contrast images. One of these 3D techniques was utilized: Maximum Intensity Pixel (MIP), 3D Reconstructed Images, Volume Rendered Images, Surface Shaded Rendering. One of the following dose reduction techniques was utilized for this exam: Automated exposure control, adjustment of the mA and/or kV according to patient size, and use of iterative reconstruction. COMPARISON: Compared to the previous study done on 09/16/2025. FINDINGS: Aorta: The thoracic aorta is normal in caliber. No evidence of aneurysm, dissection, or significant atherosclerotic changes. The aortic arch and descending thoracic aorta are unremarkable. Pulmonary Arteries: No evidence of pulmonary embolism was visualized. Right and left pulmonary arteries and their segmental and subsegmental branches are opacified with contrast. Pulmonary arteries are normal in size and opacification. No evidence of pulmonary embolism. No stenosis or filling defects. Superior Vena Cava (SVC) and Inferior Vena Cava (IVC): Normal opacification and caliber. No evidence of thrombus or obstruction. Coronary Arteries: Coronary arteries are well-opacified. No significant stenosis or atherosclerotic changes. Mediastinum: No mediastinal mass or lymphadenopathy. Normal appearance of the thymus. Heart: Cardiomegaly noted. No pericardial effusion. Lungs: Patchy consolidation with prominent air bronchograms identified in the left lower lobe (stable). Newly developed areas of consolidation with an air bronchogram in the right lower lobe and a small area in the left upper lobe. Bones: Degenerative changes are seen in the visualized spine. No fractures or lytic/sclerotic lesions of the visualized bony structures. Normal alignment and bone density. Soft Tissues: Normal appearance of the visualized soft tissues. No abnormal masses or fluid collections. IMPRESSION: 1. No evidence of pulmonary thromboembolic disease was visualized. 2. Progressive course of the previously noted areas of consolidation with air bronchogram, likely pneumonic. Electronically signed by Emmanuel Sutherland 10-17-2025 08:14 AM Chest X-Ray 10/17/25 06:04 EXAM: XR chest 1V portable CLINICAL HISTORY: SOB TECHNIQUE: An X-ray image of the chest was obtained in AP projection. COMPARISON: Correlation with the prior CT pulmonary angiogram dated 09/16/2025. FINDINGS: Pulmonary parenchyma: Redemonstrated consolidation/atelectasis in the left lower lobe. There are hazy opacities in the bilateral lower lobes. Bibasilar streaky atelectasis. No pulmonary nodules are identified. No evidence of pleural effusion or pleural thickening. Elevated left diaphragmatic coupola. There is blunting of the left costophrenic angle, which may represent pleural effusion or pleural thickening. Heart and mediastinum: Heart size and shape are normal. No mediastinal widening or masses. No hilar or mediastinal lymphadenopathy. Bony thorax: Bony thorax appears intact without fractures or deformities. Soft tissues: Soft tissues overlying the chest wall are unremarkable. IMPRESSION: 1. Redemonstrated consolidation/atelectasis in the left lower lobe. 2. Hazy opacities in the bilateral lower lobes are of concern for vascular congestion versus inflammatory/infectious etiology. 3. Bibasilar streaky atelectasis. 4. Elevated left diaphragmatic copula. 5. Blunting of the left costophrenic angle, which may represent pleural effusion or pleural thickening. Electronically signed by Emmanuel Sutherland 10-17-2025 07:45 AM Discharge Plan Visit Data Chief Complaint: Shortness of Breath/Dyspnea Stated Complaint: SOB ED Provider: Rubi Oh Discharge Problem: Acute dyspnea, Acute hypoxemic respiratory failure, Elevated troponin Patient Disposition: Admitted As Inpatient Condition: Fair Discharge Instructions Interventions: ED Discharge Assessment Last Done: 10/17/25 10:18
[2025-10-17 04:53] LABS: Base Excess VBG 3.9 mEq/L; HCO3 VBG 30 mmol/L; Oxygen Saturation VBG < 60.0 %; PCO2 VBG 51 mmHg (38-50); PO2 VBG 33 mmHg; pH VBG 7.38 (7.36-7.41)
[2025-10-17 04:58] LABS: Hematocrit (blood only) 43.9 % (37.0-47.0); Hemoglobin 14.1 g/dL (12.0-16.0); Immature Granulocytes # (auto) 0.04 K/uL (0.01-0.20); Immature Granulocytes % (auto) 0.4 %; Mean Corpuscular Hemoglobin 29.6 pg (25.0-34.0); Mean Corpuscular Volume 92.2 fL (80.0-100.0); Platelet Count 344 K/uL (130-400); RDW Standard Deviation 52.1 fL (36.4-46.3); Red Blood Count 4.76 M/uL (4.20-5.40); White Blood Count 9.95 K/ul (4.8-10.8)
[2025-10-17 05:00] LABS: Appearance Urine Clear (Clear); Bacteria Urine Automated 3+ (None Seen); Cast Urine Automated 0-2 /lpf (0-2); Epithelial Cell Urine Auto 0-2 /hpf (0-2); Glucose Urine UA Negative (Negative); WBC Urine Automated >50 /hpf (0-5)
[2025-10-17 05:14] LABS: Alanine Aminotransferase 14.0 U/L (7-52); Albumin Globulin Ratio 1.1 (0.9-2); Albumin Level 3.6 gm/dl (3.4-5.0); Alkaline Phosphatase 129.0 U/L (34-104); Anion Gap 7.0 (3-11); Bilirubin,Total 0.6 mg/dl (0.2-1.0); Blood Urea Nitrogen 12.0 mg/dl (6-23); Calcium 9.5 mg/dl (8.6-10.3); Carbon Dioxide 29.0 mmol/L (21-32); Chloride 103.0 mmol/L (98-107); Creatinine Clr Calc Pharmacy 238.2 ml/min; Globulin 3.4 gm/dl (2.5-4.0); Glucose 133.0 mg/dl (70-99(Fasting)); Potassium 3.5 mmol/L (3.5-5.1); Sodium 139.0 mmol/L (136-145); Total Protein 7.0 gm/dl (6.0-8.3)
[2025-10-17] MEDS: diphenhydrAMINE 50 MG/ML VIAL IV STA (05:24)
[2025-10-17 05:27] LABS: INR 1.1 (0.9-1.1); Prothrombin Time 11.3 Seconds (9.0-12.0)
[2025-10-17] MEDS: OPTIRAY 320 125ml IV ONE (06:37)
--- NOTE | 2025-10-17 07:31 | Emergency Department Note ---
ED Visit Note Patient signed out to me by Dr. Israel at 7:30 am. Patient is a 55-year-old female presenting with shortness of breath. Patient was recently seen in the emergency department at [facility] and diagnosed with a massive pulmonary embolism and was flown to [place] for a mechanical thrombectomy. She was just discharged from rehab yesterday on room air. She got home and was reportedly more short of breath last night and presented to the emergency department where she was found to be hypoxic. She started on 6 L nasal cannula. Patient missed her dose of Eliquis yesterday after getting back from rehab. MDM: - Patient signed out to me pending CTA chest. Plan for admission to medicine pending CTA chest result. - Laboratory workup interpreted by myself showed normal WBC; normal PT/INR; stable electrolytes; slightly elevated troponin (28.3); normal BNP - UA showed bacteria and elevated WBCs. However, patient is not having any urinary complaints. Culture on urine was ordered but antibiotics not ordered given her lack of fever and urinary complaints. - VBG grossly unremarkable. - CXR image reviewed interpreted by myself shows left lower lobe consolidation, per my interpretation. Radiology notes hazy opacities in bilateral lower lobes concerning for vascular congestion versus infectious etiology. - Patient was complaining of pain on reassessment and given 10 mg of IV Toradol. - CTA chest negative for PE. Noted to have progressive course of previously noted consolidation with air bronchogram likely pneumonic, per radiology. - Given patient's new oxygen requirement, will admit to medicine service for further evaluation and management. - Hospitalist consulted for admission - Patient to be admitted to the [facility] hospitalist service for further evaluation and management. .
--- NOTE | 2025-10-17 07:46 | XRay Report ---
EXAM: XR chest 1V portable CLINICAL HISTORY: SOB TECHNIQUE: An X-ray image of the chest was obtained in AP projection. COMPARISON: Correlation with the prior CT pulmonary angiogram dated 09/16/2025. FINDINGS: Pulmonary parenchyma: Redemonstrated consolidation/atelectasis in the left lower lobe. There are hazy opacities in the bilateral lower lobes. Bibasilar streaky atelectasis. No pulmonary nodules are identified. No evidence of pleural effusion or pleural thickening. Elevated left diaphragmatic coupola. There is blunting of the left costophrenic angle, which may represent pleural effusion or pleural thickening. Heart and mediastinum: Heart size and shape are normal. No mediastinal widening or masses. No hilar or mediastinal lymphadenopathy. Bony thorax: Bony thorax appears intact without fractures or deformities. Soft tissues: Soft tissues overlying the chest wall are unremarkable. IMPRESSION: 1. Redemonstrated consolidation/atelectasis in the left lower lobe. 2. Hazy opacities in the bilateral lower lobes are of concern for vascular congestion versus inflammatory/infectious etiology. 3. Bibasilar streaky atelectasis. 4. Elevated left diaphragmatic copula. 5. Blunting of the left costophrenic angle, which may represent pleural effusion or pleural thickening. Electronically signed by Emmanuel Sutherland 10-17-2025 07:45 AM
--- NOTE | 2025-10-17 08:14 | CT Scan Report ---
EXAM: CT angio chest PE protocol CLINICAL HISTORY: Dyspnea TECHNIQUE: Contiguous 3.[address] angiographic images of the chest were acquired with the administration of intravenous contrast. Coronal and sagittal reconstructions were obtained. 118 cc Optiray 320IV contrast was administered for post-contrast images. One of these 3D techniques was utilized: Maximum Intensity Pixel (MIP), 3D Reconstructed Images, Volume Rendered Images, Surface Shaded Rendering. One of the following dose reduction techniques was utilized for this exam: Automated exposure control, adjustment of the mA and/or kV according to patient size, and use of iterative reconstruction. COMPARISON: Compared to the previous study done on 09/16/2025. FINDINGS: Aorta: The thoracic aorta is normal in caliber. No evidence of aneurysm, dissection, or significant atherosclerotic changes. The aortic arch and descending thoracic aorta are unremarkable. Pulmonary Arteries: No evidence of pulmonary embolism was visualized. Right and left pulmonary arteries and their segmental and subsegmental branches are opacified with contrast. Pulmonary arteries are normal in size and opacification. No evidence of pulmonary embolism. No stenosis or filling defects. Superior Vena Cava (SVC) and Inferior Vena Cava (IVC): Normal opacification and caliber. No evidence of thrombus or obstruction. Coronary Arteries: Coronary arteries are well-opacified. No significant stenosis or atherosclerotic changes. Mediastinum: No mediastinal mass or lymphadenopathy. Normal appearance of the thymus. Heart: Cardiomegaly noted. No pericardial effusion. Lungs: Patchy consolidation with prominent air bronchograms identified in the left lower lobe (stable). Newly developed areas of consolidation with an air bronchogram in the right lower lobe and a small area in the left upper lobe. Bones: Degenerative changes are seen in the visualized spine. No fractures or lytic/sclerotic lesions of the visualized bony structures. Normal alignment and bone density. Soft Tissues: Normal appearance of the visualized soft tissues. No abnormal masses or fluid collections. IMPRESSION: 1. No evidence of pulmonary thromboembolic disease was visualized. 2. Progressive course of the previously noted areas of consolidation with air bronchogram, likely pneumonic. Electronically signed by Emmanuel Sutherland 10-17-2025 08:14 AM
[2025-10-17] MEDS: KETOROLAC TROMETHAMINE 15 MG/ML VIAL IV ONE (08:21)
--- NOTE | 2025-10-17 09:50 | History & Physical Report ---
Date of Service October 17, 2025 Assessment & Plan (1) Community acquired pneumonia: Plan In summary this is a 55-year-old female who presents with community-acquired pneumonia in the setting of recent hospitalization and emergent transfer for massive bilateral pulmonary emboli requiring thrombectomy #Community acquired pneumonia Patient presents with nonproductive cough, progressive dyspnea now with dyspnea in conversation, tachypnea; PSI 67, class III severity; without significant lab evidence suggestive of systemic disease; short score of 3 points indicating an intermediate risk, based on with the patient's clinical presentation and laboratory assessment thus far and characteristics noted in her imaging assessment, I have a very low degree of suspicion for MRSA community-acquired pneumonia Follow vital signs every 4 hours for 24 hours then transition to every shift when vital signs stable Activity as tolerated Incentive spirometry and flutter valve every hour while awake Viral swabs for influenza, RSV, COVID-19 will be obtained Start ceftriaxone 1 g IV daily for 5 days, through 10/21 Start azithromycin 500 mg IV for 3 days, through 10/19 Follow daily CBC with manual differential, renal function panel #Chronic anticoagulation for recent acute pulmonary embolism Recent massive pulmonary embolism requiring thrombectomy, remains on anticoagulation for continued care Continue Eliquis 5 mg p.o. twice daily The remainder the patient's chronic medical conditions are stable and do not require adjustment to their outpatient regimen at this time DVT PPx: Continue Eliquis 5 mg p.o. twice daily Admission and Anticipated Discharge Date Admission Date: 10/17/2025 Anticipated date of discharge: 10/18/25 History of Present Illness Chief Complaint: Progressive shortness of breath Primary Care Provider: Sharif Olivarez DO Ms. Clay is a 55-year-old female whose active medical conditions include fibromuscular dysplasia of the bilateral carotid arteries, rheumatoid arthritis, osteoarthritic and inflammatory arthritis, hypothyroidism, chronic migraines requiring immunoglobulin therapy with recent acute massive pulmonary embolism complicated by acute cor pulmonale, stress-induced cardiomyopathy with Type II myocardial infarction requiring emergent transfer for thrombectomy who presented to the [facility] on 10/17 due to subacute shortness of breath. At the time my assessment patient is resting comfortably in bed. She describes being discharged from her nursing home facility on 10/16 and had been experiencing several days of progressively increased rapid fatigue, dyspnea on exertion. In the morning on 10/17 the patient began experiencing dyspnea with conversation which precipitated her presentation to the emergency department. She denies any productive cough, hemoptysis, chest pain, palpitations, pleuritic chest pain. She does endorse a sense of difficulty taking a full breath without any specific discomfort or pain. She has not been on any recent antibiotics. She denies any fevers or chills. Allergies Allergy/AdvReac Type Severity Reaction Status Date / Time corn Allergy Severe ANAPHYLAXIS Unverified 09/13/25 08:19 -- all corn related products grass pollen Allergy Unknown seasonal Verified 09/13/25 08:19 allergies house dust mite Allergy Unknown seasonal Verified 09/13/25 08:19 allergies Iodinated Contrast Media Allergy Unknown Hives Verified 09/13/25 08:19 pollen extracts Allergy Unknown seasonal Verified 09/13/25 08:19 allergies Sulfa (Sulfonamide AdvReac Intermediate Hives, Verified 09/13/25 08:19 Antibiotics) Joint Pain Home Medications Medication Instructions Recorded Confirmed Type Auto Titrating CPAP #1 ea 07/10/21 09/28/25 Rx CPAP Supplies #1 ea 07/10/21 09/28/25 Rx diphenhydramine HCl 25 mg capsule 25 mg PO Q6H PRN allergy symptoms 09/11/22 10/17/25 Rx (Allergy (diphenhydramine)) #1 cap levocetirizine 5 mg tablet (Xyzal) 5 mg PO DAILY PRN allergies 08/04/23 10/17/25 History digital therapeutic,CHARLIE device #1 ea 10/15/23 09/28/25 Rx CPAP Supplies #1 ea 11/23/23 09/28/25 Rx insulin syringe-needle U-100 1 mL #100 ea 05/04/24 09/28/25 Rx 27 gauge x 1/2" (BD Insulin Syringe) albuterol sulfate 2.5 mg/0.5 mL 2.5 mg (0.5 mL) inhalation Q4H PRN 10/21/24 10/17/25 Rx solution for nebulization shortness of breath or wheezing #30 ea Breo Ellipta 100 mcg-25 mcg/dose 1 inh inhalation DAILY #3 Inhalers 01/16/25 10/17/25 Rx powder for inhalation (fluticasone furoate-vilanterol) albuterol sulfate 90 mcg/actuation 2 inh inhalation QID PRN shortness 01/16/25 10/17/25 Rx breath activated powder inhaler of breath or wheezing #3 ea (ProAir RespiClick) epinephrine 0.3 mg/0.3 mL 0.3 mg (0.3 mL) IM Q10M PRN 03/08/25 10/17/25 Rx injection, auto-injector (EpiPen) anaphylaxis #2 ea rimegepant 75 mg disintegrating 75 mg PO DAILY PRN migraine 03/27/25 10/17/25 Rx tablet (Nurtec ODT) headache 90 days #27 tabs losartan 25 mg tablet 25 mg PO BID 90 days #180 tabs 05/11/25 10/17/25 Rx 3mL Syringe 1.5in 25g needle #10 ea 06/02/25 09/28/25 Rx celecoxib 200 mg capsule 200 mg PO BID 07/07/25 10/17/25 History cyanocobalamin (vitamin B-12) 1,000 mcg IM MONTHLY 07/07/25 10/17/25 History 1,000 mcg/mL injection solution ergocalciferol (vitamin D2) 1,250 50,000 unit PO .3X WK 07/07/25 10/17/25 History mcg (50,000 unit) capsule (Vitamin D2) rizatriptan 10 mg tablet 10 mg PO UD PRN Headache 07/07/25 10/17/25 History Orencia ClickJect 125 mg/mL 125 mg subcut Q7D #4 mL 07/25/25 10/17/25 Rx subcutaneous auto-injector (abatacept) Wheelchair (Manual) (Manual #1 ea 08/08/25 09/28/25 Rx Wheelchair) duloxetine 60 mg capsule,delayed 120 mg PO DAILY 08/14/25 10/17/25 History release suzetrigine 50 mg tablet (Journavx) 50 mg PO BID 08/14/25 10/17/25 History furosemide 40 mg/4 mL oral solution 20 mg (2 mL) PO QAM PRN edema #120 08/22/25 10/17/25 Rx mL dextroamphetamine-amphetamine 15 15 mg PO TID PRN add #60 tabs 09/06/25 10/17/25 Rx mg tablet Manual Wheelchair #1 ea 09/07/25 09/28/25 Rx tirzepatide (weight loss) 12.5 12.5 mg (0.5 mL) subcut Q7D #2 mL 09/08/25 10/17/25 Rx mg/0.5 mL subcutaneous solution (Zepbound) aspirin 81 mg tablet 81 mg PO DAILY 09/13/25 10/17/25 History prednisone 5 mg tablet 5 mg PO DAILY 09/13/25 10/17/25 History tramadol 5 mg/mL oral solution 100 mg (20 mL) PO TID PRN pain 09/27/25 10/17/25 Rx #473 mL azelastine 137 mcg (0.1 %) nasal 2 spray intranasal BID PRN allergy 10/09/25 10/17/25 Rx spray symptoms #30 mL acetaminophen 500 mg capsule 1,000 mg PO Q4H PRN fever 10/17/25 10/17/25 History apixaban 5 mg tablet (Eliquis) 5 mg PO BID 10/17/25 10/17/25 History fremanezumab-vfrm 225 mg/1.5 mL 225 mg subcut MONTHLY 10/17/25 10/17/25 History subcutaneous auto-injector (Ajovy) gabapentin 300 mg capsule 300 mg PO TID 10/17/25 10/17/25 History levothyroxine 25 mcg capsule 25 mcg PO DAILY 10/17/25 10/17/25 History omalizumab 300 mg/2 mL 300 mg subcut .[id number] 10/17/25 10/17/25 History subcutaneous syringe Past Med/Surg History Problem List (Updated 10/17/25 @ 09:50 by Tom Matthews DO) Community acquired pneumonia Left arm weakness Asthma (Chronic) Hypertension (Chronic) Pulmonary nodule (Chronic) GISELA (obstructive sleep apnea) (Chronic) Deep vein thrombosis of left lower extremity (Acute) Lumbosacral radiculopathy (Chronic) Cervical radiculopathy (Chronic) Left leg weakness (Acute) Fibromuscular dysplasia of both carotid arteries (Chronic) Physical deconditioning (Chronic) Morbid obesity with BMI of 60.0-69.9, adult (Acute) Ambulatory dysfunction (Chronic) Osteoarthritis of right hip (Chronic) 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) Rheumatoid arthritis (Chronic) Inflammatory arthritis (Chronic) Vitamin D deficiency (Chronic) B12 deficiency (Chronic) Chronic idiopathic urticaria (Chronic) Attention deficit disorder (Chronic) Hypothyroidism (Chronic) Chronic migraine (Chronic) Chronic cough (Chronic) Medical History Acute massive pulmonary embolism Acute hypoxemic respiratory failure Type 2 myocardial infarction due to heart failure Stress-induced cardiomyopathy Acute cor pulmonale Migraine with aura Accident due to mechanical fall without injury Cellulitis of left leg Cellulitis Allergic rhinitis Surgical History History of appendectomy Family History Mother Multiple sclerosis Father Bladder cancer Muscle wasting and atrophy, not elsewhere classified, back, lumbosacral Brother Hypertension Denies family history of Ovarian cancer Prostate cancer Diabetes Myocardial infarction Breast cancer Colorectal cancer Social History Smoking Status: Never smoker Second Hand Exposure: No; Hx Alcohol Use: No Hx Substance Use: No Preferred Language: Cymraes Communication Ability: Effective Visual Impairment: Limited Hearing Ability: Normal Careers Counsellor Required: No Beliefs That Will Affect Care: None marital status: Single Current Living Situation: Parent current occupational status: employed current occupation: self employed How many Children do You have: 0 Feels Safe at Home: Yes Childhood Exposure to Second-Hand Smoke: No Diet: regular Diet Comment: cannot have corn caffeine: Yes during the past year weight has: increased > 10 lbs Dental Care, Regularly: Yes Physical Activity Frequency: Does not Exercise Seatbelt Use: always Sunscreen Use: Yes Assistive Devices: Bedside Commode, Cane, Walker, Wheelchair and Other Review of Systems Review of Systems: Review of constitutional, cardiovascular, pulmonary, musculoskeletal, gastrointestinal, genitourinary systems was unremarkable except for pertinent positive and negative findings discussed above Physical Exam Physical Exam: General: Adult female in no acute distress Vital Signs: Reviewed; saturating well on room air however maintained on 2 L by nasal cannula for comfort and subjective dyspnea HEENT: Pupils equally round and reactive to light, extraocular motion intact; dry mucous membranes Neck: Trachea midline; no palpable cervical lymphadenopathy Pulmonary: Symmetrically reduced chest wall excursion secondary to body habitus; diminished air movement in the posterior basilar segments bilaterally with the remaining lung mcghee clear to auscultation Cardiovascular: Tachycardic rate with regular rhythm without murmurs, rubs, or gallops; S1 and S2 normal; right radial pulse 2+; bilateral lower extremity 1+ pitting edema distal of the knee Gastrointestinal: Soft, protuberant Neurologic: Cranial nerves II through XII grossly intact; no discernible focal weakness nor paresthesia Skin: 6 cm diameter ecchymosis in the left antecubital fossa from previous access for thrombectomy performed in 09/2025 Results & Data Results & Data Vital Signs (Past 12 Hours) Vital Signs Temp Pulse Pulse Resp BP BP Pulse Ox 10/17/25 08:21 102 H 10/17/25 08:02 102 H 17 173/108 H 96 10/17/25 06:10 100 10/17/25 06:00 93 H 20 153/114 H 100 10/17/25 04:10 91 H 26 H 100 10/17/25 04:09 95 H 10/17/25 04:05 36.6 C 91 H 26 H 177/119 H 100 10/17/25 03:57 O2 Del Method O2 Flow Rate 10/17/25 08:21 10/17/25 08:02 Nasal Cannula 2 10/17/25 06:10 Nasal Cannula 6 10/17/25 06:00 Nasal Cannula 2 10/17/25 04:10 Nasal Cannula 6 10/17/25 04:09 10/17/25 04:05 Nasal Cannula 6 10/17/25 03:57 Nasal Cannula 6 Laboratory Results White blood cell count 9.95 VBG pH 7.38 pCO2 51 Initial troponin 20.3 with repeat 27.9 Procalcitonin 0.19 Urinalysis with trace blood, 3+ leukocyte esterase, pyuria with greater than 50 cells seen per high-power field and bacteria Diagnostic Findings CT chest angiogram with PE protocol was performed without evidence of pulmonary embolism but with evidence of consolidative pneumonia in the left lower lobe right lower lobe and left upper lobe ECG Additional Comments: Normal sinus rhythm; rightward axis; poor R wave progression Code Status & VTE Plan Code Status Full code VTE Prophylaxis Plan VTE Prophylaxis will be ordered: No Reason for no VTE drug order: Contraindicated PG Care Time/CCT Total # of Minutes Spent Total Time Spent with Patient: Total time spent is greater than 50% in coordination of care (as documented) at patient's floor/unit and/or counseling patient: Coding Level of Care Code 00662 INT INP/OBS CARE 2/55MIN Diagnoses Community acquired pneumonia of left lower lobe of lung J18.9 Laterality: left Lung location: lower lobe of lung (1) Community acquired pneumonia Laterality: left Lung location: lower lobe of lung Qualified Code(s): J18.9 - Pneumonia, unspecified organism
[2025-10-17] MEDS: APIXABAN 5 MG TABLET PO ONE (10:05)
[2025-10-17] MEDS: ACETAMINOPHEN 1,000 MG/100 ML VIAL IV STA (10:07)
[2025-10-17] MEDS ORDERED: RIZATRIPTAN BENZOATE 10 MG TAB PO PRN (10:19)
[2025-10-17] MEDS ORDERED: RIMEGEPANT SULFATE 75 MG OD TAB PO PRN (10:19)
[2025-10-17] MEDS ORDERED: ALBUTEROL HFA 8 GM INHALER INH PRN (10:30)
[2025-10-17] MEDS: ASPIRIN 81 MG ECTAB PO SCH ×2 (11:06→11:37)
[2025-10-17] MEDS: cefTRIAXone SODIUM 2,000 MG/50 ML BAG IV SCH (11:13)
[2025-10-17] MEDS: LEVOTHYROXINE SODIUM 25 MCG TABLET PO SCH (11:37)
[2025-10-17] MEDS: AZITHROMYCIN 500 MG/255 ML BAG IV SCH (11:55)
[2025-10-17] MEDS: ASPIRIN 81 MG PO SCH (12:04)
[2025-10-17] MEDS: LOSARTAN POTASSIUM 25 MG TAB PO SCH (12:05)
[2025-10-17] MEDS: FLUTICASONE/VILANTEROL 100/25MCG 14 PUFFS/INHALER INH SCH (12:07)
[2025-10-17 15:09] LABS: Influenza A virus by PCR Negative (Neg); Influenza B virus by PCR Negative (Neg); SARS CoV2 RNA(COVID-19) Ceph NEGATIVE (Negative)
[2025-10-17] MEDS: GABAPENTIN 300 MG CAP PO SCH (17:44)
[2025-10-17] MEDS ORDERED: LOSARTAN POTASSIUM 25 MG TAB PO SCH (21:00)
[2025-10-17] MEDS: CeleBREX 200 MG CAP PO SCH (21:09)
[2025-10-17] MEDS: APIXABAN 5 MG TABLET PO SCH (21:09)
[2025-10-18] MEDS ORDERED: LEVOTHYROXINE SODIUM 25 MCG TABLET PO SCH (06:30)
[2025-10-18] MEDS ORDERED: FLUTICASONE/VILANTEROL 100/25MCG 14 PUFFS/INHALER INH SCH (09:00)
[2025-10-18] MEDS ORDERED: ASPIRIN 81 MG ECTAB PO SCH (09:00)
[2025-10-18] MEDS: methylPREDNISolone 5 MG in SYRINGE 0 ML IV SCH (14:52)
[2025-10-18] MEDS ORDERED: Nursing to Pharmacy Communication SCH (15:00)
--- NOTE | 2025-10-18 15:30 | XRay Report ---
XR hand RT min 3V routine CLINICAL HISTORY: Right middle finger pain following injury. COMPARISON: Right hand radiographs April 06, 2024. FINDINGS: Alignment of the right hand is anatomic. No acute fractures are identified. There is moder ate osteoarthritis of the right first carpometacarpal and triscaphe joints. There is moderate radioca rpal joint osteoarthritis. There is moderate osteoarthritis within multiple interphalangeal joints of the right hand. IMPRESSION: 1. No fracture or dislocation within the right hand. 2. Moderate osteoarthritis within multiple articulations of the right hand and wrist. ACT 112: Negative or not required by law. Electronically signed by: Tommy Cancino M.D. 10/18/2025 3:29 PM
--- NOTE | 2025-10-18 15:31 | XRay Report ---
RIGHT THIRD FINGER 3 VIEWS CLINICAL HISTORY: Third finger pain. FINDINGS: 3 views of the right third finger are correlated with x-rays of the right hand performed day 10/18/2025. The skeletal structures are well mineralized. No fracture or dislocation is se en. There is mild osteoarthritic change at the distal interphalangeal joint. No erosive change is see n. The overlying soft tissues are within normal limits. IMPRESSION: No acute bony abnormality is identified. Electronically signed by: Dominik Louis M.D. 10/18/2025 3:30 PM
[2025-10-18] MEDS: FUROSEMIDE INJ 20 MG/2 ML VIAL IV ONE (16:02)
[2025-10-19 06:47] LABS: Hematocrit (blood only) 39.8 % (37.0-47.0); Hemoglobin 12.7 g/dL (12.0-16.0); Immature Granulocytes # (auto) 0.03 K/uL (0.01-0.20); Immature Granulocytes % (auto) 0.3 %; Mean Corpuscular Hemoglobin 29.5 pg (25.0-34.0); Mean Corpuscular Volume 92.6 fL (80.0-100.0); Platelet Count 349 K/uL (130-400); RDW Standard Deviation 52.3 fL (36.4-46.3); Red Blood Count 4.30 M/uL (4.20-5.40); White Blood Count 9.58 K/ul (4.8-10.8)
[2025-10-19 07:31] LABS: Anion Gap 8.0 (3-11); Blood Urea Nitrogen 13.0 mg/dl (6-23); Calcium 9.3 mg/dl (8.6-10.3); Carbon Dioxide 30.0 mmol/L (21-32); Chloride 101.0 mmol/L (98-107); Creatinine Clr Calc Pharmacy 244.6 ml/min; Glucose 90.0 mg/dl (70-99(Fasting)); Potassium 3.5 mmol/L (3.5-5.1); Sodium 139.0 mmol/L (136-145)
--- NOTE | 2025-10-19 08:13 | Hospitalist Progress Note ---
Date of Service October 18, 2025 Assessment & Plan (1) Community acquired pneumonia: Plan In summary this is a 55-year-old female who presents with community-acquired pneumonia in the setting of recent hospitalization and emergent transfer for massive bilateral pulmonary emboli requiring thrombectomy #Community acquired pneumonia Patient presents with nonproductive cough, progressive dyspnea now with dyspnea in conversation, tachypnea; PSI 67, class III severity; without significant lab evidence suggestive of systemic disease, imaging with significant consolidation Incentive spirometry and flutter valve every hour while awake COVID/RSV/influenza negative Continue ceftriaxone 2 g IV daily for 5-7 days Continue azithromycin 500 mg IV for 3 days, through 10/19 #Chronic anticoagulation for subacute pulmonary embolism Recent massive pulmonary embolism requiring thrombectomy, remains on anticoagulation for continued care Continue Eliquis 5 mg p.o. twice daily #Right middle finger pain XR hand and finger. Consider ortho consult tomorrow to assess for tendon injury #Leg swelling / lymphedema Previous improvement with Lasix, start Lasix 20mg IV daily BMP in AM #Rheumatoid arthritis Switch chronic prednisone for Solu-Medrol 5mg IV daily as she is allergic to the prednisone we have on formulary, no need for stress dosing at this time #Left sided weakness Referred to [facility] as outpatient. Will reach out to Dr Brock tomorrow to see if anything else can be done in house to help with diagnosis of this VTE Prophylaxis - Eliquis 5 mg p.o. twice daily Disposition - continue on med/surg, PT/OT evals ordered Admission and Anticipated Discharge Date Admission Date: October 17, 2025 Subjective Reports pop of right middle finger last week. XRs were normal but still very juan nful to extend finger and using nisreen strapping. Requesting Lasix for leg swelling which improved previously on IV lasix Physical Exam Respiratory: normal respiratory effort; no respiratory distress Auscultation: + crackles (bibasal); no wheezes Cardiovascular: Rate/Rhythm: regular rate and regular rhythm Heart Sounds: no murmur Extremities: + pedal edema (trace); + abnormal capillary refill and no calf tenderness Gastrointestinal (Abdomen): normal bowel sounds, soft, nontender, no hepatosplenomegaly Musculoskeletal: right middle finger painful extension, pain from wrist to MCPJ Results & Data Results & Data Vital Signs (Past 12 Hours) Vital Signs Temp Pulse Resp BP BP Pulse Ox O2 Del Method 10/19/25 07:08 36.5 C 69 18 145/88 H 100 Nasal Cannula 10/18/25 22:10 36.8 C 73 16 137/74 95 Room Air 10/18/25 20:35 Nasal Cannula O2 Flow Rate 10/19/25 07:08 2 10/18/25 22:10 10/18/25 20:35 2 PG Care Time/CCT Total # of Minutes Spent Total Time Spent with Patient: Total time spent is greater than 50% in coordination of care (as documented) at patient's floor/unit and/or counseling patient: Coding Level of Care Code 45326 SUB INP/OBS CARE 2MIN Diagnoses Community acquired pneumonia of left lower lobe of lung J18.9 Laterality: left Lung location: lower lobe of lung (1) Community acquired pneumonia Laterality: left Lung location: lower lobe of lung Qualified Code(s): J18.9 - Pneumonia, unspecified organism
[2025-10-19] MEDS: FUROSEMIDE INJ 20 MG/2 ML VIAL IV SCH (09:49)
--- NOTE | 2025-10-19 11:34 | Orthopedic Consultation ---
Date of Service October 19, 2025 Assessment & Plan (1) Strain of extensor structure of right middle finger at hand level: * Case/imaging reviewed and discussed with Dr Carmen * Right third finger extensor sprain/strain following PT exercises * No tendon defect, deformity, or motion deficits on exam * No evidence of fracture, or concern for infectious process/tenosynovitis * Recommend supportive care of third finger strain * Ice, OTC pain medication * Weight bearing status: Full range of motion and activity as tolerated * May nisreen tape for support if needed * Daily treatment: Physical Therapy/ Occupational Therapy per protocol * Pain control * Disposition: TBD * Remainder care per primary team * Will follow peripherally, please contact Ortho with further concerns regarding the hand History of Present Illness Reason for Consultation: . Patient is a 55 y/o female with right 3rd finger pain. 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 Currently admitted to hospital medicine team for further management/treatment of this. Patient also notes injuring her right third finger a few days ago while working with PT, recalls doing some exercises when she felt a sudden pop in the dorsal aspect of her right third finger, since then has had some lingering soreness with range of motion. Current workup including x-ray right hand/finger unremarkable for fracture or bony malalignment. Orthope dics consulted for management recommendations. At time of exam patient sitting comfortably in bed, no acute distress. Endorses mild pain of the right third finger at rest that increases with end range of motion. Patient is able to actively flex and extend her finger without limitation. Has been nisreen taping for support/comfort. Requesting Physician: . Attending Physician: Jourdan Rothman MD . Allergies Allergy/AdvReac Type Severity Reaction Status Date / Time corn Allergy Severe ANAPHYLAXIS Unverified 09/13/25 08:19 -- all corn related products grass pollen Allergy Unknown seasonal Verified 09/13/25 08:19 allergies house dust mite Allergy Unknown seasonal Verified 09/13/25 08:19 allergies Iodinated Contrast Media Allergy Unknown Hives Verified 09/13/25 08:19 pollen extracts Allergy Unknown seasonal Verified 09/13/25 08:19 allergies Sulfa (Sulfonamide AdvReac Intermediate Hives, Verified 09/13/25 08:19 Antibiotics) Joint Pain Home Medications Medication Instructions Recorded Confirmed Type Auto Titrating CPAP #1 ea 07/10/21 09/28/25 Rx CPAP Supplies #1 ea 07/10/21 09/28/25 Rx diphenhydramine HCl 25 mg capsule 25 mg PO Q6H PRN allergy symptoms 09/11/22 10/17/25 Rx (Allergy (diphenhydramine)) #1 cap levocetirizine 5 mg tablet (Xyzal) 5 mg PO DAILY PRN allergies 08/04/23 10/17/25 History digital therapeutic,CHARLIE device #1 ea 10/15/23 09/28/25 Rx CPAP Supplies #1 ea 11/23/23 09/28/25 Rx insulin syringe-needle U-100 1 mL #100 ea 05/04/24 09/28/25 Rx 27 gauge x 1/2" (BD Insulin Syringe) albuterol sulfate 2.5 mg/0.5 mL 2.5 mg (0.5 mL) inhalation Q4H PRN 10/21/24 10/17/25 Rx solution for nebulization shortness of breath or wheezing #30 ea Breo Ellipta 100 mcg-25 mcg/dose 1 inh inhalation DAILY #3 Inhalers 01/16/25 10/17/25 Rx powder for inhalation (fluticasone furoate-vilanterol) albuterol sulfate 90 mcg/actuation 2 inh inhalation QID PRN shortness 01/16/25 10/17/25 Rx breath activated powder inhaler of breath or wheezing #3 ea (ProAir RespiClick) epinephrine 0.3 mg/0.3 mL 0.3 mg (0.3 mL) IM Q10M PRN 03/08/25 10/17/25 Rx injection, auto-injector (EpiPen) anaphylaxis #2 ea rimegepant 75 mg disintegrating 75 mg PO DAILY PRN migraine 03/27/25 10/17/25 Rx tablet (Nurtec ODT) headache 90 days #27 tabs losartan 25 mg tablet 25 mg PO BID 90 days #180 tabs 05/11/25 10/17/25 Rx 3mL Syringe 1.5in 25g needle #10 ea 06/02/25 09/28/25 Rx celecoxib 200 mg capsule 200 mg PO BID 07/07/25 10/17/25 History cyanocobalamin (vitamin B-12) 1,000 mcg IM MONTHLY 07/07/25 10/17/25 History 1,000 mcg/mL injection solution ergocalciferol (vitamin D2) 1,250 50,000 unit PO .3X WK 07/07/25 10/17/25 History mcg (50,000 unit) capsule (Vitamin D2) rizatriptan 10 mg tablet 10 mg PO UD PRN Headache 07/07/25 10/17/25 History Orencia ClickJect 125 mg/mL 125 mg subcut Q7D #4 mL 07/25/25 10/17/25 Rx subcutaneous auto-injector (abatacept) Wheelchair (Manual) (Manual #1 ea 08/08/25 09/28/25 Rx Wheelchair) duloxetine 60 mg capsule,delayed 120 mg PO DAILY 08/14/25 10/17/25 History release suzetrigine 50 mg tablet (Journavx) 50 mg PO BID 08/14/25 10/17/25 History furosemide 40 mg/4 mL oral solution 20 mg (2 mL) PO QAM PRN edema #120 08/22/25 10/17/25 Rx mL dextroamphetamine-amphetamine 15 15 mg PO TID PRN add #60 tabs 09/06/25 10/17/25 Rx mg tablet Manual Wheelchair #1 ea 09/07/25 09/28/25 Rx tirzepatide (weight loss) 12.5 12.5 mg (0.5 mL) subcut Q7D #2 mL 09/08/25 10/17/25 Rx mg/0.5 mL subcutaneous solution (Zepbound) aspirin 81 mg tablet 81 mg PO DAILY 09/13/25 10/17/25 History prednisone 5 mg tablet 5 mg PO DAILY 09/13/25 10/17/25 History tramadol 5 mg/mL oral solution 100 mg (20 mL) PO TID PRN pain 09/27/25 10/17/25 Rx #473 mL azelastine 137 mcg (0.1 %) nasal 2 spray intranasal BID PRN allergy 10/09/25 10/17/25 Rx spray symptoms #30 mL acetaminophen 500 mg capsule 1,000 mg PO Q4H PRN fever 10/17/25 10/17/25 History apixaban 5 mg tablet (Eliquis) 5 mg PO BID 10/17/25 10/17/25 History fremanezumab-vfrm 225 mg/1.5 mL 225 mg subcut MONTHLY 10/17/25 10/17/25 History subcutaneous auto-injector (Ajovy) gabapentin 300 mg capsule 300 mg PO TID 10/17/25 10/17/25 History levothyroxine 25 mcg capsule 25 mcg PO DAILY 10/17/25 10/17/25 History omalizumab 300 mg/2 mL 300 mg subcut .[id number] 10/17/25 10/17/25 History subcutaneous syringe Past Med/Surg History Problem List (Updated 10/19/25 @ 11:32 by Terrence Wayne PA-C) Strain of extensor structure of right middle finger at hand level Community acquired pneumonia Left arm weakness Asthma (Chronic) Hypertension (Chronic) Pulmonary nodule (Chronic) GISELA (obstructive sleep apnea) (Chronic) Deep vein thrombosis of left lower extremity (Acute) Lumbosacral radiculopathy (Chronic) Cervical radiculopathy (Chronic) Left leg weakness (Acute) Fibromuscular dysplasia of both carotid arteries (Chronic) Physical deconditioning (Chronic) Morbid obesity with BMI of 60.0-69.9, adult (Acute) Ambulatory dysfunction (Chronic) Osteoarthritis of right hip (Chronic) 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) Rheumatoid arthritis (Chronic) Inflammatory arthritis (Chronic) Vitamin D deficiency (Chronic) B12 deficiency (Chronic) Chronic idiopathic urticaria (Chronic) Attention deficit disorder (Chronic) Hypothyroidism (Chronic) Chronic migraine (Chronic) Chronic cough (Chronic) Medical History Acute massive pulmonary embolism Acute hypoxemic respiratory failure Type 2 myocardial infarction due to heart failure Stress-induced cardiomyopathy Acute cor pulmonale Migraine with aura Accident due to mechanical fall without injury Cellulitis of left leg Cellulitis Allergic rhinitis Surgical History History of appendectomy Family History Mother Multiple sclerosis Father Bladder cancer Muscle wasting and atrophy, not elsewhere classified, back, lumbosacral Brother Hypertension Denies family history of Ovarian cancer Prostate cancer Diabetes Myocardial infarction Breast cancer Colorectal cancer Social History Smoking Status: Never smoker Second Hand Exposure: No; Hx Alcohol Use: No Hx Substance Use: No Preferred Language: [place]de[place] Communication Ability: Effective Visual Impairment: Limited Hearing Ability: Normal International Organizer Required: No Beliefs That Will Affect Care: None marital status: Single Current Living Situation: Parent current occupational status: employed current occupation: self employed How many Children do You have: 0 Feels Safe at Home: Yes Childhood Exposure to Second-Hand Smoke: No Diet: regular Diet Comment: cannot have corn caffeine: Yes during the past year weight has: increased > 10 lbs Dental Care, Regularly: Yes Physical Activity Frequency: Does not Exercise Seatbelt Use: always Sunscreen Use: Yes Assistive Devices: CPAP, Walker and Wheelchair Review of Systems All systems reviewed & are unremarkable except as noted in HPI & below. Physical Exam . * General: Alert and oriented, no acute distress * Constitutional: well-developed, well-nourished. * Respiratory: Normal respiratory effort, no distress * Gastrointestinal: No tenderness to palpation, no rigidity or guarding. * Skin: No rash or lesion. * Neurologic: Grossly normal * Musculoskeletal: Right third finger/hand with no obvious deformity or overl arabella skin changes. No mallet finger, boutonniere or swan-neck deformity noted. Mild TTP along the dorsal aspect of the right third finger and dorsal hand. Otherwise no specific tenderness of the remaining digits, throughout the hand, or forearm volar/dorsal. AROM third finger flexion and extension fully intact, extension and flexion strength 5/5. Sensation intact radial/median/ulnar nerve distributions. Brisk capillary refill. Results & Data Results & Data Laboratory Results . Diagnostic Findings . Finger X-Ray 10/18/25 14:36 RIGHT THIRD FINGER 3 VIEWS CLINICAL HISTORY: Third finger pain. FINDINGS: 3 views of the right third finger are correlated with x-rays of the right hand performed the same day 10/18/2025. The skeletal structures are well mineralized. No fracture or dislocation is seen. There is mild osteoarthritic change at the distal interphalangeal joint. No erosive change is seen. The overlying soft tissues are within normal limits. IMPRESSION: No acute bony abnormality is identified. Electronically signed by: Dominik Louis M.D. 10/18/2025 3:30 PM Hand X-Ray 10/18/25 14:36 XR hand RT min 3V routine CLINICAL HISTORY: Right middle finger pain following injury. COMPARISON: Right hand radiographs April 06, 2024. FINDINGS: Alignment of the right hand is anatomic. No acute fractures are identified. There is moderate osteoarthritis of the right first carpometacarpal and triscaphe joints. There is moderate radiocarpal joint osteoarthritis. There is moderate osteoarthritis within multiple interphalangeal joints of the right hand. IMPRESSION: 1. No fracture or dislocation within the right hand. 2. Moderate osteoarthritis within multiple articulations of the right hand and wrist. ACT 112: Negative or not required by law. Electronically signed by: Tommy Cancino M.D. 10/18/2025 3:29 PM PG Care Time/CCT Total # of Minutes Spent Total Time Spent with Patient: Total time spent is greater than 50% in coordination of care (as documented) at patient's floor/unit and/or counseling patient: Coding [place] [address] IN/OBS CONSULT LVL 2,35M Patient Type Established History Problem Focused Exam Problem Focused Medical Decision Making Straight Forward Diagnoses Strain of extensor structure of right middle finger at hand level S66.312A
[2025-10-19] MEDS: AZITHROMYCIN 500 MG/255 ML BAG IV SCH (13:10)
--- NOTE | 2025-10-19 14:52 | Hospitalist Progress Note ---
Date of Service October 19, 2025 Assessment & Plan (1) Community acquired pneumonia: (2) Strain of extensor structure of right middle finger at hand level: (3) Acute massive pulmonary embolism: Plan In summary this is a 55-year-old female who presents with community-acquired pneumonia in the setting of recent hospitalization and emergent transfer for massive bilateral pulmonary emboli requiring thrombectomy #Community acquired pneumonia Patient presents with nonproductive cough, progressive dyspnea now with dyspnea in conversation, tachypnea; PSI 67, class III severity; without significant lab evidence suggestive of systemic disease, imaging with significant consolidation Incentive spirometry and flutter valve every hour while awake COVID/RSV/influenza negative Continue ceftriaxone 2 g IV daily for 5-7 days Continue azithromycin 500 mg IV for 3 days, completed #Chronic anticoagulation for subacute pulmonary embolism Recent massive pulmonary embolism requiring thrombectomy, remains on anticoagulation for continued care Continue Eliquis 5 mg p.o. twice daily, monitor left arm swelling - if getting worse may need US doppler for Eliquis failure given high BMI this may be a possibility #Right third finger extensor sprain/strain following PT exercises XR hand and finger. Appreciate ortho consult and management #Leg swelling / lymphedema Previous improvement with Lasix, continue Lasix 20mg IV daily BMP in AM #Rheumatoid arthritis Switched chronic prednisone for Solu-Medrol 5mg IV daily as she is allergic to the prednisone we have on formulary, no need for stress dosing at this time #Left sided weakness Referred to [place] [facility] as outpatient. Will reach out to Dr Brock tomorrow to see if anything else can be done in house to help with diagnosis of this Discussed with Dr Brock and could consider lumbar puncture but probably low yield and given need for Eliquis at this time will defer doing this during her admission VTE Prophylaxis - Eliquis 5 mg p.o. twice daily Disposition - continue on med/surg, PT/OT, medically stable awaiting placement Admission and Anticipated Discharge Date Admission Date: October 17, 2025 Subjective Increased swelling on her left arm. Bilateral leg edema improved. Shortness of breath much the same. Physical Exam Respiratory: normal respiratory effort; no respiratory distress Auscultation: + crackles (bibasal); no wheezes Cardiovascular: Rate/Rhythm: regular rate and regular rhythm Heart Sounds: no murmur Extremities: + pedal edema (trace); + abnormal capillary refill, no calf tenderness and no edema (no pitting edema or arms) Gastrointestinal (Abdomen): normal bowel sounds, soft, nontender, no hepatosplenomegaly Results & Data Results & Data Vital Signs (Past 12 Hours) Vital Signs Temp Pulse Resp BP BP Pulse Ox O2 Del Method 10/19/25 14:15 36.8 C 104 H 18 141/76 H 98 Nasal Cannula 10/19/25 07:08 36.5 C 69 18 145/88 H 100 Nasal Cannula O2 Flow Rate 10/19/25 14:15 2 10/19/25 07:08 2 PG Care Time/CCT Total # of Minutes Spent Total Time Spent with Patient: Total time spent is greater than 50% in coordination of care (as documented) at patient's floor/unit and/or counseling patient: Coding Level of Care Code 14680 SUB INP/OBS CARE 235MIN Diagnoses Community acquired pneumonia of left lower lobe of lung J18.9 Laterality: left Lung location: lower lobe of lung Strain of extensor structure of right middle finger at hand level S66.312A Acute massive pulmonary embolism I26.99 (1) Community acquired pneumonia Laterality: left Lung location: lower lobe of lung Qualified Code(s): J18.9 - Pneumonia, unspecified organism
[2025-10-20 07:26] LABS: Anion Gap 6.0 (3-11); Blood Urea Nitrogen 12.0 mg/dl (6-23); Calcium 9.3 mg/dl (8.6-10.3); Carbon Dioxide 31.0 mmol/L (21-32); Chloride 100.0 mmol/L (98-107); Creatinine Clr Calc Pharmacy 238.2 ml/min; Glucose 102.0 mg/dl (70-99(Fasting)); Potassium 3.7 mmol/L (3.5-5.1); Sodium 137.0 mmol/L (136-145)
--- NOTE | 2025-10-20 14:09 | Hospitalist Progress Note ---
Date of Service October 20, 2025 Assessment & Plan (1) Community acquired pneumonia: (2) Strain of extensor structure of right middle finger at hand level: (3) Acute massive pulmonary embolism: Plan In summary this is a 55-year-old female who presents with community-acquired pneumonia in the setting of recent hospitalization and emergent transfer for massive bilateral pulmonary emboli requiring thrombectomy #Community acquired pneumonia Patient presents with nonproductive cough, progressive dyspnea now with dyspnea in conversation, tachypnea; PSI 67, class III severity; without significant lab evidence suggestive of systemic disease, imaging with significant consolidation Incentive spirometry and flutter valve every hour while awake COVID/RSV/influenza negative Continue ceftriaxone 2 g IV daily for 5-7 days - limited selection of antibiot ics given allergies to many things in our oral medications Continue azithromycin 500 mg IV for 3 days, completed #Chronic anticoagulation for subacute pulmonary embolism Recent massive pulmonary embolism requiring thrombectomy, remains on anticoagulation for continued care Continue Eliquis 5 mg p.o. twice daily #Right third finger extensor sprain/strain following PT exercises XR hand and finger. Appreciate ortho consult and management #Left leg/arm swelling / lymphedema Previous improvement with Lasix, continue Lasix 20mg IV daily BMP in AM US venous doppler left arm and leg to see if failing Eliquis Some possible concern for cellulitis developing in left foot although she is on ceftriaxone already and recommend elevating foot to see if this resolves without escalating antibiotics currently #Rheumatoid arthritis Switched chronic prednisone for Solu-Medrol 5mg IV daily as she is allergic to the prednisone we have on formulary, no need for stress dosing at this time #Left sided weakness Referred to [place] [facility] as outpatient. Will reach out to Dr Brock tomorrow to see if anything else can be done in house to help with diagnosis of this Discussed with Dr Brock and could consider lumbar puncture but probably low yield and given need for Eliquis at this time will defer doing this during her admission VTE Prophylaxis - Eliquis 5 mg p.o. twice daily Disposition - continue on med/surg, PT/OT, medically stable awaiting placement Admission and Anticipated Discharge Date Admission Date: October 17, 2025 Subjective Left foot appears more swollen and erythematous today. Otherwise doing well with her breathing. Physical Exam Respiratory: normal respiratory effort; no respiratory distress Auscultation: + crackles (bibasal); no wheezes Cardiovascular: Rate/Rhythm: regular rate and regular rhythm Heart Sounds: no murmur Extremities: + pedal edema (trace); + abnormal capillary refill, no calf tenderness and no edema (no pitting edema or arms) Gastrointestinal (Abdomen): normal bowel sounds, soft, nontender, no hepatosplenomegaly Skin: erythema of left foot, stops at ankle and then present more mildly around [place] Results & Data Results & Data Vital Signs (Past 12 Hours) Vital Signs Temp Pulse Pulse Resp BP BP Pulse Ox 10/20/25 13:43 36.7 C 88 22 121/85 93 10/20/25 08:30 36.5 C 85 20 115/77 96 10/20/25 07:06 36.6 C 92 H 17 116/70 95 O2 Del Method O2 Flow Rate 10/20/25 13:43 Nasal Cannula 1 10/20/25 08:30 Nasal Cannula 2 10/20/25 07:06 Nasal Cannula 2 PG Care Time/CCT Total # of Minutes Spent Total Time Spent with Patient: Total time spent is greater than 50% in coordination of care (as documented) at patient's floor/unit and/or counseling patient: Coding Level of Care Code 57102 SUB INP/OBS CARE 2/35MIN Diagnoses Community acquired pneumonia of left lower lobe of lung J18.9 Laterality: left Lung location: lower lobe of lung Strain of extensor structure of right middle finger at hand level S66.312A Acute massive pulmonary embolism I26.99 (1) Community acquired pneumonia Laterality: left Lung location: lower lobe of lung Qualified Code(s): J18.9 - Pneumonia, unspecified organism
--- NOTE | 2025-10-20 16:02 | Ultrasound Report ---
ULTRASOUND LEFT UPPER EXTREMITY VENOUS CLINICAL HISTORY: Left arm swelling. COMPARISON STUDY: No priors. TECHNIQUE: Real-time, grayscale, and color Doppler sonography of the deep veins of the left upper ext remity is performed. Compression and augmentation were utilized. FINDINGS: There is no sonographic evidence of deep venous thrombosis identified in the left upper ext remity. The left internal jugular, axillary, and brachial veins are patent and normally compressible. Normal venous waveforms and augmentation are seen within the left subclavian vein. The cephalic and basilic veins are clear. The visualized radial and ulnar veins are patent. IMPRESSION: There is no sonographic evidence of deep venous thrombosis identified in the left upper e xtremity. ACT 112: Negative or not required by law. Electronically signed by: Dominik Louis M.D. 10/20/2025 4:01 PM
--- NOTE | 2025-10-20 16:02 | Ultrasound Report ---
ULTRASOUND LEFT LOWER EXTREMITY VENOUS CLINICAL HISTORY: Left leg pain and swelling. COMPARISON STUDY: Bilateral lower extremity venous ultrasound dated 09/16/2025. TECHNIQUE: Real-time, grayscale, and color Doppler sonography of the deep veins of the left lower ext remity was performed from the inguinal crease to the calf. Compression and augmentation were utilized . FINDINGS: There is no sonographic evidence of deep venous thrombosis identified in the left lower ext remity. The common femoral, superficial femoral, and popliteal veins are patent and normally compress ible. The greater saphenous vein and the profunda femoris vein at the junction with the common femora l vein are clear. The visualized calf veins are patent. DVT in the left popliteal vein seen on 025 is no longer visualized. IMPRESSION: There is no sonographic evidence of deep venous thrombosis identified in the left lower e xtremity. ACT 112: Negative or not required by law. Electronically signed by: Dominik Louis M.D. 10/20/2025 4:00 PM
--- NOTE | 2025-10-21 06:49 | Electrocardiogram Report ---
Test Reason : Blood Pressure : */* mmHG Vent. Rate : 72 BPM Atrial Rate : 72 BPM P-R Int : 184 ms QRS Dur : 100 ms QT Int : 386 ms P-R-T Axes : 37 -42 82 degrees QTcB Int : 422 ms Normal sinus rhythm Left axis deviation Minimal voltage criteria for LVH, may be normal variant ( R in aVL ) Anterolateral infarct (cited on or before 07-Jul-2025) Abnormal ECG When compared with ECG of 16-Sep-2025 09:31, Vent. rate has decreased by [address] no longer elevated in Anterior leads Inverted T waves have replaced nonspecific T wave abnormality in Anterior leads QRS duration has decreased Confirmed by Jan Hodge ([id number]) on 10/21/2025 6:49:24 AM Referred By: REFERRED SELF Confirmed By: Jan Hodge
[2025-10-21 07:57] LABS: Anion Gap 9.0 (3-11); Blood Urea Nitrogen 13.0 mg/dl (6-23); Calcium 9.4 mg/dl (8.6-10.3); Carbon Dioxide 30.0 mmol/L (21-32); Chloride 100.0 mmol/L (98-107); Creatinine Clr Calc Pharmacy 226.2 ml/min; Glucose 88.0 mg/dl (70-99(Fasting)); Potassium 3.8 mmol/L (3.5-5.1); Sodium 139.0 mmol/L (136-145)
--- NOTE | 2025-10-21 09:48 | Hospitalist Progress Note ---
Date of Service October 21, 2025 Assessment & Plan (1) Community acquired pneumonia: Plan: Incentive spirometry and flutter valve every hour while awake COVID/RSV/influenza negative Continue ceftriaxone 2 g IV daily for 5-7 days - limited selection of antibiotics given allergies to many things in our oral medications Continue azithromycin 500 mg IV for 4 days, completed (2) Acute massive pulmonary embolism: Plan: Recent massive pulmonary embolism requiring thrombectomy, remains on anticoagulation for continued care Continue Eliquis 5 mg p.o. twice daily (3) Strain of extensor structure of right middle finger at hand level: Plan: XR hand and finger. Appreciate ortho consult and management (4) Left arm weakness: Plan: Referred to [place] [facility] as outpatient. Discussed with Dr Brock and could consider lumbar puncture but probably low yield and given need for Eliquis at this time will defer doing this during her admission Plan In summary this is a 55-year-old female who presents with community-acquired pneumonia in the setting of recent hospitalization and emergent transfer for massive bilateral pulmonary emboli requiring thrombectomy VTE Prophylaxis - Eliquis 5 mg p.o. twice daily Disposition - continue on med/surg, PT/OT, medically stable awaiting placement Admission and Anticipated Discharge Date Admission Date: October 17, 2025 Subjective No events overnight. Pt resting, requesting air bed for comfort. Review of Systems Review of Systems: CONST: Negative for fever, body aches and chills. HENT: Negative for neck pain/stiffness, headache, congestion, sore throat, swelling. EYES: Negative for discharge/pain or vision changes. RESP: Negative for cough/hemoptysis and shortness of breath. CV: Negative chest pain, difficulty breathing, palpitations. ABD: Negative pain, nausea, vomiting. : Negative increase frequency, dysuria, blood in urine or stool. MUSC: Negative for muscle aches, edema. SKIN: Negative rash, lesions/sores. NEURO: Negative headache, dizziness, weakness. Physical Exam Physical Exam: GENERAL APPEARANCE NAD, activity normal for age, well developed/ well nourished, no cyanosis, pallor, or diaphoresis. EYES lids/conjunctiva normal. EARS/NOSE/THROAT Mucous membranes moist, nares normal, lips/teeth normal uvula midline without oral pharyngeal erythema, exudate or swelling TMs normal bilaterally. No lymphangitis/lymphedema. HEAD/NECK normocephalic atraumatic, no facial trauma, neck is supple. RESPIRATORY respiratory effort normal, speaks in full sentences, no tripod position, no accessory muscle use. Lungs clear to auscultation without rhonchi, wheezes, rales CARDIAC Regular rate and rhythm, no edema. ABDOMINAL Soft, ND/NT. No evidence of fluid wave. No pulsatile masses on exam, rebound tenderness, Major sign or pain over Mcburney's point. MUSCLES/EXTREMITIES No abnormal range of motion, no swelling. SKIN Warm, pink and dry. No rashes, dermatoses, petechiae or lesions. NEUROLOGICAL Speech is clear and appropriate. Normal level of consciousness. Gait and coordination are normal. 5/5 strength in all extremities. PSYCH Normal mood and affect. Judgement/competence is appropriate Results & Data Results & Data Vital Signs (Past 12 Hours) Vital Signs Temp Pulse Resp BP BP Pulse Ox O2 Del Method 10/21/25 08:04 36.5 C 107 H 16 118/76 94 Nasal Cannula 10/21/25 00:10 36.4 C L 81 16 116/73 96 Nasal Cannula O2 Flow Rate 10/21/25 08:04 2 10/21/25 00:10 1 PG Care Time/CCT Total # of Minutes Spent Total Time Spent with Patient: Total time spent is greater than 50% in coordination of care (as documented) at patient's floor/unit and/or counseling patient: Coding Level of Care Code 33757 SUB INP/OBS CARE 2/35MIN Diagnoses Community acquired pneumonia of left lower lobe of lung J18.9 Laterality: left Lung location: lower lobe of lung Acute massive pulmonary embolism I26.99 Strain of extensor structure of right middle finger at hand level S66.312A Left arm weakness R29.898 (1) Community acquired pneumonia Laterality: left Lung location: lower lobe of lung Qualified Code(s): J18.9 - Pneumonia, unspecified organism
--- NOTE | 2025-10-22 09:49 | Hospitalist Progress Note ---
Date of Service October 22, 2025 Assessment & Plan (1) Community acquired pneumonia: Plan: Incentive spirometry and flutter valve every hour while awake COVID/RSV/influenza negative Continue ceftriaxone 2 g IV daily for 5-7 days - limited selection of antibiotics given allergies to many things in our oral medications azithromycin 500 mg IV completed (2) Acute massive pulmonary embolism: Plan: Recent massive pulmonary embolism requiring thrombectomy, remains on anticoagulation for continued care Continue Eliquis 5 mg p.o. twice daily (3) Strain of extensor structure of right middle finger at hand level: Plan: XR hand and finger. Appreciate ortho consult and management (4) Left arm weakness: Plan: Referred to [facility] as outpatient. Discussed with Dr Brock and could consider lumbar puncture but probably low yield and given need for Eliquis at this time will defer doing this during her admission Plan In summary this is a 55-year-old female who presents with community-acquired pneumonia in the setting of recent hospitalization and emergent transfer for massive bilateral pulmonary emboli requiring thrombectomy VTE Prophylaxis - Eliquis 5 mg p.o. twice daily Disposition - continue on med/surg, PT/OT, medically stable awaiting placement Admission and Anticipated Discharge Date Admission Date: October 17, 2025 Subjective No events overnight. Pt resting in bed. Review of Systems Review of Systems: CONST: Negative for fever, body aches and chills. HENT: Negative for neck pain/stiffness, headache, congestion, sore throat, swelling. EYES: Negative for discharge/pain or vision changes. RESP: Negative for cough/hemoptysis and shortness of breath. CV: Negative chest pain, difficulty breathing, palpitations. ABD: Negative pain, nausea, vomiting. : Negative increase frequency, dysuria, blood in urine or stool. MUSC: Negative for muscle aches, edema. SKIN: Negative rash, lesions/sores. NEURO: Negative headache, dizziness, weakness. Physical Exam Physical Exam: GENERAL APPEARANCE NAD, activity normal for age, well developed/ well nourished, no cyanosis, pallor, or diaphoresis. EYES lids/conjunctiva normal. EARS/NOSE/THROAT Mucous membranes moist, nares normal, lips/teeth normal uvula midline without oral pharyngeal erythema, exudate or swelling TMs normal bilaterally. No lymphangitis/lymphedema. HEAD/NECK normocephalic atraumatic, no facial trauma, neck is supple. RESPIRATORY respiratory effort normal, speaks in full sentences, no tripod position, no accessory muscle use. Lungs clear to auscultation without rhonchi, wheezes, rales CARDIAC Regular rate and rhythm, no edema. ABDOMINAL Soft, ND/NT. No evidence of fluid wave. No pulsatile masses on exam, rebound tenderness, Major sign or pain over Mcburney's point. MUSCLES/EXTREMITIES No abnormal range of motion, no swelling. SKIN Warm, pink and dry. No rashes, dermatoses, petechiae or lesions. NEUROLOGICAL Speech is clear and appropriate. Normal level of consciousness. Gait and coordination are normal. 5/5 strength in all extremities. PSYCH Normal mood and affect. Judgement/competence is appropriate Results & Data Results & Data Vital Signs (Past 12 Hours) Vital Signs Temp Pulse Resp BP Pulse Ox O2 Del Method O2 Flow Rate 10/22/25 08:28 36.7 C 87 18 144/91 H 95 Nasal Cannula 2 PG Care Time/CCT Total # of Minutes Spent Total Time Spent with Patient: Total time spent is greater than 50% in coordination of care (as documented) at patient's floor/unit and/or counseling patient: Coding Level of Care Code 01542 SUB INP/OBS CARE 2/35MIN Diagnoses Community acquired pneumonia of left lower lobe of lung J18.9 Laterality: left Lung location: lower lobe of lung Acute massive pulmonary embolism I26.99 Strain of extensor structure of right middle finger at hand level S66.312A Left arm weakness R29.898 (1) Community acquired pneumonia Laterality: left Lung location: lower lobe of lung Qualified Code(s): J18.9 - Pneumonia, unspecified organism
--- NOTE | 2025-10-23 16:02 | XRay Report ---
TWO VIEW CHEST CLINICAL HISTORY: Dyspnea. FINDINGS: Portable AP upright and lateral chest radiographs are compared to chest x-ray and chest CT dated 10/17/2025. The heart is enlarged. There is pulmonary vascular congestion. There is elevation of the hemidiaphragm with bibasilar consolidation. No pleural effusion or pneumothorax is seen. The ske letal structures are osteopenic. The bony thorax appears intact. Degenerative change and hyperkyphosi s is noted in the thoracic spine. IMPRESSION: 1. Cardiomegaly with pulmonary vascular congestion. 2. No pleural effusion is identified. 3. There is elevation of the left hemidiaphragm and bibasilar consolidation, which may represent segm ental atelectasis. Correlate clinically for evidence of a superimposed pneumonia. Radiographic follow -up to resolution is recommended. ACT 112: Negative or not required by law. Electronically signed by: Dominik Louis M.D. 10/23/2025 4:00 PM
--- NOTE | 2025-10-23 17:37 | Hospitalist Progress Note ---
Date of Service October 23, 2025 Assessment & Plan (1) Community acquired pneumonia: (2) Acute massive pulmonary embolism: (3) Strain of extensor structure of right middle finger at hand level: (4) Left arm weakness: Plan In summary this is a 55-year-old female who presents with community-acquired pneumonia in the setting of recent hospitalization and emergent transfer for massive bilateral pulmonary emboli requiring thrombectomy #Community acquired pneumonia Patient presents with nonproductive cough, progressive dyspnea now with dyspnea in conversation, tachypnea; PSI 67, class III severity; without significant lab evidence suggestive of systemic disease, imaging with significant consolidation Incentive spirometry and flutter valve every hour while awake COVID/RSV/influenza negative Finished ceftriaxone + azithromycin course #Chronic anticoagulation for subacute pulmonary embolism Recent massive pulmonary embolism requiring thrombectomy, remains on anticoagulation for continued care Continue Eliquis 5 mg p.o. twice daily #Right third finger extensor sprain/strain following PT exercises XR hand and finger. Appreciate ortho consult and management #Left leg/arm swelling / lymphedema Previous improvement with Lasix, continue Lasix 20mg IV daily BMP in AM US venous doppler left arm and leg negative Some possible concern for cellulitis developing in left foot although she is on ceftriaxone already and recommend elevating foot to see if this resolves without escalating antibiotics currently #Rheumatoid arthritis Switched chronic prednisone for Solu-Medrol 5mg IV daily as she is allergic to the prednisone we have on formulary, no need for stress dosing at this time #Left sided weakness Referred to [facility] as outpatient. 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 twice daily Disposition - continue on med/surg, PT/OT, medically stable awaiting placement Admission and Anticipated Discharge Date Admission Date: October 17, 2025 Subjective No acute changes. Discussed left hemidiaphragm raised. Physical Exam Respiratory: normal respiratory effort; no respiratory distress Auscultation: + crackles (left base); no wheezes Cardiovascular: Rate/Rhythm: regular rate and regular rhythm Heart Sounds: no murmur Extremities: no calf tenderness, no pedal edema and no edema Results & Data Results & Data Vital Signs (Past 12 Hours) Vital Signs Temp Pulse Resp BP Pulse Ox O2 Del Method O2 Flow Rate 10/23/25 14:21 36.4 C L 76 16 185/86 H 96 Nasal Cannula 1 10/23/25 11:54 Nasal Cannula 1 10/23/25 06:59 36.9 C 73 16 165/85 H 96 Nasal Cannula 1 PG Care Time/CCT Total # of Minutes Spent Total Time Spent with Patient: Total time spent is greater than 50% in coordination of care (as documented) at patient's floor/unit and/or counseling patient: Coding Level of Care Code 15522 SUB INP/OBS CARE 2/35MIN Diagnoses Community acquired pneumonia of left lower lobe of lung J18.9 Laterality: left Lung location: lower lobe of lung Acute massive pulmonary embolism I26.99 Strain of extensor structure of right middle finger at hand level S66.312A Left arm weakness R29.898 (1) Community acquired pneumonia Laterality: left Lung location: lower lobe of lung Qualified Code(s): J18.9 - Pneumonia, unspecified organism
[2025-10-23] MEDS: ALBUT/IPRATROP 3MG/0.5MG NEB 3 ML VIAL NEB PRN (19:52)
[2025-10-23] MEDS ORDERED: RIMEGEPANT SULFATE 75 MG PO PRN (21:27)
[2025-10-24] MEDS: GADOBUTROL 65ML VIAL IV ONE (11:52)
--- NOTE | 2025-10-24 12:34 | Magnetic Resonance Report ---
MRI OF THE BRAIN COMBO CLINICAL HISTORY: Left arm and leg weakness. COMPARISON STUDY: CT of the brain dated 09/16/2025. MRI of the brain dated 08/14/2025 TECHNIQUE: MRI of the brain was performed utilizing various T1 and T2-weighted sequences in the axial , sagittal, and coronal planes. Contrast-enhanced sequences were acquired following the administratio n of 15 cc of Gadavist. FINDINGS: Brain parenchyma: There is minimal microangiopathic change. There is no hemorrhage or mass effect. Th ere is no restricted diffusion to suggest acute ischemia. No enhancing mass lesion is identified on t he postcontrast images. Ramirez-white matter differentiation is preserved. No extra-axial fluid collecti on is seen. The cerebellar tonsils are normal in configuration. Ventricles, sulci, and cisterns: Normal in configuration. Pituitary and sella: Unremarkable. Intracranial vasculature: Normal flow voids are maintained at the skull base. Orbits: The bony orbits are grossly intact. Orbital contents are normal in appearance. Sinuses and mastoids: Clear. Calvarium: Unremarkable. Cervical cord: Partially visualized cervical spinal cord is normal in morphology and signal intensity . IMPRESSION: No acute intracranial abnormality. ACT 112: Negative or not required by law. Electronically signed by: Dominik Louis M.D. 10/24/2025 12:32 PM
[2025-10-24 14:42] LABS: Hematocrit (blood only) 44.7 % (37.0-47.0); Hemoglobin 14.4 g/dL (12.0-16.0); Immature Granulocytes # (auto) 0.04 K/uL (0.01-0.20); Immature Granulocytes % (auto) 0.4 %; Mean Corpuscular Hemoglobin 29.6 pg (25.0-34.0); Mean Corpuscular Volume 92.0 fL (80.0-100.0); Platelet Count 400 K/uL (130-400); RDW Standard Deviation 49.1 fL (36.4-46.3); Red Blood Count 4.86 M/uL (4.20-5.40); White Blood Count 9.23 K/ul (4.8-10.8)
[2025-10-24 14:58] LABS: Anion Gap 7.0 (3-11); Blood Urea Nitrogen 13.0 mg/dl (6-23); Calcium 10.0 mg/dl (8.6-10.3); Carbon Dioxide 33.0 mmol/L (21-32); Chloride 97.0 mmol/L (98-107); Creatinine Clr Calc Pharmacy 210.5 ml/min; Glucose 107.0 mg/dl (70-99(Fasting)); Potassium 4.0 mmol/L (3.5-5.1); Sodium 137.0 mmol/L (136-145)
[2025-10-24] MEDS: SODIUM CHLOR 7% 4 ML NEB NEB SCH (19:52)
--- NOTE | 2025-10-24 20:31 | Hospitalist Progress Note ---
Date of Service October 24, 2025 Assessment & Plan (1) Community acquired pneumonia: (2) Acute massive pulmonary embolism: (3) Strain of extensor structure of right middle finger at hand level: (4) Left arm weakness: Plan In summary this is a 55-year-old female who presents with community-acquired pneumonia in the setting of recent hospitalization and emergent transfer for massive bilateral pulmonary emboli requiring thrombectomy #Community acquired pneumonia Patient presents with nonproductive cough, progressive dyspnea now with dyspnea in conversation, tachypnea; PSI 67, class III severity; without significant lab evidence suggestive of systemic disease, imaging with significant consolidation Incentive spirometry and flutter valve every hour while awake COVID/RSV/influenza negative Finished ceftriaxone + azithromycin course #Chronic anticoagulation for subacute pulmonary embolism Recent massive pulmonary embolism requiring thrombectomy, remains on anticoagulation for continued care Continue Eliquis 5 mg p.o. twice daily #Right third finger extensor sprain/strain following PT exercises XR hand and finger. Appreciate ortho consult and management #Left leg/arm swelling / lymphedema Previous improvement with Lasix, now with contraction alkalosis will hold further lasix US venous doppler left arm and leg negative for DVT #Rheumatoid arthritis Switched chronic prednisone for Solu-Medrol 5mg IV daily as she is allergic to the prednisone we have on formulary, no need for stress dosing at this time #Left sided weakness Referred to [facility] as outpatient. Will reach out to Dr Brock tomorrow to see if anything else can be done in house to help with diagnosis of this Discussed with Dr Brock and could consider lumbar puncture but probably low yield and given need for Eliquis at this time will defer doing this during her admission Left hemidiaphragm palsy noted this admission therefore repeat Brain MRI w/wo IV contrast obtained on discussion with neurology also without any pathology VTE Prophylaxis - Eliquis 5 mg p.o. twice daily Disposition - continue on med/surg, PT/OT, medically stable awaiting placement Admission and Anticipated Discharge Date Admission Date: October 17, 2025 Subjective Discussed appeal letter. No change in shortness of breath. Physical Exam Respiratory: normal respiratory effort; no respiratory distress Auscultation: + crackles (left base); no wheezes Cardiovascular: Rate/Rhythm: regular rate and regular rhythm Heart Sounds: no murmur Neurologic: awake; + does not move all extremities (leftl lower extremity > upper weakness) Results & Data Results & Data Vital Signs (Past 12 Hours) Vital Signs Temp Pulse Resp BP Pulse Ox O2 Del Method O2 Flow Rate 10/24/25 19:53 73 18 95 Nasal Cannula 1 10/24/25 14:16 36.6 C 79 16 144/91 H 96 Nasal Cannula 1 10/24/25 11:32 Nasal Cannula 1 PG Care Time/CCT Total # of Minutes Spent Total Time Spent with Patient: Total time spent is greater than 50% in coordination of care (as documented) at patient's floor/unit and/or counseling patient: Coding Level of Care Code 24795 SUB INP/OBS CARE 12/03MIN Diagnoses Community acquired pneumonia of left lower lobe of lung J18.9 Laterality: left Lung location: lower lobe of lung Acute massive pulmonary embolism I26.99 Strain of extensor structure of right middle finger at hand level S66.312A Left arm weakness R29.898 (1) Community acquired pneumonia Laterality: left Lung location: lower lobe of lung Qualified Code(s): J18.9 - Pneumonia, unspecified organism
--- NOTE | 2025-10-25 07:48 | Hospitalist Progress Note ---
Date of Service October 25, 2025 Assessment & Plan (1) Community acquired pneumonia: (2) Strain of extensor structure of right middle finger at hand level: (3) Left arm weakness: (4) Pseudoaneurysm following procedure: (5) Sarcopenia: Plan In summary this is a 55-year-old female who presents with community-acquired pneumonia in the setting of recent hospitalization and emergent transfer for massive bilateral pulmonary emboli requiring thrombectomy #Community acquired pneumonia Patient presented with nonproductive cough, progressive dyspnea now with dyspnea in conversation, tachypnea; PSI 67, class III severity; improved with adequate antibiotic therapy with residual need for supplemental oxygenation Incentive spirometry and flutter valve every hour while awake COVID/RSV/influenza negative Finished ceftriaxone + azithromycin course #Chronic anticoagulation for subacute pulmonary embolism Recent massive pulmonary embolism requiring thrombectomy, remains on anticoagulation for continued care Continue Eliquis 5 mg p.o. twice daily #Right third finger extensor sprain/strain following PT exercises Without acute osseous complication; continue with supportive care #Upper extremity edema Doppler assessment without significant findings; suspect this is multifactorial including deconditioning, sarcopenia from multiple hospitalizations, lipedema #Rheumatoid arthritis Continue methylprednisolone 5 mg IV daily as replacement therapy for chronic prednisone as she is allergic to the prednisone we have on formulary, no need for stress dosing at this time #Left sided weakness Referred to [place] as outpatient. Will reach out to Dr Brock tomorrow to see if anything else can be done in house to help with diagnosis of this Discussed with Dr Brock and could consider lumbar puncture but probably low yield and given need for Eliquis at this time will defer doing this during her admission Left hemidiaphragm palsy noted this admission therefore repeat Brain MRI w/wo IV contrast obtained on discussion with neurology also without any pathology VTE Prophylaxis - Eliquis 5 mg p.o. twice daily Disposition - continue on med/surg PT/OT, medically stable awaiting placement Admission and Anticipated Discharge Date Admission Date: October 17, 2025 Subjective Ms. 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 No acute overnight events; patient reports continued improvement in their symptoms related to their presenting CAP. She endorses some concern regarding swelling of their upper extremities without associated pain. Review of Systems Review of Systems: Review of constitutional, pulmonary, cardiovascular, musculoskeletal, neurologic systems was unremarkable except for pertinent positive and negative findings discussed above Physical Exam Physical Exam: General: Adult female in no acute distress Vital Signs: Reviewed; saturating well on room air however maintained on 2 L by nasal cannula for comfort and subjective dyspnea HEENT: Pupils equally round and reactive to light, extraocular motion intact; moist mucous membranes Pulmonary: Symmetrically reduced chest wall excursion secondary to body habitus; diminished air movement in the posterior basilar segments bilaterally with the remaining lung mcghee clear to auscultation Cardiovascular: Regular rate and regular rhythm without murmurs, rubs, or gallops; S1 and S2 normal; right radial pulse 2+; 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 with bilateral upper extremity nonpitting edema with lipedema distal of the mid arm and with abrupt resolution at the wrist bilaterally Gastrointestinal: Soft, protuberant Neurologic: Cranial nerves II through XII grossly intact; no discernible focal weakness nor paresthesia Skin: 6 cm diameter ecchymosis in the left antecubital fossa from previous access for thrombectomy performed in 09/2025; right volar distal antebrachium with sutures in place from vascular repair performed at [facility] 10/12 Results & Data Results & Data Vital Signs (Past 12 Hours) Vital Signs Temp Pulse Resp BP Pulse Ox O2 Del Method O2 Flow Rate 10/25/25 07:24 81 16 93 Nasal Cannula 1 10/24/25 22:28 36.6 C 71 16 134/83 92 Nasal Cannula 2 10/24/25 21:30 Nasal Cannula 1 10/24/25 21:29 83 152/90 H 95 Nasal Cannula 1 10/24/25 19:53 73 18 95 Nasal Cannula 1 PG Care Time/CCT Total # of Minutes Spent Total Time Spent with Patient: Total time spent is greater than 50% in coordination of care (as documented) at patient's floor/unit and/or counseling patient: Coding Level of Care Code 38126 SUB INP/OBS CARE 2/35MIN Diagnoses Community acquired pneumonia of left lower lobe of lung J18.9 Laterality: left Lung location: lower lobe of lung Strain of extensor structure of right middle finger at hand level S66.312A Left arm weakness R29.898 Pseudoaneurysm following procedure T81.718A; I72.9 Sarcopenia M62.84 (1) Community acquired pneumonia Laterality: left Lung location: lower lobe of lung Qualified Code(s): J18.9 - Pneumonia, unspecified organism
[2025-10-25] MEDS: RIMEGEPANT SULFATE 75 MG PO PRN (20:56)
--- NOTE | 2025-10-26 07:41 | Hospitalist Progress Note ---
Date of Service October 26, 2025 Assessment & Plan (1) Community acquired pneumonia: (2) Strain of extensor structure of right middle finger at hand level: (3) Left arm weakness: (4) Pseudoaneurysm following procedure: (5) Sarcopenia: Plan In summary this is a 55-year-old female who presents with community-acquired pneumonia in the setting of recent hospitalization and emergent transfer for massive bilateral pulmonary emboli requiring thrombectomy #Community acquired pneumonia Patient presented with nonproductive cough, progressive dyspnea now with dyspnea in conversation, tachypnea; PSI 67, class III severity; improved with adequate antibiotic therapy with residual need for supplemental oxygenation Incentive spirometry and flutter valve every hour while awake COVID/RSV/influenza negative Finished ceftriaxone + azithromycin course #Chronic anticoagulation for subacute pulmonary embolism Recent massive pulmonary embolism requiring thrombectomy, remains on anticoagulation for continued care Continue Eliquis 5 mg p.o. twice daily #Right radial arterial pseudoaneurysm following VTE thrombectomy 5x sutures removed without difficulty or complication #Upper extremity edema Doppler assessment without significant findings; suspect this is multifactorial including deconditioning, sarcopenia from multiple hospitalizations, lipedema #Rheumatoid arthritis Continue methylprednisolone 5 mg IV daily as replacement therapy for chronic prednisone as she is allergic to the prednisone we have on formulary, no need for stress dosing at this time #Left sided weakness Referred to [facility] as outpatient. 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 twice daily GI ppx: not indicated at this time PT/OT, medically stable awaiting placement Admission and Anticipated Discharge Date Admission Date: October 17, 2025 Subjective Ms. Clay is a 55-year-old female whose active medical conditions include fibromuscular dysplasia of the bilateral carotid arteries, rheumatoid arthritis, osteoarthritic and inflammatory arthritis, hypothyroidism, chronic migraines requiring immunoglobulin therapy with recent acute massive pulmonary embolism complicated by acute cor pulmonale, stress-induced cardiomyopathy with Type II myocardial infarction requiring emergent transfer for thrombectomy who presented to the [facility] on 10/17 due to subacute shortness of breath. Overnight headache developed, typical of the patient's history of migraines; requested approval of home Ajovy to be ordered as this is due 10/26, ordered by overnight resident physician. No acute overnight events. Review of Systems Review of Systems: Review of constitutional, pulmonary, cardiovascular, musculoskeletal, neurologic systems was unremarkable except for pertinent positive and negative findings discussed above Physical Exam Physical Exam: General: Adult female in no acute distress Vital Signs: Reviewed; saturating well on room air however maintained on 2 L by nasal cannula for comfort and subjective dyspnea HEENT: Pupils equally round and reactive to light, extraocular motion intact; moist mucous membranes Pulmonary: Symmetrically reduced chest wall excursion secondary to body habitus; diminished air movement in the posterior basilar segments bilaterally with the remaining lung mcghee clear to auscultation Cardiovascular: Regular rate and regular rhythm without murmurs, rubs, or gallops; S1 and S2 normal; right radial pulse 2+; 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 with bilateral upper extremity nonpitting edema with lipedema distal of the mid arm and with abrupt resolution at the wrist bilaterally Gastrointestinal: Soft, protuberant Neurologic: Cranial nerves II through XII grossly intact; no discernible focal weakness nor paresthesia Skin: 6 cm diameter ecchymosis in the left antecubital fossa from previous access for thrombectomy performed in 09/2025; right volar distal antebrachium with sutures in place from vascular repair performed at [facility] [place] 10/12 Results & Data Results & Data Vital Signs (Past 12 Hours) Vital Signs Temp Pulse Resp BP Pulse Ox O2 Del Method O2 Flow Rate 10/26/25 07:14 85 16 95 Nasal Cannula 1 10/25/25 22:22 36.7 C 80 18 154/91 H 94 Nasal Cannula 1 10/25/25 20:55 Nasal Cannula 1 10/25/25 20:51 85 155/92 H 92 Nasal Cannula 1 PG Care Time/CCT Total # of Minutes Spent Total Time Spent with Patient: Total time spent is greater than 50% in coordination of care (as documented) at patient's floor/unit and/or counseling patient: Coding Level of Care Code 77439 SUB INP/OBS CARE 12/03MIN Diagnoses Community acquired pneumonia of left lower lobe of lung J18.9 Laterality: left Lung location: lower lobe of lung Strain of extensor structure of right middle finger at hand level S66.312A Left arm weakness R29.898 Pseudoaneurysm following procedure T81.718A; I72.9 Sarcopenia M62.84 (1) Community acquired pneumonia Laterality: left Lung location: lower lobe of lung Qualified Code(s): J18.9 - Pneumonia, unspecified organism
[2025-10-26] MEDS: POLYETHYLENE (MIRALAX) 17 GM PACK PO SCH (08:42)
[2025-10-26] MEDS: SENNA 8.6 MG TAB PO ONE (08:42)
--- NOTE | 2025-10-27 07:33 | Hospitalist Progress Note ---
Date of Service October 27, 2025 Assessment & Plan (1) Community acquired pneumonia: (2) Strain of extensor structure of right middle finger at hand level: (3) Left arm weakness: (4) Pseudoaneurysm following procedure: (5) Sarcopenia: Plan In summary this is a 55-year-old female who presents with community-acquired pneumonia in the setting of recent hospitalization and emergent transfer for massive bilateral pulmonary emboli requiring thrombectomy #Community acquired pneumonia Patient presented with nonproductive cough, progressive dyspnea now with dyspnea in conversation, tachypnea; PSI 67, class III severity; improved with adequate antibiotic therapy with residual need for supplemental oxygenation Incentive spirometry and flutter valve every hour while awake COVID/RSV/influenza negative Finished ceftriaxone + azithromycin course #Chronic anticoagulation for subacute pulmonary embolism Recent massive pulmonary embolism requiring thrombectomy, remains on anticoagulation for continued care Continue Eliquis 5 mg p.o. twice daily #Right radial arterial pseudoaneurysm following VTE thrombectomy 5x sutures removed without difficulty or complication #Upper extremity edema Doppler assessment without significant findings; suspect this is multifactorial including deconditioning, sarcopenia from multiple hospitalizations, lipedema #Rheumatoid arthritis Continue methylprednisolone 5 mg IV daily as replacement therapy for chronic prednisone as she is allergic to the prednisone we have on formulary, no need for stress dosing at this time #Left sided weakness Referred to [facility] as outpatient. 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 twice daily GI ppx: not indicated at this time PT/OT, medically stable awaiting placement Admission and Anticipated Discharge Date Admission Date: October 17, 2025 Subjective Ms. Clay is a 55-year-old female whose active medical conditions include fibromuscular dysplasia of the bilateral carotid arteries, rheumatoid arthritis, osteoarthritic and inflammatory arthritis, hypothyroidism, chronic migraines requiring immunoglobulin therapy with recent acute massive pulmonary embolism complicated by acute cor pulmonale, stress-induced cardiomyopathy with Type II myocardial infarction requiring emergent transfer for thrombectomy who presented to the [facility] on 10/17 due to subacute shortness of breath. No acute overnight events; complains of increased right hand ache today, consistent with prior flares of muscular strain sustained [facility] Review of Systems Review of Systems: Review of constitutional, pulmonary, cardiovascular, musculoskeletal, neurologic systems was unremarkable except for pertinent positive and negative findings discussed above Physical Exam Physical Exam: General: Adult female in no acute distress Vital Signs: Reviewed; saturating well on room air however maintained on 2 L by nasal cannula for comfort and subjective dyspnea HEENT: Pupils equally round and reactive to light, extraocular motion intact; moist mucous membranes Pulmonary: Symmetrically reduced chest wall excursion secondary to body habitus; diminished air movement in the posterior basilar segments bilaterally with the remaining lung mcghee clear to auscultation Cardiovascular: Regular rate and regular rhythm without murmurs, rubs, or gallops; S1 and S2 normal; right radial pulse 2+; 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 with bilateral upper extremity nonpitting edema with lipedema distal of the mid arm and with abrupt resolution at the wrist bilaterally Gastrointestinal: Soft, protuberant Neurologic: Cranial nerves II through XII grossly intact; no discernible focal weakness nor paresthesia Skin: 6 cm diameter ecchymosis in the left antecubital fossa from previous access for thrombectomy performed in 09/2025 Results & Data Results & Data Vital Signs (Past 12 Hours) Vital Signs Temp Pulse Resp BP Pulse Ox O2 Del Method O2 Flow Rate 10/27/25 07:14 36.7 C 82 16 155/84 H 93 Nasal Cannula 1 10/26/25 23:06 36.6 C 63 16 147/85 H 96 Room Air 10/26/25 21:45 Nasal Cannula 1 PG Care Time/CCT Total # of Minutes Spent Total Time Spent with Patient: Total time spent is greater than 50% in coordination of care (as documented) at patient's floor/unit and/or counseling patient: Coding Level of Care Code 10501 SUB INP/OBS CARE 2/35MIN Diagnoses Community acquired pneumonia of left lower lobe of lung J18.9 Laterality: left Lung location: lower lobe of lung Strain of extensor structure of right middle finger at hand level S66.312A Left arm weakness R29.898 Pseudoaneurysm following procedure T81.718A; I72.9 Sarcopenia M62.84 (1) Community acquired pneumonia Laterality: left Lung location: lower lobe of lung Qualified Code(s): J18.9 - Pneumonia, unspecified organism
[2025-10-27] MEDS: SODIUM CHLOR 7% 4 ML NEB NEB SCH ×2 (09:20→19:56)
[2025-10-27] MEDS: SENNA 8.6 MG TAB PO SCH (09:36)
--- NOTE | 2025-10-28 08:32 | Hospitalist Progress Note ---
Date of Service October 28, 2025 Assessment & Plan (1) Community acquired pneumonia: (2) Strain of extensor structure of right middle finger at hand level: (3) Left arm weakness: (4) Pseudoaneurysm following procedure: (5) Sarcopenia: Plan In summary this is a 55-year-old female who presents with community-acquired pneumonia in the setting of recent hospitalization and emergent transfer for massive bilateral pulmonary emboli requiring thrombectomy #Community acquired pneumonia Patient presented with nonproductive cough, progressive dyspnea now with dyspnea in conversation, tachypnea; PSI 67, class III severity; improved with adequate antibiotic therapy with residual need for supplemental oxygenation Incentive spirometry and flutter valve every hour while awake COVID/RSV/influenza negative Finished ceftriaxone + azithromycin course #Chronic anticoagulation for subacute pulmonary embolism Recent massive pulmonary embolism requiring thrombectomy, remains on anticoagulation for continued care Continue Eliquis 5 mg p.o. twice daily #Right radial arterial pseudoaneurysm following VTE thrombectomy 5x sutures removed without difficulty or complication #Upper extremity edema Doppler assessment without significant findings; suspect this is multifactorial including deconditioning, sarcopenia from multiple hospitalizations, lipedema #Rheumatoid arthritis Continue methylprednisolone 5 mg IV daily as replacement therapy for chronic prednisone as she is allergic to the prednisone we have on formulary, no need for stress dosing at this time #Left sided weakness Referred to [facility] as outpatient. 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 twice daily GI ppx: not indicated at this time Anticipate discharge to [facility] when bed is available, the patient is medically stable for discharge Admission and Anticipated Discharge Date Admission Date: October 17, 2025 Subjective Ms. Clay is a 55-year-old female whose active medical conditions include fibromuscular dysplasia of the bilateral carotid arteries, rheumatoid arthritis, osteoarthritic and inflammatory arthritis, hypothyroidism, chronic migraines requiring immunoglobulin therapy with recent acute massive pulmonary embolism complicated by acute cor pulmonale, stress-induced cardiomyopathy with Type II myocardial infarction requiring emergent transfer for thrombectomy who presented to the [facility] on 10/17 due to subacute shortness of breath. No acute overnight events; notes some persistent discomfort involving her right hand similar to what was present since injury at her prior SNF Review of Systems Review of Systems: Review of constitutional, pulmonary, cardiovascular, musculoskeletal, neurologic systems was unremarkable except for pertinent positive and negative findings discussed above Physical Exam Physical Exam: General: Adult female in no acute distress Vital Signs: Reviewed; saturating well on room air however maintained on 2 L by nasal cannula for comfort and subjective dyspnea HEENT: Pupils equally round and reactive to light, extraocular motion intact; moist mucous membranes Pulmonary: Symmetrically reduced chest wall excursion secondary to body habitus; diminished air movement in the posterior basilar segments bilaterally with the remaining lung mcghee clear to auscultation Cardiovascular: Regular rate and regular rhythm without murmurs, rubs, or gallops; S1 and S2 normal; right radial pulse 2+; 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 with bilateral upper extremity nonpitting edema with lipedema distal of the mid arm and with abrupt resolution at the wrist bilaterally Gastrointestinal: Soft, protuberant Neurologic: Cranial nerves II through XII grossly intact; no discernible focal weakness nor paresthesia Musculoskeletal: right 3rd phalange of the upper extremity without significant tenderness to palpation; reproducible pain along the extensor tendon with passive flexion as well as extension, though range of motion not significantly reduced with passive motion Results & Data Results & Data Vital Signs (Past 12 Hours) Vital Signs Temp Pulse Resp BP Pulse Ox O2 Del Method O2 Flow Rate 10/28/25 07:37 36.6 C 78 14 129/83 95 Room Air 10/27/25 23:22 36.8 C 78 19 165/95 H 95 Nasal Cannula 1 10/27/25 20:56 Nasal Cannula 1 PG Care Time/CCT Total # of Minutes Spent Total Time Spent with Patient: Total time spent is greater than 50% in coordination of care (as documented) at patient's floor/unit and/or counseling patient: Coding Level of Care Code 18856 SUB INP/OBS CARE 12/03MIN Diagnoses Community acquired pneumonia of left lower lobe of lung J18.9 Laterality: left Lung location: lower lobe of lung Strain of extensor structure of right middle finger at hand level S66.312A Left arm weakness R29.898 Pseudoaneurysm following procedure T81.718A; I72.9 Sarcopenia M62.84 (1) Community acquired pneumonia Laterality: left Lung location: lower lobe of lung Qualified Code(s): J18.9 - Pneumonia, unspecified organism
[2025-10-28] MEDS: SODIUM CHLOR 7% 4 ML NEB NEB SCH (19:29)
--- NOTE | 2025-10-29 13:47 | Hospitalist Progress Note ---
Date of Service October 29, 2025 Assessment & Plan (1) Community acquired pneumonia: (2) Strain of extensor structure of right middle finger at hand level: (3) Left arm weakness: (4) Pseudoaneurysm following procedure: (5) Sarcopenia: Plan In summary this is a 55-year-old female who presents with community-acquired pneumonia in the setting of recent hospitalization and emergent transfer for massive bilateral pulmonary emboli requiring thrombectomy #Community acquired pneumonia Patient presented with nonproductive cough, progressive dyspnea now with dyspnea in conversation, tachypnea; PSI 67, class III severity; improved with adequate antibiotic therapy with residual need for supplemental oxygenation Incentive spirometry and flutter valve every hour while awake COVID/RSV/influenza negative Finished ceftriaxone + azithromycin course #Chronic anticoagulation for subacute pulmonary embolism Recent massive pulmonary embolism requiring thrombectomy, remains on anticoagulation for continued care Continue Eliquis 5 mg p.o. twice daily #Right radial arterial pseudoaneurysm following VTE thrombectomy 5x sutures removed without difficulty or complication #Upper extremity edema Doppler assessment without significant findings; suspect this is multifactorial including deconditioning, sarcopenia from multiple hospitalizations, lipedema #Rheumatoid arthritis Continue methylprednisolone 5 mg IV daily as replacement therapy for chronic prednisone as she is allergic to the prednisone we have on formulary, no need for stress dosing at this time #Left sided weakness Referred to [facility] as outpatient. 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 twice daily GI ppx: not indicated at this time Anticipate discharge to [facility] when bed is available, the patient is medically stable for discharge Admission and Anticipated Discharge Date Admission Date: October 17, 2025 Subjective Ms. Clay is a 55-year-old female whose active medical conditions include fibromuscular dysplasia of the bilateral carotid arteries, rheumatoid arthritis, osteoarthritic and inflammatory arthritis, hypothyroidism, chronic migraines requiring immunoglobulin therapy with recent acute massive pulmonary embolism complicated by acute cor pulmonale, stress-induced cardiomyopathy with Type II myocardial infarction requiring emergent transfer for thrombectomy who presented to the [facility] on 10/17 due to subacute shortness of breath. No acute overnight events; pending bed availability at [facility] Review of Systems Review of Systems: Review of constitutional, pulmonary, cardiovascular, musculoskeletal, neurologic systems was unremarkable except for pertinent positive and negative findings discussed above Physical Exam Physical Exam: General: Adult female in no acute distress Vital Signs: Reviewed; saturating well on room air however maintained on 2 L by nasal cannula for comfort and subjective dyspnea HEENT: Pupils equally round and reactive to light, extraocular motion intact; moist mucous membranes Pulmonary: Symmetrically reduced chest wall excursion secondary to body habitus; diminished air movement in the posterior basilar segments bilaterally with the remaining lung mcghee clear to auscultation Cardiovascular: Regular rate and regular rhythm without murmurs, rubs, or gallops; S1 and S2 normal; right radial pulse 2+; 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 with bilateral upper extremity nonpitting edema with lipedema distal of the mid arm and with abrupt resolution at the wrist bilaterally Gastrointestinal: Soft, protuberant Neurologic: Cranial nerves II through XII grossly intact; no discernible focal weakness nor paresthesia Musculoskeletal: right 3rd phalange of the upper extremity without significant tenderness to palpation; reproducible pain along the extensor tendon with passive flexion as well as extension, though range of motion not significantly reduced with passive motion Results & Data Results & Data Vital Signs (Past 12 Hours) Vital Signs Temp Pulse Resp BP Pulse Ox O2 Del Method O2 Flow Rate 10/29/25 12:21 91 Room Air 10/29/25 09:00 Room Air 10/29/25 08:36 83 128/81 10/29/25 07:40 36.6 C 87 18 181/97 H 95 Nasal Cannula 1 PG Care Time/CCT Total # of Minutes Spent Total Time Spent with Patient: Total time spent is greater than 50% in coordination of care (as documented) at patient's floor/unit and/or counseling patient: Coding Level of Care Code 90732 SUB INP/OBS CARE 12/03MIN Diagnoses Community acquired pneumonia of left lower lobe of lung J18.9 Laterality: left Lung location: lower lobe of lung Strain of extensor structure of right middle finger at hand level S66.312A Left arm weakness R29.898 Pseudoaneurysm following procedure T81.718A; I72.9 Sarcopenia M62.84 (1) Community acquired pneumonia Laterality: left Lung location: lower lobe of lung Qualified Code(s): J18.9 - Pneumonia, unspecified organism
[2025-10-30 08:24] VITALS: O2SAT 97
[2025-10-30 12:42] VITALS: PULSE 80; RESP 18; TEMP 98.2
--- NOTE | 2025-10-30 13:33 | Discharge Summary ---
Discharge Summary Date of Service October 30, 2025 Principal Dx & Hospital Course #1 = Principal Diagnosis (1) Community acquired pneumonia: (2) Strain of extensor structure of right middle finger at hand level: (3) Left arm weakness: (4) Pseudoaneurysm following procedure: (5) Sarcopenia: Plan In summary this is a 55-year-old female who presents with community-acquired pneumonia in the setting of recent hospitalization and emergent transfer for massive bilateral pulmonary emboli requiring thrombectomy #Community acquired pneumonia Patient presented with nonproductive cough, progressive dyspnea now with dyspnea in conversation, tachypnea; PSI 67, class III severity; improved with adequate antibiotic therapy with residual need for supplemental oxygenation Incentive spirometry and flutter valve every hour while awake COVID/RSV/influenza negative Finished ceftriaxone + azithromycin course #Chronic anticoagulation for subacute pulmonary embolism Recent massive pulmonary embolism requiring thrombectomy, remains on anticoagulation for continued care Continue Eliquis 5 mg p.o. 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 twice daily GI ppx: not indicated at this time Anticipate discharge to [facility] when bed is available, the patient is medically stable for discharge Admission HPI Per Admitting Provider Ms. 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 At the time my assessment patient is resting comfortably in bed. She describes being discharged from her sn[facility] facility on 10/16 and had been experiencing several days of progressively increased rapid fatigue, dyspnea on exertion. In the morning on 10/17 the patient began experiencing dyspnea with conversation which precipitated her presentation to the emergency department. She denies any productive cough, hemoptysis, chest pain, palpitations, pleuritic chest pain. She does endorse a sense of difficulty taking a full breath without any specific discomfort or pain. She has not been on any recent antibiotics. She denies any fevers or chills. Discharge Plan Discharge Items Patient Disposition: Transfer Halfway Fac Reason For Visit: COMMUNITY ACQUIRED PNEUMONIA WITH HYPOXIA Discharge Diagnosis: community acquired pneumonia Condition on Discharge: Fair Activity: Resume your previous activity Non-emergency contact: Primary Care Provider Call non-emergency contact if: you have any medication questions Follow-up/Referrals: Sharif Olivarez DO [Primary Care Provider] - Diet: Regular Addtl Attending Provider Instructions: You were treated for Community acquired pneumonia: Completed antibiotics Please continue to take your specific prednisone that you are not allergic to for your RA Pending Studies at Discharge: No Stand-Alone Forms: My [facility] Skilled Items Patient informed of condition?: Yes DNR: No Discharge Level of Care: Acute rehab Communicable Disease: No Discharge Prognosis: Stable Lines: None Urinary Catheter: No Medications and DC Order Prescriptions: Continued (DME) Auto Titrating CPAP Misc See Rx Instructions .MEDSUPPLY Qty: 1 0RF Rx Instructions: Auto PAP with 6-20cm H20. Lifetime usage. G47.33 (DME) CPAP Supplies Misc See Rx Instructions .MEDSUPPLY Qty: 1 0RF Rx Instructions: CPAP supplies. G47.33 diphenhydramine HCl [Allergy (diphenhydramine)] 25 mg capsule 25 mg PO Q6H PRN (Reason: allergy symptoms) Qty: 1 0RF Patient Comments: 07/07- otc unable to verify (DME) insulin syringe-needle U-100 [BD Insulin Syringe] 1 mL 27 gauge x 1/2" syringe See Rx Instructions .Route Qty: 100 0RF Rx Instructions: As directed weekly for methotrexate albuterol sulfate 2.5 mg/0.5 mL solution for nebulization 2.5 mg inhalation Q4H PRN (Reason: shortness of breath or wheezing) Qty: 30 0RF losartan 25 mg tablet 25 mg PO BID 90 Days Qty: 180 3RF (DME) 3mL Syringe 1.5in 25g needle See Rx Instructions .Route .MEDSUPPLY Qty: 10 1RF Rx Instructions: For use with Ketorolac injection as prescribed Orencia ClickJect 125 mg/mL auto-injector 125 mg subcut Q7D Qty: 4 5RF Rx Instructions: saturdays dextroamphetamine-amphetamine 15 mg tablet 15 mg PO TID PRN (Reason: add) Qty: 60 0RF Rx Instructions: Take 1 tablets TID PRN for ADD symptoms max 3 tablets daily (DME) Manual Wheelchair See Rx Instructions .Route .MEDSUPPLY Qty: 1 0RF Rx Instructions: Taryn Clay 1970 Date of Face to Face: 08/08/25 Dx: Osteoarthritis of R hip, Ambulatory Dysfunction. Standard lightweight wheelchair with leg rest and gel foam cushion Est need - 99 months Zepbound 12.5 mg/0.5 mL solution 12.5 mg subcut Q7D Qty: 2 3RF Rx Instructions: [phone] [email or web address] tramadol 5 mg/mL solution 100 mg PO TID PRN (Reason: pain) Qty: 473 0RF Rx Instructions: 6-8h azelastine 137 mcg (0.1 %) spray,non-aerosol 2 spray intranasal BID PRN (Reason: allergy symptoms) Qty: 30 2RF Patient Comments: Rx Instructions: administer into each nostril levothyroxine 25 mcg capsule 250 mcg PO DAILY Qty: 90 3RF Rx Instructions: Patient takes 250mcg capsule daily. Compounding pharmacy for corn free formulation. prednisone 5 mg tablet 5 mg PO DAILY Qty: 90 3RF Journavx 50 mg tablet 50 mg PO BID Qty: 180 3RF Nurtec ODT 75 mg tablet,disintegrating 75 mg PO .COMPLEX PRN (Reason: migraine headache) 90 Days Qty: 27 3RF Rx Instructions: 1 TAB NEEDED FOR MIGRAINE, MDD 75MG celecoxib 200 mg capsule See Rx Instructions .ROUTE .COMPLEX Qty: 180 3RF Dose Instruction: TAKE 1 CAPSULE BY MOUTH TWICE A DAY Rx Instructions: TAKE 1 CAPSULE BY MOUTH TWICE A DAY (DME) CPAP Supplies Misc See Rx Instructions .MEDSUPPLY Qty: 1 0RF Rx Instructions: Refitting of the mask. G47.33 (DME) digital therapeutic,CHARLIE device Misc See Rx Instructions miscellaneous .MEDSUPPLY Qty: 1 0RF Rx Instructions: As directed fluticasone furoate-vilanterol [Breo Ellipta] 100-25 mcg/dose blister with device 1 inh inhalation DAILY Qty: 3 4RF Rx Instructions: Breo brand only per insurance ProAir RespiClick 90 mcg/actuation aerosol powdr breath activated 2 inh inhalation QID PRN (Reason: shortness of breath or wheezing) Qty: 3 3RF levocetirizine [Xyzal] 5 mg tablet 5 mg PO DAILY PRN (Reason: allergies) aspirin 81 mg tablet 81 mg PO DAILY (DME) Manual Wheelchair Device See Rx Instructions .Route Qty: 1 0RF Rx Instructions: As directed epinephrine [EpiPen] 0.3 mg/0.3 mL auto-injector 0.3 mg IM Q10M PRN (Reason: anaphylaxis) Qty: 2 3RF Eliquis 5 mg tablet 5 mg PO BID gabapentin 300 mg capsule 300 mg PO TID Rx Instructions: TAKE 1 CAPSULE BY MOUTH THREE TIMES A DAY acetaminophen 500 mg capsule 1,000 mg PO Q4H PRN (Reason: fever) Ajovy Autoinjector 225 mg/1.5 mL auto-injector 225 mg subcut MONTHLY Rx Instructions: Please inject once every 30 days omalizumab 300 mg/2 mL syringe 300 mg subcut .D3RSIGN Rx Instructions: INJECT 300 mg subcutaneously EVERY 2 WEEKS APPROVED ZORA 03/14/25 - 03/14/26 Ref # [id number] rizatriptan 10 mg tablet 10 mg PO UD PRN (Reason: Headache) Rx Instructions: take 1 tab at onset of headache; if no relief may repeat 1 tab after at least 2 hrs; max = 3 tabs/24 hr PO cyanocobalamin (vitamin B-12) 1,000 mcg/mL solution 1,000 mcg IM MONTHLY Rx Instructions: INJECT 1000MCG INTRAMUSCULARLY MONTHLY ergocalciferol (vitamin D2) [Vitamin D2] 1,250 mcg (50,000 unit) capsule 50,000 unit PO .3X WK Rx Instructions: TAKE 1 CAPSULE BY MOUTH 3 TIMES WEEKLY duloxetine 60 mg capsule,delayed release(DR/EC) 120 mg PO DAILY furosemide 40 mg/4 mL solution 20 mg PO QAM PRN (Reason: edema) Qty: 120 0RF Discharge Orders: Discharge Order (Routine); Ordered 10/30/25 Ordered By: Tristian Mclain Admission Data Admit Date/Time: 10/17/25 09:18 Attending Provider: Tristian Mclain Admit Provider: Tom Matthews Primary Care Provider: Sharif Olivarez Other Providers: Fady Carmen; [facility]; [place]; [facility]; [facility]; [place]; [facility] Stay Data Consultations 10/17/25 08:22 ED Decision to Admit Stat 10/19/25 08:32 Consult Orthopedic Surgery Routine Diagnostic Imagining Performed 10/17/25 04:28 CT angio chest PE protocol Stat 10/20/25 12:00 US venous doppler LE LT Routine US venous doppler UE LT Routine 10/24/25 07:43 MRI Brain [MR brain wo/w con] Routine Pending Results Patient Have Any Pending Studies at Discharge: No Discharge Instructions Given to Patient (Per Discharging Provider) You were treated for Community acquired pneumonia: Completed antibiotics Please continue to take your specific prednisone that you are not allergic to for your RA Coding Diagnoses Community acquired pneumonia of left lower lobe of lung J18.9 Laterality: left Lung location: lower lobe of lung Strain of extensor structure of right middle finger at hand level S66.312A Left arm weakness R29.898 Pseudoaneurysm following procedure T81.718A; I72.9 Sarcopenia M62.84
[2025-10-30 14:59] VITALS: BP 116/73
== END 2025-10-30 15:39 | DRG 193 ==
LOC: SUATTDRO → ED 04:03 → EDINP 09:18 → SUATTDRO 09:18 → 3E 10:18